=== PATIENT | male | born 1945 | race Caucasian/White ===

== ENCOUNTER 2017-07-14 09:04 | Inpatient (IN) | payer MEDICARE ==
[2017-07-14 09:38] LABS: Actual Bicarbonate (HCO3a) 26.5 mEq/L (22-26); Base Excess (BEa) 0.4 mEq/L (0 (+/-) 2.5); CO2 Tension 47.6 mmHg (35.0-45.0); Calcium, Ionized 1.2 mmol/L (1.12-1.30); Hemoglobin (Hb) 16.1 g/dL (14.0-18.0); O2 Tension (PaO2) 74.8 mmHg (80.0-100.0); pH, Arterial 7.36 (7.35-7.45)
[2017-07-14 09:39] LABS: Analyzer IN Cardio ER; Puncture Site L.R.
[2017-07-14 09:42] LABS: #Lymphocytes 0.5 thou/uL (1.20-3.40); #Neutrophils 7.5 thou/uL (1.40-6.50); %Basophils 0.1 % (0.0-1.0); %Eosinophils 0.2 % (0.0-10.0); %Lymphocytes 5.8 % (21.0-51.0); %Monocytes 11.4 % (0.0-10.0); %Neutrophils 82.6 % (42.0-75.0); Hemoglobin 16.6 g/dL (14.0-18.0); Mean Corpuscular HGB CONC 31.8 g/dL (32.0-36.0); Mean Corpuscular Volume 97.5 fl (80.0-94.0); Mean Platelet Volume 6.9 fL (7.4-10.4); Platelet Count 205 thou/uL (130-400); RBC Distribution Width 14.8 % (11.5-14.5); Red Blood Cell (RBC) Count 5.36 mill/uL (4.70-6.10)
--- NOTE | 2017-07-14 09:45 | RAD ---
PORTABLE CHEST: HISTORY: Dyspnea. COMPARISON: No comparison. FINDINGS: The heart is enlarged. There is mild vascular engorgement. No focal infiltrate. Lung bases are poo rly evaluated on this exam de to portable projection and overlying soft tissue attenuation. If there is concern of pneumonia, recommend upright PA and lateral views of chest. IMPRESSION: Cardiomegaly and mild vascular engorgement. POS: [facility]
[2017-07-14 10:06] LABS: CKMB 4.2 ng/mL (0-6.6); Troponin I 0.051 ng/mL (< 0.028)
[2017-07-14 10:08] LABS: ALT (SGPT) 36 U/L (8-55); AST (SGOT) 49 U/L (5-34); Albumin 3.5 g/dL (3.4-4.8); Alkaline Phosphatase 57 U/L (40-150); Anion Gap 17 mmol/L (10-20); BUN (Urea Nitrogen) 27 mg/dL (8.4-25.7); Bilirubin, Total 1.5 mg/dL (0.2-1.2); CK (CPK) 330 U/L (30-200); Calc. Creatinine Clearance 0 mL/min (70-130); Carbon Dioxide 25 mmol/L (23-31); Chloride 99 mmol/L (98-107); Estimated GFR-MDRD Greater than 90; Globulin 3.3 g/dL (2.4-3.5); Glucose 127 mg/dL (80-115); Potassium 4.8 mmol/L (3.5-5.1); Protein, Total 6.8 g/dL (5.8-8.1); Sodium 136 mmol/L (136-145)
[2017-07-14] MEDS ORDERED: Furosemide 40 MG/4 ML VIAL ONE (10:14)
[2017-07-14 13:07] LABS: Troponin I 0.064 ng/mL (< 0.028)
[2017-07-14] MEDS ORDERED: Guaifenesin DM 100-10/5 ML UDCUP PO PRN (14:25)
[2017-07-14] MEDS ORDERED: Acetaminophen 325 MG TAB PO PRN (14:25)
--- NOTE | 2017-07-14 14:50 | HP ---
REASON FOR ADMISSION: Acute respiratory failure with hypoxia, likely viral syndrome, possible pneumo olegario. HISTORY OF PRESENTING ILLNESS: The patient gives history of getting progressively weak and congested from Friday. He states his had flu-like illness and thinks that he might have caught up with that. On Friday, patient fell in the house. He could not get up as he was feeling very weak. [facility] ended up calling 911 and EMT came and got him up to the couch. He took a tablet of [place] and fell off the couch again in an hour and refined syrup operator had to be called again. They have suggested him to go to health system emergency room, but patient thought he will wait it out. This morning as symptoms, especially the generalized weakness was getting worse, patient made it to the emergency room. He states he has elena re arthritis in both his hips and uses crutches to walk from last 2 years. He has not seen an orthop edic specialist. No current complaints of chest pain or palpitation. He has not been able to lay fl at. On arrival, patient was brought on BiPAP here. They have tried to wean him, but he is still on 100% nonrebreather at present. PAST MEDICAL AND SURGICAL HISTORY: History of coronary artery disease with 3 stents placed [address] Reese, dyslipidemia, hypertension, and severe osteoarthritis in both hips. CURRENT MEDICATIONS: Patient takes carvedilol 6.25 mg twice daily, Plavix 75 mg daily, Norvasc 5 mg daily, simvastatin 20 mg p.o. at bedtime, lisinopril 20 mg twice daily, Lasix 20 mg daily, [place] p.r. n. for pain, and aspirin 325 mg daily. ALLERGIES: No known drug allergies. PERSONAL HISTORY: Quit smoking 10 years ago, prior to which has smoked one pack a day for nearly 20 years. Does not abuse alcohol or drugs. Lives with his . FAMILY HISTORY: Mother of lymphoma and its complications at the age of 62 years. Father o f heart failure and its complications at the age of 82 years. REVIEW OF SYSTEMS: The following complete review of systems was negative, unless otherwise mentioned in the HPI or below: Constitutional: Weight loss or gain, ability to conduct usual activities. Skin: Rash, itching. Eyes: Double vision, pain. ENT/Mouth: Nose bleeding, neck stiffness, pain, tenderness. Cardiovascular: Palpitations, dyspnea on exertion, orthopnea. Respiratory: Shortness of breath, wheezing, cough, hemoptysis, fever or night sweats. Gastrointestinal: Poor appetite, abdominal pain, heartburn, nausea, vomiting, constipation, or diarr hea. Genitourinary: Urgency, frequency, dysuria, nocturia. Musculoskeletal: Pain, swelling. Neurologic/Psychiatric: Anxiety, depression. Allergy/Immunologic: Skin rash, bleeding tendency. PHYSICAL EXAMINATION: GENERAL: The patient is a 71-year-old male who is currently on a nonrebreather and has orthopnea. VITAL SIGNS: Blood pressure 134/56, pulse 78 per minute, respiratory rate 24 per minute, temperature 99.8 degrees Fahrenheit, saturating 98% on BiPAP on arrival, currently 95% on 100% nonrebreather. ORAL CAVITY: Mucous membranes are moist. No exudates or congestion. CARDIOVASCULAR SYSTEM: S1, S2 heard. Regular rhythm. RESPIRATORY SYSTEM: Air entry 1+ bilateral. Scattered wheezes plus bilaterally. ABDOMEN: Soft, bowel sounds heard. No tenderness, rigidity or guarding. EXTREMITIES: His lower extremities are disproportionate. Patient states his left lower extremity is always bigger than the right. He attributes this to severe osteoarthritis in his hips. No calf ten derness. VASCULAR SYSTEM: Peripheral pulses 1+ bilateral. No ischemic ulcerations or gangrene. CENTRAL NERVOUS SYSTEM: No gross focal deficits seen. The patient moves all 4 extremities, although he is extremely deconditioned and in fact cannot mobilize himself at present on the [facility]. PSYCHIATRIC SYSTEM: No hallucinations or delusions. LABORATORY DATA AND IMAGING DATA: White count of 9, hemoglobin and hematocrit 16 and 52, platelet co unt 205. MCV is 97 with 82% neutrophils. Blood gas done shows pH of 7.36, pCO2 47, pO2 74, bicarbon ate is 26. Electrolytes are stable. BUN 27, creatinine 0.6, glucose 127, total bilirubin 1.5, AST 4 9, and ALT 36. CK level is 330, CK-MB 4.2, troponin I 0.05. BNP is 136. Albumin is 3.5. Chest x-r ay done shows cardiomegaly with pulmonary vascular congestion. EKG done shows bifascicular block wit h normal sinus rhythm at 80 beats per minute. CLINICAL IMPRESSION AND PLAN: The patient will be admitted to [facility] for acute respiratory failure wit h hypoxia. Possible viral syndrome with his having similar symptoms, possible obstructive sleep apnea with hypoventilation syndrome. He will be empirically placed on Levaquin and we will also yumi ce him on Tamiflu until his viral PCR comes back. He will also be on Solu-Medrol 40 mg IV q.6 hourly along with DuoNebs q.6 hourly. We will obtain an echo with 2D Doppler for LV function and ultrasoun d venous Doppler to rule out DVT in his lower extremities. We will obtain a CT of his pelvis to see severity of his osteoarthritis as patient is using crutches and with his body weight of nearly 117 ki lograms, likely he has been falling for the same reason. We will confirm the same. The patient is c urrently on nonrebreather and we will place him back on BiPAP for now. We will consult Dr. Nallely lackey is environmental officer for Pulmonology. CODE STATUS: FULL.
[2017-07-14] MEDS ORDERED: Benzonatate 100 MG CAP PO SCH (15:00)
--- NOTE | 2017-07-14 15:16 | CT ---
CT PELVIS WITHOUT CONTRAST: Date: 07/14/17 HISTORY: Severe arthritis in the hips. Fall. COMPARISON: None. FINDINGS: There appears to be an abnormal soft tissue density in the inferior pole of the left kidney. There is some perinephric stranding. There is also abnormal edema retroperitoneal near the level of the aorti c bifurcation to the iliac arteries. Fat-containing left-sided indirect inguinal hernia. Prostate is enlarged. Bilateral pars interarticular defects are present at L5 with Grade I anterolisthesis approximately 7. 0 mm. Moderate degenerative listhesis between the spinous processes of L4 and L5. Old deformity of th e coccyx. There is severe degenerative change of both hip joints with some bridging heterotopic ossification an d bridging osteophytes, likely limiting range of motion. There is sclerosis of both SI joints indicat ing degenerative disease. There is also severe degenerative disease of the pubic symphysis. Mild atrophy of the right iliacus and iliopsoas, likely from tendon injury. IMPRESSION: 1. Abnormal soft tissue density inferior pole left kidney with perinephric stranding. There is also abnormal edema which is retroperitoneal near the aortic bifurcation to the iliac arteries. Dedicated abdomen and pelvis CT with renal protocol recommended. 2. Severe degenerative disease of both hips. Right worse than left, with bridging osteophyte formati on of the right hip likely limiting patient's mobility. There is also severe degenerative disease of the left hip, although with only small bridging osteophytes. 3. Severe degenerative disease pubic symphysis. 4. Bilateral pars interarticularis defects L5 with Grade I anterolisthesis of approximately 7.0 mm. 5. Fat-containing left-sided direct inguinal hernia. 6. Atrophy of the right iliacus and iliopsoas muscles likely due to tendinous injury. 7. Marked prostatomegaly. POS: [facility]
[2017-07-14 16:11] LABS: Troponin I 0.059 ng/mL (< 0.028)
[2017-07-14] MEDS ORDERED: predniSONE 20 MG TAB PO SCH (16:30)
[2017-07-14] MEDS ORDERED: FLU VACC TS2017-18 (>65YR) 0.5 ML SYRINGE IM ONE (18:00)
[2017-07-14] MEDS: Carvedilol 6.25 MG TAB PO SCH (18:29)
--- NOTE | 2017-07-14 18:29 | ULT ---
BILATERAL LOWER EXTREMITY VENOUS DUPLEX SONOGRAM: History: Bilateral leg pain and swelling. FINDINGS: Each common femoral vein and greater saphenous junction are evaluated along with each femoral, deep f emoral, popliteal, and posterior tibial vein. There is good color and spectral doppler flow, compress ion and augmentation. IMPRESSION: No sonographic of DVT within either lower extremity. POS: [facility]
[2017-07-14] MEDS: guaiFENesin ER 600 MG TAB PO SCH (20:12)
[2017-07-14] MEDS: Docusate 100 MG CAP PO SCH (20:12)
--- NOTE | 2017-07-14 20:23 | CON ---
DATE OF CONSULTATION: 07/14/2017 SERVICE: Pulmonary Medicine. REASON FOR CONSULTATION: CU patient. HISTORY OF PRESENT ILLNESS: The patient is a 71-year-old white male with past medical history significant for increasing debility over a period of several years secondary to osteoarthritis. He has severe weakness. He is on multiple medications including narcotics. In this setting, he suffered a mechanical fall yesterday. EMS Services were contacted and brought to his house. They helped him and watched him for a brief period of time. They assessed him and ultimately, he was left at home. The next day, he took Yoder and inadvertently fell off his couch. He was incapable of getting back up. EMS Services once again came to his house and assessed him. He came to the hospital because of the severe weakness. He also had a little bit of a viral prodrome. He was found to be a touch hypoxemic on presentation. He was put on BiPAP briefly, but I really do not have any labs that supported the need for this. He is quickly deescalated back down to a nonrebreather, Ventimask, and then 3 liters nasal cannula, where he is breathing comfortably. He currently denies any fevers, chills, nausea, vomiting or shortness of breath. He has no chest discomfort. He is having a slight increasing cough for the past 2-3 days, productive of white slimy mucus. He is not having any fevers or sputum of color. He denies any nausea, vomiting, diarrhea, hot, red, swollen joints or new rashes. PAST MEDICAL HISTORY: 1. Coronary artery disease. 2. Dyslipidemia. 3. Hypertension. 4. Osteoarthritis, severe. ALLERGIES: No known drug allergies. MEDICATIONS: List of his inpatient medications were reviewed. No specific updates were made at this time. FAMILY HISTORY: Noncontributory. SOCIAL HISTORY: He has a greater than [id number] history of smoking. He quit 10 years ago. He denies any alcohol or illicit drugs. He currently lives with his and has no exposure to chemicals, dust, asbestosis or tuberculosis. He does not have any known lung disease. REVIEW OF SYSTEMS: General, head, ears, eyes, nose, throat, cardiovascular, respiratory, GI, , musculoskeletal, neurologic and skin is negative except as mentioned in the HPI. PHYSICAL EXAMINATION: VITAL SIGNS: Afebrile, pulse 51, respirations 14, saturation 95% on 3 liters nasal cannula, blood pressure 148/76. GENERAL: The patient is awake and alert. He has minimal respiratory distress, but tells me that he is breathing comfortably. HEENT: Normocephalic, atraumatic. Sclerae are white, conjunctivae pink. Oral and nasal mucosa is moist without lesions. LUNGS: Decent air entry bilaterally with no prolonged expiratory phase or wheezing. Dependent crackles are present in the bibasilar regions. HEART: Bradycardic. Regular. ABDOMEN: Soft, nontender, nondistended. Bowel sounds are positive. MUSCULOSKELETAL: No cyanosis or clubbing. There is 1-2+ pitting in the right lower extremity and no pitting in the left lower extremity. Chronic stasis changes are present. There is asymmetry to the size of the calf with the right calf being much larger. LABORATORY DATA: A pH 7.36, pCO2 of 47.6, pO2 of 75 on BiPAP at 12/7 at that time with an FiO2 of 50%. WBC 9.0, hemoglobin 16.6, platelets 205,000. Neutrophil count is 83%. Basic metabolic profile is unremarkable. Total bilirubin 1.5. Liver function studies are otherwise unremarkable. BNP 136, troponin 0.064. IMAGIN. CT of the pelvis demonstrates a renal lesion in the pole of the left kidney with perinephric stranding. There is also a retroperitoneal edema. Degenerative changes of both hips are present. Prostatomegaly is present. 2. Chest x-ray demonstrates pulmonary vascular congestion. There is cardiomegaly. Otherwise, there is no acute pleural parenchymal lung disease present. ASSESSMENT: 1. Acute hypoxic respiratory failure, resolving. 2. Acute on chronic heart failure, suspected. 3. Debility, chronic. 4. Osteoarthritis, severe. PLAN: Agree with ultrasound of the heart and leg. He is currently stable for transition out of the [facility] to the medical unit. I will deescalate his methylprednisolone to once daily dosing. I will consult physical therapy and case management because placement may be an issue moving forward. He would likely benefit from a stay in a rehab center, or fdc facility to pursue aggressive physical therapy. Cough suppressants will be interrupted. Otherwise, supportive management will be continued Pulmonary Critical Care will continue to follow while the patient remains in this location, but hopefully, he will be able to transition to the floor in short order. 70 minutes have been devoted to this patient in various activities. I personally reviewed all imaging studies and laboratory data noted within this document. For greater than fifty percent of this time, I was interacting with the patient at the bedside or coordinating care with the care team. For the remainder of the time I was immediately available to the patient in the hospital unit. PARKER
[2017-07-14] MEDS ORDERED: Oseltamivir 75 MG CAP PO SCH (21:00)
[2017-07-14] MEDS ORDERED: Famotidine 20 MG TAB PO SCH (21:00)
[2017-07-15 04:24] LABS: Band 17 % (5-11); Hemoglobin 14.9 g/dL (14.0-18.0); Lymphocytes 2 % (21-51); MDiff Complete? YES; Mean Corpuscular HGB CONC 31.9 g/dL (32.0-36.0); Mean Corpuscular Hemoglobin 31.1 pg (27.0-31.0); Mean Corpuscular Volume 97.4 fl (80.0-94.0); Mean Platelet Volume 6.7 fL (7.4-10.4); Monocytes 7 % (0-10); Neutrophil 74 % (42-75); PLT Morphology Comment Appears Adequate; Platelet Count 192 thou/uL (130-400); RBC Distribution Width 14.8 % (11.5-14.5); Red Blood Cell (RBC) Count 4.81 mill/uL (4.70-6.10); White Blood Cell (WBC) Count 9.4 thou/uL (4.8-10.8)
[2017-07-15 04:26] LABS: Anion Gap 12 mmol/L (10-20); BUN (Urea Nitrogen) 28 mg/dL (8.4-25.7); Calc. Creatinine Clearance 171 mL/min (70-130); Calcium 8.8 mg/dL (7.8-10.44); Carbon Dioxide 30 mmol/L (23-31); Chloride 97 mmol/L (98-107); Estimated GFR-MDRD Greater than 90; Glucose 135 mg/dL (80-115); Sodium 135 mmol/L (136-145)
[2017-07-15] MEDS: guaiFENesin ER 600 MG TAB PO SCH ×2 (09:19→20:38)
[2017-07-15] MEDS: Enoxaparin Sodium 40 MG/0.4 ML SYRINGE SC SCH (09:19)
[2017-07-15] MEDS: Aspirin 81 mg Enteric Coated Tablet PO SCH (09:20)
[2017-07-15] MEDS: Docusate 100 MG CAP PO SCH ×2 (09:20→20:38)
[2017-07-15] MEDS: predniSONE 20 MG TAB PO SCH (09:20)
[2017-07-15] MEDS: Furosemide 40 MG TAB PO SCH (09:20)
[2017-07-15] MEDS: Carvedilol 6.25 MG TAB PO SCH ×2 (09:24→17:57)
--- NOTE | 2017-07-15 11:56 | PQF ---
CLINICAL DOCUMENTATION IMPROVEMENT CLARIFICATION FORM: ICD-10 Updated PLEASE DO AN ADDENDUM TO THE PROGRESS NOTE WITH ANY DOCUMENTATION UPDATES OR ADDITIONS AND CARRY THROUGH TO DC SUMMARY. THANK YOU. DATE: 07/15 ATTN: DR. Leon GONZALEZ Please exercise your independent, professional judgment in responding to the clarification form. Clinical indicators are provided on the bottom of this form for your review. Please check appropriate box(s): BMI > 40 with associated diagnosis of: (check one) [ x ] Morbid (Severe) Obesity [ ] Overweight [ ] Obesity [ ] Other diagnosis [ ] Unable to determine For continuity of documentation, please document condition throughout progress notes and discharge summary. Thank You. BMI < 19 Under weight 19 - 24.9 Healthy 25.0 - 29.9 Slightly Overweight 30.0 - 34.9 Obese 35.0 - 39.9 Severely Obese 40.0 and Over Morbidly Obese CLINICAL INDICATORS - SIGNS / SYMPTOMS / LABS BMI: 40.9 RISKS: SEVERE DECONDITIONING WITH SEVERE OA B HIPS RECURRENT FALLS POSSIBLE OHS TREATMENTS: DIET ADDITIONAL STAFF FOR TURNING & ADL ASSISTANCE THANK YOU! Esme (This form is maintained as a part of the permanent medical record) 2014 [employer]. All Rights Reserved Esme Zhang RN, [email or web address] Office: [phone] [facility] HOSPITALJosh
[2017-07-15] MEDS ORDERED: ISOVUE-370 76%-LOCM 1 ML ONE (12:49)
--- NOTE | 2017-07-15 13:26 | PDOC.PN ---
- Subjective Encounter Start Date: 07/15/17 Encounter Start Time: 11:40 Subjective: still sob, is not able to bring up sputum -: at bedside -: is moving all extremities - Objective Resuscitation Status: Resuscitation Status FULL:Full Resuscitation MAR Reviewed: Yes Vital Signs & Weight: Vital Signs (12 hours) Temp Pulse Pulse Pulse Resp BP BP 07/15/17 09:24 161/85 H 07/15/17 08:47 81 74 186/79 H 07/15/17 08:00 98.9 F 78 20 07/15/17 06:26 55 L 18 07/15/17 04:00 99.1 F 57 L 20 BP BP Pulse Ox Pulse Ox Pulse Ox 07/15/17 09:24 07/15/17 08:47 193/94 H 90 L 91 L 07/15/17 08:00 180/74 H 91 L 07/15/17 06:26 07/15/17 04:00 159/79 H 92 L Weight Admit Weight 260 lb Weight 261 lb 1.6 oz I&O: 07/14/17 07/15/17 07/16/17 06:59 06:59 06:59 Intake Total 420 Output Total 380 Balance 40 Result Diagrams: 07/15/17 03:32 07/15/17 03:32 Phys Exam - Physical Examination HEENT: PERRLA, sclera anicteric Neck: no JVD, supple Respiratory: no wheezing rhonchi++ Cardiovascular: RRR, no significant murmur Gastrointestinal: soft, non-tender, positive bowel sounds Musculoskeletal: no edema, pulses present Neurological: non-focal, moves all 4 limbs Dx/Plan (1) Acute respiratory failure with hypoxia Code(s): J96.01 - ACUTE RESPIRATORY FAILURE WITH HYPOXIA Status: Acute (2) COPD exacerbation Code(s): J44.1 - CHRONIC OBSTRUCTIVE PULMONARY DISEASE W (ACUTE) EXACERBATION Status: Acute (3) Morbid obesity Code(s): E66.01 - MORBID (SEVERE) OBESITY DUE TO EXCESS CALORIES Status: Acute (4) TAMARA (obstructive sleep apnea) Code(s): G47.33 - OBSTRUCTIVE SLEEP APNEA (ADULT) (PEDIATRIC) Status: Suspected (5) Obesity hypoventilation syndrome Code(s): E66.2 - MORBID (SEVERE) OBESITY WITH ALVEOLAR HYPOVENTILATION Status : Suspected (6) Osteoarthritis Code(s): M19.90 - UNSPECIFIED OSTEOARTHRITIS, UNSPECIFIED SITE Status: Chronic Qualifiers: Osteoarthritis location: hip Osteoarthritis type: primary Laterality: bilateral Qualified Code(s): M16.0 - Bilateral primary osteoarthritis of hip (7) HTN (hypertension) Code(s): I10 - ESSENTIAL (PRIMARY) HYPERTENSION Status: Chronic Qualifiers: Hypertension type: essential hypertension Qualified Code(s): I10 - Essential (primary) hypertension - Plan is on levaquin, steroids, nebs -: will get neuro w/u if he remains deconditioned/aspiration symptoms -: has severe OA of hips, atrophy of ileopsoas and iliacus as well on CT -: will likely need rehab eval if he recovers -: May tx if he is good enough to clear oral/resp secretions if not prefer him * . staying in [facility]. is on oral lasix, encourage po intake will f/u viral pcr is -ve for resp pathogens Review of Systems - Medications/Allergies Allergies/Adverse Reactions: Allergies Allergy/AdvReac Type Severity Reaction Status Date / Time No Known Drug Allergies Allergy Verified 07/14/17 14:53 Medications: Current Medications Acetaminophen (Tylenol) 650 mg PO Q4H PRN PRN Reason: Headache/Fever or Pain Albuterol/Ipratropium (Duoneb) 3 ml NEB [id number] [facility] Last Admin: 07/15/17 06:26 Dose: 3 ml Aspirin (Ecotrin) 81 mg PO DAILY [facility] Last Admin: 07/15/17 09:20 Dose: 81 mg Carvedilol (Coreg) 6.25 mg PO BID-WM [facility] Last Admin: 07/15/17 09:24 Dose: 6.25 mg Docusate Sodium (Colace) 100 mg PO BID [facility] Last Admin: 07/15/17 09:20 Dose: 100 mg Enoxaparin Sodium (Lovenox) 40 mg SC 0900 [facility] Last Admin: 07/15/17 09:19 Dose: 40 mg Furosemide (Lasix) 40 mg PO DAILY-AC [facility] Last Admin: 07/15/17 09:20 Dose: 40 mg Guaifenesin (Mucinex) 1,200 mg PO Q12HR [facility] Last Admin: 07/15/17 09:19 Dose: 1,200 mg Levofloxacin 500 mg/ Device 100 mls @ 100 mls/hr IVPB 1500 [facility] Last Admin: 07/14/17 18:28 Dose: Not Given Prednisone (Prednisone) 40 mg PO QAM-WM [facility] Stop: 07/18/17 08:01 Last Admin: 07/15/17 09:20 Dose: 40 mg
[2017-07-15 14:51] LABS: Actual Bicarbonate (HCO3a) 30.1 mEq/L (22-26); Base Excess (BEa) 3.8 mEq/L (0 (+/-) 2.5); CO2 Tension 51.1 mmHg (35.0-45.0); Hematocrit-ABG 52.9 % (42.0-52.0); Hemoglobin (Hb) 15.9 g/dL (14.0-18.0); O2 Tension (PaO2) 56.8 mmHg (80.0-100.0); pH, Arterial 7.39 (7.35-7.45)
[2017-07-15 14:52] LABS: Calcium, Ionized 1.2 mmol/L (1.12-1.30)
[2017-07-15 14:53] LABS: ALV-art Gradient 162.525 (0-20); Puncture Site RRA
[2017-07-15] MEDS ORDERED: Diltiazem 125 MG in Sodium Chloride 0.9% 100 ML IVPB PRN (17:53)
[2017-07-15] MEDS ORDERED: Digoxin 0.5 MG/2 ML AMP SLOW IVP SCH (18:00)
[2017-07-15] MEDS ORDERED: Amiodarone HCl 450 MG, Admixture Fee 1 EACH in Dextrose 5% in Water 250 ML IVPB SCH ×6 (18:45→19:30)
[2017-07-15] MEDS ORDERED: Amiodarone HCl 150 MG, Admixture Fee 1 EACH in Dextrose 5% in Water 100 ML IVPB SCH ×6 (19:00→19:30)
--- NOTE | 2017-07-15 19:02 | CT ---
CT ARTERIOGRAM CHEST WITH IV CONTRAST AND 3D MIP IMAGIN07/15/17 HISTORY: Dyspnea. Tachycardia. FINDINGS: There is good contrast opacification of pulmonary arteries and thoracic aorta with normal branching o f the great vessels and mild calcification. Patchy infiltrate is present at each posterior lung base and the medial aspect of the right lung apex. No pneumothorax or mediastinal adenopathy. On the infer ior most images, hyperdense material layers within the dependent portion of the gallbladder lumen. IMPRESSION: 1. No CT evidence of pulmonary embolus. 2. Patchy areas of mild infiltrate throughout each lung may represent atelectasis. 3. Atherosclerosis. 4. Bilateral sludge chronic gallbladder dyskinesis. POS: [facility]
[2017-07-15 19:42] LABS: ALT (SGPT) 38 U/L (8-55); AST (SGOT) 26 U/L (5-34); Albumin 3.2 g/dL (3.4-4.8); Alkaline Phosphatase 68 U/L (40-150); Bilirubin, Direct 1.1 mg/dL (0.1-0.3); Bilirubin, Total 1.6 mg/dL (0.2-1.2); Protein, Total 6.1 g/dL (5.8-8.1)
--- NOTE | 2017-07-15 20:35 | PRG ---
DATE OF SERVICE: 07/15/2017 SERVICE: Pulmonary Medicine. INTERVAL HISTORY: The patient was doing really quite well until this afternoon when he developed a t achyarrhythmia. At that point, he had increasing oxygen requirements and was diaphoretic once again. He did not have any chest discomfort, but he had increasing mentation issues. His blood pressure r emained stable otherwise. We will repeat an ABG, which was essentially unremarkable. He ended up go ing down for an urgent CT of the chest to make sure no pulmonary embolus existed. Otherwise, there w as no interval change to his condition. He is back on BiPAP at this time. After the tachyarrhythmia became a little bit more typical, we repeated an EKG demonstrating characteristic changes consistent with atrial flutter. PHYSICAL EXAMINATION: VITAL SIGNS: Afebrile, pulse 135, blood pressure 136/95, respirations 35, saturation 97% on BiPAP cu rrently. GENERAL: The patient is somnolent, but wakes up and follows some simple commands with very little st imulation. HEENT: Normocephalic, atraumatic. Sclerae are white, conjunctivae pink. Oral and nasal mucosa is m oist without lesions. LUNGS: Decent air entry. There is a prolonged expiratory phase with a little bit of wheezing and cr ackles both present. No rhonchi. HEART: Tachycardic. Regular. ABDOMEN: Soft, nontender, nondistended. Bowel sounds are positive. MUSCULOSKELETAL: No cyanosis or clubbing. There is trace to 1+ pitting in the bilateral lower extre mities. GENITOURINARY: No Pena. NEUROLOGIC: Grossly nonfocal. LABORATORY DATA: WBC 9.4, hemoglobin 14.9, platelets 192,000. Band count is up trending to 17%. PH 7.39, pCO2 of 51.1, pO2 56 on 40% FiO2 at that time. Sodium 135, and stable. Basic metabolic profi le is otherwise unremarkable. Total bilirubin 1.6 and stable. Basic metabolic profile is otherwise unremarkable. TSH is barely below the normal range. Respiratory virus panel, blood cultures x2 are unremarkable. IMAGING: CTA of the chest demonstrates no evidence of pulmonary embolism. Patchy areas of mild infi ltrate throughout each lung, likely represents atelectasis. Gallbladder sludge is present with dyski nesis. ASSESSMENT: 1. Acute hypoxic respiratory failure. 2. Acute on chronic heart failure, suspected, echo pending. 3. Atrial flutter. 4. Osteoarthritis, severe. 5. Debility, chronic. PLAN: We will continue our antibiotics. Laboratories will be repeated tomorrow morning. He was yumi nicole on an amiodarone drip and a heparin drip for the time being. Supportive care with nebulized medi cations, steroids, and antibiotics will be continued. Pulmonary and Critical Care will continue to billy dozier for the time being.
[2017-07-16 05:12] LABS: Anion Gap 12 mmol/L (10-20); BUN (Urea Nitrogen) 30 mg/dL (8.4-25.7); Calc. Creatinine Clearance 162 mL/min (70-130); Carbon Dioxide 31 mmol/L (23-31); Chloride 97 mmol/L (98-107); Estimated GFR-MDRD Greater than 90; Glucose 132 mg/dL (80-115); Magnesium 2.1 mg/dL (1.6-2.6); Phosphorus 2.8 mg/dL (2.3-4.7); Potassium 4.3 mmol/L (3.5-5.1); Sodium 136 mmol/L (136-145)
[2017-07-16 05:27] LABS: Band 42 % (5-11); Hemoglobin 15.9 g/dL (14.0-18.0); Lymphocytes 8 % (21-51); MDiff Complete? YES; Macrocytosis SLIGHT = 6-15 cells (100X) (0-5/hpf); Mean Corpuscular HGB CONC 31.8 g/dL (32.0-36.0); Mean Corpuscular Hemoglobin 31.3 pg (27.0-31.0); Mean Corpuscular Volume 98.4 fl (80.0-94.0); Mean Platelet Volume 6.9 fL (7.4-10.4); Metamyelocyte 1 % (0-0); Monocytes 11 % (0-10); Neutrophil 38 % (42-75); PLT Morphology Comment Appears Adequate; Platelet Count 231 thou/uL (130-400); Polychromasia SLIGHT = 2-3 cells (100X) (0-2/hpf); RBC Distribution Width 15.1 % (11.5-14.5)
[2017-07-16] MEDS: Furosemide 40 MG TAB PO SCH (06:34)
[2017-07-16] MEDS: Aspirin 81 mg Enteric Coated Tablet PO SCH (09:39)
[2017-07-16] MEDS: Enoxaparin Sodium 40 MG/0.4 ML SYRINGE SC SCH (09:39)
[2017-07-16] MEDS: guaiFENesin ER 600 MG TAB PO SCH ×2 (09:40→20:50)
[2017-07-16] MEDS: Carvedilol 6.25 MG TAB PO SCH ×2 (09:40→16:16)
[2017-07-16] MEDS: Docusate 100 MG CAP PO SCH ×2 (09:40→20:50)
[2017-07-16] MEDS: predniSONE 20 MG TAB PO SCH (09:40)
[2017-07-16] MEDS ORDERED: Vancomycin HCl 1.5 GM in Sodium Chloride 0.9% 250 ML 300 ML IVPB SCH (12:30)
--- NOTE | 2017-07-16 12:41 | PRG ---
DATE OF SERVICE: 07/16/2017 SERVICE: Pulmonary Medicine. INTERVAL HISTORY: The patient is doing really well from a respiratory standpoint. He is breathing c omfortably. He was able to convert from his tachyarrhythmia yesterday to normal sinus rhythm. He clifton s demonstrated good hemodynamic stability. Otherwise, there has been no interval change to his condi tion. He had a CT scan yesterday demonstrating a small infiltrate in the right lower lobe that could be consistent with pneumonia. It started with some air bronchograms, making me think that a small p atch pneumonia does truly exists. PHYSICAL EXAMINATION: VITAL SIGNS: Afebrile with a T-max of 100.0, pulse 71, blood pressure 167/74, respirations 22 and sa turation 91% on 3 liters nasal cannula. GENERAL: The patient is awake and alert in no apparent distress. LUNGS: Decreased air entry with a prolonged expiratory phase and wheezing. HEART: Normal rate and regular. ABDOMEN: Soft, nontender and nondistended. Bowel sounds are positive. MUSCULOSKELETAL: No cyanosis or clubbing. There is no pitting in the bilateral lower extremities. NEUROLOGIC: Grossly nonfocal. LABORATORY DATA: WBC 10.0, hemoglobin 15.9 and platelets 231,000. Neutrophil count is 38 and his ba nd count is increasing to 42%. PH of 7.39, pCO2 of 51 and pO2 of 56. Basic metabolic profile is oth erwise unremarkable. Magnesium and phosphorus fall within the normal limits. Blood cultures x2 christos in negative. IMAGING DATA: CT of the chest demonstrates no evidence of a pulmonary embolism. 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 Atherosclerosis and sludge of the gallbladder is present. ASSESSMENT: 1. Acute hypoxic respiratory failure. 2. Acute on chronic diastolic heart failure. 3. Atrial flutter with rapid ventricular response, returned to sinus rhythm. 4. Osteoarthritis, severe. 5. Debility, chronic. 6. Weakness. DISCUSSION AND PLAN: Based on my neurologic exam, the patient really does not have significant weakn ess. He demonstrates pretty good strength in the bilateral lower and upper extremities. He has a ve ry good cough when he wants to. That being said, the band count continues to increase and he is havi ng some increasing abdominal discomfort. I am going to get a right upper quadrant ultrasound and his bilirubin was minimally elevated previously. We will let him use the BiPAP on an as needed basis. The patient will remain in the IMCU until we see that white blood cell count stabilizes. Pulmonary C ritical Care will continue to follow.
--- NOTE | 2017-07-16 12:55 | PDOC.PN ---
- Subjective Encounter Start Date: 07/16/17 Encounter Start Time: 11:25 Subjective: lethargic, responds well to verbal stimuli -: is moving all extremities -: at bedside - Objective Resuscitation Status: Resuscitation Status FULL:Full Resuscitation MAR Reviewed: Yes Vital Signs & Weight: Vital Signs (12 hours) Temp Pulse Resp BP BP Pulse Ox 07/16/17 12:21 97.6 F 68 20 134/85 92 L 07/16/17 10:54 99.5 F 71 22 H 91 L 07/16/17 09:40 167/74 H 07/16/17 04:59 71 07/16/17 04:00 99.6 F 70 27 H 160/89 H 95 07/16/17 02:23 96 07/16/17 01:04 58 L 26 H 96 Weight Admit Weight 260 lb Weight 257 lb 1 oz I&O: 07/15/17 07/16/17 07/17/17 06:59 06:59 06:59 Intake Total 420 590 Output Total 380 250 Balance 40 340 Result Diagrams: 07/16/17 03:46 07/16/17 03:46 Additional Labs: Accuchecks 07/15/17 14:39 POC Glucose 138 H Phys Exam - Physical Examination HEENT: PERRLA, sclera anicteric Neck: no JVD, supple Respiratory: no wheezing rhonchi++ Cardiovascular: RRR, no significant murmur Gastrointestinal: soft, non-tender, positive bowel sounds Musculoskeletal: no edema, pulses present Neurological: non-focal, moves all 4 limbs strength 5/5 in all 4 extremities, reflexes are present in all extremities lethargic but oriented well Dx/Plan (1) Acute respiratory failure with hypoxia Code(s): J96.01 - ACUTE RESPIRATORY FAILURE WITH HYPOXIA Status: Acute (2) COPD exacerbation Code(s): J44.1 - CHRONIC OBSTRUCTIVE PULMONARY DISEASE W (ACUTE) EXACERBATION Status: Acute (3) Morbid obesity Code(s): E66.01 - MORBID (SEVERE) OBESITY DUE TO EXCESS CALORIES Status: Acute (4) TAMARA (obstructive sleep apnea) Code(s): G47.33 - OBSTRUCTIVE SLEEP APNEA (ADULT) (PEDIATRIC) Status: Suspected (5) Obesity hypoventilation syndrome Code(s): E66.2 - MORBID (SEVERE) OBESITY WITH ALVEOLAR HYPOVENTILATION Status : Suspected (6) Osteoarthritis Code(s): M19.90 - UNSPECIFIED OSTEOARTHRITIS, UNSPECIFIED SITE Status: Chronic Qualifiers: Osteoarthritis location: hip Osteoarthritis type: primary Laterality: bilateral Qualified Code(s): M16.0 - Bilateral primary osteoarthritis of hip (7) HTN (hypertension) Code(s): I10 - ESSENTIAL (PRIMARY) HYPERTENSION Status: Chronic Qualifiers: Hypertension type: essential hypertension Qualified Code(s): I10 - Essential (primary) hypertension (8) Atrial flutter Code(s): I48.92 - UNSPECIFIED ATRIAL FLUTTER Status: Acute Qualifiers: Atrial flutter type: typical Qualified Code(s): I48.3 - Typical atrial flutter Comment: in sinus rhythm - Plan is on amiodarone, a.flutter converted to sinus -: on zosyn, asp, coreg, nebs, prednisone -: has 42% bands with normal wbc -: PT to work with him, oob to chair today and amb as tolerated -: bipap prn, will get ortho opinion for?intra-articular shot for amb purposes * . Review of Systems - Medications/Allergies Allergies/Adverse Reactions: Allergies Allergy/AdvReac Type Severity Reaction Status Date / Time No Known Drug Allergies Allergy Verified 07/14/17 14:53 Medications: Current Medications Acetaminophen (Tylenol) 650 mg PO Q4H PRN PRN Reason: Headache/Fever or Pain Albuterol/Ipratropium (Duoneb) 3 ml NEB [id number] [facility] Last Admin: 07/16/17 12:11 Dose: 3 ml Aspirin (Ecotrin) 81 mg PO DAILY [facility] Last Admin: 07/16/17 09:39 Dose: 81 mg Carvedilol (Coreg) 6.25 mg PO BID-WM [facility] Last Admin: 07/16/17 09:40 Dose: 6.25 mg Docusate Sodium (Colace) 100 mg PO BID [facility] Last Admin: 07/16/17 09:40 Dose: 100 mg Enoxaparin Sodium (Lovenox) 40 mg SC 0900 [facility] Last Admin: 07/16/17 09:39 Dose: 40 mg Furosemide (Lasix) 40 mg PO DAILY-AC [facility] Last Admin: 07/16/17 06:34 Dose: 40 mg Guaifenesin (Mucinex) 1,200 mg PO Q12HR [facility] Last Admin: 07/16/17 09:40 Dose: 1,200 mg Amiodarone HCl 450 mg/Miscellaneous Medication 1 each/ Dextrose/Water 259 mls @ 0 mls/hr IVPB INF [facility]ANT[facility]; As Directed PRN Reason: Protocol Last Admin: 07/15/17 19:50 Dose: 259 mls Amiodarone HCl 450 mg/Miscellaneous Medication 1 each/ Dextrose/Water 259 mls @ 0 mls/hr IVPB INF SANTY; As Directed PRN Reason: Protocol Last Admin: 07/16/17 06:34 Dose: 259 mls Piperacillin Sod/Tazobactam Sod 3.375 gm/ Miscellaneous Medication 1 each/ Sodium Chloride 100 mls @ 200 mls/hr IVPB Q6HR [facility] Vancomycin HCl 1.5 gm/Miscellaneous Medication 1 each/ Sodium Chloride 300 mls @ 200 mls/hr IVPB 0200,1400 [facility] Miscellaneous Medication (Pharmacy To Dose) 1 each IVPB ASDIR [facility] Prednisone (Prednisone) 40 mg PO QAM- [facility] Stop: 07/18/17 08:01 Last Admin: 07/16/17 09:40 Dose: 40 mg Sodium Chloride (Flush - Normal Saline) 10 ml IVF Q12HR [facility] Sodium Chloride (Flush - Normal Saline) 10 ml IVF PRN PRN PRN Reason: Saline Flush
--- NOTE | 2017-07-16 13:51 | CON ---
DATE OF CONSULTATION: 07/16/2017 REASON FOR CONSULTATION: Atrial fibrillation/flutter. REFERRING PROVIDER: Dr. Browning. HISTORY OF PRESENT ILLNESS: Mr. Campos is a 71-year-old gentleman, who has had multiple hospitalizatio ns for weakness and fatigue. I have discussed the case with Dr. Kumar Browning. It appears he likely i s septic. He had a respiratory distress yesterday and has had significant improvement over the last 24 hours. He did develop what appeared to be atrial fibrillation with RVR versus atrial flutter. He is now back in sinus rhythm. Mr. Campos does not give a history of having previous atrial fibrillation or flutter. He gives a histo ry of having CAD, status post stent placement x3 in the past. Dr. Magen Reese is the primary cardiol ogist. PAST MEDICAL HISTORY: CAD, hyperlipidemia, hypertension, osteoarthritis. MEDICATIONS: Coreg, lisinopril, Plavix, Lasix, simvastatin, Norvasc, [place], and aspirin. ALLERGIES: None. SOCIAL HISTORY: No current tobacco or alcohol use. FAMILY HISTORY: Negative for CAD. REVIEW OF SYSTEMS: Ten-point review of systems reviewed, and as above, otherwise negative. PHYSICAL EXAMINATION: VITAL SIGNS: Blood pressure 134/85, pulse 60, temperature 97.6. GENERAL: He does appear older than stated age. The patient appears his stated age. NEUROLOGIC: The patient is alert and oriented times 3 with no focal neurologic deficits. HEENT: Sclerae without icterus. Mouth has moist mucous membranes with normal pallor. NECK: No JVD. Carotid upstroke brisk. No bruits bilaterally. LUNGS: Clear to auscultation with unlabored respirations. BACK: No scoliosis or kyphosis. CARDIAC: Regular rate and rhythm with normal S1 and S2. No S3 or S4 noted. No significant rubs, mu rmurs, thrills, or gallops noted throughout the precordium. PMI is not displaced. There is no caridad ternal heave. ABDOMEN: Soft, nontender, nondistended. No peritoneal signs present. No hepatosplenomegaly. No abnormal striae. EXTREMITIES: 2+ femoral and 2+ dorsalis pedis pulses. No cyanosis, clubbing, or edema. SKIN: No gross abnormalities. PERTINENT LABORATORY DATA: Hemoglobin 15.9, creatinine 0.71, potassium 4.3. IMPRESSION: 1. Atrial fibrillation/flutter. 2. Sepsis. 3. Sedentary. 4. Osteoarthritis. 5. Coronary artery disease. RECOMMENDATIONS: Mr. Campos had a brief episode of atrial fibrillation/flutter. This may be related t o underlying sepsis. Continue to observe. We will stop amiodarone therapy. We will add low-dose be ta barry therapy. Continue carvedilol 6.25 one p.o. b.i.d. If ablation is needed, amiodarone will increase the threshold of inducibility. His last LVEF was felt to be normal with diastolic dysfunct ion.
[2017-07-16] MEDS ORDERED: Vancomycin HCl 1.5 GM, Admixture Fee 1 EACH in Sodium Chloride 0.9% 250 ML 300 ML IVPB SCH (14:00)
[2017-07-16] MEDS: Vancomycin HCl 1.5 GM, Admixture Fee 1 EACH in Sodium Chloride 0.9% 250 ML 300 ML IVPB SCH (16:16)
--- NOTE | 2017-07-16 17:06 | CON ---
DATE OF CONSULTATION: 07/16/2017 ORTHOPEDIC CONSULTATION REQUESTING PHYSICIAN: Thelma Rea M.D. CONSULTING PHYSICIAN: Elia Gomez M.D. REASON FOR CONSULTATION: Bilateral hip arthropathy. BRIEF CLINICAL HISTORY: Oscar is a 71-year-old white male who has been admitted to the Intensive Ca re Unit for pulmonary complications. CT examination was obtained of the chest, abdomen and pelvis wh ich demonstrated severe end-stage bilateral osteoarthritis of both hips. This is what we are consult ing. Clinically, patient is in poor health as he is not intubated, but he is struggling from a pulmo nary standpoint. PHYSICAL EXAMINATION: Both lower extremities are atrophic. Chronic dermal stasis changes noted bila terally. Internal and external rotation of the femur is very difficult and extremely painful for the patient. He sits in a semi recumbent position with flexed hips externally rotated and severe rigidi ty. IMAGING STUDIES: 1. AP pelvis pending. 2. CT examination pelvis demonstrates severe osteoarthritic changes of bilateral hips. Subchondral cystic changes found. There is also a question of an old fracture on the right femoral neck which ap pears to be impacted by my read. IMPRESSION: 1. Severe end-stage bilateral bicompartmental hip osteoarthritis. 2. Acute on chronic diastolic heart failure with hypoxia. 3. Depression, poor surgical candidate presently. PLAN: 1. AP pelvis will be obtained. 2. No surgical intervention is warranted at this point, but ultimately should he make significant im provement in his pulmonary status, consideration for hip arthroplasty might be considered.
--- NOTE | 2017-07-16 18:18 | RAD ---
AP PELVIS ONE VIEW 07/16/17 HISTORY: Hip pain. FINDINGS: There is complete loss of joint space of each hip with chronic remodeling and depression of the right femoral head and right acetabulum and bulky osteophytosis and subchondral sclerosis. On the left, there is moderate degree of osteophytosis with mild remodeling of the acetabulum and fem oral head. Prominent osteophytosis and subchondral sclerosis. Sacral ala and pelvic rings are intact. IMPRESSION: Severe osteoarthritic changes of each hip, right worse than left. POS: [facility]
[2017-07-16] MEDS: Piperacillin/Tazobactam 3.375 GM, Admixture Fee 1 EACH in Sodium Chloride 0.9% 100 ML IVPB SCH (18:24)
--- NOTE | 2017-07-16 18:52 | EKG ---
Test Reason : Blood Pressure : / mmHG Vent. Rate : 133 BPM Atrial Rate : 122 BPM P-R Int : 000 ms QRS Dur : 128 ms QT Int : 354 ms P-R-T Axes : 000 -85 029 degrees QTc Int : 526 ms Wide QRS tachycardia regular rhythm Left axis deviation Right bundle branch block Possible Lateral infarct , age undetermined Inferior infarct , age undetermined Abnormal ECG When compared with ECG of 14-JUL-2017 09:11, (Unconfirmed) Wide QRS tachycardia has replaced Sinus rhythm Vent. rate has increased BY [address] Leonardo GARVEY (3) on 07/16/2017 6:51:42 PM Referred By: VITA Confirmed By:DR. Leonardo GARVEY
--- NOTE | 2017-07-16 18:55 | EKG ---
Test Reason : Blood Pressure : / mmHG Vent. Rate : 101 BPM Atrial Rate : 277 BPM P-R Int : 000 ms QRS Dur : 134 ms QT Int : 362 ms P-R-T Axes : 014 -82 044 degrees QTc Int : 469 ms Atrial flutter with variable A-V block Left axis deviation Right bundle branch block Possible Lateral infarct , age undetermined Abnormal ECG When compared with ECG of 15-JUL-2017 16:34, (Unconfirmed) Atrial flutter has replaced Wide QRS tachycardia Confirmed by DR. Leonardo GARVEY (3) on 07/16/2017 6:54:59 PM Referred By: VITA Confirmed By:DR. Leonardo GARVEY
[2017-07-17] MEDS: Piperacillin/Tazobactam 3.375 GM, Admixture Fee 1 EACH in Sodium Chloride 0.9% 100 ML IVPB SCH ×4 (00:21→18:05)
[2017-07-17] MEDS: Vancomycin HCl 1.5 GM, Admixture Fee 1 EACH in Sodium Chloride 0.9% 250 ML 300 ML IVPB SCH ×4 (02:42→21:13)
[2017-07-17 04:10] LABS: #Lymphocytes 0.7 thou/uL (1.20-3.40); #Monocytes 1.1 thou/uL (0.11-0.59); #Neutrophils 9.1 thou/uL (1.40-6.50); %Eosinophils 0.1 % (0.0-10.0); %Monocytes 10.5 % (0.0-10.0); %Neutrophils 83.3 % (42.0-75.0); Hemoglobin 14.9 g/dL (14.0-18.0); Mean Corpuscular HGB CONC 32.8 g/dL (32.0-36.0); Mean Corpuscular Hemoglobin 31.9 pg (27.0-31.0); Mean Corpuscular Volume 97.3 fl (80.0-94.0); Mean Platelet Volume 6.5 fL (7.4-10.4); Platelet Count 238 thou/uL (130-400); RBC Distribution Width 14.8 % (11.5-14.5); Red Blood Cell (RBC) Count 4.67 mill/uL (4.70-6.10); White Blood Cell (WBC) Count 10.9 thou/uL (4.8-10.8)
[2017-07-17 04:30] LABS: Anion Gap 10 mmol/L (10-20); BUN (Urea Nitrogen) 36 mg/dL (8.4-25.7); CK (CPK) 24 U/L (30-200); Calc. Creatinine Clearance 145 mL/min (70-130); Calcium 8.8 mg/dL (7.8-10.44); Carbon Dioxide 34 mmol/L (23-31); Chloride 96 mmol/L (98-107); Estimated GFR-MDRD Greater than 90; Glucose 134 mg/dL (80-115); Potassium 4.3 mmol/L (3.5-5.1); Sodium 136 mmol/L (136-145)
[2017-07-17] MEDS: Furosemide 40 MG TAB PO SCH (06:58)
--- NOTE | 2017-07-17 08:23 | ULT ---
RIGHT UPPER QUADRANT ULTRASOUND: Date: 07-17-17 Comparison: Right upper quadrant pain and nausea. FINDINGS: Liver is at the upper limits of normal in size but otherwise normal in appearance. Pancreas is completely obscured by bowel gas. Right kidney measures 13 cm in length. There is a hypoechoic mass like structure in the mid portion o f the right kidney which measures 3.6 cm. Further evaluation with CT abdomen is recommended. There is increased echogenic material within the gallbladder lumen suggesting sludge. There is no gal lbladder calculus, gallbladder wall thickening, or pericholecystic fluid. Common duct is normal in ca liber measuring 0.3 cm. The visualized portions of the IVC demonstrate a normal sonographic appearance. IMPRESSION: 1. Hypoechoic mass mid portion right kidney. CT scan of the abdomen is recommended for further evalua tion and characterization. 2. Sludge within the gallbladder lumen, but no gallbladder calculus is seen. The common duct is levy l in caliber. Code T POS: [facility]
[2017-07-17] MEDS: Enoxaparin Sodium 40 MG/0.4 ML SYRINGE SC SCH (08:48)
[2017-07-17] MEDS: predniSONE 20 MG TAB PO SCH (08:49)
[2017-07-17] MEDS: Docusate 100 MG CAP PO SCH ×2 (08:49→21:09)
[2017-07-17] MEDS: guaiFENesin ER 600 MG TAB PO SCH ×2 (08:49→21:09)
[2017-07-17] MEDS: Carvedilol 6.25 MG TAB PO SCH ×2 (08:50→17:33)
[2017-07-17] MEDS: Aspirin 81 mg Enteric Coated Tablet PO SCH (08:50)
--- NOTE | 2017-07-17 11:20 | PQF ---
CLINICAL DOCUMENTATION IMPROVEMENT CLARIFICATION FORM: ICD-10 Updated PLEASE DO AN ADDENDUM TO THE PROGRESS NOTE WITH ANY DOCUMENTATION UPDATES OR ADDITIONS AND CARRY THROUGH TO DC SUMMARY. THANK YOU. DATE: 07/17 ATTN: DR. Leon GONZALEZ Please exercise your independent, professional judgment in responding to the clarification form. Clinical indicators are provided on the bottom of this form for your review. Please check appropriate box(s): DIASTOLIC HEART FAILURE: ACUITY [ ] Acute [ ] Acute on Chronic [ ] Chronic [ x ] Other diagnosis _No chf [ ] Unable to determine For continuity of documentation, please document condition throughout progress notes and discharge summary. Thank You. CLINICAL INDICATORS - SIGNS / SYMPTOMS / LABS PULMONOLOGY CONSULT DOCUMENTATION 07/14: ASSESSMENT: 2. ACUTE ON CHRONIC HEART FAILURE, SUSPECTED PULMONOLOGY PN 07/15: ASSESSMENT: 2. ACUTE ON CHRONIC HF, SUSPECTED, ECHO PENDING PULMONOLOGY PN 07/16: ASSESSMENT: 2. ACUTE ON CHRONIC DIASTOLIC HF BNP: 136 (07/14, ADMIT) TREATED IN ER W/IV LASIX CXR 07/14: MILD VASCULAR ENGORGEMENT ECHO 07/15: EF 50-55%, L [facility] RISKS: ACUTE RESPIRATORY FAILURE W/HYPOXIA CAD S/P STENTS HX OF CHF HTN AFIB/FLUTTER W/O HISTORY TREATMENTS: IMCU MONITORING PO LASIX (07/14 - PRESENT) SUPPLEMENTAL OXYGEN/BIPAP (07/14 - PRESENT) CARDIOLOGY CONSULT (07/16) ECHO (07/15) THANK YOU! Esme (This form is maintained as a part of the permanent medical record) 2014 [employer]. All Rights Reserved Esme Zhang RN, [email or web address] [email or web address] Office: [phone] [facility] HOSPITALJosh
[2017-07-17 13:43] LABS: Vancomycin, Trough 10.6 ug/mL
--- NOTE | 2017-07-17 14:43 | PRG ---
DATE OF SERVICE: 07/17/2017 SERVICE: Pulmonary Medicine. INTERVAL HISTORY: The patient is doing fine from a cardiovascular and respiratory standpoint. He is actually looking quite good today. He denies any current shortness of breath, nausea, vomiting. Otherwise, there has been no interval change to his condition. He had no events overnight. He remains in sinus rhythm. PHYSICAL EXAMINATION: VITAL SIGNS: Afebrile, pulse 72, blood pressure 131/77, respirations 21, saturation 93% on 3 liters nasal cannula. GENERAL: The patient is awake, alert, no apparent distress. LUNGS: Decent air entry. There is a slightly prolonged expiratory phase with polyphonic wheezing. The crackles on the right have improved a little bit. HEART: Normal rate, regular. ABDOMEN: Soft, nontender, nondistended. Bowel sounds are positive. MUSCULOSKELETAL: No cyanosis or clubbing. No pitting in the bilateral lower extremities. NEUROLOGIC: Grossly nonfocal. LABORATORY DATA: WBC 10.9, hemoglobin 14.9, platelets 238,000. Neutrophil count is 83%. Bicarbonate 34. Basic metabolic profile is otherwise unremarkable. CK has returned to normal at 24. IMAGING: Ultrasound of the abdomen demonstrates hypoechoic mass in the mid portion of the right kidney. Sludge in the gallbladder. ASSESSMENT: 1. Acute hypoxic respiratory failure. 2. Acute on chronic diastolic heart failure. 3. Atrial flutter with rapid ventricular response, returned to sinus rhythm. 4. Severe sepsis. 5. Community-acquired pneumonia. 6. Debility, chronic. DISCUSSION AND PLAN: At this point, he has actually turned the corner very nicely. We will continue mobilization efforts moving forward. He is stable from a respiratory standpoint for transition out of the IMCU to the regular telemetry unit. Pulmonary Critical Care will continue to follow along for the time being. We will continue our Zosyn and vancomycin. I will add strep urine antigen. Once he gets tuned up from a respiratory standpoint, he will hopefully be a candidate for bilateral hip surgeries as this is the thing that is causing his progressive debility over the last several years. PARKER
--- NOTE | 2017-07-17 15:00 | PDOC.PN ---
- Subjective Encounter Start Date: 07/17/17 Encounter Start Time: 12:00 Subjective: no new complaints -: at bedside -: has not mobilized much - Objective Resuscitation Status: Resuscitation Status FULL:Full Resuscitation MAR Reviewed: Yes Vital Signs & Weight: Vital Signs (12 hours) Temp Pulse Pulse Pulse Pulse Resp BP 07/17/17 13:43 70 20 07/17/17 12:04 72 21 H 07/17/17 10:53 98.1 F 72 24 H 07/17/17 09:10 72 69 70 07/17/17 08:52 98.6 F 72 20 07/17/17 08:50 157/79 H 07/17/17 08:20 07/17/17 08:19 70 20 07/17/17 07:15 98.6 F 72 23 H 07/17/17 04:00 98.4 F 72 18 BP BP BP BP Pulse Ox Pulse Ox Pulse Ox 07/17/17 13:43 93 L 07/17/17 12:04 131/77 89 L 07/17/17 10:53 135/82 93 L 07/17/17 09:10 140/83 164/87 H 147/76 H 89 L 92 L 07/17/17 08:52 90 L 07/17/17 08:50 07/17/17 08:20 90 L 07/17/17 08:19 90 L 07/17/17 07:15 120/70 91 L 07/17/17 04:00 130/71 93 L Pulse Ox Pulse Ox 07/17/17 13:43 07/17/17 12:04 07/17/17 10:53 07/17/17 09:10 77 L 82 L 07/17/17 08:52 07/17/17 08:50 07/17/17 08:20 07/17/17 08:19 07/17/17 07:15 07/17/17 04:00 Weight Admit Weight 260 lb Weight 255 lb 7 oz I&O: 07/16/17 07/17/17 07/18/17 06:59 06:59 06:59 Intake Total 590 1624 Output Total 250 1000 225 Balance 340 624 -225 Result Diagrams: 07/17/17 03:48 07/17/17 03:48 Phys Exam - Physical Examination HEENT: PERRLA, moist MMs Neck: no JVD, supple Respiratory: no wheezing, no rales rhonchi+ Cardiovascular: RRR, no significant murmur Gastrointestinal: soft, non-tender, positive bowel sounds Musculoskeletal: no edema, pulses present Neurological: non-focal, moves all 4 limbs Psychiatric: A&O x 3 Dx/Plan (1) Acute respiratory failure with hypoxia Code(s): J96.01 - ACUTE RESPIRATORY FAILURE WITH HYPOXIA Status: Acute (2) COPD exacerbation Code(s): J44.1 - CHRONIC OBSTRUCTIVE PULMONARY DISEASE W (ACUTE) EXACERBATION Status: Acute (3) Morbid obesity Code(s): E66.01 - MORBID (SEVERE) OBESITY DUE TO EXCESS CALORIES Status: Acute (4) TAMARA (obstructive sleep apnea) Code(s): G47.33 - OBSTRUCTIVE SLEEP APNEA (ADULT) (PEDIATRIC) Status: Suspected (5) Obesity hypoventilation syndrome Code(s): E66.2 - MORBID (SEVERE) OBESITY WITH ALVEOLAR HYPOVENTILATION Status : Suspected (6) Osteoarthritis Code(s): M19.90 - UNSPECIFIED OSTEOARTHRITIS, UNSPECIFIED SITE Status: Chronic Qualifiers: Osteoarthritis location: hip Osteoarthritis type: primary Laterality: bilateral Qualified Code(s): M16.0 - Bilateral primary osteoarthritis of hip (7) HTN (hypertension) Code(s): I10 - ESSENTIAL (PRIMARY) HYPERTENSION Status: Chronic Qualifiers: Hypertension type: essential hypertension Qualified Code(s): I10 - Essential (primary) hypertension (8) Atrial flutter Code(s): I48.92 - UNSPECIFIED ATRIAL FLUTTER Status: Acute Qualifiers: Atrial flutter type: typical Qualified Code(s): I48.3 - Typical atrial flutter Comment: in sinus rhythm - Plan is on vanc and zosyn -: prednisone, lasix daily -: asp, coreg, off amiodarone HR around 60's in sinus -: PT to mobilize oob to chair and amb as tolerated -: counselled reg ambulation to get better * . Review of Systems - Medications/Allergies Allergies/Adverse Reactions: Allergies Allergy/AdvReac Type Severity Reaction Status Date / Time No Known Drug Allergies Allergy Verified 07/14/17 14:53 Medications: Current Medications Acetaminophen (Tylenol) 650 mg PO Q4H PRN PRN Reason: Headache/Fever or Pain Albuterol/Ipratropium (Duoneb) 3 ml NEB [id number] [facility] Last Admin: 07/17/17 13:43 Dose: 3 ml Aspirin (Ecotrin) 81 mg PO DAILY [facility] Last Admin: 07/17/17 08:50 Dose: 81 mg Carvedilol (Coreg) 6.25 mg PO BID-[facility] Last Admin: 07/17/17 08:50 Dose: 6.25 mg Docusate Sodium (Colace) 100 mg PO BID [facility] Last Admin: 07/17/17 08:49 Dose: 100 mg Enoxaparin Sodium (Lovenox) 40 mg SC 0900 [facility] Last Admin: 07/17/17 08:48 Dose: 40 mg Guaifenesin (Mucinex) 1,200 mg PO Q12HR [facility] Last Admin: 07/17/17 08:49 Dose: 1,200 mg Piperacillin Sod/Tazobactam Sod 3.375 gm/ Miscellaneous Medication 1 each/ Sodium Chloride 100 mls @ 200 mls/hr IVPB Q6HR [facility] Last Admin: 07/17/17 11:23 Dose: 100 mls Vancomycin HCl 1.5 gm/Miscellaneous Medication 1 each/ Sodium Chloride 300 mls @ 200 mls/hr IVPB Q8HR [facility] Last Admin: 07/17/17 14:10 Dose: Not Given Miscellaneous Medication (Pharmacy To Dose) 1 each IVPB ASDIR [facility] Prednisone (Prednisone) 40 mg PO QAM-[facility] Stop: 07/18/17 08:01 Last Admin: 07/17/17 08:49 Dose: 40 mg Sodium Chloride (Flush - Normal Saline) 10 ml IVF Q12HR [facility] Last Admin: 07/17/17 08:51 Dose: 10 ml Sodium Chloride (Flush - Normal Saline) 10 ml IVF PRN PRN PRN Reason: Saline Flush Last Admin: 07/17/17 06:38 Dose: 10 ml
[2017-07-17 15:14] LABS: Legionella Urinary Ag Negative (Negative); Strep pneumo Urine Ag NEGATIVE (NEGATIVE)
--- NOTE | 2017-07-17 15:57 | PRG ---
DATE OF SERVICE: 07/17/2017 SUBJECTIVE: Mr. Campos's status is stable. He appears to have atrial tachycardia versus atrial flutte r on telemetry monitoring. He is currently asymptomatic. PHYSICAL EXAMINATION: VITAL SIGNS: Blood pressure 131/77, pulse 72, temperature 98.4. LUNGS: Rhonchi, rales bilaterally. CARDIAC: Regular rate and rhythm. ABDOMEN: Soft, nontender, nondistended. He is obese. EXTREMITIES: 2+ pitting edema. PERTINENT LABORATORY DATA: Hemoglobin 14.8, creatinine 0.78. IMPRESSION: Atrial flutter versus atrial tachycardia. RECOMMENDATIONS: From a CV standpoint, he is currently on Coreg for rate control. I am unsure wheth er this is atrial tachycardia versus atrial flutter. We will consult with EP. Antibiotic therapy clifton s been continued.
[2017-07-18] MEDS: Piperacillin/Tazobactam 3.375 GM, Admixture Fee 1 EACH in Sodium Chloride 0.9% 100 ML IVPB SCH ×4 (00:18→17:30)
[2017-07-18] MEDS ORDERED: Bisacodyl 10 MG SUPP PR SCH (05:00)
[2017-07-18] MEDS ORDERED: Magnesium Citrate 300 ML BOT PO SCH (05:00)
[2017-07-18 05:17] LABS: Anion Gap 13 mmol/L (10-20); BUN (Urea Nitrogen) 30 mg/dL (8.4-25.7); Calc. Creatinine Clearance 152 mL/min (70-130); Calcium 8.6 mg/dL (7.8-10.44); Carbon Dioxide 32 mmol/L (23-31); Chloride 97 mmol/L (98-107); Estimated GFR-MDRD Greater than 90; Glucose 130 mg/dL (80-115); Potassium 5.5 mmol/L (3.5-5.1); Sodium 136 mmol/L (136-145)
[2017-07-18 05:26] LABS: Band 13 % (5-11); Hemoglobin 15.5 g/dL (14.0-18.0); Lymphocytes 9 % (21-51); MDiff Complete? YES; Mean Corpuscular HGB CONC 32.3 g/dL (32.0-36.0); Mean Corpuscular Hemoglobin 31.4 pg (27.0-31.0); Mean Corpuscular Volume 97.1 fl (80.0-94.0); Mean Platelet Volume 6.1 fL (7.4-10.4); Monocytes 4 % (0-10); Neutrophil 74 % (42-75); Platelet Count 264 thou/uL (130-400); RBC Distribution Width 14.7 % (11.5-14.5); Red Blood Cell (RBC) Count 4.92 mill/uL (4.70-6.10); White Blood Cell (WBC) Count 15.4 thou/uL (4.8-10.8)
[2017-07-18] MEDS: Vancomycin HCl 1.5 GM, Admixture Fee 1 EACH in Sodium Chloride 0.9% 250 ML 300 ML IVPB SCH ×3 (06:30→22:22)
[2017-07-18] MEDS: Carvedilol 6.25 MG TAB PO SCH ×2 (09:11→17:29)
[2017-07-18] MEDS: guaiFENesin ER 600 MG TAB PO SCH ×2 (09:11→20:28)
[2017-07-18] MEDS: Docusate 100 MG CAP PO SCH ×2 (09:11→20:28)
[2017-07-18] MEDS: Enoxaparin Sodium 40 MG/0.4 ML SYRINGE SC SCH (09:11)
[2017-07-18] MEDS: predniSONE 20 MG TAB PO SCH (09:13)
[2017-07-18] MEDS: Aspirin 81 mg Enteric Coated Tablet PO SCH (09:13)
--- NOTE | 2017-07-18 13:10 | PRG ---
DATE OF SERVICE: 07/18/2017 SUBJECTIVE: Mr. Campos status is unchanged. He states he is feeling well. No current complaints. No chest pain or pressure noted. PHYSICAL EXAMINATION: VITAL SIGNS: Blood pressure 142/94, pulse 71, and temperature 98.2. LUNGS: Rhonchi and rales bilaterally. Mildly labored. GENERAL: Obese, appears older than stated age. HEART: Regular rate and rhythm, no new murmurs. ABDOMEN: Distended, obese. EXTREMITIES: 2+ pitting edema. PERTINENT LABORATORY DATA: Hemoglobin 15.5 and creatinine 0.74. IMPRESSION: 1. Atrial tachycardia versus atrial flutter. 2. Sepsis. 3. Pneumonia. RECOMMENDATIONS: EKG to assess atrial tachycardia versus atrial flutter. His atrial flutter may nee d anticoagulation therapy. Dr. Ozuna is not available today and was not available yesterday. If appe ars to be more consistent with atrial flutter, we will consult with Dr. Ozuna for possible ablation. Otherwise, continue antibiotic therapy.
[2017-07-18 14:16] LABS: Vancomycin, Trough 17.1 ug/mL
--- NOTE | 2017-07-18 14:28 | PDOC.PN ---
- Subjective Encounter Start Date: 07/18/17 Encounter Start Time: 12:15 Subjective: no new complaints -: at bedside -: has not amb or gotten up yet - Objective Resuscitation Status: Resuscitation Status FULL:Full Resuscitation MAR Reviewed: Yes Vital Signs & Weight: Vital Signs (12 hours) Temp Pulse Resp BP BP Pulse Ox 07/18/17 11:02 98.2 F 71 23 H 142/94 H 92 L 07/18/17 09:11 122/82 07/18/17 08:11 98.2 F 72 26 H 87 L 07/18/17 07:33 98.2 F 72 26 H 144/82 H 93 L 07/18/17 04:00 98.4 F 72 18 165/84 H 94 L Weight Admit Weight 260 lb Weight 259 lb I&O: 07/17/17 07/18/17 07/19/17 06:59 06:59 06:59 Intake Total 1624 3440 480 Output Total 1000 1475 175 Balance 624 1965 305 Result Diagrams: 07/18/17 04:33 07/18/17 04:33 Phys Exam - Physical Examination HEENT: PERRLA, moist MMs Neck: no JVD, supple Respiratory: no wheezing, no rales rhonchi++ Cardiovascular: RRR, no significant murmur Gastrointestinal: soft, non-tender, positive bowel sounds Musculoskeletal: no edema, pulses present Neurological: non-focal, moves all 4 limbs Psychiatric: A&O x 3 Dx/Plan (1) Acute respiratory failure with hypoxia Code(s): J96.01 - ACUTE RESPIRATORY FAILURE WITH HYPOXIA Status: Acute (2) Morbid obesity Code(s): E66.01 - MORBID (SEVERE) OBESITY DUE TO EXCESS CALORIES Status: Acute (3) TAMARA (obstructive sleep apnea) Code(s): G47.33 - OBSTRUCTIVE SLEEP APNEA (ADULT) (PEDIATRIC) Status: Suspected (4) Obesity hypoventilation syndrome Code(s): E66.2 - MORBID (SEVERE) OBESITY WITH ALVEOLAR HYPOVENTILATION Status : Suspected (5) Osteoarthritis Code(s): M19.90 - UNSPECIFIED OSTEOARTHRITIS, UNSPECIFIED SITE Status: Chronic Qualifiers: Osteoarthritis location: hip Osteoarthritis type: primary Laterality: bilateral Qualified Code(s): M16.0 - Bilateral primary osteoarthritis of hip (6) HTN (hypertension) Code(s): I10 - ESSENTIAL (PRIMARY) HYPERTENSION Status: Chronic Qualifiers: Hypertension type: essential hypertension Qualified Code(s): I10 - Essential (primary) hypertension (7) Atrial flutter Code(s): I48.92 - UNSPECIFIED ATRIAL FLUTTER Status: Acute Qualifiers: Atrial flutter type: typical Qualified Code(s): I48.3 - Typical atrial flutter Comment: in sinus rhythm (8) PNA (pneumonia) Code(s): J18.9 - PNEUMONIA, UNSPECIFIED ORGANISM Status: Acute Comment: cap (9) Sepsis Code(s): A41.9 - SEPSIS, UNSPECIFIED ORGANISM Status: Acute Qualifiers: Sepsis type: sepsis due to unspecified organism Qualified Code(s): A41.9 - Sepsis, unspecified organism (10) Acute exacerbation of CHF (congestive heart failure) Code(s): I50.9 - HEART FAILURE, UNSPECIFIED Status: Acute Qualifiers: Heart failure type: diastolic Qualified Code(s): I50.33 - Acute on chronic diastolic (congestive) heart failure Comment: ef of 50% - Plan is on zosyn and vanc -: nebs, off steroids from today -: is severely deconditioned and has not gotten up -: suggest chest physio? -: dc plan is to snf if he remains deconditioned and doesnot make any effort t * . -owards amb or atleast sit in a chair. I have d/w and have counselled him to make good effort with PT to mobilize Hip replacements when resp salter he is stable. Watch for renal function, electrolytes. Review of Systems - Medications/Allergies Allergies/Adverse Reactions: Allergies Allergy/AdvReac Type Severity Reaction Status Date / Time No Known Drug Allergies Allergy Verified 07/14/17 14:53 Medications: Current Medications Acetaminophen (Tylenol) 650 mg PO Q4H PRN PRN Reason: Headache/Fever or Pain Albuterol/Ipratropium (Duoneb) 3 ml NEB [id number] [facility] Last Admin: 07/18/17 13:36 Dose: 3 ml Aspirin (Ecotrin) 81 mg PO DAILY [facility] Last Admin: 07/18/17 09:13 Dose: 81 mg Carvedilol (Coreg) 6.25 mg PO BID-WM [facility] Last Admin: 07/18/17 09:11 Dose: 6.25 mg Docusate Sodium (Colace) 100 mg PO BID [facility] Last Admin: 07/18/17 09:11 Dose: 100 mg Enoxaparin Sodium (Lovenox) 40 mg SC 0900 [facility] Last Admin: 07/18/17 09:11 Dose: 40 mg Guaifenesin (Mucinex) 1,200 mg PO Q12HR [facility] Last Admin: 07/18/17 09:11 Dose: 1,200 mg Piperacillin Sod/Tazobactam Sod 3.375 gm/ Miscellaneous Medication 1 each/ Sodium Chloride 100 mls @ 200 mls/hr IVPB Q6HR [facility] Last Admin: 07/18/17 12:10 Dose: 100 mls Vancomycin HCl 1.5 gm/Miscellaneous Medication 1 each/ Sodium Chloride 300 mls @ 200 mls/hr IVPB Q8HR [facility] Last Admin: 07/18/17 13:51 Dose: 300 mls Miscellaneous Medication (Pharmacy To Dose) 1 each IVPB ASDIR [facility] Sodium Chloride (Flush - Normal Saline) 10 ml IVF Q12HR [facility] Last Admin: 07/18/17 09:14 Dose: 10 ml Sodium Chloride (Flush - Normal Saline) 10 ml IVF PRN PRN PRN Reason: Saline Flush Last Admin: 07/18/17 00:19 Dose: 10 ml
--- NOTE | 2017-07-18 15:14 | PRG ---
DATE OF SERVICE: 07/18/2017 SERVICE: Pulmonary Medicine. INTERVAL HISTORY: The patient is doing outstanding from a respiratory standpoint. He denies any current shortness of breath, fevers or chills. He does have mild respiratory distress when I look at him. That being said, he indicates he is breathing comfortably. He has had no overnight events. He tolerated a little bit of p.o. last night and had a small bowel movement today. Otherwise, there has been no interval change to his condition. OBJECTIVE: VITAL SIGNS: Afebrile, pulse 71, blood pressure 142/94, respirations 23, saturation 92% on 3 liters nasal cannula. GENERAL: The patient is awake and alert. He is in mild respiratory distress. LUNGS: Reduced air entry with a slightly prolonged expiratory phase and polyphonic wheezing as well as dependent crackles. No rhonchi are appreciated. HEART: Normal rate, regular. ABDOMEN: Soft. Distended. Bowel sounds are present. No rebound or guarding is identified. MUSCULOSKELETAL: No cyanosis or clubbing. There is no pitting in the bilateral lower extremities. There are chronic stasis changes present. GENITOURINARY: No Pena. NEUROLOGIC: Grossly nonfocal. He continues to demonstrate fairly decent strength. LABORATORY DATA: WBC 515.4, hemoglobin 15.5, platelets were 264,000. The neutrophil count has improved dramatically with a down trending band count to 13 %. The white blood cell count is trending up, but the patient looks better, his band count is improving, so I actually view this as a positive thing. Potassium 5.5, chloride 97, bicarbonate 32. Creatinine 0.74. Basic metabolic profile is otherwise unremarkable. CK 24. Vancomycin trough 17.1. Urine strep legionella antigens are unremarkable. Blood cultures x2 and respiratory virus culture are negative. ASSESSMENT: 1. Acute hypoxic respiratory failure. 2. Acute on chronic diastolic heart failure, currently euvolemic. 3. Atrial flutter with rapid ventricular response, return in normal sinus rhythm. 4. Severe sepsis. 5. Community-acquired pneumonia. 6. Osteoarthritis of the hips, severe. 7. Debility secondary to osteoarthritis. 8. Renal mass. DISCUSSION AND PLAN: The patient continues to move in the right direction, albeit slowly. I am not certain whether or not he has enough functional reserve to get through this hospital stay without needing mechanical ventilation. I believe he is on the dry side at this point. We are going to introduce a little bit of half normal saline to supplement his poor p.o. intake. As his p.o. intake improves, we will likely back off on the fluids. He can stay in the IMCU for the time being. If he gets tuned up a little bit more, we need to pursue bilateral hemiarthroplasty as soon as is reasonable. For the time being, empiric antibiotics will be continued. PARKER
[2017-07-18] MEDS: Sodium Chloride 0.45% 1,000 ML IV SCH (15:44)
[2017-07-18] MEDS: Enoxaparin Sodium 120 MG/0.8 ML SYRINGE SC SCH (20:27)
[2017-07-19] MEDS: Piperacillin/Tazobactam 3.375 GM, Admixture Fee 1 EACH in Sodium Chloride 0.9% 100 ML IVPB SCH ×4 (00:52→17:38)
[2017-07-19 05:09] LABS: Anion Gap 10 mmol/L (10-20); BUN (Urea Nitrogen) 25 mg/dL (8.4-25.7); Band 8 % (5-11); Calc. Creatinine Clearance 170 mL/min (70-130); Calcium 8.4 mg/dL (7.8-10.44); Carbon Dioxide 37 mmol/L (23-31); Chloride 96 mmol/L (98-107); Estimated GFR-MDRD Greater than 90; Glucose 99 mg/dL (80-115); Hemoglobin 14.9 g/dL (14.0-18.0); Lymphocytes 5 % (21-51); MDiff Complete? YES; Mean Corpuscular HGB CONC 32.4 g/dL (32.0-36.0); Mean Corpuscular Hemoglobin 32.4 pg (27.0-31.0); Mean Platelet Volume 6.3 fL (7.4-10.4); Monocytes 6 % (0-10); Myelocyte 1 % (0-0); Neutrophil 79 % (42-75); Nucleated RBC 1 % (0); Platelet Count 243 thou/uL (130-400); Potassium 5.1 mmol/L (3.5-5.1); RBC Distribution Width 14.6 % (11.5-14.5); Reactive Lymphocytes 1 % (0-10); Red Blood Cell (RBC) Count 4.59 mill/uL (4.70-6.10); Sodium 138 mmol/L (136-145); White Blood Cell (WBC) Count 14.1 thou/uL (4.8-10.8)
[2017-07-19] MEDS: Vancomycin HCl 1.5 GM, Admixture Fee 1 EACH in Sodium Chloride 0.9% 250 ML 300 ML IVPB SCH ×3 (06:31→21:32)
[2017-07-19] MEDS: Docusate 100 MG CAP PO SCH ×2 (07:30→20:46)
[2017-07-19] MEDS: Carvedilol 6.25 MG TAB PO SCH ×2 (07:42→17:34)
[2017-07-19] MEDS: guaiFENesin ER 600 MG TAB PO SCH ×2 (07:42→20:46)
[2017-07-19] MEDS: Enoxaparin Sodium 120 MG/0.8 ML SYRINGE SC SCH ×2 (07:42→20:46)
[2017-07-19] MEDS: Aspirin 81 mg Enteric Coated Tablet PO SCH (07:44)
--- NOTE | 2017-07-19 09:57 | PDOC.PN ---
- Subjective Encounter Start Date: 07/19/17 Encounter Start Time: 22:00 Expresses no complaint. Feels better. - Objective Resuscitation Status: Resuscitation Status FULL:Full Resuscitation Vital Signs & Weight: Vital Signs (12 hours) Temp Pulse Resp BP BP Pulse Ox 07/19/17 08:19 90 L 07/19/17 08:16 73 20 07/19/17 07:42 154/76 H 07/19/17 07:05 98.9 F 74 22 H 150/81 H 91 L 07/19/17 04:02 98.2 F 73 18 153/86 H 94 L 07/19/17 01:08 73 20 95 07/18/17 23:55 97.2 F L 72 17 148/80 H 98 Weight Admit Weight 260 lb Weight 260 lb 14.4 oz I&O: 07/18/17 07/19/17 07/20/17 06:59 06:59 06:59 Intake Total 3440 2490 Output Total 1475 175 Balance 1965 2315 Result Diagrams: 07/19/17 04:04 07/19/17 04:04 Phys Exam - Physical Examination Constitutional: NAD HEENT: sclera anicteric Neck: no JVD Respiratory: wheezing present Cardiovascular: RRR Gastrointestinal: soft, non-tender Musculoskeletal: edema present (+skin changes of venous insuffisiency.) Neurological: moves all 4 limbs Psychiatric: normal affect, A&O x 3 Dx/Plan (1) Acute exacerbation of CHF (congestive heart failure) Code(s): I50.9 - HEART FAILURE, UNSPECIFIED Status: Acute Qualifiers: Heart failure type: diastolic Qualified Code(s): I50.33 - Acute on chronic diastolic (congestive) heart failure Plan: Continue current management. Comment: ef of 50% (2) Acute respiratory failure with hypoxia Code(s): J96.01 - ACUTE RESPIRATORY FAILURE WITH HYPOXIA Status: Acute Plan: f/u with cardiology. Comment: improving. (3) Atrial flutter Code(s): I48.92 - UNSPECIFIED ATRIAL FLUTTER Status: Acute Qualifiers: Atrial flutter type: typical Qualified Code(s): I48.3 - Typical atrial flutter Plan: as per cardiology.. Anticoagulation per cardiology.. Comment: in sinus rhythm (4) Morbid obesity Code(s): E66.01 - MORBID (SEVERE) OBESITY DUE TO EXCESS CALORIES Status: Acute (5) HTN (hypertension) Code(s): I10 - ESSENTIAL (PRIMARY) HYPERTENSION Status: Chronic Qualifiers: Hypertension type: essential hypertension Qualified Code(s): I10 - Essential (primary) hypertension Plan: Monitor BP. Continue current med. for now. (6) Osteoarthritis Code(s): M19.90 - UNSPECIFIED OSTEOARTHRITIS, UNSPECIFIED SITE Status: Chronic Qualifiers: Osteoarthritis location: hip Osteoarthritis type: primary Laterality: bilateral Qualified Code(s): M16.0 - Bilateral primary osteoarthritis of hip (7) TAMARA (obstructive sleep apnea) Code(s): G47.33 - OBSTRUCTIVE SLEEP APNEA (ADULT) (PEDIATRIC) Status: Suspected - Plan Continue current therapy. -: F/u with consultants. * .
--- NOTE | 2017-07-19 10:20 | PDOC.EVN ---
Event Note - Event Note Event Note: Patient was noticed to have a renal mass on ultrasound.. We'll consult UROLOY.
[2017-07-19] MEDS: Sodium Chloride 0.45% 1,000 ML IV SCH (11:33)
[2017-07-19 12:59] LABS: Bilirubin Negative (Negative); Blood, Urine Negative (Negative); Clarity CLEAR (Clear); Glucose, Urine (Dipstick) Negative (Negative); Leukocyte Negative (Negative); Nitrite Negative (Negative); Protein, Urine (Dipstick) Negative (Neg-Trace); Specific Gravity, Urine 1.031 (1.002-1.036)
[2017-07-19 13:02] LABS: Bacteria/HPF None Seen HPF (None Seen); Hyaline Casts/LPF 0-3 HYALINE CAST LPF (0-3 Hyaline); Pathc Cast-AUWi Flag 0.13 (0-2.49); Squamous Epithelial 0-3 HPF (0-3); WBC/HPF 0-3 HPF (0-3)
[2017-07-19 13:23] LABS: Yeast-All Forms None Seen HPF (None Seen)
--- NOTE | 2017-07-19 13:43 | CON ---
INPATIENT CONSULTATION NOTE DATE OF CONSULTATION: 07/19/2017 REFERRING PHYSICIAN: Hospitalist. REASON FOR CONSULTATION: Right 3.6 cm hypoechoic lesion, incidentally found on a right upper quadrant ultrasound. HISTORY OF PRESENT ILLNESS: Mr. Campos is a 71-year-old male who was admitted on 07/14 due to respiratory failure. The patient lives in a private residence with his , history of having flu-like illness, patient has sedentary lifestyle due to severe osteoarthritis of his hips. He normally ambulates with crutches. There is a history of fall, EMS was called. The patient was subsequently found to have hypoxic respiratory failure, currently in step down unit. 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 He has a history of coronary artery disease, status post stent. CT of the pelvis with severe osteoarthritis of the hips. Given his current admission with respiratory failure, he is deemed a poor surgical candidate and currently on observation. He is also seeing Dr. Ochoa due to AFib/flutter, which was thought to be related to admitting respiratory failure, sepsis. He denies dysuria or gross hematuria. Does relate [id number] smoking history, quit 10 years ago. He states that his urinary flow is adequate; however, has urinary frequency every 3-4 hours. This continues throughout the night. Denies history of sexually transmitted diseases , no family history of prostate cancer or prior urologic assessment. CT of the pelvis obtained a few days ago demonstrated a soft tissue mass at the left lower pole, exophytic; however, this is suboptimally visualized as it was a CT of the pelvis, and has not addressed. CT of the chest demonstrates no evidence of pulmonary embolus, however possible gallbladder sludge. This prompted right upper quadrant ultrasound which demonstrated incidental hypoechoic right renal lesion. Subsequently, Urology was consulted for evaluation. The patient currently in step down IMCU, continues to have hypoxia, 87% on 3 liters. He is afebrile. PAST MEDICAL HISTORY: Coronary artery disease, hyperlipidemia, hypertension, severe bilateral osteoarthritis of his hips, morbid obesity and history of tobacco abuse, quit. PAST SURGICAL HISTORY: Denies surgery. CURRENT MEDICATIONS: Include Tylenol, albuterol, baby aspirin, carvedilol, Colace, Lovenox, Mucinex, Zosyn and vancomycin. ALLERGIES: No known drug allergies. SOCIAL HISTORY: A [id number] smoking history, quit 10 years ago. Denies illicit drug use or alcohol. Lives with his . FAMILY HISTORY: Positive for lymphoma and heart failure. REVIEW OF SYSTEMS: Ten-point review of systems as above, otherwise noncontributory. PHYSICAL EXAMINATION: GENERAL: The patient appears to be deconditioned, somewhat difficult to arouse ; however, per nursing staff, this is at baseline. Appears to be in no acute distress once aroused. HEENT: Grossly Unremarkable; conversational dyspnea HEART: Regular rate. LUNGS: Coarse breath sounds bilaterally. ABDOMEN: Morbidly obese. There is a small umbilical hernia. There is no rigidity, no rebound, no suprapubic tenderness. GENITOURINARY: His penis is buried due to morbid obesity; however, his glans penis is easily visualized, foreskin retracts easily with manual retraction. Testes are descended with no evidence of testicular mass. No scrotal edema. GALLO demonstrates enlarged prostate, volume greater than 50 grams. No palpable nodule, fluctuance or induration. EXTREMITIES: Gross venous stasis changes, chronic edema. No calf tenderness. PERTINENT LABS: White count on admission 9, currently 14; hemoglobin 14; platelets 243 and 79 segs. BUN 25 and creatinine 0.6. Blood culture is negative. No urinalysis has been obtained on this admission. PERTINENT IMAGING: CT of the pelvis without contrast dated 07/14/2017, which I have reviewed myself. There is a left lower pole exophytic soft tissue density. This is suboptimally evaluated as just the lower portion of the kidney was imaged. A fat containing left inguinal hernia and prostatic enlargement. Per my review, Volume estimated to be approximately 90 grams prostatic calcification, with no evidence of intravesical median lobe. Bladder itself was grossly unremarkable with no significant distention. Severe DJD bilateral hips, right greater than left. Severe DJD of the pubic symphysis. Bilateral L5 grade I anterolisthesis. CT of the angio chest; no evidence of pulmonary embolus, patchy infiltrate of the lungs, atelectasis, atherosclerosis, bilateral sludge and chronic gallbladder dyskinesis. Bilateral lower extremity venous duplex, no evidence of DVT. Renal ultrasound on 07/17/2017, demonstrates no evidence of right hydronephrosis. There is a 3.6 cm hypoechoic mass-like structure in the mid right pole. Recommend CT, sludge of the gallbladder lumen. No gallbladder stone is seen. IMPRESSION AND PLAN: Mr. Campos is a 71-year-old male with history of: 1. Coronary artery disease. 2. Morbid obesity. 3. Hyperlipidemia. 4. Severe bilateral osteoarthritis of the hips. 2. Decreased mobility, deconditioned status. Currently, admitted for respiratory failure/sepsis. 5. Urologic consultation obtained due to incidental renal mass is indeterminate. I recommend CT with and without IV contrast. Differential diagnosis reviewed with the patient. 6. Significant benign prostatic hypertrophy on CT of the pelvis. Recommend medical treatment with Avodart and Flomax. As he does demonstrate some irritative symptoms from large prostate, Flomax and Avodart are initiated. 7. Midstream UA C&S to be obtained. Further recommendations pending definitive imaging. MTDD
[2017-07-19] MEDS ORDERED: ISOVUE-370 76%-LOCM 1 ML ONE (14:36)
--- NOTE | 2017-07-19 15:18 | CT ---
CT OF THE ABDOMEN AND PELVIS WITHOUT AND WITH CONTRAST: HISTORY: Hematuria. Evaluate for renal mass. TECHNIQUE: Multiple contiguous axial images were obtained in a CT of the abdomen and pelvis without and with IV contrast. Postcontrast images were obtained in nephrographic and excretory phases. Coronal reformat s were performed. FINDINGS: There are nonenhancing cysts along the posterior aspect of both kidneys. The largest on the left traci sures 7.0 cm in size. The largest on the right measures 4.5 cm in size. No calcifications are seen in either kidney. No suspicious renal masses are identified. There is no evidence of hydronephrosis . Both ureters are unremarkable. No focal abnormality is seen in the urinary bladder. The prostate is enlarged and contains calcifications. The liver, gallbladder, adrenal glands, spleen, and pancreas are unremarkable. No free air, free flu id, or stranding changes are seen in the abdomen or pelvis. There are scattered diverticula in the colon. The small bowel is unremarkable. Atherosclerotic calc ifications are seen in the aorta. No abdominal or pelvic lymphadenopathy are seen. There is a small fat-containing left inguinal hernia. There are severe degenerative changes in both hips, right greater than left. Degenerative changes are seen in the spine. Atelectasis is seen in b oth lung bases, right greater than left. IMPRESSION: 1. Bilateral renal cysts. 2. Diverticulosis. 3. Left inguinal hernia. POS: [facility]
--- NOTE | 2017-07-19 15:33 | EKG ---
Test Reason : DYSPNEA Blood Pressure : / mmHG Vent. Rate : 080 BPM Atrial Rate : 080 BPM P-R Int : 176 ms QRS Dur : 134 ms QT Int : 396 ms P-R-T Axes : 000 -83 042 degrees QTc Int : 456 ms Normal sinus rhythm Right bundle branch block Left anterior fascicular block Bifascicular block Possible Lateral infarct , age undetermined Abnormal ECG Confirmed by ROCCO MARKS ([id number]), general expeditor MARCUS NOLEN ([id number]) on 07/19/2017 3:32:42 PM Referred By: Confirmed By:ROCCO MARKS
--- NOTE | 2017-07-19 16:03 | PRG ---
DATE OF SERVICE: 07/19/2017 SERVICE: Pulmonary Medicine. INTERVAL HISTORY: The patient is actually doing okay from a respiratory standpoint. I asked him how he fell today and he suggested to me that he actually feels a little bit better. He is still somnol ent. That being said, he is talking in short sentences today and has less conversational dyspnea. Adolfo perez has a little less paradoxical movement of his abdomen with his breathing. Otherwise, there has bee n not much change in his clinical situation. OBJECTIVE: VITAL SIGNS: Afebrile, pulse 74, blood pressure 159/91, respirations 20, saturation 91% on 3 liters nasal cannula. GENERAL: The patient is awake and alert. He is a little somnolent. He will fall back to sleep with no stimulation after 10 seconds. HEENT: Normocephalic, atraumatic. Sclerae are white, conjunctivae pink. Oral mucosa is moist witho ut lesions. LUNGS: Decent air entry. There is a minimally prolonged expiratory phase. I do not appreciate whee zing, but crackles are present throughout bilateral lung mancera. HEART: Normal rate, regular. ABDOMEN: Soft, nontender. It is distended, but there is no rebound or guarding. Bowel sounds are a ctive. GENITOURINARY: Pena catheter in place. NEUROLOGIC: Grossly nonfocal. He demonstrates decent strength throughout. LABORATORY DATA: WBC 14.1, hemoglobin 14.9, platelets 243,000. Neutrophil count is 79% and the band count continues to improve to 8%. Basic metabolic profile is otherwise unremarkable. His bicarbona te is up trending to 37, chloride 96 and stable, sodium 138. Urinalysis is unremarkable. Respirator y virus panel and blood culture x2 are unremarkable. IMAGING: CT of the abdomen and pelvis demonstrates bilateral renal cysts. There is diverticulosis i n left inguinal hernia. The previously noted hypoechoic foci of the kidney likely represent cystic c hanges of both kidneys. There is no hydronephrosis present. ASSESSMENT: 1. Acute hypoxic respiratory failure. 2. Acute on chronic diastolic heart failure. 3. Atrial flutter with rapid ventricular response, return in normal sinus rhythm. 4. Severe sepsis. 5. Community-acquired pneumonia. 6. Osteoarthritis of the hips, bilateral. 7. Debility secondary to hip arthritis. 8. Renal cysts. DISCUSSION AND PLAN: The patient continues to move in the correct direction. I am not certain wheth er or not he has got enough functional status to make it through this thing without intubation. He d oes look fairly tired, but indicates to me that he is feeling a little improved. As such, we will co ntinue supportive care to best of our ability. If he becomes increasingly somnolent and poorly respo nsive, ABG and likely intubation will occur. I do think that he can get through this acute illness. Once he does, he will likely require bilateral hip replacement surgeries. The renal masses that efrain perez previously suggested by ultrasound, we are likely cystic and do not require additional follow up. Neurology is following, however. He will remain in the IMCU until he more clearly turns the corner o r decompensates.
[2017-07-20] MEDS: Piperacillin/Tazobactam 3.375 GM, Admixture Fee 1 EACH in Sodium Chloride 0.9% 100 ML IVPB SCH ×4 (00:06→17:29)
[2017-07-20 05:15] LABS: Anion Gap 9 mmol/L (10-20); BUN (Urea Nitrogen) 32 mg/dL (8.4-25.7); Calc. Creatinine Clearance 202 mL/min (70-130); Calcium 8.4 mg/dL (7.8-10.44); Carbon Dioxide 34 mmol/L (23-31); Chloride 97 mmol/L (98-107); Estimated GFR-MDRD Greater than 90; Glucose 116 mg/dL (80-115); Sodium 135 mmol/L (136-145)
[2017-07-20 06:03] LABS: Band 12 % (5-11); Hemoglobin 13.2 g/dL (14.0-18.0); Lymphocytes 15 % (21-51); MDiff Complete? YES; Mean Corpuscular HGB CONC 32.3 g/dL (32.0-36.0); Mean Corpuscular Volume 99.2 fl (80.0-94.0); Mean Platelet Volume 6.6 fL (7.4-10.4); Monocytes 2 % (0-10); Neutrophil 71 % (42-75); Platelet Count 236 thou/uL (130-400); RBC Distribution Width 14.7 % (11.5-14.5); Red Blood Cell (RBC) Count 4.12 mill/uL (4.70-6.10); White Blood Cell (WBC) Count 15.4 thou/uL (4.8-10.8)
[2017-07-20] MEDS: Vancomycin HCl 1.5 GM, Admixture Fee 1 EACH in Sodium Chloride 0.9% 250 ML 300 ML IVPB SCH ×3 (06:18→22:28)
[2017-07-20] MEDS: Tamsulosin HCl 0.4 MG CAP PO SCH (08:02)
[2017-07-20] MEDS: Aspirin 81 mg Enteric Coated Tablet PO SCH (08:02)
[2017-07-20] MEDS: guaiFENesin ER 600 MG TAB PO SCH ×2 (08:02→20:06)
[2017-07-20] MEDS: Carvedilol 6.25 MG TAB PO SCH ×2 (08:02→17:29)
[2017-07-20] MEDS: Dutasteride 0.5 MG CAP PO SCH (08:02)
[2017-07-20] MEDS: Docusate 100 MG CAP PO SCH ×2 (08:03→20:07)
[2017-07-20] MEDS: Enoxaparin Sodium 120 MG/0.8 ML SYRINGE SC SCH ×2 (08:03→20:07)
--- NOTE | 2017-07-20 11:39 | PDOC.PN ---
- Subjective Encounter Start Date: 07/20/17 Encounter Start Time: 10:45 Expresses no specific complaint. - Objective Resuscitation Status: Resuscitation Status FULL:Full Resuscitation Vital Signs & Weight: Vital Signs (12 hours) Temp Pulse Resp BP BP Pulse Ox 07/20/17 08:51 93 L 07/20/17 08:50 78 16 07/20/17 08:02 147/65 H 07/20/17 07:44 98.5 F 75 18 155/77 H 93 L 07/20/17 03:57 98.1 F 75 19 152/85 H 96 07/20/17 00:40 95 Weight Admit Weight 260 lb Weight 263 lb 1.6 oz I&O: 07/19/17 07/20/17 07/21/17 06:59 06:59 06:59 Intake Total 2490 3542 Output Total 175 2135 160 Balance 2315 1407 -160 Result Diagrams: 07/20/17 04:13 07/20/17 04:13 Phys Exam - Physical Examination Constitutional: NAD (On O2 via NC.) HEENT: sclera anicteric Neck: no JVD Respiratory: wheezing present Cardiovascular: RRR Gastrointestinal: soft Musculoskeletal: edema present (With skin changes of chronic venous insufficiency.) Dx/Plan (1) Acute exacerbation of CHF (congestive heart failure) Code(s): I50.9 - HEART FAILURE, UNSPECIFIED Status: Acute Qualifiers: Heart failure type: diastolic Qualified Code(s): I50.33 - Acute on chronic diastolic (congestive) heart failure Comment: ef of 50% (2) Acute respiratory failure with hypoxia Code(s): J96.01 - ACUTE RESPIRATORY FAILURE WITH HYPOXIA Status: Acute Comment: improving. (3) Atrial flutter Code(s): I48.92 - UNSPECIFIED ATRIAL FLUTTER Status: Acute Qualifiers: Atrial flutter type: typical Qualified Code(s): I48.3 - Typical atrial flutter Comment: in sinus rhythm (4) Morbid obesity Code(s): E66.01 - MORBID (SEVERE) OBESITY DUE TO EXCESS CALORIES Status: Acute (5) HTN (hypertension) Code(s): I10 - ESSENTIAL (PRIMARY) HYPERTENSION Status: Chronic Qualifiers: Hypertension type: essential hypertension Qualified Code(s): I10 - Essential (primary) hypertension (6) Osteoarthritis Code(s): M19.90 - UNSPECIFIED OSTEOARTHRITIS, UNSPECIFIED SITE Status: Chronic Qualifiers: Osteoarthritis location: hip Osteoarthritis type: primary Laterality: bilateral Qualified Code(s): M16.0 - Bilateral primary osteoarthritis of hip (7) TAMARA (obstructive sleep apnea) Code(s): G47.33 - OBSTRUCTIVE SLEEP APNEA (ADULT) (PEDIATRIC) Status: Suspected - Plan Overall condition is improving. -: Continue current therapy. -: Was seen by because of hypoechoic mass on ultrasound of kidney.. -: CT of kidneys shows cysts, but no mass. * .
[2017-07-20] MEDS ORDERED: Furosemide 20 MG/2 ML VIAL SLOW IVP SCH (12:30)
--- NOTE | 2017-07-20 12:40 | PRG ---
DATE OF SERVICE: 07/20/2017 INPATIENT PROGRESS NOTE SUBJECTIVE: No new complaints, resting comfortably. I informed the patient regarding CT findings regarding workup for indeterminate renal mass demonstrating bilateral simple cysts with no evidence of enhancing renal mass. Incidentally noted, I informed the patient regarding microscopic hematuria in urine. He does relate that with initiation of Flomax/Avodart, his flow has improved. Denies sensation of incomplete void. He informs me today that he has a urologist, which he did not disclose to me yesterday. He sees Dr. Cook at the [facility]. PHYSICAL EXAMINATION: VITAL SIGNS: Stable. ABDOMEN: Morbidly obese, soft, nontender, nondistended. PERTINENT LABORATORY DATA: White count 15, hemoglobin 13, platelet 236, creatinine 0.5. Urine culture is negative. UA 4-6, rbc's. IMAGING DATA: CT of the abdomen and pelvis with and without IV contrast, bilateral renal cysts with no significant enhancing renal mass, no hydronephrosis, has previous large prostate volume approximately 80-90 grams. IMPRESSION AND PLAN: 1. Mr. Campos is a 71-year-old morbidly obese male currently admitted for acute respiratory failure. Urologic consultation obtained due to incidental bilateral renal lesions. CT demonstrates bilateral simple cysts not of concern. 2. Incidental large prostate on CT. 3. Microscopic hematuria. His voiding parameter has improved with Flomax; Avodart. Would be advised to downsize his prostate given his large prostate on CT volume. On today, he relates to me that he sees Dr. Cook. Informed patient to follow up with Dr. Cook electively for cystoscopy, if it has not been worked up in the past. will inform Dr. Cook tomorrow morning regarding patient's admission. [facility]
[2017-07-20 13:31] LABS: Vancomycin, Trough 19.6 ug/mL
--- NOTE | 2017-07-20 14:37 | PRG ---
DATE OF SERVICE: 07/20/2017 SERVICE: Pulmonary Medicine. INTERVAL HISTORY: The patient is really doing okay today. He tells me that he feels much improved. He does admittedly look a little less toxic today. That being said, he still has a little bit of in creased work of breathing. He has less conversational dyspnea and is able to get most of the sentenc e out before taking another breath. Otherwise, there has been no interval change to his condition. PHYSICAL EXAMINATION: VITAL SIGNS: Afebrile, pulse 76, blood pressure 113/67, respirations 22, saturation 93% on 3 liters nasal cannula. GENERAL: The patient is awake and alert. He is in minimal respiratory distress. HEENT: Normocephalic, atraumatic. Sclerae are white, conjunctivae pink. Oral and nasal mucosa is m oist without lesions. LUNGS: Excellent air entry. There is no prolonged expiratory phase. Crackles are present. Wheezin g is also noted. HEART: Normal rate, regular. ABDOMEN: Soft, nontender, nondistended. Bowel sounds are positive. MUSCULOSKELETAL: No cyanosis or clubbing. No pitting in the bilateral lower extremities. NEUROLOGIC: Grossly nonfocal. LABORATORY DATA: WBC 15.4 and up trending, hemoglobin 13.2, platelets 236,000. Neutrophil count is stable and the band count is up and down. Creatinine is 0.57, BUN 32. Anion gap 9, bicarb has impro yoni to 34. Sodium and chloride are just below the lower limits of normal. Potassium is 5.0. Aldola se previously came back slightly elevated. Urinalysis is unremarkable. Vancomycin trough today was 19.6. Strep and legionella urine antigens are negative. Respiratory virus culture, blood culture x2 , and urine culture are all negative. ASSESSMENT: 1. Acute hypoxic respiratory failure. 2. Acute on chronic diastolic heart failure. 3. Atrial flutter with rapid ventricular response, return to normal sinus rhythm. 4. Severe sepsis. 5. Community-acquired pneumonia. 6. Osteoarthritis of the hips, bilateral. 7. Debility secondary to advanced osteoarthritis. 8. Renal cysts. PLAN: We will leave the patient in the IMCU for the time being. We will continue empiric antibiotic s, nebulized medication. Steroids have been interrupted. Hopefully, over the next 24 to 48 hours, t he patient will make a significant improvement and be able to participate in a meaningful way with ph ysical therapy. If this occurs, he may go to PT in order to regain some strength prior to a bilatera l hemiarthroplasty. Ultimately, this will be required for him to survive long-term as his weakness i s directly stemming from his hip disease. Pulmonary will continue to follow.
--- NOTE | 2017-07-20 15:30 | EKG ---
Test Reason : Blood Pressure : / mmHG Vent. Rate : 072 BPM Atrial Rate : 288 BPM P-R Int : 000 ms QRS Dur : 146 ms QT Int : 430 ms P-R-T Axes : 003 -80 025 degrees QTc Int : 470 ms Atrial flutter with 4:1 A-V conduction Left axis deviation Right bundle branch block inferior OR unknown age Abnormal ECG When compared with ECG of 15-JUL-2017 17:40, Borderline criteria for Lateral infarct are no longer Present Confirmed by DR. Leonardo GARVEY ([id number]) on 07/20/2017 3:30:35 PM Referred By: IBAN Confirmed By:DR. Leonardo GARVEY
[2017-07-20 18:32] LABS: Bilirubin Negative (Negative); Blood, Urine Small (Negative); Clarity CLEAR (Clear); Glucose, Urine (Dipstick) Negative (Negative); Leukocyte Negative (Negative); Nitrite Negative (Negative); Protein, Urine (Dipstick) Negative (Neg-Trace); Specific Gravity, Urine 1.026 (1.002-1.036); Urobilinogen 0.2 mg/dL (0.2-1.0)
[2017-07-20 18:34] LABS: Bacteria/HPF None Seen HPF (None Seen); Hyaline Casts/LPF 0-3 HYALINE CAST LPF (0-3 Hyaline); Pathc Cast-AUWi Flag 0.81 (0-2.49); Squamous Epithelial 0-3 HPF (0-3); WBC/HPF 0-3 HPF (0-3)
[2017-07-20] MEDS ORDERED: Simethicone Chewable 80 MG TAB PO SCH (23:30)
[2017-07-21] MEDS: Piperacillin/Tazobactam 3.375 GM, Admixture Fee 1 EACH in Sodium Chloride 0.9% 100 ML IVPB SCH ×4 (00:06→17:35)
[2017-07-21 04:53] LABS: Band 4 % (5-11); Eosinophils 1 % (0-10); Hemoglobin 11.3 g/dL (14.0-18.0); Lymphocytes 4 % (21-51); MDiff Complete? YES; Mean Corpuscular HGB CONC 32.3 g/dL (32.0-36.0); Mean Corpuscular Hemoglobin 31.9 pg (27.0-31.0); Mean Corpuscular Volume 98.9 fl (80.0-94.0); Mean Platelet Volume 6.7 fL (7.4-10.4); Metamyelocyte 1 % (0-0); Monocytes 11 % (0-10); Myelocyte 1 % (0-0); Neutrophil 78 % (42-75); Platelet Count 237 thou/uL (130-400); RBC Distribution Width 14.8 % (11.5-14.5); Red Blood Cell (RBC) Count 3.53 mill/uL (4.70-6.10); White Blood Cell (WBC) Count 15.7 thou/uL (4.8-10.8)
[2017-07-21 04:55] LABS: Anion Gap 8 mmol/L (10-20); BUN (Urea Nitrogen) 34 mg/dL (8.4-25.7); Calc. Creatinine Clearance 200 mL/min (70-130); Calcium 8.3 mg/dL (7.8-10.44); Carbon Dioxide 37 mmol/L (23-31); Chloride 97 mmol/L (98-107); Estimated GFR-MDRD Greater than 90; Glucose 123 mg/dL (80-115); Potassium 4.7 mmol/L (3.5-5.1); Sodium 137 mmol/L (136-145)
[2017-07-21] MEDS: Vancomycin HCl 1.5 GM, Admixture Fee 1 EACH in Sodium Chloride 0.9% 250 ML 300 ML IVPB SCH ×3 (06:25→22:33)
[2017-07-21] MEDS: guaiFENesin ER 600 MG TAB PO SCH ×2 (08:07→20:38)
[2017-07-21] MEDS: Dutasteride 0.5 MG CAP PO SCH (08:07)
[2017-07-21] MEDS: Carvedilol 6.25 MG TAB PO SCH ×2 (08:07→17:35)
[2017-07-21] MEDS: Tamsulosin HCl 0.4 MG CAP PO SCH (08:07)
[2017-07-21] MEDS: Aspirin 81 mg Enteric Coated Tablet PO SCH (08:07)
[2017-07-21] MEDS: Enoxaparin Sodium 120 MG/0.8 ML SYRINGE SC SCH (08:08)
[2017-07-21] MEDS: Docusate 100 MG CAP PO SCH ×2 (08:08→20:37)
--- NOTE | 2017-07-21 08:59 | RAD ---
PORTABLE CHEST: HISTORY: Clinical status change. CCU followup. Shortness of breath. COMPARISON: 07/14/17. FINDINGS: The patient is rotated which distorts the chest. There is right effusion and right basilar infiltrat e and/or atelectasis. Mild left basilar infiltrate as well. IMPRESSION: Bibasilar opacifications, slightly more prominent than 07/14/17. POS: [facility]
--- NOTE | 2017-07-21 11:00 | PRG ---
DATE OF SERVICE: 07/21/2017 SERVICE: Pulmonary Medicine. INTERVAL HISTORY: The patient is doing great from a respiratory standpoint. Overnight, he had desat urations associated with obstructive events. He ended up getting on BiPAP. He did not like that thi ng, but he took it off this morning and he is breathing very comfortably. His and him both said that he is at baseline as far as respiratory status goes. He is always wheezing. The relates that he is constantly falling asleep whenever talking to people because of his horrendous sleep apnea . He denies any current fevers, chills, nausea, vomiting or diarrhea. Overnight, he had some black sticky stools. Otherwise, there were no events. PHYSICAL EXAMINATION: VITAL SIGNS: Afebrile, pulse 76, blood pressure 150/74, respirations 26, saturation 95% on 4 liters nasal cannula. GENERAL: The patient is awake and alert, no apparent distress. LUNGS: Decent air entry. There is a prolonged expiratory phase with some wheezing. No dependent cr ackles are appreciated. HEART: Normal rate and regular. ABDOMEN: Soft, nontender, and nondistended. Bowel sounds are positive. MUSCULOSKELETAL: No cyanosis or clubbing. There is trace pitting in the bilateral lower extremities . NEUROLOGIC: Grossly nonfocal. LABORATORY DATA: WBC 15.7, hemoglobin 11.3 and down trending, platelets 237,000. Neutrophils 78% wi th down trending band count once again. Creatinine 0.58 and BUN 34. Bicarbonate has increased once again to 37. Basic metabolic profile is otherwise unremarkable. Respiratory virus panel is negative . Blood cultures are negative and urine culture is also negative. IMAGING: Chest x-ray demonstrates extensive soft tissue attenuation. There is bibasilar opacificati ons which are more prominent compared to prior. Widening of the carinal angle is suggestive of left atrial enlargement or subcarinal lymphadenopathy. ASSESSMENT: 1. Acute on chronic hypoxic and hypercapnic respiratory failure. 2. Chronic diastolic heart failure, currently close to euvolemia. 3. Atrial flutter with rapid ventricular response, currently rate controlled. 4. Severe sepsis. 5. Community-acquired pneumonia, resolving. 6. Osteoarthritis of the hips, bilateral. 7. Gastrointestinal bleed, suspected from the upper location. 8. Acute blood loss anemia. 9. Debility secondary to advanced osteoarthritis. 10. Renal cyst. PLAN: We will trend the hemoglobin. We will put GI consultation and start PPI twice daily. Anticoa gulation will be interrupted for the time being. The large picture is that we have a very sticky sit uation here. If the patient cannot participate with physical therapy, then we need to proceed as linda n as possible with bilateral hip replacement. If we allow the patient to get weaker, he will become a poor candidate for the surgery as time goes on. Before we can proceed with that; however, we will need to do an EGD which may require intubation. The patient is stable. The evaluation of the atrial flutter from my perspective can be put on hold for the time being and take a backseat to these other things that are likely need to be addressed sooner. Pulmonary will continue to follow and will leav e him in this location. He does not like using BiPAP, but I have encouraged him to use it at night f or his obstructive sleep apnea. I will switch around the settings a little bit.
--- NOTE | 2017-07-21 11:25 | CON ---
DATE OF CONSULTATION: 07/21/2017 DICTATED BY: MARIS Blackwell REFERRING PHYSICIAN: Dr. Ochoa REASON FOR CONSULTATION: Atrial fibrillation and flutter with RVR. HISTORY OF PRESENT ILLNESS: Mr. Campos is a 71-year-old gentleman with multiple recent hospitalizations for weakness and fatigue. He had an episode of acute respiratory distress and appeared to be septic about a week ago. He has shown significant improvement since that time; however, did have an episode of atrial fibrillation versus atrial flutter with rapid ventricular response. He has since converted back to normal sinus rhythm. He has been on amiodarone which was discontinued for the possibility of an ablation. The patient denies a history of atrial arrhythmias, but does endorse a history of coronary artery disease with 3 prior stents placed in the past by his primary hat block maker, Dr. Magen Reese. The patient has recently developed very dark tarry stools and was previously on Lovenox, this was held this morning. PAST MEDICAL HISTORY: 1. Coronary artery disease with prior PCI and stenting x3. 2. Hyperlipidemia. 3. Hypertension. 4. Osteoarthritis. HOME MEDICATIONS: Coreg, lisinopril, Plavix, Lasix, simvastatin, Norvasc, [place] , and aspirin. ALLERGIES: None. SOCIAL HISTORY: Negative for tobacco habituation or alcohol abuse. FAMILY HISTORY: Negative for coronary artery disease or early onset before the age of 55. REVIEW OF SYSTEMS: Twelve point review of systems was conducted and is negative except that listed in the history of present illness. PHYSICAL EXAMINATION: VITAL SIGNS: Most recent vital signs; temperature 98.6 degrees Fahrenheit, pulse 76, respirations are 29, oxygen saturation is 95% on 4 liters via nasal cannula, blood pressure 147/65. GENERAL: This is a 71-year-old gentleman who does appear somewhat older than his stated age. He is an alert, oriented x3. His speech is clear. His affect is appropriate. NEUROLOGIC: Grossly intact cranial nerves II-XII and exam is nonfocal. HEENT: Sclerae are anicteric. EOMs are intact. NECK: Supple without jugular venous distention. Oral mucosa is moist and pink with adequate dentition. CHEST: Clear to auscultation, but the patient is tachypneic. Respirations are generally unlabored. HEART: His heart rate is currently regular. The patient is tachycardic intermittently. PMI is nondisplaced. ABDOMEN: Benign without palpable masses. The abdomen is soft and nontender. Hepatojugular reflex is negative. EXTREMITIES: Warm and dry to touch without clubbing, cyanosis or edema. DATABASE: Telemetry strips and EKGs were reviewed. The patient is currently in 3:1 atrial flutter which appears typical, heart rate is in the 80s-100 range. Hematology on 07/21/2017 - WBC 15.7, hemoglobin 11.3, hematocrit 34.9, platelet count is 237. Chemistry on 07/21/2017 - Sodium 137, potassium 4.7, chloride 97, CO2 is 37, BUN is 34, creatinine is 0.58. Chest x-ray on 07/21/2017; right effusion and right basilar infiltrate and/or atelectasis. Mild left basilar infiltrate as well. IMPRESSION: 1. Atrial flutter, possibly typical in morphology. 2. Respiratory failure, gradually improving, but continues to require supplemental oxygen given his pneumonia. 3. Diastolic heart failure with preserved ejection fraction of 50-55%. 4. Recent development of dark tarry stools and possible gastrointestinal bleed. Lovenox was held this morning, the patient has a GI referral and is likely having an EGD. PLAN: Atrial flutter ablation after medically stabilized. Agree with the discontinuation of the amiodarone for this purpose of the study. The patient will need his anticoagulation status addressed after a workup for gastrointestinal bleed. Risk benefits were discussed with the patient. Thank you for allowing us to participate in the care of this patient. [facility]
--- NOTE | 2017-07-21 12:56 | PQF ---
CLINICAL DOCUMENTATION IMPROVEMENT CLARIFICATION FORM: ICD-10 Updated PLEASE DO AN ADDENDUM TO THE PROGRESS NOTE WITH ANY DOCUMENTATION UPDATES OR ADDITIONS AND CARRY THROUGH TO DC SUMMARY. THANK YOU. DATE: 07/21 ATTN: DR. FABIOLA JACKSON Please exercise your independent, professional judgment in responding to the clarification form. Clinical indicators are provided on the bottom of this form for your review Diagnosis: SEVERE SEPSIS Present on Admission (POA): [x ] Yes [ ] No [ ] Unable to determine ER PRESENTATION 07/14 - RA SAT 89%, PLACED ON BIPAP, WEANED DOWN TO FACE MASK PHYSICIAN H&P DOCUMENTATION 07/14: CLINICAL IMPRESSION & PLAN: PATIENT WILL BE ADMITTED TO IMCU FOR ACUTE RESPIRATORY FAILURE W/HYPOXIA CARDIOLOGY CONSULT 07/16: HX OF PRESENT ILLNESS: IT APPEARS HE IS LIKELY SEPTIC ; IMPRESSION: 2. SEPSIS ATTENDING PN 07/16: PLAN: HAS 42% BANDS WITH NORMAL WBC ATTENDING PN 07/18: IMPRESSION: 9) SEPSIS PULMONOLOGY PN 07/17: IMPRESSION: 4) SEVERE SEPSIS; 07/18: 5) SEVERE SEPSIS; 07/19 & : 4) SEVERE SEPSIS CLINICAL INDICATORS - SIGNS / SYMPTOMS / LABS BANDS 07/15: 17%; INCREASED TO 42% ON 07/16 PRESENTED TO ER WITH ACUTE RESPIRATORY FAILURE W/HYPOXIA RR IN ER 07/14: 24 RISK FACTORS: DECONDITIONING ACUTE RESPIRATORY FAILURE PNEUMONIA TREATMENT: IV ANTIBIOTICS (LEVAQUIN 07/14 - ; VANCOMYCIN & ZOSYN 07/15 - PRESENT) IMCU MONITORING PULMONOLOGY CONSULT THANK YOU! Esme (This form is maintained as a part of the permanent medical record) 2014 [employer]. All Rights Reserved Esme Zhang RN, [email or web address] Office: [phone] [facility]
--- NOTE | 2017-07-21 13:05 | PQF ---
CLINICAL DOCUMENTATION IMPROVEMENT CLARIFICATION FORM: ICD-10 Updated PLEASE DO AN ADDENDUM TO THE PROGRESS NOTE WITH ANY DOCUMENTATION UPDATES OR ADDITIONS AND CARRY THROUGH TO DC SUMMARY. THANK YOU. DATE: 07/21 ATTN: DR. FABIOLA JACKSON Please exercise your independent, professional judgment in responding to the clarification form. Clinical indicators are provided on the bottom of this form for your review. Diagnosis: COMMUNITY ACQUIRED PNEUMONIA Present on Admission (POA): [x ] Yes [ ] No [ ] Unable to determine CLINICAL INDICATORS - SIGNS / SYMPTOMS / LABS PULMONOLOGY PN 07/16: CT SCAN DEMONSTRATING SMALL INFILTRATE RLL THAT COULD BE C /W PNEUMONIA. ...STARTED WITH BRONCHOGRAMS, MAKING ME THINK A SMALL PATCH PNEUMONIA DOES TRULY EXIST PULMONOLOGY PN 07/17 - 4: IMPRESSION: 5) COMMUNITY ACQUIRED PNEUMONIA CARDIOLOGY PN 07/18: IMPRESSION: 3) PNEUMONIA ATTENDING PN 07/18: IMPRESSION: 8) PNEUMONIA, COMMUNITY ACQUIRED RISK FACTORS: DECONDITIONING ACUTE RESPIRATORY FAILURE W/HYPOXIA ON ADMIT (07/14) SEPSIS TREATMENT: IV ANTIBIOTICS (LEVAQUIN 07/14 & ; VANCOMYCIN & ZOSYN 07/15 - PRESENT) PULMONOLOGY CONSULT THANK YOU! Esme (This form is maintained as a part of the permanent medical record) 2014 [employer]. All Rights Reserved Esme Zhang RN, [email or web address] Office: [phone] [facility] CENTERJosh
--- NOTE | 2017-07-21 15:20 | PDOC.PN ---
- Subjective Encounter Start Date: 07/21/17 Encounter Start Time: 11:00 Patient is seen today, alert and oriented. He is on nasal Canula but on Bipap intermittant. He is noted to Have GI bleeding today with Black stool, Gi is consulted. - Objective Resuscitation Status: Resuscitation Status FULL:Full Resuscitation MAR Reviewed: Yes Vital Signs & Weight: Vital Signs (12 hours) Temp Pulse Pulse Pulse Resp BP BP 07/21/17 13:50 76 28 H 07/21/17 11:59 97.8 F 75 20 07/21/17 09:40 76 77 151/62 H 07/21/17 08:22 76 29 H 07/21/17 08:13 75 26 H 07/21/17 08:07 147/65 H 07/21/17 08:00 98.6 F 76 20 07/21/17 07:33 98.6 F 76 20 07/21/17 04:00 99.1 F 81 18 BP BP Pulse Ox Pulse Ox Pulse Ox 07/21/17 13:50 91 L 07/21/17 11:59 155/70 H 91 L 07/21/17 09:40 155/77 H 91 L 91 L 07/21/17 08:22 95 07/21/17 08:13 90 L 07/21/17 08:07 07/21/17 08:00 91 L 07/21/17 07:33 150/74 H 92 L 07/21/17 04:00 156/84 H 99 Weight Admit Weight 260 lb Weight 265 lb 8 oz I&O: 07/20/17 07/21/17 07/22/17 06:59 06:59 06:59 Intake Total 3542 1450 Output Total 2135 2510 Balance 1407 -1060 Result Diagrams: 07/21/17 03:54 07/21/17 03:54 Additional Labs: Accuchecks 07/21/17 01:30 POC Glucose 168 H Radiology Reviewed by me: Yes Phys Exam - Physical Examination HEENT: PERRLA, moist MMs Neck: no nodes, no JVD Respiratory: wheezing present Crackles In Both Lungs noted. Cardiovascular: RRR, no significant murmur Gastrointestinal: soft, non-tender Musculoskeletal: edema present Neurological: non-focal, normal sensation Lymphatic: no nodes Dx/Plan (1) Melena Code(s): K92.1 - MELENA Status: Acute Comment: Patient dropped Hb from 13 to 11, GI is Consulted, will start patiebnt on protonix 40mg IV BID. Follow GI recommedations (2) Acute exacerbation of CHF (congestive heart failure) Code(s): I50.9 - HEART FAILURE, UNSPECIFIED Status: Acute Qualifiers: Heart failure type: diastolic Qualified Code(s): I50.33 - Acute on chronic diastolic (congestive) heart failure Comment: ef of 50%, Cardilogy Following, COntinue with ACEI/ BB. (3) Acute respiratory failure with hypoxia Code(s): J96.01 - ACUTE RESPIRATORY FAILURE WITH HYPOXIA Status: Acute Comment: improving. Pulmonary Following, pt on intermittant Bipap, very labile. Continue Nebs (4) Atrial flutter Code(s): I48.92 - UNSPECIFIED ATRIAL FLUTTER Status: Acute Qualifiers: Atrial flutter type: typical Qualified Code(s): I48.3 - Typical atrial flutter Comment: in sinus rhythm, Follow Dr. Ozuna Recommedations, plans for Ablation later. (5) Morbid obesity Code(s): E66.01 - MORBID (SEVERE) OBESITY DUE TO EXCESS CALORIES Status: Acute (6) PNA (pneumonia) Code(s): J18.9 - PNEUMONIA, UNSPECIFIED ORGANISM Status: Acute Comment: cap , Continue with IV antibiotics per pulmonary. (7) Sepsis Code(s): A41.9 - SEPSIS, UNSPECIFIED ORGANISM Status: Acute Qualifiers: Sepsis type: sepsis due to unspecified organism Qualified Code(s): A41.9 - Sepsis, unspecified organism Comment: Improving. (8) HTN (hypertension) Code(s): I10 - ESSENTIAL (PRIMARY) HYPERTENSION Status: Chronic Qualifiers: Hypertension type: essential hypertension Qualified Code(s): I10 - Essential (primary) hypertension - Plan cont current plan of care, continue antibiotics, PT/OT, clinical social worker, incentive spirometry, DVT proph w/SCDs * . - Discharge Day Encounter end time: 11:40 Review of Systems - Review of Systems Eyes: negative: Pain, Vision Change, Conjunctivae Inflammation, Eyelid Inflammation, Redness, Other ENT: negative: Ear Pain, Ear Discharge, Nose Pain, Nose Discharge, Nose Congestion, Mouth Pain, Mouth Swelling, Throat Pain, Throat Swelling, Other Respiratory: Cough, Shortness of Breath, Wheezing. negative: Dry, Hemoptysis, SOB with Excertion, Pleuritic Pain, Sputum Cardiovascular: orthopnea, paroxysmal nocturnal dyspnea, edema Gastrointestinal: negative: Nausea, Vomiting, Abdominal Pain, Diarrhea, Constipation, Melena, Hematochezia, Other Musculoskeletal: negative: Neck Pain, Shoulder Pain, Arm Pain, Back Pain, Hand Pain, Leg Pain, Foot Pain, Other Skin: negative: Rash, Lesions, [place], Bruising, Other - Medications/Allergies Allergies/Adverse Reactions: Allergies Allergy/AdvReac Type Severity Reaction Status Date / Time No Known Drug Allergies Allergy Verified 07/14/17 14:53 Medications: Current Medications Acetaminophen (Tylenol) 650 mg PO Q4H PRN PRN Reason: Headache/Fever or Pain Last Admin: 07/19/17 07:42 Dose: 650 mg Albuterol/Ipratropium (Duoneb) 3 ml NEB [id number] [facility] Last Admin: 07/21/17 13:50 Dose: 3 ml Aspirin (Ecotrin) 81 mg PO DAILY [facility] Last Admin: 07/21/17 08:07 Dose: 81 mg Carvedilol (Coreg) 6.25 mg PO BID-[facility] Last Admin: 07/21/17 08:07 Dose: 6.25 mg Docusate Sodium (Colace) 100 mg PO BID [facility] Last Admin: 07/21/17 08:08 Dose: Not Given Dutasteride (Avodart) 0.5 mg PO DAILY [facility] Last Admin: 07/21/17 08:07 Dose: 0.5 mg Guaifenesin (Mucinex) 1,200 mg PO Q12HR [facility] Last Admin: 07/21/17 08:07 Dose: 1,200 mg Piperacillin Sod/Tazobactam Sod 3.375 gm/ Miscellaneous Medication 1 each/ Sodium Chloride 100 mls @ 200 mls/hr IVPB Q6HR [facility] Last Admin: 07/21/17 12:27 Dose: 100 mls Vancomycin HCl 1.5 gm/Miscellaneous Medication 1 each/ Sodium Chloride 300 mls @ 200 mls/hr IVPB Q8HR [facility] Last Admin: 07/21/17 14:12 Dose: 300 mls Miscellaneous Medication (Pharmacy To Dose) 1 each IVPB ASDIR [facility] Pantoprazole Sodium (Protonix) 40 mg IVP Q12HR [facility] Sodium Chloride (Flush - Normal Saline) 10 ml IVF Q12HR [facility] Last Admin: 07/21/17 08:07 Dose: 10 ml Sodium Chloride (Flush - Normal Saline) 10 ml IVF PRN PRN PRN Reason: Saline Flush Last Admin: 07/20/17 06:19 Dose: 10 ml Tamsulosin HCl (Flomax) 0.4 mg PO DAILY [facility] Last Admin: 07/21/17 08:07 Dose: 0.4 mg
--- NOTE | 2017-07-21 20:12 | CON ---
DATE OF CONSULTATION: 07/21/2017 CHIEF COMPLAINT: Blood in stool. HISTORY OF PRESENT ILLNESS: Mr. Campos is a 71-year-old man, who was admitted with weakness and was fo und to have acute respiratory failure and pneumonia. He developed atrial flutter while he is in the hospital. He has since been extubated and started on full dose anticoagulation with Lovenox. This m orning, he started having multiple black tar-like stools. He has had no nausea or vomiting. No abdo palmer pain associated with this. No change in his shortness of breath or chest pain. He has had no prior GI bleed. No prior colonoscopies done. PAST MEDICAL HISTORY: Coronary artery disease, status post coronary stents; dyslipidemia; hypertensi on; and severe osteoarthritis of both hips for which he is immobile. He has COPD and obesity hypoven tilation syndrome. PAST SURGICAL HISTORY: Negative other than the coronary stents. FAMILY HISTORY: Negative for GI malignancies. SOCIAL HISTORY: He quit smoking 10 years ago. No drugs or alcohol. ALLERGIES: No known drug allergies. MEDICATIONS: His last dose of Lovenox was last night. He is currently on aspirin, carvedilol, DuoNe b inhalers, dutasteride, guaifenesin, pantoprazole, Zosyn, tamsulosin, and vancomycin. REVIEW OF SYSTEMS: Positive for constipation chronically. He has been on hydrocodone longer-term as an outpatient and has a bowel movement every few days on that medication. PHYSICAL EXAMINATION: VITAL SIGNS: Temperature 98.2, pulse 76, blood pressure 141/62, oxygen saturation 91% on 3 liters. GENERAL: He is in no acute distress. He is alert and oriented x3. HEENT: Eyes have no scleral icterus. Oropharynx is clear without lesions. NECK: There is no cervical or supraclavicular lymphadenopathy. LUNGS: Have bilateral expiratory wheezes. He is obese. HEART: Regular rate and rhythm. ABDOMEN: Soft, nontender, nondistended. Bowel sounds are present. EXTREMITIES: 1+ pitting lower extremity edema. RECTAL: Reveals black loose stool in the rectal vault. LABORATORY DATA: White blood cell count 15.7; hemoglobin of 11.3, down from 13.2 yesterday, down fro m 14.9 the day before that. Platelets 14.8, creatinine 0.58, bilirubin was 1.6 on 07/15/2017, AST 26 , ALT 38, alkaline phosphatase 68. IMPRESSION: 1. Apparent upper gastrointestinal bleed, presenting with melena and a decrease in his hemoglobin fr om 14.9 to 11.3. He is hemodynamically stable. This bleed occurred while on full dose anticoagulati on with enoxaparin. The enoxaparin was held, last dose was last night. He has been giving the antic oagulation for atrial flutter. 2. Acute on chronic respiratory failure, status post extubation. He has been diagnosed with pneumon ia as well. There is concern that any procedure will require intubation and general anesthesia. The refore, consideration is being given for trying to coordinate whatever procedures he needs under anes thesia while he is intubated. Cardiology is tentatively planning an EP study for tomorrow following endoscopy. 3. 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 He is immobile due to this. RECOMMENDATIONS: 1. Pantoprazole IV q.12 hours. 2. EGD tomorrow. It is anticipated that he will be intubated tomorrow morning and then endoscopy ca n be performed in the afternoon followed by EP study.
[2017-07-21] MEDS: Pantoprazole 40 MG VIAL IVP SCH (20:38)
[2017-07-22] MEDS: Piperacillin/Tazobactam 3.375 GM, Admixture Fee 1 EACH in Sodium Chloride 0.9% 100 ML IVPB SCH ×4 (00:18→18:39)
[2017-07-22 05:28] LABS: Anion Gap 7 mmol/L (10-20); BUN (Urea Nitrogen) 29 mg/dL (8.4-25.7); Calc. Creatinine Clearance 186 mL/min (70-130); Calcium 8.2 mg/dL (7.8-10.44); Carbon Dioxide 36 mmol/L (23-31); Chloride 100 mmol/L (98-107); Estimated GFR-MDRD Greater than 90; Glucose 119 mg/dL (80-115); Potassium 4.5 mmol/L (3.5-5.1); Sodium 138 mmol/L (136-145)
[2017-07-22] MEDS: Vancomycin HCl 1.5 GM, Admixture Fee 1 EACH in Sodium Chloride 0.9% 250 ML 300 ML IVPB SCH (05:40)
[2017-07-22 06:37] LABS: Band 9 % (5-11); Hemoglobin 9.1 g/dL (14.0-18.0); Lymphocytes 10 % (21-51); MDiff Complete? YES; Mean Corpuscular HGB CONC 32.9 g/dL (32.0-36.0); Mean Corpuscular Hemoglobin 31.8 pg (27.0-31.0); Mean Corpuscular Volume 96.5 fl (80.0-94.0); Mean Platelet Volume 6.3 fL (7.4-10.4); Monocytes 9 % (0-10); Neutrophil 72 % (42-75); Platelet Count 212 thou/uL (130-400); RBC Distribution Width 15.6 % (11.5-14.5); Red Blood Cell (RBC) Count 2.88 mill/uL (4.70-6.10)
[2017-07-22] MEDS ORDERED: Lacri-Lube Opth Oint 3.5 GM TUBE EA EYE PRN (09:47)
[2017-07-22] MEDS ORDERED: Sedation Protocol FS ONE (09:47)
[2017-07-22] MEDS ORDERED: fentaNYL Citrate/PF 2,000 MCG in Sodium Chloride 0.9% 60 ML IV SCH (09:52)
[2017-07-22] MEDS: Dutasteride 0.5 MG CAP PO SCH (09:52)
[2017-07-22] MEDS: Docusate 100 MG CAP PO SCH ×2 (09:52→20:30)
[2017-07-22] MEDS ORDERED: Morphine 2 MG/ML SYRINGE SLOW IVP PRN (09:52)
[2017-07-22] MEDS: guaiFENesin ER 600 MG TAB PO SCH ×2 (09:52→20:30)
[2017-07-22] MEDS: Aspirin 81 mg Enteric Coated Tablet PO SCH (09:52)
[2017-07-22] MEDS: Tamsulosin HCl 0.4 MG CAP PO SCH (09:53)
--- NOTE | 2017-07-22 09:56 | PRG ---
DATE OF SERVICE: 07/22/2017 SERVICE: Pulmonary Medicine. INTERVAL HISTORY: The patient is doing fine from a respiratory standpoint. In fact, this is probabl y the best he has looked from a respiratory standpoint since he has been in the hospital. He does no t have any specific complaints this morning. He is upset that he is n.p.o. for possible procedures t his afternoon. Otherwise, there has been no interval change in his condition. I have touched [facility]. They are suggesting to me that under no circumstances at this point would he be a ca ndidate for procedure. As such, we will move forward with EGD and ablation. Unfortunately, in order to do this procedure safely, we will still need to intubate him despite the fact that he has returne d to baseline from a respiratory standpoint. Hemoglobin dropped a couple of grams once again. Other salter, there were no events. PHYSICAL EXAMINATION: VITAL SIGNS: Afebrile, pulse 79, blood pressure 155/68, respirations 20, saturation 94% on 3 liters nasal cannula. GENERAL: The patient is awake, alert, no apparent distress. LUNGS: Decent air entry. There is no prolonged expiratory phase or wheezing present. HEART: Normal rate, regular. ABDOMEN: Soft, nontender, nondistended. Bowel sounds are positive. MUSCULOSKELETAL: No cyanosis or clubbing. There is no pitting in the bilateral lower extremities. NEUROLOGIC: Grossly nonfocal. LABORATORY DATA: WBC 11.0, hemoglobin 9.1 which continues to down trend from [address] atelets 212,000. Lymphocyte count 10%. Basic metabolic profile is essentially unremarkable. Anion gap 7, BUN 29. Bicarbonate is 36. All culture results are negative to date. ASSESSMENT: 1. Acute on chronic hypoxic and hypercapnic respiratory failure, resolved to baseline. 2. Chronic diastolic heart failure, currently euvolemic. 3. Atrial flutter with rapid ventricular response, rate controlled. 4. Acute blood loss anemia secondary to suspected upper gastrointestinal bleed. 5. Severe sepsis, resolved. 6. Community-acquired pneumonia, resolved. 7. Osteoarthritis of the hips, bilateral. 8. Debility, severe. DISCUSSION AND PLAN: We will move over to the ICU and electively intubate him so that we can perform both of these procedures safely. Pulmonary Critical Care will continue to follow very closely. We will make every effort to extubate him just as soon as our consultants are ready for it. I will rest him on the ventilator overnight, but he cannot tolerate much deconditioning and will need to try to get the tube out as soon as possible. In the event that we were unsuccessful at extubating the patie nt, he has suggested to me that it would be reasonable to perform tracheostomy. I do think this woul d be a temporary thing. Pulmonary Critical Care will continue to follow. CRITICAL CARE TIME: 30 minutes.
[2017-07-22] MEDS: Carvedilol 6.25 MG TAB PO SCH (10:09)
[2017-07-22] MEDS ORDERED: Midazolam HCl 2 mg/2 ml Vial ONE (10:10)
[2017-07-22] MEDS: Lorazepam 2 MG/ML VIAL SLOW IVP PRN ×3 (10:31→17:35)
[2017-07-22] MEDS: Propofol 1,000 MG/100 ML VIAL IV PRN ×3 (10:40→19:46)
[2017-07-22] MEDS: Pantoprazole 40 MG VIAL IVP SCH ×2 (10:45→21:26)
[2017-07-22 11:31] LABS: pH, Arterial 7.29 (7.35-7.45)
[2017-07-22 11:32] LABS: Actual Bicarbonate (HCO3a) 34.3 mEq/L (22-26); Base Excess (BEa) 6.5 mEq/L (0 (+/-) 2.5); CO2 Tension 72.4 mmHg (35.0-45.0); Calcium, Ionized 1.1 mmol/L (1.12-1.30); Hematocrit-ABG 27.7 % (42.0-52.0); Hemoglobin (Hb) 8.5 g/dL (14.0-18.0); O2 Tension (PaO2) 78.3 mmHg (80.0-100.0)
[2017-07-22 11:33] LABS: Puncture Site RBA
--- NOTE | 2017-07-22 11:38 | RAD ---
CHEST ONE VIEW: Comparison: 07-21-17 History: Respiratory distress. FINDINGS: Frontal upright chest demonstrates an endotracheal tube beyond the level of the clavicles. Lung volum es are diminished. There is crowding of the pulmonary vasculature. There is persistent opacification of the right lung base. Persistent cardiomegaly. No pneumothorax. IMPRESSION: 1. Diminished lung volumes due to poor inflation. 2. Persistent opacification in the right lung base. Continued surveillance. POS: EL[facility]
[2017-07-22] MEDS ORDERED: Lidocaine 1% PF 5 ML VIAL ONE (13:57)
[2017-07-22] MEDS ORDERED: Propofol 200 MG/20 ML VIAL ONE (13:57)
[2017-07-22] MEDS: Sodium Chloride 0.45% 1,000 ML IV SCH (14:00)
--- NOTE | 2017-07-22 14:00 | PDOC.PN ---
- Subjective Encounter Start Date: 07/22/17 Encounter Start Time: 10:00 -: non-verbal Patient is Intubated. - Objective Resuscitation Status: Resuscitation Status FULL:Full Resuscitation MAR Reviewed: Yes Vital Signs & Weight: Vital Signs (12 hours) Temp Pulse Resp BP BP Pulse Ox 07/22/17 12:38 82 134/67 07/22/17 12:00 99.2 F 07/22/17 10:20 79 101/55 L 07/22/17 10:09 147/65 H 07/22/17 08:00 98.9 F 76 20 94 L 07/22/17 07:39 98.9 F 76 20 155/68 H 94 L 07/22/17 06:48 75 18 07/22/17 04:11 98.0 F 77 16 139/80 96 07/22/17 02:14 77 18 95 Weight Admit Weight 260 lb Weight 266 lb 5 oz Most Recent Monitor Data Heart Rate from ECG 57 NIBP 119/61 NIBP BP-Mean 67 Respiration from ECG 6 SpO2 91 I&O: 07/21/17 07/22/17 07/23/17 06:59 06:59 06:59 Intake Total 1450 1040 Output Total 2510 700 Balance -1060 340 Result Diagrams: 07/24/17 05:13 07/24/17 05:13 Radiology Reviewed by me: Yes Phys Exam - Physical Examination Neck: no nodes, no JVD Respiratory: wheezing present Cardiovascular: RRR, no significant murmur Gastrointestinal: soft, non-tender Musculoskeletal: edema present Lymphatic: no nodes Dx/Plan (1) Melena Code(s): K92.1 - MELENA Status: Acute Comment: Patient dropped Hb from 13 to 11, GI is Consulted, will start patiebnt on protonix 40mg IV BID. Follow GI recommedations (2) Acute exacerbation of CHF (congestive heart failure) Code(s): I50.9 - HEART FAILURE, UNSPECIFIED Status: Acute Qualifiers: Heart failure type: diastolic Qualified Code(s): I50.33 - Acute on chronic diastolic (congestive) heart failure Comment: ef of 50%, Cardilogy Following, COntinue with ACEI/ BB. (3) Acute respiratory failure with hypoxia Code(s): J96.01 - ACUTE RESPIRATORY FAILURE WITH HYPOXIA Status: Acute Comment: improving. Pulmonary Following, pt on intermittant Bipap, very labile. Continue Nebs (4) Atrial flutter Code(s): I48.92 - UNSPECIFIED ATRIAL FLUTTER Status: Acute Qualifiers: Atrial flutter type: typical Qualified Code(s): I48.3 - Typical atrial flutter Comment: in sinus rhythm, Follow Dr. Ozuna Recommedations, plans for Ablation later. (5) Morbid obesity Code(s): E66.01 - MORBID (SEVERE) OBESITY DUE TO EXCESS CALORIES Status: Acute (6) PNA (pneumonia) Code(s): J18.9 - PNEUMONIA, UNSPECIFIED ORGANISM Status: Acute Comment: cap , Continue with IV antibiotics per pulmonary. (7) Sepsis Code(s): A41.9 - SEPSIS, UNSPECIFIED ORGANISM Status: Acute Qualifiers: Sepsis type: sepsis due to unspecified organism Qualified Code(s): A41.9 - Sepsis, unspecified organism Comment: Improving. (8) HTN (hypertension) Code(s): I10 - ESSENTIAL (PRIMARY) HYPERTENSION Status: Chronic Qualifiers: Hypertension type: essential hypertension Qualified Code(s): I10 - Essential (primary) hypertension - Plan cont current plan of care, PT/OT, incentive spirometry, DVT proph w/SCDs * . - Discharge Day Encounter end time: 10:35 Review of Systems - Review of Systems ENT: negative: Ear Pain, Ear Discharge, Nose Pain, Nose Discharge, Nose Congestion, Mouth Pain, Mouth Swelling, Throat Pain, Throat Swelling, Other Respiratory: negative: Cough, Dry, Shortness of Breath, Hemoptysis, SOB with Excertion, Pleuritic Pain, Sputum, Wheezing Cardiovascular: negative: chest pain, palpitations, orthopnea, paroxysmal nocturnal dyspnea, edema, light headedness, other Musculoskeletal: negative: Neck Pain, Shoulder Pain, Arm Pain, Back Pain, Hand Pain, Leg Pain, Foot Pain, Other Other: Unable to obtain as Pt is sedated Intubated - Medications/Allergies Allergies/Adverse Reactions: Allergies Allergy/AdvReac Type Severity Reaction Status Date / Time No Known Drug Allergies Allergy Verified 07/14/17 14:53 Medications: Current Medications Acetaminophen (Tylenol) 650 mg PO Q4H PRN PRN Reason: Headache/Fever or Pain Last Admin: 07/19/17 07:42 Dose: 650 mg Albuterol/Ipratropium (Duoneb) 3 ml NEB [id number] Last Admin: 07/22/17 12:37 Dose: 3 ml Aspirin (Ecotrin) 81 mg PO DAILY [facility] Last Admin: 07/22/17 09:52 Dose: Not Given Docusate Sodium (Colace) 100 mg PO BID [facility] Last Admin: 07/22/17 09:52 Dose: Not Given Dutasteride (Avodart) 0.5 mg PO DAILY [facility] Last Admin: 07/22/17 09:52 Dose: Not Given Guaifenesin (Mucinex) 1,200 mg PO Q12HR [facility] Last Admin: 07/22/17 09:52 Dose: Not Given Piperacillin Sod/Tazobactam Sod 3.375 gm/ Miscellaneous Medication 1 each/ Sodium Chloride 100 mls @ 200 mls/hr IVPB Q6HR [facility] Last Admin: 07/22/17 12:25 Dose: 100 mls Fentanyl Citrate 2,000 mcg/ (Sodium Chloride) 100 mls @ 0 mls/hr IV INF [facility]; Per Protocol PRN Reason: Protocol Stop: 08/21/17 09:52 Fentanyl Citrate (Fentanyl Bolus) 250 mls @ 0 mls/hr IVPB PRN PRN; As Directed PRN Reason: Breakthrough pain Stop: 08/21/17 09:52 Sodium Chloride (1/2 Normal Saline) 1,000 mls @ 75 mls/hr IV .[id number] [facility] Lorazepam (Ativan) 2 mg SLOW IVP Q2H PRN PRN Reason: Anxiety to achieve Fine 2-3 Stop: 08/21/17 09:52 Last Admin: 07/22/17 10:31 Dose: 2 mg Mineral Oil/White Petrolatum (Lacri-Lube Ointment) 0 gm EA EYE PRN PRN PRN Reason: Dry Eyes Miscellaneous Medication (Pharmacy To Dose) 1 each IVPB ASDIR [facility] Morphine Sulfate (Morphine Sulfate) 2 mg SLOW IVP Q2H PRN PRN Reason: Breakthrough pain Stop: 08/21/17 09:52 Pantoprazole Sodium (Protonix) 40 mg IVP Q12HR [facility] Last Admin: 07/22/17 10:45 Dose: 40 mg Propofol (Diprivan) 1,000 mg IV INF PRN; Protocol PRN Reason: TO ACHIEVE FINE SCORE 2-3 Stop: 08/21/17 09:52 Sodium Chloride (Flush - Normal Saline) 10 ml IVF Q12HR [facility] Last Admin: 07/22/17 10:15 Dose: 10 ml Sodium Chloride (Flush - Normal Saline) 10 ml IVF PRN PRN PRN Reason: Saline Flush Last Admin: 07/22/17 05:03 Dose: 10 ml Tamsulosin HCl (Flomax) 0.4 mg PO DAILY [facility] Last Admin: 07/22/17 09:53 Dose: Not Given
--- NOTE | 2017-07-22 16:48 | PDOC.CTH ---
<Marilee Dean - Last Filed: 07/22/17 16:42> Cardiology Progress Note - Subjective EP progress note Patient now intubated for endoscopy with GI today. - ROS not able to obtain ROS - Objective Vital Signs Temp Pulse Resp BP BP Pulse Ox 07/22/17 15:06 99.2 F 15 07/22/17 14:53 99.2 F 15 95 07/22/17 12:38 82 134/67 07/22/17 12:00 99.2 F 07/22/17 10:20 79 101/55 L 07/22/17 10:09 147/65 H 07/22/17 08:00 98.9 F 76 20 94 L 07/22/17 07:39 98.9 F 76 20 155/68 H 94 L 07/22/17 06:48 75 18 Admit Weight 260 lb Weight 266 lb 5 oz 07/21/17 07/22/17 07/23/17 06:59 06:59 06:59 Intake Total 1450 1040 0 Output Total 2510 700 Balance -1060 340 0 - Physical Examination General/Neuro: other: (intubated and sedated) Neck: no JVD present Lungs: CTA Heart: PMI normal, RRR - Telemetry Telemetry Rhythm: NSR - Labs Result Diagrams: 07/22/17 04:39 07/22/17 04:39 Troponin/CKMB - Assessment/Plan 1. Typical Atrial flutter, paroxysmal-currently maintaining NSR off amiodarone. Plan for CTI ablation when medically stable. Possibly 07/23 afternoon at 3pm. Will reassess in AM. 2. Anemia, with new melena- Hgb decreased another 2 points today. Patient is followed by GI, endoscopy today to assess for possible GIB. Currently receiving blood transfusion. 3. Oral anticoagulation- on hold given acute blood loss. Will re-address once bleeding stabilizes. <Karsten Ozuna - Last Filed: 07/23/17 19:03> Cardiology Progress Note - Objective Vital Signs Temp Pulse Resp BP Pulse Ox 07/23/17 18:07 86 175/113 H 07/23/17 18:00 18 07/23/17 14:00 17 07/23/17 13:05 75 07/23/17 12:00 16 07/23/17 11:07 74 07/23/17 10:00 13 07/23/17 08:34 78 07/23/17 08:00 99.1 F 79 22 H 93 L Admit Weight 260 lb Weight 253 lb 12.033 oz 07/22/17 07/23/17 07/24/17 06:59 06:59 06:59 Intake Total 1040 2753 813 Output Total 700 1790 715 Balance 340 963 98 - Labs Result Diagrams: 07/23/17 05:15 07/23/17 05:15 Troponin/CKMB CK-MB (CK-2) 1.5 ng/mL (0-6.6) 07/23/17 10:52 Troponin I 0.095 ng/mL (< 0.028) H 07/23/17 10:52 Attending Addendum - Attending Addendum Date/Time: 07/23/17 190 I personally evaluated the patient and discussed the management with Ms Dean. I agree with the History, Examination, Assessment and Plan documented above with any addition or exceptions noted below.
--- NOTE | 2017-07-22 19:53 | OP ---
DATE OF SERVICE: 07/22/2017 SERVICE: Pulmonary Medicine. PROCEDURE: Endotracheal intubation. CONSENT: This was implied secondary to urgent situation. The risks and benefits of this procedure w ere discussed with the patient's prior to initiating. STAFF PHYSICIAN: Elvis Browning M.D. MEDICATIONS: 1. Etomidate 40 mg IV push. 2. Versed 2 mg IV push. PREOPERATIVE DIAGNOSES: 1. Acute blood loss anemia. 2. Chronic hypoxic and hypercapnic respiratory failure. POSTPROCEDURE DIAGNOSES: 1. Acute blood loss anemia. 2. Chronic hypoxic and hypercapnic respiratory failure. DESCRIPTION OF PROCEDURE: Vital sign monitoring was accomplished by noninvasive hemodynamic monitori ng, pulse oximetry, and telemetry. In the supine position, the patient was preoxygenated with BiPAP with 100% FIO2. He was maintained with saturations of 100%. Following induction of anesthesia, Glid eScope was inserted through the mouth offering clear identification of the posterior oropharynx and l aryngeal structures with a grade I view. An 8.0 endotracheal tube was visualized passing through the vocal cords. Placement was confirmed by condensation in the endotracheal tube, colorimetric capnogr aphy, and by axillary chest auscultation. The endotracheal tube was secured at 23 cm, measured at th e teeth. The patient was placed on mechanical ventilation with good return of volumes. Post-procedu re x-ray revealed good location of the endotracheal tube within the trachea. ESTIMATED BLOOD LOSS: None. COMPLICATIONS: Transient hypotension that resolved within about 2-3 minutes.
[2017-07-23] MEDS: Piperacillin/Tazobactam 3.375 GM, Admixture Fee 1 EACH in Sodium Chloride 0.9% 100 ML IVPB SCH ×3 (00:16→11:15)
--- NOTE | 2017-07-23 00:36 | OP ---
DATE OF PROCEDURE: 07/22/2017 GI ENDOSCOPY NOTE SURGEON: Wenceslao Richter MD DOG WALKER SURGEON: None. PROCEDURE: Esophagogastroduodenoscopy with submucosal injection and cautery of gastric ulcer bed. INDICATION: 1. Upper gastrointestinal bleeding. 2. Acute blood loss anemia. MEDICATIONS: See anesthesia record. FINDINGS: After discussion of the risks, benefits, and alternatives of the procedure, informed conse nt was obtained and verified. Pre-endoscopic cardiopulmonary examination was satisfactory. Timeout was performed before the procedure was started. PROCEDURE IN DETAIL: Procedure was performed with anesthesia assistance. The patient was endotrache ally intubated in the ICU. The patient was kept in the supine position due to his orthopedic issues. A Pentax adult upper endoscope was placed into the oropharynx and passed through the cricopharyngeu s under direct visualization. The esophageal mucosa appeared normal throughout. There was no eviden ce of any esophageal varices. The endoscope was then advanced into the stomach. Forward and retrofl exed views of the gastric mucosa were obtained. There was a large amount of food particles as well a s some old blood clots within the gastric fundus, and despite extensive attempts to suction this out, I was unable to completely clear the gastric fundus; however, there was no red blood. No evidence o f active bleeding at this time. I was able to clear the rest of the stomach except for the proximal fundus and the area surrounding the GE junction. In the lesser curvature of the stomach and the prox imal gastric body, there was a large adherent clot with some oozing around the base of this clot. Th is is in a region of severe erosive gastritis, but this was certainly the largest clot and as it was adherent, it likely represents the source of his recent bleeding. We performed submucosal injection in 4-quadrant fashion around the base of this clot. In this fashion, we injected 8 mL of 1:10,000 ep inephrine. Hemostasis was maintained. We then carefully lifted the blood clot off the ulcer bed. O nce the blood clot was removed, there was a small visible vessel visualized. I then used a 10-[place] bipolar probe to cauterize the ulcer bed. Hemostasis was maintained. Examination of the duodenum w as unremarkable. The gastric antrum was relatively unaffected, though there were some erosions aroun d the pylorus. The upper endoscope was then completely withdrawn and the patient was allowed to margi jenny. The patient tolerated the procedure well. There were no immediate post-procedure complications . IMPRESSION: 1. 1-cm ulcer with adherent clot in the lesser curvature of the stomach. Injected with 8 mL of subm ucosal epinephrine and the clot was lifted to demonstrate small visible vessel. Visible vessel was c auterized with 10-[place] bipolar probe with hemostasis maintained. 2. Severe erosive gastritis in the fundus and body. 3. Old blood and food in the gastric fundus, unable to completely clear the gastric fundus. 4. No active bleeding on this exam. 5. Normal duodenum. 6. Normal esophagus. RECOMMENDATIONS: 1. Continue the IV proton pump inhibitor. 2. Avoid anticoagulation if possible.
[2017-07-23] MEDS: Propofol 1,000 MG/100 ML VIAL IV PRN ×3 (03:08→22:00)
[2017-07-23] MEDS: Sodium Chloride 0.45% 1,000 ML IV SCH ×2 (03:08→13:23)
[2017-07-23 05:22] LABS: #Eosinphils 0.4 thou/uL (0.0-0.7); #Lymphocytes 0.9 thou/uL (1.20-3.40); #Monocytes 0.6 thou/uL (0.11-0.59); #Neutrophils 9.9 thou/uL (1.40-6.50); %Basophils 0.3 % (0.0-1.0); %Eosinophils 3.3 % (0.0-10.0); %Lymphocytes 7.5 % (21.0-51.0); %Monocytes 5.4 % (0.0-10.0); %Neutrophils 83.5 % (42.0-75.0); Hemoglobin 8.7 g/dL (14.0-18.0); Mean Corpuscular HGB CONC 33.7 g/dL (32.0-36.0); Mean Corpuscular Hemoglobin 31.7 pg (27.0-31.0); Mean Corpuscular Volume 94.1 fl (80.0-94.0); Mean Platelet Volume 6.2 fL (7.4-10.4); Platelet Count 169 thou/uL (130-400); RBC Distribution Width 16.8 % (11.5-14.5); Red Blood Cell (RBC) Count 2.74 mill/uL (4.70-6.10); White Blood Cell (WBC) Count 11.8 thou/uL (4.8-10.8)
[2017-07-23 05:33] LABS: Anion Gap 9 mmol/L (10-20); BUN (Urea Nitrogen) 26 mg/dL (8.4-25.7); Calc. Creatinine Clearance 159 mL/min (70-130); Calcium 7.7 mg/dL (7.8-10.44); Carbon Dioxide 32 mmol/L (23-31); Chloride 102 mmol/L (98-107); Estimated GFR-MDRD Greater than 90; Glucose 108 mg/dL (80-115); Potassium 4.1 mmol/L (3.5-5.1); Sodium 139 mmol/L (136-145)
[2017-07-23] MEDS ORDERED: DOPamine 400 MG/D5W 250 ML 250 ML ONE (05:42)
[2017-07-23] MEDS ORDERED: DOPamine 400 MG/D5W 250 ML 250 ML IVPB SCH (05:45)
--- NOTE | 2017-07-23 07:06 | PRG ---
DATE OF SERVICE: 07/23/2016 SUBJECTIVE: Mr. Campos is sedated on the ventilator. OBJECTIVE: VITAL SIGNS: Temperature 99.7, blood pressure 179/78, pulse 53. He apparently had an episode of bra dycardia earlier this morning and was started on dopamine. LUNGS: Clear to auscultation bilaterally. HEART: Regular rate and rhythm. ABDOMEN: Soft, nondistended. There is no guarding. Bowel sounds are present. EXTREMITIES: 1+ pitting lower extremity edema. LABORATORY DATA: Hemoglobin 8.7. IMPRESSION: 1. Gastric ulcer with hemorrhage status post electrocautery of a vessel in the base of the ulcer by Dr. Richter last night. 2. Anemia of acute blood loss. RECOMMENDATIONS: 1. Continue IV proton pump inhibitor. 2. Anticoagulation has been held for now. 3. Check an H. pylori antibody.
[2017-07-23] MEDS: Pantoprazole 40 MG VIAL IVP SCH ×2 (08:04→21:00)
[2017-07-23] MEDS: Aspirin 81 mg Enteric Coated Tablet PO SCH (08:05)
[2017-07-23] MEDS: Docusate 100 MG CAP PO SCH ×2 (08:05→21:00)
[2017-07-23] MEDS: Tamsulosin HCl 0.4 MG CAP PO SCH (08:05)
[2017-07-23] MEDS: guaiFENesin ER 600 MG TAB PO SCH ×2 (08:05→21:00)
[2017-07-23] MEDS: Dutasteride 0.5 MG CAP PO SCH (08:05)
[2017-07-23 11:31] LABS: CKMB 1.5 ng/mL (0-6.6); Troponin I 0.095 ng/mL (< 0.028)
--- NOTE | 2017-07-23 14:06 | PRG ---
DATE OF SERVICE: 07/23/2017 SERVICE: Pulmonary Medicine. INTERVAL HISTORY: The patient is doing outstanding from a respiratory standpoint. He had a little b it of hypoxemia yesterday prompting slight increase in FiO2, but this has settled back down. He has increased lower extremity swelling. Outside of this, there has been no interval change to his condit ion. He had an EGD yesterday demonstrating a peptic ulcer with visible vessel. This was treated. T here is no active bleeding that was identified. The EP study has been postponed until today. The moraima belcher cannot provide any additional elements of the history because he is currently sedated, but ther e are otherwise no events overnight. PHYSICAL EXAMINATION: VITAL SIGNS: Afebrile, pulse 75, blood pressure 125/51, respirations 23, saturations 91% on 41% FIO2 and a PEEP of 5. GENERAL: Patient is intubated and sedated. HEENT: Normocephalic, atraumatic. Sclerae are white, conjunctivae pink. Oral mucosa is moist witho ut lesions. LUNGS: Decent air entry, which is improving. There is a prolonged expiratory phase. I do not hear wheezing. Rhonchi are present. No crackles. HEART: Normal rate, regular. ABDOMEN: Soft, nontender, nondistended. Bowel sounds are positive. MUSCULOSKELETAL: No cyanosis or clubbing. There is 1+ pitting in the bilateral lower extremities. NEUROLOGIC: Grossly nonfocal. GENITOURINARY: Pena catheter in place. LABORATORY DATA: WBC 11.8, hemoglobin 8.7 and gently down trending, platelets 169,000. Basic metabo lic profile is essentially unremarkable/stable. Troponin is 0.095. Culture results are negative to date. ASSESSMENT: 1. Acute on chronic hypoxic and hypercapnic respiratory failure. 2. Chronic diastolic heart failure, currently euvolemic. 3. Atrial flutter with rapid ventricular response, returned to sinus rhythm. 4. Acute blood loss anemia secondary to peptic ulcer disease. 5. Severe sepsis, resolved. 6. Community-acquired pneumonia, resolved. 7. Osteoarthritis of the hips, bilateral. 8. Debility, severe. DISCUSSION AND PLAN: After EP is done with the patient, we will put him on a spontaneous breathing t rial and consider extubation. Pulmonary Critical Care will continue to follow along. IV fluids are going to be interrupted as the patient is a little bit volume up. We will start a dose of Lasix riky rrow morning.
[2017-07-23] MEDS ORDERED: Lidocaine 1% (PF) 30 ML VIAL ONE (15:02)
[2017-07-23] MEDS ORDERED: Heparin 10,000 UNITS/1 ML VIAL ONE (16:20)
--- NOTE | 2017-07-23 18:49 | PRG ---
DATE OF SERVICE: 07/23/2017 SUBJECTIVE: Mr. Campos did require recent intubation with sudden respiratory difficulty and needed EGD . He is currently on propofol. He is back in sinus rhythm. OBJECTIVE: VITAL SIGNS: Blood pressure 136/62, pulse 76, temperature afebrile. LUNGS: Rhonchi, rales bilaterally. CARDIAC: Regular rate and rhythm. ABDOMEN: Soft, nontender, nondistended. EXTREMITIES: 1+ pitting edema. PERTINENT LABORATORY DATA: Hemoglobin 8.7. IMPRESSION: 1. Atrial flutter. 2. Hypoxia. 3. Respiratory failure. 4. Recent anemia. 5. Pneumonia. RECOMMENDATIONS: I would like to have Mr. Campos more stable prior to proceeding with flutter ablation . We will avoid anticoagulation therapy. He was previously on Lovenox, which has now been discontin ued. Continue antibiotic therapy and respiratory support.
--- NOTE | 2017-07-23 21:14 | OP ---
DATE OF PROCEDURE: 07/23/2017 ELECTROPHYSIOLOGY STUDY AND RADIOFREQUENCY ABLATION REPORT REFERRING PHYSICIAN: Axel Davenport MD REASON FOR PROCEDURE: Mr. Campos is a 71-year-old male who had respiratory failure and developed atria l flutter, which was persisting for days. His respiratory distress improved, but on heparin he devel oped GI bleed requiring transfusion. Eventually, the flutter self-terminated, but he required EGD an d he needs re-intubation. We have planned to assess his cardiac electrical function and ablate the c avotricuspid isthmus hence the typical isthmus-dependent flutter morphology of the atrial flutter injohn paul falk presenting. DESCRIPTION OF PROCEDURE: The patient received propofol as baseline and is intubated from before. T he right femoral venous area was prepped, draped, and anesthetized using subcutaneous lidocaine and u ltrasound guidance, the right femoral vein was cannulated. Two 8-Kinyarwanda short sheaths were introduce d. From this, a decapolar catheter was advanced to the His bundle, RV, RA, and ventured to the CS po sition. Pacing, mapping, and recording was performed at each location. Following that, baseline EP recordings were obtained. The baseline cycle length sinus rhythm was 725 milliseconds. NJ 140, QRS 148, QT 420, AH 76, HV 73 milliseconds. Of note, initial rhythm are having some junctional with inve rted P waves present. The sinus node recovery time was 2201. The corrected sinus node recovery time was 1400. Following that, burst atrial pacing did not induce arrhythmia. Hence the pre-existing at rial flutter with typical isthmus-dependent pattern, we proceeded with cavotricuspid isthmus ablation . With proximal CS pacing, radiofrequency ablation of the cavotricuspid isthmus was performed. The initial transisthmus time was 60 milliseconds, increased to 140 milliseconds to 160 milliseconds. Bl ock was demonstrated through the cavotricuspid block by measuring transisthmus times, which appear to be progressively longer measured from the lateral right atrium moving the catheter towards the ablat ion line on the cavotricuspid isthmus. No recurrent atrial flutter was seen. In the end of procedure, the pre and post cine of the lateral heart border did not show changes. Throughout the procedure, the patient remained on dopamine, hence borderline blood pressure, even bef ore starting the case. The patient's vital signs remained stable on [id number] dose dopamine. CONCLUSION: 1. Successful cavotricuspid isthmus ablation. 2. Abnormally prolonged sinus node recovery time suggestive of sinus node disease. PLAN: 1. Routine postoperative care. 2. Consider permanent pacing if bradyarrhythmias do not improve with beta barry washout and still requires dopamine.
[2017-07-24] MEDS ORDERED: DOPamine 400 MG/D5W 250 ML 250 ML IVPB SCH (04:15)
[2017-07-24] MEDS: Propofol 1,000 MG/100 ML VIAL IV PRN ×3 (04:56→20:18)
[2017-07-24] MEDS: Furosemide 40 MG/4 ML VIAL SLOW IVP SCH (04:58)
[2017-07-24 05:17] LABS: #Eosinphils 0.3 thou/uL (0.0-0.7); #Lymphocytes 0.7 thou/uL (1.20-3.40); #Monocytes 0.7 thou/uL (0.11-0.59); #Neutrophils 6.7 thou/uL (1.40-6.50); %Basophils 0.1 % (0.0-1.0); %Eosinophils 3.8 % (0.0-10.0); %Lymphocytes 8.1 % (21.0-51.0); %Monocytes 7.8 % (0.0-10.0); %Neutrophils 80.2 % (42.0-75.0); Hemoglobin 7.5 g/dL (14.0-18.0); Mean Corpuscular HGB CONC 33.3 g/dL (32.0-36.0); Mean Corpuscular Hemoglobin 31.7 pg (27.0-31.0); Mean Corpuscular Volume 95.3 fl (80.0-94.0); Mean Platelet Volume 6.9 fL (7.4-10.4); Platelet Count 186 thou/uL (130-400); RBC Distribution Width 16.7 % (11.5-14.5); Red Blood Cell (RBC) Count 2.36 mill/uL (4.70-6.10); White Blood Cell (WBC) Count 8.4 thou/uL (4.8-10.8)
[2017-07-24 05:45] LABS: Anion Gap 9 mmol/L (10-20); BUN (Urea Nitrogen) 19 mg/dL (8.4-25.7); Calc. Creatinine Clearance 170 mL/min (70-130); Calcium 7.4 mg/dL (7.8-10.44); Carbon Dioxide 31 mmol/L (23-31); Chloride 104 mmol/L (98-107); Estimated GFR-MDRD Greater than 90; Glucose 95 mg/dL (80-115); Potassium 3.5 mmol/L (3.5-5.1); Sodium 140 mmol/L (136-145)
[2017-07-24] MEDS ORDERED: Iopamidol 370 76% 50 ML VIAL FS ONE (07:45)
--- NOTE | 2017-07-24 08:42 | PDOC.PN ---
- Subjective Encounter Start Date: 07/23/17 Encounter Start Time: 13:00 -: non-verbal Pt is intubated and Sedated, So non verbal a this time. - Objective Resuscitation Status: Resuscitation Status FULL:Full Resuscitation MAR Reviewed: Yes Vital Signs & Weight: Vital Signs (12 hours) Temp Pulse Resp BP 07/24/17 06:34 70 07/24/17 06:00 15 07/24/17 04:00 99.8 F H 15 07/24/17 02:17 71 129/64 07/24/17 02:00 19 07/24/17 00:13 66 107/52 L 07/24/17 00:00 99.7 F H 14 07/23/17 22:24 71 115/48 L 07/23/17 22:00 15 Weight Admit Weight 260 lb Weight 252 lb 13.923 oz Most Recent Monitor Data Heart Rate from ECG 69 NIBP 120/58 NIBP BP-Mean 83 Respiration from ECG 14 SpO2 95 I&O: 07/23/17 07/24/17 07/25/17 06:59 06:59 06:59 Intake Total 2753 1497 Output Total 1790 1810 Balance 963 -313 Result Diagrams: 07/24/17 05:13 07/24/17 05:13 Radiology Reviewed by me: Yes Phys Exam - Physical Examination Neck: no nodes, no JVD Respiratory: wheezing present Cardiovascular: no significant murmur, irregular Gastrointestinal: soft, non-tender Musculoskeletal: pulses present, edema present Lymphatic: no nodes Skin: no rash, normal turgor Dx/Plan (1) Melena Code(s): K92.1 - MELENA Status: Acute Comment: Patient dropped Hb from 13 to 11 and not 8.7, GI found bleeding ulcer in gastric fundus on EGD, will continue patiebnt on protonix drip. Follow GI recommedations (2) Acute exacerbation of CHF (congestive heart failure) Code(s): I50.9 - HEART FAILURE, UNSPECIFIED Status: Acute Qualifiers: Heart failure type: diastolic Qualified Code(s): I50.33 - Acute on chronic diastolic (congestive) heart failure Comment: ef of 50%, Cardilogy Following, COntinue with ACEI/ BB. (3) Acute respiratory failure with hypoxia Code(s): J96.01 - ACUTE RESPIRATORY FAILURE WITH HYPOXIA Status: Acute Comment: improving. Pulmonary Following, pt on intermittant Bipap, very labile. Continue Nebs (4) Atrial flutter Code(s): I48.92 - UNSPECIFIED ATRIAL FLUTTER Status: Acute Qualifiers: Atrial flutter type: typical Qualified Code(s): I48.3 - Typical atrial flutter Comment: in sinus rhythm, Follow Dr. Ozuna Recommedations, plans for Ablation later this afternoon. (5) Morbid obesity Code(s): E66.01 - MORBID (SEVERE) OBESITY DUE TO EXCESS CALORIES Status: Acute (6) PNA (pneumonia) Code(s): J18.9 - PNEUMONIA, UNSPECIFIED ORGANISM Status: Acute Comment: cap , Continue with IV antibiotics per pulmonary. (7) Sepsis Code(s): A41.9 - SEPSIS, UNSPECIFIED ORGANISM Status: Acute Qualifiers: Sepsis type: sepsis due to unspecified organism Qualified Code(s): A41.9 - Sepsis, unspecified organism Comment: Improving. (8) HTN (hypertension) Code(s): I10 - ESSENTIAL (PRIMARY) HYPERTENSION Status: Chronic Qualifiers: Hypertension type: essential hypertension Qualified Code(s): I10 - Essential (primary) hypertension - Plan cont current plan of care, kaiser catheter, continue antibiotics, DVT proph w/ SCDs * . - Discharge Day Encounter end time: 13:35 Review of Systems - Review of Systems Other: Unable to Obtain ROS due to pt being intubated. - Medications/Allergies Allergies/Adverse Reactions: Allergies Allergy/AdvReac Type Severity Reaction Status Date / Time No Known Drug Allergies Allergy Verified 07/14/17 14:53 Medications: Current Medications Acetaminophen (Tylenol) 650 mg PO Q4H PRN PRN Reason: Headache/Fever or Pain Last Admin: 07/19/17 07:42 Dose: 650 mg Albuterol/Ipratropium (Duoneb) 3 ml NEB [id number] Last Admin: 07/24/17 06:32 Dose: 3 ml Aspirin (Ecotrin) 81 mg PO DAILY [facility] Last Admin: 07/23/17 08:05 Dose: Not Given Docusate Sodium (Colace) 100 mg PO BID [facility] Last Admin: 07/23/17 21:00 Dose: Not Given Dutasteride (Avodart) 0.5 mg PO DAILY [facility] Last Admin: 07/23/17 08:05 Dose: Not Given Furosemide (Lasix) 40 mg SLOW IVP 0600 SANTY Last Admin: 07/24/17 04:58 Dose: 40 mg Guaifenesin (Mucinex) 1,200 mg PO Q12HR SANT[facility] Last Admin: 07/23/17 21:00 Dose: Not Given Fentanyl Citrate 2,000 mcg/ (Sodium Chloride) 100 mls @ 0 mls/hr IV INF SANTY; Per Protocol PRN Reason: Protocol Stop: 08/21/17 09:52 Fentanyl Citrate (Fentanyl Bolus) 250 mls @ 0 mls/hr IVPB PRN PRN; As Directed PRN Reason: Breakthrough pain Stop: 08/21/17 09:52 Sodium Chloride (1/2 Normal Saline) 1,000 mls @ 0 mls/hr IV .Q0M SANTY PRN Reason: KVO Dopamine HCl/Dextrose (Dopamine/D5w) 250 mls @ 0 mls/hr IVPB INF SANTY; As Directed PRN Reason: Protocol Last Admin: 07/24/17 04:38 Dose: 250 mls Mineral Oil/White Petrolatum (Lacri-Lube Ointment) 0 gm EA EYE PRN PRN PRN Reason: Dry Eyes Morphine Sulfate (Morphine Sulfate) 2 mg SLOW IVP Q4H PRN PRN Reason: Pain Last Admin: 07/24/17 04:38 Dose: 2 mg Pantoprazole Sodium (Protonix) 40 mg IVP Q12HR SANTY Last Admin: 07/23/17 21:00 Dose: 40 mg Propofol (Diprivan) 1,000 mg IV INF PRN; Protocol PRN Reason: TO ACHIEVE FINE SCORE 2-3 Stop: 08/21/17 09:52 Last Admin: 07/24/17 04:56 Dose: 1,000 mg Sodium Chloride (Flush - Normal Saline) 10 ml IVF Q12HR SANTY Last Admin: 07/23/17 21:00 Dose: 10 ml Sodium Chloride (Flush - Normal Saline) 10 ml IVF PRN PRN PRN Reason: Saline Flush Last Admin: 07/22/17 05:03 Dose: 10 ml Tamsulosin HCl (Flomax) 0.4 mg PO DAILY [facility] Last Admin: 07/23/17 08:05 Dose: Not Given
[2017-07-24] MEDS: Tamsulosin HCl 0.4 MG CAP PO SCH (08:45)
[2017-07-24] MEDS: guaiFENesin ER 600 MG TAB PO SCH ×2 (08:45→20:20)
[2017-07-24] MEDS: Docusate 100 MG CAP PO SCH ×2 (08:45→20:19)
[2017-07-24] MEDS: Aspirin 81 mg Enteric Coated Tablet PO SCH (08:45)
[2017-07-24] MEDS: Dutasteride 0.5 MG CAP PO SCH (08:45)
[2017-07-24] MEDS: Pantoprazole 40 MG VIAL IVP SCH ×2 (09:22→20:20)
[2017-07-24] MEDS ORDERED: CEFAZOLIN/Water 2 GM/20 ML SYRINGE SLOW IVP SCH ×4 (13:00→21:00)
[2017-07-24 13:04] LABS: #Eosinphils 0.2 thou/uL (0.0-0.7); #Lymphocytes 0.5 thou/uL (1.20-3.40); #Monocytes 0.5 thou/uL (0.11-0.59); #Neutrophils 6.5 thou/uL (1.40-6.50); %Basophils 0.3 % (0.0-1.0); %Eosinophils 2.2 % (0.0-10.0); %Lymphocytes 6.7 % (21.0-51.0); %Monocytes 6.3 % (0.0-10.0); %Neutrophils 84.5 % (42.0-75.0); Hemoglobin 9.2 g/dL (14.0-18.0); Mean Corpuscular HGB CONC 33.5 g/dL (32.0-36.0); Mean Corpuscular Hemoglobin 32.1 pg (27.0-31.0); Mean Corpuscular Volume 95.7 fl (80.0-94.0); Mean Platelet Volume 6.8 fL (7.4-10.4); Platelet Count 186 thou/uL (130-400); RBC Distribution Width 16.6 % (11.5-14.5); Red Blood Cell (RBC) Count 2.87 mill/uL (4.70-6.10); White Blood Cell (WBC) Count 7.7 thou/uL (4.8-10.8)
[2017-07-24 13:14] LABS: INR-International Normal Ratio 1.3; PTT 30.6 SEC (22.9-36.1); Prothrombin Time 15.9 SEC (12.0-14.7)
[2017-07-24 13:17] LABS: Anion Gap 9 mmol/L (10-20); BUN (Urea Nitrogen) 17 mg/dL (8.4-25.7); Calc. Creatinine Clearance 164 mL/min (70-130); Calcium 7.6 mg/dL (7.8-10.44); Carbon Dioxide 30 mmol/L (23-31); Chloride 103 mmol/L (98-107); Estimated GFR-MDRD Greater than 90; Glucose 93 mg/dL (80-115); Potassium 3.5 mmol/L (3.5-5.1); Sodium 138 mmol/L (136-145)
--- NOTE | 2017-07-24 14:25 | PRG ---
DATE OF SERVICE: 07/24/2017 SERVICE: Pulmonary Medicine. INTERVAL HISTORY: The patient is doing great from a respiratory standpoint. Yesterday he got ablate d. Overnight, he developed a bradycardia. He required dopamine once again. As such, he is being pl anned for a pacemaker today. OBJECTIVE: VITAL SIGNS: Afebrile, pulse 79, blood pressure 115/45, respirations 20, saturation 89% on 41% FiO2 and a PEEP of 5. GENERAL: The patient is intubated and sedated. HEENT: Normocephalic, atraumatic. Sclerae are white, conjunctivae pink. Oral mucosa is moist witho ut lesions. LUNGS: Decent air entry. There is a slightly prolonged expiratory phase, but no wheezing, rhonchi, or crackles are appreciated. HEART: Normal rate, regular. ABDOMEN: Soft, nontender, nondistended. Bowel sounds are positive. MUSCULOSKELETAL: No cyanosis or clubbing. There is diffuse 1-2+ pitting throughout. GENITOURINARY: No Pena. NEUROLOGIC: Grossly nonfocal. LABORATORY DATA: WBC 7.7, hemoglobin 9.2, platelets 186,000. Basic metabolic profile is completely unremarkable with an anion gap of 9 and calcium 7.6. ASSESSMENT: 1. Acute on chronic hypoxic and hypercapnic respiratory failure. 2. Acute on chronic diastolic heart failure. 3. Atrial flutter with rapid ventricular response, status post ablation and returned to normal sinus rhythm. 4. Bradyarrhythmia, status post pacemaker placement, on scheduled for pacemaker placement today. 5. Acute blood loss anemia secondary to peptic ulcer disease. 6. Community-acquired pneumonia, resolved. 7. Severe sepsis, resolved. 8. Osteoarthritis of the bilateral hips, severe. 9. Debility, severe. DISCUSSION AND PLAN: Because we are not going to have the pacemaker placed until late this afternoon , we will extubate him hopefully first thing tomorrow morning. Pulmonary Critical Care will continue to follow while the patient remains in this location. CRITICAL CARE TIME: 30 minutes.
--- NOTE | 2017-07-24 14:36 | PDOC.PN ---
- Subjective Encounter Start Date: 07/24/17 Encounter Start Time: 12:00 Patient is intubated but off of sedation, is alert now, discussed with Family at bedside, Explained about the plan for pacemaker - Objective Resuscitation Status: Resuscitation Status FULL:Full Resuscitation MAR Reviewed: Yes Vital Signs & Weight: Vital Signs (12 hours) Temp Pulse Resp Pulse Ox 07/24/17 14:00 15 07/24/17 13:18 72 07/24/17 12:00 15 07/24/17 10:00 18 07/24/17 09:59 74 07/24/17 09:50 99.1 F 18 93 L 07/24/17 09:37 99.1 F 07/24/17 09:27 99.1 F 15 93 L 07/24/17 08:00 99.0 F 72 18 93 L 07/24/17 06:34 70 07/24/17 06:00 15 07/24/17 04:00 99.8 F H 15 Weight Admit Weight 260 lb Weight 252 lb 13.923 oz Most Recent Monitor Data Heart Rate from ECG 80 NIBP 138/62 NIBP BP-Mean 95 Respiration from ECG 24 SpO2 93 I&O: 07/23/17 07/24/17 07/25/17 06:59 06:59 06:59 Intake Total 2753 1497 401 Output Total 1790 1810 610 Balance 963 -313 -209 Result Diagrams: 07/24/17 12:48 07/24/17 12:48 Radiology Reviewed by me: Yes EKG Reviewed by me: Yes Phys Exam - Physical Examination HEENT: PERRLA, moist MMs Neck: no nodes, no JVD Respiratory: no rales, wheezing present Cardiovascular: RRR, no significant murmur Gastrointestinal: soft, non-tender Musculoskeletal: pulses present, edema present Neurological: non-focal, normal sensation Lymphatic: no nodes Psychiatric: normal affect Skin: no rash, normal turgor Dx/Plan (1) Melena Code(s): K92.1 - MELENA Status: Acute Comment: Patient dropped Hb from 13 to 11 and now 7.3 Pt iss tarted on PRBC transfusion 1 unit, GI found bleeding ulcer in gastric fundus on EGD, will continue patiebnt on protonix drip. Follow GI recommedations (2) Acute exacerbation of CHF (congestive heart failure) Code(s): I50.9 - HEART FAILURE, UNSPECIFIED Status: Acute Qualifiers: Heart failure type: diastolic Qualified Code(s): I50.33 - Acute on chronic diastolic (congestive) heart failure Comment: ef of 50%, Cardilogy Following, COntinue with ACEI/ BB. (3) Acute respiratory failure with hypoxia Code(s): J96.01 - ACUTE RESPIRATORY FAILURE WITH HYPOXIA Status: Acute Comment: improving. Pulmonary Following, pt on intermittant Bipap, very labile. Continue Nebs (4) Atrial flutter Code(s): I48.92 - UNSPECIFIED ATRIAL FLUTTER Status: Acute Qualifiers: Atrial flutter type: typical Qualified Code(s): I48.3 - Typical atrial flutter Comment: in sinus rhythm, Follow Dr. Ozuna Recommedations, Ablation was successful, Now plans for pacemaker for non fucntioing of Sinus node.. (5) Morbid obesity Code(s): E66.01 - MORBID (SEVERE) OBESITY DUE TO EXCESS CALORIES Status: Acute (6) PNA (pneumonia) Code(s): J18.9 - PNEUMONIA, UNSPECIFIED ORGANISM Status: Acute Comment: cap , Continue with IV antibiotics per pulmonary. (7) Sepsis Code(s): A41.9 - SEPSIS, UNSPECIFIED ORGANISM Status: Acute Qualifiers: Sepsis type: sepsis due to unspecified organism Qualified Code(s): A41.9 - Sepsis, unspecified organism Comment: Improving. (8) HTN (hypertension) Code(s): I10 - ESSENTIAL (PRIMARY) HYPERTENSION Status: Chronic Qualifiers: Hypertension type: essential hypertension Qualified Code(s): I10 - Essential (primary) hypertension - Plan cont current plan of care, plan discussed w/ family, continue antibiotics, PT/OT , respiratory therapy, incentive spirometry, DVT proph w/SCDs * . - Discharge Day Encounter end time: 12:35 Review of Systems - Review of Systems Other: Patient remains intubated. - Medications/Allergies Allergies/Adverse Reactions: Allergies Allergy/AdvReac Type Severity Reaction Status Date / Time No Known Drug Allergies Allergy Verified 07/14/17 14:53 Medications: Current Medications Acetaminophen (Tylenol) 650 mg PO Q4H PRN PRN Reason: Headache/Fever or Pain Last Admin: 07/19/17 07:42 Dose: 650 mg Albuterol/Ipratropium (Duoneb) 3 ml NEB [id number] Last Admin: 07/24/17 13:18 Dose: 3 ml Aspirin (Ecotrin) 81 mg PO DAILY [facility] Last Admin: 07/24/17 08:45 Dose: Not Given Cefazolin Sodium (Ancef) 2 gm SLOW IVP WILLCALL [facility] Stop: 07/24/17 18:00 Docusate Sodium (Colace) 100 mg PO BID [facility] Last Admin: 07/24/17 08:45 Dose: Not Given Dutasteride (Avodart) 0.5 mg PO DAILY [facility] Last Admin: 07/24/17 08:45 Dose: Not Given Furosemide (Lasix) 40 mg SLOW IVP 0600 [facility] Last Admin: 07/24/17 04:58 Dose: 40 mg Guaifenesin (Mucinex) 1,200 mg PO Q12HR [facility] Last Admin: 07/24/17 08:45 Dose: Not Given Fentanyl Citrate 2,000 mcg/ (Sodium Chloride) 100 mls @ 0 mls/hr IV INF [facility]ANT[facility]; Per Protocol PRN Reason: Protocol Stop: 08/21/17 09:52 Fentanyl Citrate (Fentanyl Bolus) 250 mls @ 0 mls/hr IVPB PRN PRN; As Directed PRN Reason: Breakthrough pain Stop: 08/21/17 09:52 Sodium Chloride (1/2 Normal Saline) 1,000 mls @ 0 mls/hr IV .Q0M [facility] PRN Reason: KVO Dopamine HCl/Dextrose (Dopamine/D5w) 250 mls @ 0 mls/hr IVPB INF SANTY; As Directed PRN Reason: Protocol Last Admin: 07/24/17 04:38 Dose: 250 mls Mineral Oil/White Petrolatum (Lacri-Lube Ointment) 0 gm EA EYE PRN PRN PRN Reason: Dry Eyes Pantoprazole Sodium (Protonix) 40 mg IVP Q12HR [facility] Last Admin: 07/24/17 09:22 Dose: 40 mg Propofol (Diprivan) 1,000 mg IV INF PRN; Protocol PRN Reason: TO ACHIEVE FINE SCORE 2-3 Stop: 08/21/17 09:52 Last Admin: 07/24/17 04:56 Dose: 1,000 mg Sodium Chloride (Flush - Normal Saline) 10 ml IVF Q12HR [facility] Last Admin: 07/24/17 09:22 Dose: 10 ml Sodium Chloride (Flush - Normal Saline) 10 ml IVF PRN PRN PRN Reason: Saline Flush Last Admin: 07/22/17 05:03 Dose: 10 ml Tamsulosin HCl (Flomax) 0.4 mg PO DAILY [facility] Last Admin: 07/24/17 08:45 Dose: Not Given
[2017-07-24] MEDS ORDERED: CEFAZOLIN/Water 2 GM/20 ML SYRINGE ONE (16:10)
[2017-07-24] MEDS ORDERED: DOPamine 400 MG/D5W 250 ML 250 ML IVPB PRN (17:23)
[2017-07-24] MEDS ORDERED: Acetaminophen/Codeine 30-300mg Tablet PO PRN ×2 (17:30)
[2017-07-24] MEDS ORDERED: Cephalexin 250 MG CAP PO SCH (17:30)
--- NOTE | 2017-07-24 17:38 | EKG ---
Test Reason : Blood Pressure : / mmHG Vent. Rate : 078 BPM Atrial Rate : 078 BPM P-R Int : 162 ms QRS Dur : 140 ms QT Int : 436 ms P-R-T Axes : 270 -80 057 degrees QTc Int : 497 ms Unusual P axis, possible ectopic atrial rhythm Right bundle branch block Left anterior fascicular block Bifascicular block Abnormal ECG When compared with ECG of 18-JUL-2017 13:27, Ectopic atrial rhythm has replaced Atrial flutter Confirmed by DR. Nate WESTFALL ([id number]) on 07/24/2017 5:38:21 PM Referred By: LISA Confirmed By:DR. Nate WESTFALL
--- NOTE | 2017-07-24 17:41 | EKG ---
Test Reason : Blood Pressure : / mmHG Vent. Rate : 074 BPM Atrial Rate : 074 BPM P-R Int : 162 ms QRS Dur : 148 ms QT Int : 450 ms P-R-T Axes : 256 -63 014 degrees QTc Int : 499 ms Unusual P axis, possible ectopic atrial rhythm Right bundle branch block Left anterior fascicular block Bifascicular block Abnormal ECG When compared with ECG of 22-JUL-2017 19:30, (Unconfirmed) T wave amplitude has decreased in Lateral leads Confirmed by DR. Nate WESTFALL ([id number]) on 07/24/2017 5:40:51 PM Referred By: [facility] Confirmed By:DR. Nate WESTFALL
--- NOTE | 2017-07-24 17:44 | EKG ---
Test Reason : STAT Blood Pressure : / mmHG Vent. Rate : 088 BPM Atrial Rate : 088 BPM P-R Int : 234 ms QRS Dur : 148 ms QT Int : 410 ms P-R-T Axes : 269 -71 -21 degrees QTc Int : 496 ms Unusual P axis, possible ectopic atrial rhythm Right bundle branch block Left anterior fascicular block Bifascicular block Abnormal ECG When compared with ECG of 23-JUL-2017 10:47, (Unconfirmed) Nonspecific T wave abnormality, worse in Inferior leads Nonspecific T wave abnormality, worse in Lateral leads Confirmed by DR. Nate WESTFALL ([id number]) on 07/24/2017 5:44:04 PM Referred By: Confirmed By:DR. Nate WESTFALL
--- NOTE | 2017-07-24 17:45 | EKG ---
Test Reason : Blood Pressure : / mmHG Vent. Rate : 074 BPM Atrial Rate : 074 BPM P-R Int : 166 ms QRS Dur : 148 ms QT Int : 458 ms P-R-T Axes : 252 -59 034 degrees QTc Int : 508 ms Unusual P axis, possible ectopic atrial rhythm Right bundle branch block Left anterior fascicular block Bifascicular block Abnormal ECG When compared with ECG of 23-JUL-2017 18:26, (Unconfirmed) Nonspecific T wave abnormality no longer evident in Inferior leads Nonspecific T wave abnormality, improved in Lateral leads Confirmed by DR. Nate WESTFALL ([id number]) on 07/24/2017 5:44:48 PM Referred By: [facility] Confirmed By:DR. Nate WESTFALL
--- NOTE | 2017-07-24 18:01 | RAD ---
CHEST ONE VIEW 07/24/17 HISTORY: Pacemaker placement. COMPARISON: Radiograph 07/22/17. FINDINGS: The patient appears to be intubated. Endotracheal tube tip above the salvador approximately 3 cm. Layer ing bilateral pleural effusions. New pacer is in place, dual lead, with tips in the right atrium and right ventricle. Mild portal veno us congestion. IMPRESSION: No complication after dual lead pacer placement. POS: [facility]
--- NOTE | 2017-07-24 20:26 | PRG ---
DATE OF SERVICE: 07/24/2017 SUBJECTIVE: Mr. Campos has had no significant stool output over the last couple of days. His hemoglob in was noted to be lower this morning and he received a unit of blood. He has undergone heart ablati on and pacemaker placement. OBJECTIVE: Pulse 73, blood pressure 118/58, temperature 98.7. LABORATORY DATA: Hemoglobin was 7.5 this morning, but after 1 unit of transfusion increased to 9.2. IMPRESSION: 1. Anemia of acute blood loss. 2. Gastrointestinal bleed secondary to gastric ulcer, status post cautery of the vessel in the base of the gastric ulcer. He has had no further significant overt bleeding since the procedure. His hem oglobin was slightly lower today, but responded more than would be expected with a single unit of blo od. Does not appear to be actively bleeding at this point. RECOMMENDATIONS: 1. Pantoprazole 40 mg twice daily, this can be weaned back to once daily after a week. 2. I will sign off for now. Please call if GI can be of assistance. 3. Helicobacter pylori antibody is pending.
[2017-07-24] MEDS ORDERED: Acetaminophen 650 MG Suppository PR PRN (23:27)
[2017-07-25] MEDS: Propofol 1,000 MG/100 ML VIAL IV PRN ×2 (01:00→05:00)
[2017-07-25] MEDS: Sodium Chloride 0.45% 1,000 ML IV SCH (03:20)
[2017-07-25] MEDS: Furosemide 40 MG/4 ML VIAL SLOW IVP SCH (05:00)
[2017-07-25 05:31] LABS: #Eosinphils 0.1 thou/uL (0.0-0.7); #Lymphocytes 0.8 thou/uL (1.20-3.40); #Monocytes 0.6 thou/uL (0.11-0.59); #Neutrophils 5.8 thou/uL (1.40-6.50); %Basophils 0.3 % (0.0-1.0); %Eosinophils 1.9 % (0.0-10.0); %Lymphocytes 10.2 % (21.0-51.0); %Monocytes 7.8 % (0.0-10.0); %Neutrophils 79.8 % (42.0-75.0); Hemoglobin 8.8 g/dL (14.0-18.0); Mean Corpuscular HGB CONC 33.9 g/dL (32.0-36.0); Mean Corpuscular Hemoglobin 31.7 pg (27.0-31.0); Mean Corpuscular Volume 93.5 fl (80.0-94.0); Mean Platelet Volume 6.9 fL (7.4-10.4); Platelet Count 173 thou/uL (130-400); RBC Distribution Width 17.1 % (11.5-14.5); Red Blood Cell (RBC) Count 2.78 mill/uL (4.70-6.10); White Blood Cell (WBC) Count 7.3 thou/uL (4.8-10.8)
[2017-07-25 05:39] LABS: Anion Gap 10 mmol/L (10-20); BUN (Urea Nitrogen) 18 mg/dL (8.4-25.7); Calc. Creatinine Clearance 162 mL/min (70-130); Calcium 7.6 mg/dL (7.8-10.44); Carbon Dioxide 28 mmol/L (23-31); Chloride 103 mmol/L (98-107); Estimated GFR-MDRD Greater than 90; Glucose 76 mg/dL (80-115); Potassium 3.4 mmol/L (3.5-5.1); Sodium 138 mmol/L (136-145)
[2017-07-25] MEDS: Pantoprazole 40 MG VIAL IVP SCH ×2 (09:32→21:30)
--- NOTE | 2017-07-25 12:41 | PRG ---
DATE OF SERVICE: 07/25/2017 SERVICE: Pulmonary Medicine. INTERVAL HISTORY: The patient is doing fine from a cardiovascular and respiratory standpoint. He is breathing comfortably. No chest pain or shortness of breath. Otherwise, he is doing quite well. Adolfo perez is on a spontaneous breathing trial this morning. If he meets criteria, extubation will be conside red in 30 minutes. PHYSICAL EXAMINATION: VITAL SIGNS: Afebrile, pulse 79, blood pressure 131/59, respirations 17, saturation 90% on 41% FiO2 and a PEEP of 5. GENERAL: The patient is awake and alert, in no apparent distress. LUNGS: Decent air entry. There is a slightly prolonged expiratory phase, but I do not appreciate an y wheezing. Crackles are present. No rhonchi. HEART: Normal rate and regular. ABDOMEN: Soft, nontender and nondistended. Bowel sounds are positive. MUSCULOSKELETAL: No cyanosis or clubbing. No pitting in the bilateral lower extremities. NEUROLOGIC: Grossly nonfocal. LABORATORY DATA: WBC 7.3, hemoglobin 8.8 and platelets 173,000. Potassium 3.4. Basic metabolic pro file is otherwise unremarkable. Respiratory virus culture, blood cultures x2 and urine culture x2 ar e unremarkable. IMAGING DATA: Chest x-ray demonstrates no complications after placement of a dual lead placed pacema ker. Endotracheal tube is 3 cm above the salvador. Layering bilateral pleural effusions are evident. ASSESSMENT: 1. Acute on chronic hypoxic and hypercapnic respiratory failure. 2. Acute on chronic diastolic heart failure. 3. Atrial flutter with rapid ventricular response, status post ablation. 4. Bradyarrhythmia, status post dual lead pacemaker placement. 5. Acute blood loss anemia secondary to peptic ulcer disease. 6. Community-acquired pneumonia, resolved. 7. Severe sepsis, resolved. 8. Osteoarthritis of the bilateral hips, severe. 9. Debility, severe. DISCUSSION AND PLAN: We will move forward with our spontaneous breathing trial. Extubation will be considered if he meets criteria. After this point, he will need to mobilize as aggressively as we po ssibly can. Long-term, the patient will need to lose a significant amount of weight, and engage with physical therapy to the best of his ability. At some point in the future, if he is capable of doing so, he will need a bilateral hip replacement surgery. At his current level of deconditioning; howev er, he simply not a candidate based on what orthopedic surgery has suggested. CRITICAL CARE TIME: 30 minutes.
[2017-07-25] MEDS: Aspirin 81 mg Enteric Coated Tablet PO SCH (14:39)
[2017-07-25] MEDS: Docusate 100 MG CAP PO SCH ×2 (14:39→21:06)
[2017-07-25] MEDS: Tamsulosin HCl 0.4 MG CAP PO SCH (14:40)
[2017-07-25] MEDS: guaiFENesin ER 600 MG TAB PO SCH ×2 (14:40→21:06)
[2017-07-25] MEDS: Dutasteride 0.5 MG CAP PO SCH (14:40)
--- NOTE | 2017-07-25 16:48 | PDOC.PN ---
- Subjective Encounter Start Date: 07/25/17 Encounter Start Time: 16:00 Pt is Seen today, extubated, Alert and oriented. No other concernes noted. - Objective Resuscitation Status: Resuscitation Status FULL:Full Resuscitation Vital Signs & Weight: Vital Signs (12 hours) Temp Pulse Resp BP Pulse Ox 07/25/17 16:00 98.4 F 07/25/17 14:29 79 23 H 90 L 07/25/17 11:00 97.7 F 07/25/17 09:56 76 25 H 89 L 07/25/17 08:00 99.3 F 71 23 H 07/25/17 07:46 74 101/53 L 07/25/17 07:44 72 21 H 94 L 07/25/17 06:00 21 H Weight Admit Weight 260 lb Weight 250 lb 14.177 oz Most Recent Monitor Data Heart Rate from ECG 78 NIBP 137/59 NIBP BP-Mean 68 Respiration from ECG 20 SpO2 90 I&O: 07/24/17 07/25/17 07/26/17 06:59 06:59 06:59 Intake Total 1497 1679 417.8 Output Total 1810 1665 555 Balance -313 14 -137.2 Result Diagrams: 07/25/17 05:21 07/25/17 05:21 Radiology Reviewed by me: Yes EKG Reviewed by me: Yes Phys Exam - Physical Examination HEENT: PERRLA, moist MMs Neck: no nodes, no JVD Respiratory: no rales, wheezing present Cardiovascular: RRR, no significant murmur Gastrointestinal: soft, non-tender Musculoskeletal: no edema, pulses present Neurological: non-focal, normal sensation Lymphatic: no nodes Psychiatric: normal affect, A&O x 3 Dx/Plan (1) Melena Code(s): K92.1 - MELENA Status: Acute Comment: Patient dropped Hb from 13 to 11 and now 7.3 Pt iss tarted on PRBC transfusion 1 unit, GI found bleeding ulcer in gastric fundus on EGD, will continue patiebnt on protonix drip. Follow GI recommedations (2) Acute exacerbation of CHF (congestive heart failure) Code(s): I50.9 - HEART FAILURE, UNSPECIFIED Status: Acute Qualifiers: Heart failure type: diastolic Qualified Code(s): I50.33 - Acute on chronic diastolic (congestive) heart failure Comment: ef of 50%, Cardilogy Following, COntinue with ACEI/ BB. (3) Acute respiratory failure with hypoxia Code(s): J96.01 - ACUTE RESPIRATORY FAILURE WITH HYPOXIA Status: Acute Comment: improving. Pulmonary Following, pt on intermittant Bipap, very labile. Continue Nebs (4) Atrial flutter Code(s): I48.92 - UNSPECIFIED ATRIAL FLUTTER Status: Acute Qualifiers: Atrial flutter type: typical Qualified Code(s): I48.3 - Typical atrial flutter Comment: in sinus rhythm, Follow Dr. Ozuna Recommedations, Ablation was successful, Pt had pacemaker yesterday, Julianne. (5) Morbid obesity Code(s): E66.01 - MORBID (SEVERE) OBESITY DUE TO EXCESS CALORIES Status: Acute (6) PNA (pneumonia) Code(s): J18.9 - PNEUMONIA, UNSPECIFIED ORGANISM Status: Acute Comment: cap , Continue with IV antibiotics per pulmonary. (7) Sepsis Code(s): A41.9 - SEPSIS, UNSPECIFIED ORGANISM Status: Acute Qualifiers: Sepsis type: sepsis due to unspecified organism Qualified Code(s): A41.9 - Sepsis, unspecified organism Comment: Improving. (8) HTN (hypertension) Code(s): I10 - ESSENTIAL (PRIMARY) HYPERTENSION Status: Chronic Qualifiers: Hypertension type: essential hypertension Qualified Code(s): I10 - Essential (primary) hypertension - Plan cont current plan of care, continue antibiotics, PT/OT, pediatric social worker, speech therapy, respiratory therapy, incentive spirometry, DVT proph w/lovenox * . - Discharge Day Encounter end time: 16:35 Review of Systems - Review of Systems Constitutional: negative: fever, chills, sweats, weakness, malaise, other Eyes: negative: Pain, Vision Change, Conjunctivae Inflammation, Eyelid Inflammation, Redness, Other ENT: negative: Ear Pain, Ear Discharge, Nose Pain, Nose Discharge, Nose Congestion, Mouth Pain, Mouth Swelling, Throat Pain, Throat Swelling, Other Respiratory: negative: Cough, Dry, Shortness of Breath, Hemoptysis, SOB with Excertion, Pleuritic Pain, Sputum, Wheezing Cardiovascular: negative: chest pain, palpitations, orthopnea, paroxysmal nocturnal dyspnea, edema, light headedness, other Gastrointestinal: negative: Nausea, Vomiting, Abdominal Pain, Diarrhea, Constipation, Melena, Hematochezia, Other Genitourinary: negative: Dysuria, Frequency, Incontinence, Hematuria, Retention , Other Musculoskeletal: negative: Neck Pain, Shoulder Pain, Arm Pain, Back Pain, Hand Pain, Leg Pain, Foot Pain, Other - Medications/Allergies Allergies/Adverse Reactions: Allergies Allergy/AdvReac Type Severity Reaction Status Date / Time No Known Drug Allergies Allergy Verified 07/14/17 14:53 Medications: Current Medications Acetaminophen (Tylenol) 650 mg PO Q4H PRN PRN Reason: Headache/Fever or Pain Last Admin: 07/19/17 07:42 Dose: 650 mg Acetaminophen (Tylenol) 650 mg MS Q4H PRN PRN Reason: Headache/Fever or Pain Last Admin: 07/24/17 23:58 Dose: 650 mg Acetaminophen/Codeine Phosphate (Tylenol #3) 1 tab PO Q4H PRN PRN Reason: Mild Pain (1-3) Acetaminophen/Codeine Phosphate (Tylenol #3) 2 tab PO Q4H PRN PRN Reason: Moderate Pain (4-6) Albuterol/Ipratropium (Duoneb) 3 ml NEB [id number] [facility] Last Admin: 07/25/17 14:29 Dose: 3 ml Aspirin (Ecotrin) 81 mg PO DAILY [facility] Last Admin: 07/25/17 14:39 Dose: Not Given Docusate Sodium (Colace) 100 mg PO BID [facility] Last Admin: 07/25/17 14:39 Dose: Not Given Dutasteride (Avodart) 0.5 mg PO DAILY [facility] Last Admin: 07/25/17 14:40 Dose: Not Given Furosemide (Lasix) 40 mg SLOW IVP 0600 [facility] Last Admin: 07/25/17 05:00 Dose: 40 mg Guaifenesin (Mucinex) 1,200 mg PO Q12HR [facility] Last Admin: 07/25/17 14:40 Dose: Not Given Sodium Chloride (1/2 Normal Saline) 1,000 mls @ 0 mls/hr IV .Q0M [facility] PRN Reason: KVO Last Admin: 07/25/17 03:20 Dose: 1,000 mls Mineral Oil/White Petrolatum (Lacri-Lube Ointment) 0 gm EA EYE PRN PRN PRN Reason: Dry Eyes Pantoprazole Sodium (Protonix) 40 mg IVP Q12HR [facility] Last Admin: 07/25/17 09:32 Dose: 40 mg Sodium Chloride (Flush - Normal Saline) 10 ml IVF Q12HR [facility] Last Admin: 07/25/17 09:30 Dose: 10 ml Sodium Chloride (Flush - Normal Saline) 10 ml IVF PRN PRN PRN Reason: Saline Flush Last Admin: 07/24/17 20:20 Dose: 10 ml Tamsulosin HCl (Flomax) 0.4 mg PO DAILY [facility] Last Admin: 07/25/17 14:40 Dose: Not Given
[2017-07-26] MEDS: Sodium Chloride 0.45% 1,000 ML IV SCH (05:07)
[2017-07-26] MEDS: Furosemide 40 MG/4 ML VIAL SLOW IVP SCH (05:07)
[2017-07-26] MEDS: Dutasteride 0.5 MG CAP PO SCH (08:53)
[2017-07-26] MEDS: guaiFENesin ER 600 MG TAB PO SCH ×2 (08:53→20:51)
[2017-07-26] MEDS: Tamsulosin HCl 0.4 MG CAP PO SCH (08:53)
[2017-07-26] MEDS: Aspirin 81 mg Enteric Coated Tablet PO SCH (08:54)
[2017-07-26] MEDS: Pantoprazole 40 MG VIAL IVP SCH ×2 (08:54→20:51)
[2017-07-26] MEDS: Docusate 100 MG CAP PO SCH ×2 (08:54→20:51)
--- NOTE | 2017-07-26 14:48 | PRG ---
DATE OF SERVICE: 07/26/2017 SUBJECTIVE: Mr. Campos has no complaints. His is in the room at the bedside. Surprisingly, he a sked me what was under his skin by his left shoulder. I explained to him that it was his pacemaker. He then inquired about all the wires on his chest, so he may be a little bit encephalopathic, althoug h he is very quite cooperative. OBJECTIVE: VITAL SIGNS: Heart rate 77, respiratory rate is 19, oximetry is 96 on 3 liters, blood pressure 121/6 0. LUNGS: Clear anteriorly. CARDIOVASCULAR: Regular rhythm. ABDOMEN: Soft. EXTREMITIES: Without asymmetry. IMPRESSION: 1. Acute on chronic hypoxic and hypercapnic respiratory failure. 2. 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 3. Acute on chronic diastolic heart failure. 4. Atrial flutter, status post cardioversion and pacemaker implantation. 5. Blood loss anemia secondary to ulcer disease. 6. Recent pneumonia. PLAN: Continue supportive care by keeping her one more day given his multiple complex medical proble ms. He appears to be stable at this time.
--- NOTE | 2017-07-26 15:37 | PDOC.PN ---
- Subjective Encounter Start Date: 07/26/17 Encounter Start Time: 14:30 Patient is seen today, alert and oriented. No other Concern noted. Pt is S/p pacemaker. - Objective Resuscitation Status: Resuscitation Status FULL:Full Resuscitation MAR Reviewed: Yes Vital Signs & Weight: Vital Signs (12 hours) Temp Pulse Resp Pulse Ox 07/26/17 13:22 77 19 96 07/26/17 12:00 98.1 F 07/26/17 09:00 98.5 F 07/26/17 08:00 98.5 F 64 17 94 L 07/26/17 07:23 94 L 07/26/17 07:22 71 17 94 L 07/26/17 04:00 98.9 F Weight Admit Weight 260 lb Weight 247 lb 9.266 oz Most Recent Monitor Data Heart Rate from ECG 76 NIBP 121/60 NIBP BP-Mean 77 Respiration from ECG 19 SpO2 88 I&O: 07/25/17 07/26/17 07/27/17 06:59 06:59 07:59 Intake Total 1679 810.8 477 Output Total 1665 1740 595 Balance 14 -929.2 -118 Result Diagrams: 07/25/17 05:21 07/25/17 05:21 Radiology Reviewed by me: Yes Phys Exam - Physical Examination HEENT: PERRLA, moist MMs Neck: no nodes, no JVD Respiratory: no wheezing, no rales Cardiovascular: RRR, no significant murmur Gastrointestinal: soft, non-tender Musculoskeletal: no edema, pulses present Neurological: non-focal, normal sensation Lymphatic: no nodes Psychiatric: normal affect Skin: no rash, normal turgor Dx/Plan (1) Melena Code(s): K92.1 - MELENA Status: Acute Comment: Patient dropped Hb from 13 to 11 and now 8.8 will continue patiebnt on protonix IV. Follow GI recommedations. CBC ordered today. (2) Acute exacerbation of CHF (congestive heart failure) Code(s): I50.9 - HEART FAILURE, UNSPECIFIED Status: Acute Qualifiers: Heart failure type: diastolic Qualified Code(s): I50.33 - Acute on chronic diastolic (congestive) heart failure Comment: ef of 50%, Cardilogy Following, COntinue with ACEI/ BB. (3) Acute respiratory failure with hypoxia Code(s): J96.01 - ACUTE RESPIRATORY FAILURE WITH HYPOXIA Status: Acute Comment: improving. Pulmonary Following, pt on NC now, very labile. Continue Nebs (4) Atrial flutter Code(s): I48.92 - UNSPECIFIED ATRIAL FLUTTER Status: Acute Qualifiers: Atrial flutter type: typical Qualified Code(s): I48.3 - Typical atrial flutter Comment: in sinus rhythm, Follow Dr. Ozuna Recommedations, Ablation was successful, Pt had pacemaker yesterday, Julianne. (5) Morbid obesity Code(s): E66.01 - MORBID (SEVERE) OBESITY DUE TO EXCESS CALORIES Status: Acute (6) PNA (pneumonia) Code(s): J18.9 - PNEUMONIA, UNSPECIFIED ORGANISM Status: Acute Comment: cap , Continue with IV antibiotics per pulmonary. (7) Sepsis Code(s): A41.9 - SEPSIS, UNSPECIFIED ORGANISM Status: Acute Qualifiers: Sepsis type: sepsis due to unspecified organism Qualified Code(s): A41.9 - Sepsis, unspecified organism Comment: Improving. (8) HTN (hypertension) Code(s): I10 - ESSENTIAL (PRIMARY) HYPERTENSION Status: Chronic Qualifiers: Hypertension type: essential hypertension Qualified Code(s): I10 - Essential (primary) hypertension - Plan cont current plan of care, kaiser catheter, continue antibiotics, PT/OT, psychotherapist social worker, respiratory therapy, incentive spirometry, DVT proph w/lovenox * . - Discharge Day Encounter end time: 15:05 Review of Systems - Review of Systems Constitutional: negative: fever, chills, sweats, weakness, malaise, other Eyes: negative: Pain, Vision Change, Conjunctivae Inflammation, Eyelid Inflammation, Redness, Other ENT: Throat Pain Respiratory: negative: Cough, Dry, Shortness of Breath, Hemoptysis, SOB with Excertion, Pleuritic Pain, Sputum, Wheezing Cardiovascular: negative: chest pain, palpitations, orthopnea, paroxysmal nocturnal dyspnea, edema, light headedness, other Gastrointestinal: negative: Nausea, Vomiting, Abdominal Pain, Diarrhea, Constipation, Melena, Hematochezia, Other Genitourinary: negative: Dysuria, Frequency, Incontinence, Hematuria, Retention , Other Musculoskeletal: negative: Neck Pain, Shoulder Pain, Arm Pain, Back Pain, Hand Pain, Leg Pain, Foot Pain, Other Skin: negative: Rash, Lesions, [place], Bruising, Other - Medications/Allergies Allergies/Adverse Reactions: Allergies Allergy/AdvReac Type Severity Reaction Status Date / Time No Known Drug Allergies Allergy Verified 07/14/17 14:53 Medications: Current Medications Acetaminophen (Tylenol) 650 mg PO Q4H PRN PRN Reason: Headache/Fever or Pain Last Admin: 07/19/17 07:42 Dose: 650 mg Acetaminophen (Tylenol) 650 mg CO Q4H PRN PRN Reason: Headache/Fever or Pain Last Admin: 07/24/17 23:58 Dose: 650 mg Acetaminophen/Codeine Phosphate (Tylenol #3) 1 tab PO Q4H PRN PRN Reason: Mild Pain (1-3) Acetaminophen/Codeine Phosphate (Tylenol #3) 2 tab PO Q4H PRN PRN Reason: Moderate Pain (4-6) Albuterol/Ipratropium (Duoneb) 3 ml NEB [id number] [facility] Last Admin: 07/26/17 13:22 Dose: 3 ml Aspirin (Ecotrin) 81 mg PO DAILY [facility] Last Admin: 07/26/17 08:54 Dose: 81 mg Docusate Sodium (Colace) 100 mg PO BID [facility] Last Admin: 07/26/17 08:54 Dose: 100 mg Dutasteride (Avodart) 0.5 mg PO DAILY [facility] Last Admin: 07/26/17 08:53 Dose: 0.5 mg Furosemide (Lasix) 40 mg SLOW IVP 0600 [facility] Last Admin: 07/26/17 05:07 Dose: 40 mg Guaifenesin (Mucinex) 1,200 mg PO Q12HR [facility]PLACED [facility] Last Admin: 07/26/17 08:53 Dose: 1,200 mg Sodium Chloride (1/2 Normal Saline) 1,000 mls @ 0 mls/hr IV .Q0M [facility] PRN Reason: KVO Last Admin: 07/26/17 05:07 Dose: 1,000 mls Mineral Oil/White Petrolatum (Lacri-Lube Ointment) 0 gm EA EYE PRN PRN PRN Reason: Dry Eyes Pantoprazole Sodium (Protonix) 40 mg IVP Q12HR [facility]PL[facility]ED [facility] Last Admin: 07/26/17 08:54 Dose: 40 mg Sodium Chloride (Flush - Normal Saline) 10 ml IVF Q12HR [facility]PL[facility] Last Admin: 07/26/17 08:54 Dose: 10 ml Sodium Chloride (Flush - Normal Saline) 10 ml IVF PRN PRN PRN Reason: Saline Flush Last Admin: 07/25/17 22:20 Dose: 10 ml Tamsulosin HCl (Flomax) 0.4 mg PO DAILY [facility] Last Admin: 07/26/17 08:53 Dose: 0.4 mg
[2017-07-26 16:11] LABS: #Eosinphils 0.1 thou/uL (0.0-0.7); #Lymphocytes 0.7 thou/uL (1.20-3.40); #Monocytes 0.5 thou/uL (0.11-0.59); #Neutrophils 5.1 thou/uL (1.40-6.50); %Basophils 0.6 % (0.0-1.0); %Eosinophils 1.8 % (0.0-10.0); %Monocytes 7.2 % (0.0-10.0); %Neutrophils 79.4 % (42.0-75.0); Hemoglobin 9.7 g/dL (14.0-18.0); Mean Corpuscular HGB CONC 33.1 g/dL (32.0-36.0); Mean Corpuscular Hemoglobin 31.3 pg (27.0-31.0); Mean Corpuscular Volume 94.4 fl (80.0-94.0); Mean Platelet Volume 6.5 fL (7.4-10.4); Platelet Count 204 thou/uL (130-400); RBC Distribution Width 16.8 % (11.5-14.5); Red Blood Cell (RBC) Count 3.11 mill/uL (4.70-6.10); White Blood Cell (WBC) Count 6.4 thou/uL (4.8-10.8)
[2017-07-26 16:29] LABS: Anion Gap 12 mmol/L (10-20); BUN (Urea Nitrogen) 14 mg/dL (8.4-25.7); Calc. Creatinine Clearance 168 mL/min (70-130); Calcium 7.8 mg/dL (7.8-10.44); Carbon Dioxide 31 mmol/L (23-31); Chloride 99 mmol/L (98-107); Estimated GFR-MDRD Greater than 90; Glucose 100 mg/dL (80-115); Potassium 3.5 mmol/L (3.5-5.1); Sodium 138 mmol/L (136-145)
[2017-07-27] MEDS: Furosemide 40 MG/4 ML VIAL SLOW IVP SCH (06:29)
[2017-07-27] MEDS: Dutasteride 0.5 MG CAP PO SCH (08:01)
[2017-07-27] MEDS: Tamsulosin HCl 0.4 MG CAP PO SCH (08:01)
[2017-07-27] MEDS: guaiFENesin ER 600 MG TAB PO SCH ×2 (08:01→20:18)
[2017-07-27] MEDS: Pantoprazole 40 MG VIAL IVP SCH ×2 (08:01→20:18)
[2017-07-27] MEDS: Aspirin 81 mg Enteric Coated Tablet PO SCH (08:01)
[2017-07-27] MEDS: Docusate 100 MG CAP PO SCH ×2 (08:01→20:18)
--- NOTE | 2017-07-27 11:59 | PRG ---
DATE OF SERVICE: 07/27/2017 SUBJECTIVE: Mr. Campos is doing well. He seems to be more alert and oriented today. He has no curren t complaints. PHYSICAL EXAMINATION: VITAL SIGNS: 134/71, pulse 60, respirations 20. LUNGS: Mild rhonchi bilaterally, but appears improved. CARDIAC: Regular rate and rhythm. ABDOMEN: Soft, obese. Positive bowel sounds. EXTREMITIES: 1+ pitting edema. PERTINENT LABORATORY DATA: Hemoglobin 9.7, creatinine 0.65. Peak troponin 0.095. IMPRESSION: 1. Atrial flutter - status post ablation, doing well. 2. Sick sinus syndrome - patient is status post pacemaker placement. 3. Severe osteoarthritis - at this point is unsure whether patient will be able to undergo surgical therapy. Patient will need intensive rehabilitation. From my standpoint, Mr. Campos would like to follow up with Dr. Reese who his primary presentation team member. A t this point, I have no further recommendations. Please reconsult if needed.
--- NOTE | 2017-07-27 14:34 | PDOC.PN ---
- Subjective Encounter Start Date: 07/27/17 Encounter Start Time: 13:00 Patient is resting in Bed, No other concenr snoed. he Look very tired, still hoase voice. Likely woked with Nuro chair today. - Objective Resuscitation Status: Resuscitation Status FULL:Full Resuscitation MAR Reviewed: Yes Vital Signs & Weight: Vital Signs (12 hours) Temp Pulse Resp Pulse Ox 07/27/17 12:00 98.0 F 07/27/17 08:00 98.6 F 66 16 95 07/27/17 07:29 93 L 07/27/17 07:27 91 19 93 L 07/27/17 04:00 98.5 F Weight Admit Weight 260 lb Weight 244 lb 7.882 oz Most Recent Monitor Data Heart Rate from ECG 70 NIBP 116/57 NIBP BP-Mean 62 Respiration from ECG 14 SpO2 96 I&O: 07/26/17 07/27/17 07/28/17 05:59 06:59 06:59 Intake Total Output Total 1510 Balance -1510 Result Diagrams: 07/26/17 16:07 07/26/17 16:07 Phys Exam - Physical Examination HEENT: PERRLA, moist MMs Neck: no nodes, no JVD Respiratory: no rales, wheezing present Cardiovascular: RRR, no significant murmur Gastrointestinal: soft, non-tender Musculoskeletal: pulses present, edema present Neurological: non-focal, normal sensation Lymphatic: no nodes Psychiatric: normal affect, A&O x 3 Skin: no rash, normal turgor Dx/Plan (1) Melena Code(s): K92.1 - MELENA Status: Acute Comment: Patient dropped Hb from 13 to 11 and now 8.8 will continue patiebnt on protonix IV. Follow GI recommedations. CBC ordered today. (2) Acute exacerbation of CHF (congestive heart failure) Code(s): I50.9 - HEART FAILURE, UNSPECIFIED Status: Acute Qualifiers: Heart failure type: diastolic Qualified Code(s): I50.33 - Acute on chronic diastolic (congestive) heart failure Comment: ef of 50%, Cardilogy Following, COntinue with ACEI/ BB.stbale. (3) Acute respiratory failure with hypoxia Code(s): J96.01 - ACUTE RESPIRATORY FAILURE WITH HYPOXIA Status: Acute Comment: improving. Pulmonary Following, pt on NC now, very labile. Continue Nebs, plan to keep him in ICU today. (4) Atrial flutter Code(s): I48.92 - UNSPECIFIED ATRIAL FLUTTER Status: Acute Qualifiers: Atrial flutter type: typical Qualified Code(s): I48.3 - Typical atrial flutter Comment: in sinus rhythm, Follow Dr. Ozuna Recommedations, Ablation was successful, Pt had pacemaker yesterday, Julianne. (5) Morbid obesity Code(s): E66.01 - MORBID (SEVERE) OBESITY DUE TO EXCESS CALORIES Status: Acute (6) PNA (pneumonia) Code(s): J18.9 - PNEUMONIA, UNSPECIFIED ORGANISM Status: Acute Comment: cap , Continue with IV antibiotics per pulmonary. (7) Sepsis Code(s): A41.9 - SEPSIS, UNSPECIFIED ORGANISM Status: Acute Qualifiers: Sepsis type: sepsis due to unspecified organism Qualified Code(s): A41.9 - Sepsis, unspecified organism Comment: Improving. (8) HTN (hypertension) Code(s): I10 - ESSENTIAL (PRIMARY) HYPERTENSION Status: Chronic Qualifiers: Hypertension type: essential hypertension Qualified Code(s): I10 - Essential (primary) hypertension - Plan cont current plan of care, PT/OT, social service worker, speech therapy, incentive spirometry, DVT proph w/lovenox * . Review of Systems - Review of Systems Eyes: negative: Pain, Vision Change, Conjunctivae Inflammation, Eyelid Inflammation, Redness, Other Respiratory: Cough, Shortness of Breath. negative: Dry, Hemoptysis, SOB with Excertion, Pleuritic Pain, Sputum, Wheezing Cardiovascular: edema. negative: chest pain, palpitations, orthopnea, paroxysmal nocturnal dyspnea, light headedness, other Gastrointestinal: negative: Nausea, Vomiting, Abdominal Pain, Diarrhea, Constipation, Melena, Hematochezia, Other Musculoskeletal: negative: Neck Pain, Shoulder Pain, Arm Pain, Back Pain, Hand Pain, Leg Pain, Foot Pain, Other Skin: negative: Rash, Lesions, [place], Bruising, Other Neurological: negative: Weakness, Numbness, Incoordination, Change in Speech, Confusion, Seizures, Other - Medications/Allergies Allergies/Adverse Reactions: Allergies Allergy/AdvReac Type Severity Reaction Status Date / Time No Known Drug Allergies Allergy Verified 07/14/17 14:53 Medications: Current Medications Acetaminophen (Tylenol) 650 mg PO Q4H PRN PRN Reason: Headache/Fever or Pain Last Admin: 07/19/17 07:42 Dose: 650 mg Acetaminophen (Tylenol) 650 mg DC Q4H PRN PRN Reason: Headache/Fever or Pain Last Admin: 07/24/17 23:58 Dose: 650 mg Acetaminophen/Codeine Phosphate (Tylenol #3) 1 tab PO Q4H PRN PRN Reason: Mild Pain (1-3) Acetaminophen/Codeine Phosphate (Tylenol #3) 2 tab PO Q4H PRN PRN Reason: Moderate Pain (4-6) Albuterol/Ipratropium (Duoneb) 3 ml NEB [id number] [facility] Last Admin: 07/27/17 07:27 Dose: 3 ml Aspirin (Ecotrin) 81 mg PO DAILY [facility] Last Admin: 07/27/17 08:01 Dose: 81 mg Docusate Sodium (Colace) 100 mg PO BID [facility] Last Admin: 07/27/17 08:01 Dose: 100 mg Dutasteride (Avodart) 0.5 mg PO DAILY [facility] Last Admin: 07/27/17 08:01 Dose: 0.5 mg Furosemide (Lasix) 40 mg SLOW IVP 0600 [facility] Last Admin: 07/27/17 06:29 Dose: 40 mg Guaifenesin (Mucinex) 1,200 mg PO Q12HR [facility] Last Admin: 07/27/17 08:01 Dose: 1,200 mg Sodium Chloride (1/2 Normal Saline) 1,000 mls @ 0 mls/hr IV .Q0M [facility] PRN Reason: KVO Last Admin: 07/26/17 05:07 Dose: 1,000 mls Mineral Oil/White Petrolatum (Lacri-Lube Ointment) 0 gm EA EYE PRN PRN PRN Reason: Dry Eyes Pantoprazole Sodium (Protonix) 40 mg IVP Q12HR [facility] Last Admin: 07/27/17 08:01 Dose: 40 mg Sodium Chloride (Flush - Normal Saline) 10 ml IVF Q12HR [facility] Last Admin: 07/27/17 08:02 Dose: 10 ml Sodium Chloride (Flush - Normal Saline) 10 ml IVF PRN PRN PRN Reason: Saline Flush Last Admin: 07/25/17 22:20 Dose: 10 ml Tamsulosin HCl (Flomax) 0.4 mg PO DAILY [facility] Last Admin: 07/27/17 08:01 Dose: 0.4 mg
--- NOTE | 2017-07-27 16:40 | PRG ---
DATE OF SERVICE: 07/27/2017 SUBJECTIVE: Mr. Campos says he feels a little bit better. He has no complaints. He is very pleasant as he always has been this weekend and smiling. OBJECTIVE: VITAL SIGNS: He is afebrile, heart rate 67, respiratory rate 14, oximetry is 92 on 3 liters. LUNGS: Remarkable for mild rhonchi on the right. CARDIOVASCULAR: Regular rhythm, no S3. ABDOMEN: Soft and nontender. EXTREMITIES: Without asymmetry or edema. His feet are warm. LABORATORY DATA: No CBC today. His hemoglobin yesterday 9.7. There are no electrolytes today. IMPRESSION: 1. Deconditioning. 2. Atrial flutter, status post ablation. 3. Sick sinus syndrome, status post pacemaker. His pacemaker insertion site looks good. 4. Acute on chronic hypoxic and hypercapnic respiratory failure. 5. Diastolic heart failure that is chronic. 6. Blood loss anemia secondary to ulcer disease. 7. Recent pneumonia. PLAN: Continue supportive care. No medication changes today. He is a labor intensive patient and I am not sure whether the best option next is for him maybe telemetry or intermediate care versus step down unit.
[2017-07-28 04:53] LABS: #Basophils 0.1 thou/uL (0.0-0.2); #Eosinphils 0.1 thou/uL (0.0-0.7); #Lymphocytes 0.6 thou/uL (1.20-3.40); #Monocytes 0.4 thou/uL (0.11-0.59); #Neutrophils 4.7 thou/uL (1.40-6.50); %Basophils 0.9 % (0.0-1.0); %Eosinophils 2.2 % (0.0-10.0); %Lymphocytes 9.7 % (21.0-51.0); %Neutrophils 80.2 % (42.0-75.0); Hemoglobin 10.2 g/dL (14.0-18.0); Mean Corpuscular HGB CONC 32.5 g/dL (32.0-36.0); Mean Corpuscular Hemoglobin 30.8 pg (27.0-31.0); Mean Corpuscular Volume 94.7 fl (80.0-94.0); Platelet Count 220 thou/uL (130-400); RBC Distribution Width 16.8 % (11.5-14.5); Red Blood Cell (RBC) Count 3.32 mill/uL (4.70-6.10); White Blood Cell (WBC) Count 5.9 thou/uL (4.8-10.8)
[2017-07-28 05:11] LABS: Anion Gap 5 mmol/L (10-20); BUN (Urea Nitrogen) 13 mg/dL (8.4-25.7); Calc. Creatinine Clearance 186 mL/min (70-130); Calcium 7.8 mg/dL (7.8-10.44); Carbon Dioxide 37 mmol/L (23-31); Chloride 97 mmol/L (98-107); Estimated GFR-MDRD Greater than 90; Glucose 123 mg/dL (80-115); Potassium 3.2 mmol/L (3.5-5.1); Sodium 136 mmol/L (136-145)
[2017-07-28] MEDS: Furosemide 40 MG/4 ML VIAL SLOW IVP SCH (05:28)
[2017-07-28] MEDS: Docusate 100 MG CAP PO SCH ×2 (07:53→21:52)
[2017-07-28] MEDS: guaiFENesin ER 600 MG TAB PO SCH (07:59)
[2017-07-28] MEDS: Dutasteride 0.5 MG CAP PO SCH (07:59)
[2017-07-28] MEDS: Pantoprazole 40 MG VIAL IVP SCH (07:59)
[2017-07-28] MEDS: Tamsulosin HCl 0.4 MG CAP PO SCH (07:59)
[2017-07-28] MEDS: Aspirin 81 mg Enteric Coated Tablet PO SCH (07:59)
[2017-07-28] MEDS ORDERED: guaiFENesin ER 600 MG TAB PO PRN (10:05)
[2017-07-28] MEDS: Potassium Chloride 20 MEQ TAB PO SCH ×2 (11:15→15:27)
--- NOTE | 2017-07-28 11:49 | PDOC.CTH ---
Cardiology Progress Note - Subjective EP progress note: No new cardiac complaints. Denies pain or tenderness at PPM insertion site. Denies bruising or bleeding from groin sites post ablation. Continues to have shortness of breath, dyspnea, wheezing, pain, and severe mobility limitations. - Objective Vital Signs Temp Pulse Resp Pulse Ox 07/28/17 08:00 97.7 F 79 17 95 07/28/17 07:34 96 07/28/17 07:32 73 17 96 07/28/17 04:00 98.5 F 07/28/17 00:00 98.4 F Admit Weight 260 lb Weight 248 lb 3.848 oz 07/27/17 07/28/17 07/29/17 06:59 06:59 06:59 Intake Total 785 250 Output Total 2230 1493 Balance -1445 -1243 - Physical Examination General/Neuro: alert & oriented x3, NAD Lungs: other: (expiratory wheezes BL (L>R). Severely diminished in BL bases) Extremities: + edema B Other PE findings: PPM site stable,minimal bruising.no drainage or redness.edges approximated - Telemetry Telemetry Rhythm: NSR/paced - Labs Result Diagrams: 07/28/17 04:38 07/28/17 04:38 Troponin/CKMB CK-MB (CK-2) 1.5 ng/mL (0-6.6) 07/23/17 10:52 Troponin I 0.095 ng/mL (< 0.028) H 07/23/17 10:52 - Assessment/Plan 1. Typical atrial flutter s/p CTI ablation. No recurrence. Groin site healed. 2. Sinus node dysfunction s/p dual chamber medtronic PPM implant on 07/24/17, AAIR <=> DDDR lower rate set at 60. Site stable without hematoma. Minimal bruising. Will need routine follow up as outpatient as arranged by [facility].
--- NOTE | 2017-07-28 12:14 | PDOC.PN ---
- Subjective Encounter Start Date: 07/28/17 Encounter Start Time: 14:30 Subjective: Patient reports stable breathing status. Just finished a neb. Continued -: severe pain in bilateral hips. Asking if we can reinstitute his home -: hydrocodone for pain. - Objective Resuscitation Status: Resuscitation Status FULL:Full Resuscitation MAR Reviewed: Yes Vital Signs & Weight: Vital Signs (12 hours) Temp Pulse Resp Pulse Ox 07/28/17 08:00 97.7 F 79 17 95 07/28/17 07:34 96 07/28/17 07:32 73 17 96 07/28/17 04:00 98.5 F Weight Admit Weight 260 lb Weight 248 lb 3.848 oz Most Recent Monitor Data Heart Rate from ECG 77 NIBP 94/50 NIBP BP-Mean 55 Respiration from ECG 18 SpO2 85 I&O: 07/27/17 07/28/17 07/29/17 06:59 06:59 06:59 Intake Total 785 250 Output Total 2230 1493 Balance -1445 -1243 Result Diagrams: 07/28/17 04:38 07/28/17 04:38 Phys Exam - Physical Examination Morbidly obese HEENT: moist MMs Neck: no JVD Respiratory: no rales, no rhonchi, wheezing present mild increase WOB, talking comfortably left chest wound from pacemaker healing well Cardiovascular: RRR Gastrointestinal: soft, non-tender, positive bowel sounds Neurological: non-focal, moves all 4 limbs Psychiatric: normal affect Dx/Plan (1) Sick sinus syndrome Code(s): I49.5 - SICK SINUS SYNDROME Status: Acute Comment: s/p pacemaker (2) Atrial flutter Code(s): I48.92 - UNSPECIFIED ATRIAL FLUTTER Status: Acute Qualifiers: Atrial flutter type: typical Qualified Code(s): I48.3 - Typical atrial flutter Comment: s/p ablation and pacemaker (3) Acute and chronic respiratory failure Code(s): J96.20 - ACUTE AND CHR RESP FAILURE, UNSP W HYPOXIA OR HYPERCAPNIA Status: Acute Qualifiers: Respiratory failure complication: hypoxia and hypercapnia Qualified Code(s) : J96.21 - Acute and chronic respiratory failure with hypoxia; J96.22 - Acute and chronic respiratory failure with hypercapnia; J96.22 - Acute and chronic respiratory failure with hypercapnia; J96.22 - Acute and chronic respiratory failure with hypercapnia (4) Diastolic CHF Code(s): I50.30 - UNSPECIFIED DIASTOLIC (CONGESTIVE) HEART FAILURE Status: Chronic Qualifiers: Heart failure chronicity: chronic Qualified Code(s): I50.32 - Chronic diastolic (congestive) heart failure (5) Peptic ulcer disease with hemorrhage Code(s): K27.4 - CHRONIC OR UNSP PEPTIC ULCER, SITE UNSP, WITH HEMORRHAGE Status: Acute Comment: s/p cautery of bleeding vessel, GI signed off, H/H stable since transfusion (6) PNA (pneumonia) Code(s): J18.9 - PNEUMONIA, UNSPECIFIED ORGANISM Status: Resolved Comment: cap, Continue with IV antibiotics per pulmonary. (7) Sepsis Code(s): A41.9 - SEPSIS, UNSPECIFIED ORGANISM Status: Resolved Qualifiers: Sepsis type: sepsis due to unspecified organism Qualified Code(s): A41.9 - Sepsis, unspecified organism Comment: Improving. (8) Morbid obesity Code(s): E66.01 - MORBID (SEVERE) OBESITY DUE TO EXCESS CALORIES Status: Chronic (9) HTN (hypertension) Code(s): I10 - ESSENTIAL (PRIMARY) HYPERTENSION Status: Chronic Qualifiers: Hypertension type: essential hypertension Qualified Code(s): I10 - Essential (primary) hypertension (10) TAMARA (obstructive sleep apnea) Code(s): G47.33 - OBSTRUCTIVE SLEEP APNEA (ADULT) (PEDIATRIC) Status: Chronic (11) Bilateral hip joint arthritis Code(s): M16.0 - BILATERAL PRIMARY OSTEOARTHRITIS OF HIP Status: Acute Comment: Resume pain medication now that breathing has stablized. - Plan cont current plan of care, PT/OT * . - Discharge Day Encounter end time: 14:50
[2017-07-28 12:28] VITALS: BMI 38.8
--- NOTE | 2017-07-28 13:32 | PRG ---
DATE OF SERVICE: 07/28/2017 SERVICE: Pulmonary Medicine. INTERVAL HISTORY: The patient is doing fine from cardiovascular and respiratory standpoint. He johny es any chest pain, fevers, chills, nausea or vomiting. Otherwise, he is moving in right direction. He is breathing comfortably. He is not having any cough and his appetite is excellent. PHYSICAL EXAMINATION: VITAL SIGNS: Afebrile, pulse 84, blood pressure 93/52, respirations 18, saturation 93% on 4 liters n venus cannula. GENERAL: The patient is awake and alert, in no apparent distress. LUNGS: Decent air entry. There is a slightly prolonged expiratory phase, but no wheezing or rhonchi are appreciated. The crackles are gone. Heart rate is regular. ABDOMEN: Soft, nontender, nondistended. Bowel sounds are positive. MUSCULOSKELETAL: No cyanosis or clubbing. No pitting in the bilateral lower extremities. NEUROLOGIC: Grossly nonfocal. LABORATORY DATA: WBC 5.9, hemoglobin 10.2, platelets 220,000. Potassium 3.2, bicarbonate 37, creati nine 0.58. ASSESSMENT: 1. Acute on chronic hypoxic and hypercapnic respiratory failure. 2. Chronic diastolic heart failure, returning to euvolemia. 3. Atrial flutter with rapid ventricular response, status post ablation. 4. Bradyarrhythmia, status post dual lead pacemaker placement. 5. Acute blood loss anemia secondary to peptic ulcer disease, stable. 6. Community-acquired pneumonia, resolved. 7. Severe sepsis, resolved. 8. Osteoarthritis of the bilateral hips, severe. 9. Debility, severe. DISCUSSION AND PLAN: The patient can be transitioned out of the ICU to the intermediate care unit. We will work on mobilizing him. His acute medical issues have come to close. As such, he can be tra nsitioned out of the hospital provided we have a safe location for him to go where he can pursue aggr essive physical therapy and weight loss with a goal of having bilateral hip replacements done at some point in the future. I will continue to follow while he remains inhouse.
[2017-07-29] MEDS: Sodium Chloride 0.45% 1,000 ML IV SCH (06:57)
[2017-07-29] MEDS ORDERED: Potassium Chloride 20 MEQ TAB PO SCH (07:30)
[2017-07-29] MEDS ORDERED: Furosemide 40 MG TAB PO SCH (07:30)
[2017-07-29 07:56] LABS: Anion Gap 10 mmol/L (10-20); BUN (Urea Nitrogen) 10 mg/dL (8.4-25.7); Calc. Creatinine Clearance 195 mL/min (70-130); Calcium 8.1 mg/dL (7.8-10.44); Carbon Dioxide 36 mmol/L (23-31); Chloride 96 mmol/L (98-107); Estimated GFR-MDRD Greater than 90; Glucose 104 mg/dL (80-115); Magnesium 2.1 mg/dL (1.6-2.6); Potassium 3.9 mmol/L (3.5-5.1); Sodium 138 mmol/L (136-145)
[2017-07-29] MEDS ORDERED: HYDROcodone/Acetaminophen 10/325 mg Tablet PO SCH (09:00)
[2017-07-29] MEDS: Dutasteride 0.5 MG CAP PO SCH (09:19)
[2017-07-29] MEDS: Aspirin 81 mg Enteric Coated Tablet PO SCH (09:19)
[2017-07-29] MEDS: Docusate 100 MG CAP PO SCH (09:20)
[2017-07-29] MEDS: Tamsulosin HCl 0.4 MG CAP PO SCH (09:21)
--- NOTE | 2017-07-29 11:42 | PRG ---
DATE OF SERVICE: 07/29/2017 SERVICE: Pulmonary Medicine. INTERVAL HISTORY: The patient is doing outstanding from a respiratory standpoint. He denies any chris st pain, shortness of breath, fevers or chills. Otherwise, there has been no interval change to his condition. PHYSICAL EXAMINATION: VITAL SIGNS: Afebrile, pulse 68, blood pressure 114/67, respirations 20, saturation 97% on 4 liters nasal cannula. GENERAL: The patient is awake, alert, no apparent distress. LUNGS: Excellent air entry. There is no prolonged expiratory phase. There is no wheezing, rhonchi, or crackles appreciated. HEART: Normal rate, regular. ABDOMEN: Soft, nontender, nondistended. Bowel sounds are positive. MUSCULOSKELETAL: No cyanosis or clubbing. There is trace pitting in the bilateral lower extremities . NEUROLOGIC: Grossly nonfocal. ASSESSMENT: 1. Acute on chronic hypoxic and hypercapnic respiratory failure, resolved to baseline. 2. Chronic diastolic heart failure, close to euvolemia. 3. Atrial flutter with rapid ventricular response, status post ablation. 4. Bradyarrhythmia, status post dual lead pacemaker placement. 5. Acute blood loss anemia secondary to peptic ulcer disease, stable. 6. Community-acquired pneumonia, resolved. 7. Severe sepsis, resolved. 8. Osteoarthritis of the bilateral hips, severe. 9. Debility, severe. DISCUSSION AND PLAN: The patient is stable from a respiratory standpoint for transition out of [facility]. We will discontinue his KVO IV fluids. All medications that he is on have been switched over t o p.o. medications. He will need to prove to pursue aggressive physical therapy and occupational the rapy moving forward in order to promote healthy weight reduction of 1-2 pounds per week. He will als o need to increase functionality so that he will be a candidate for hip replacement surgeries in the distant future. If he cannot do these things and developed increasing weakness, he understands that he is most likely to be approaching the end of his life. I will continue to follow if he remains in house, but hopefully he will be heading out soon.
[2017-07-29 16:13] VITALS: BP 153/73; TEMP 99.6
--- NOTE | 2017-07-29 21:57 | DIS ---
DATE OF ADMISSION: 07/14/2017 DATE OF DISCHARGE: 07/29/2017 DISCHARGE DIAGNOSES: 1. Community-acquired pneumonia. 2. Peptic ulcer disease with a bleeding visible vessel. 3. Acute blood loss anemia. 4. Acute on chronic diastolic congestive heart failure. 5. Sick sinus syndrome. 6. Atrial flutter, status post ablation and pacemaker. 7. Acute on chronic respiratory failure with hypoxemia. 8. Sepsis, resolved. 9. Severe obesity 10. Hypertension. 11. Obstructive sleep apnea. 12. Bilateral hip joint osteoarthritis. CONSULTATIONS: 1. Cardiology, Dr. Gerardo Ochoa. 2. Pulmonary Critical Care, Dr. Elvis Browning. 3. Orthopedics, Gabe Rainey PA-C and Dr. Elia Gomez. 4. Urology, Dr. Hdz. 5. Electrophysiology, Dr. Karsten Ozuna. 6. Gastroenterology, Dr. Des Estrada. PROCEDURES: 1. 07/23/2017 - Electrophysiology study and radiofrequency ablation by Dr. Karsten Ozuna. 2. EGD with electrocautery of a bleeding vessel by Dr. Wenceslao Richter on 07/22/2017. 3. Endotracheal intubation by Dr. Elvis Browning on 07/22/2017. HISTORY AND PHYSICAL: Mr. Rivas is a 71-year-old white male with the above history, who presented in the Emergency Department on 08/11/2017 with acute respiratory failure and possible pneumonia. He has been having progressive weakness and congestion several days prior to presentation. His said richie perez had a flu-like illness. He fell the day of admission and could not get up, they called 911 and EMT got him into the couch. He refused transport initially. Took a [place] and then fell off the couch a gain so EMT was recalled. They suggested to bring him to the Emergency Department. On arrival, the patient was having chest pain or palpitations, but was not able to lay flat. He was on BiPAP on arri colette and was able to be weaned only to 100% nonrebreather. He was subsequently found to have a normal white count, fairly normal ABG, but certainly requiring oxygen for maintaining oxygen saturations. We were called for admission. HOSPITAL COURSE: The patient was seen and examined by Dr. Rea and admitted to the [facility] te Care Unit for acute respiratory failure and hypoxia. He was placed empirically on Levaquin and st arted on Tamiflu while PCL was awaited. He was given IV Solu-Medrol and DuoNebs, and Doppler for his lower extremities to rule out DVT. Overnight 07/14/2017 to , patient was initially doing okay. He does move all extremities, b ut was still short of breath, not able to bring up any sputum. Later that evening went into atrial f lutter with heart rate of 133. He is given digoxin x2 and placed on a Cardizem drip and Cardiology w as consulted. CT angio was negative for pulmonary embolus. On 07/16/2017, he was a little more lethargic, but still responding to verbal stimuli. He was on Zos yn for possible aspiration, white count was noted to have 42% bands. He was on amiodarone and conver dolores back to sinus rhythm, and was using BiPAP as needed. By 07/17/2017, the patient was relatively stable. He was keen on daily Lasix and prednisone, and remai thao in sinus rhythm and PT/OT was consulted. By 07/18/2017, continued to remain stable. He was on vancomycin and Zosyn, PT/OT consult was pending a nd SNF placement consideration was begun. On 07/19/2017, Dr. Flores took over the case for the next 2 days. The patient was feeling better and really not worsened. He remained in sinus rhythm. Remained on anticoagulation and by 07/20/2017, ult rasound of the kidney showed a hyperechoic mass or with so Urology was consulted. A CT scan of the [facility] shows cyst, but no mass. He was continued to be monitored. On 07/27/2017, the patient was fol lowed by Dr. Youngblood. On 07/22/2017, he developed respiratory failure and had to be intubated. Remain on the ventilator for a short period of time and did well after extubation on 07/25/2017. By 07/28/2017, patient was up to a geriatric chair. He was able to work with physical therapy some. There end-stage osteoarthritis of the hips was limiting his motion, however, due to his other comorbi dities, he was not a candidate at this time for any kind of joint procedure. He was kept on a hypoca loric hloremic cor caloric diet and was subsequently monitored in the IMCU. Today 07/29/2017, patient was approved for rehabilitation at [facility]. Medically was cleared by Pulm onology to go for rehabilitation. It was recommended that he stay on a hypocaloric diet, and lose we ight. The patient was seen and discussed. He was discharged to [facility] in stable condition. PHYSICAL EXAMINATION: The patient was seen and examined on the day of discharge. Discharge Plan disposition was discussed with the patient face to face at the bedside. DISCHARGE MEDICATIONS: 1. Tylenol as needed. 2. Aspirin 81 mg daily. 3. Avodart 0.5 mg daily with Lasix 40 mg daily. 4. Guaifenesin ER 1200 mg p.o. b.i.d. 5. DuoNeb 3 mL q.6 hours as needed. 6. Protonix 40 mg b.i.d. 7. Flomax 0.4 mg p.o. daily. 8. Amlodipine 5 mg daily. 9. Carvedilol 6.25 mg p.o. b.i.d. 10. Plavix 75 mg daily. 11. Lisinopril 20 mg p.o. b.i.d. 12. Zocor 20 mg p.o. at bedtime. FOLLOWUP APPOINTMENTS: 1. Primary care physician Dr. Richard Rowe in [address] week[address] Magen Reese in 2-3 weeks. DISCHARGE CONDITION: Stable. DISPOSITION: Will be discharged to [facility] nursing rehabilitation for PT and OT. DISCHARGE ACTIVITY: Per orthopedic and cardiopulmonary limits. DISCHARGE DIET: Heart healthy. A 1600 calories with 1500 mL fluid restriction.
--- NOTE | 2017-07-30 06:55 | EKG ---
Test Reason : Blood Pressure : / mmHG Vent. Rate : 081 BPM Atrial Rate : 081 BPM P-R Int : 166 ms QRS Dur : 148 ms QT Int : 428 ms P-R-T Axes : 249 -64 057 degrees QTc Int : 497 ms Unusual P axis, possible ectopic atrial rhythm Right bundle branch block Left anterior fascicular block Bifascicular block Abnormal ECG When compared with ECG of 24-JUL-2017 06:42, (Unconfirmed) No significant change was found Confirmed by DR. Nate WESTFALL ([id number]) on 07/30/2017 6:55:19 AM Referred By: MANDI Confirmed By:DR. Nate WESTFALL
--- NOTE | 2017-07-30 06:57 | EKG ---
Test Reason : Blood Pressure : / mmHG Vent. Rate : 078 BPM Atrial Rate : 078 BPM P-R Int : 172 ms QRS Dur : 148 ms QT Int : 454 ms P-R-T Axes : 252 -62 054 degrees QTc Int : 517 ms Unusual P axis, possible ectopic atrial rhythm Right bundle branch block Left anterior fascicular block Bifascicular block Abnormal ECG When compared with ECG of 24-JUL-2017 13:43, (Unconfirmed) No significant change was found Confirmed by DR. Nate WESTFALL ([id number]) on 07/30/2017 6:57:16 AM Referred By: MANDI Confirmed By:DR. Nate WESTFALL
== END 2017-07-29 16:13 | DRG 853 ==
LOC: ERS 09:04 → IMCU/EMU 10:30 → CCU 07-22 09:49 → IMCU/EMU 07-28 15:10
PROVIDERS: ADMIT Internal Medicine; ATTEND Internal Medicine
PROC: 5A1945Z Respiratory Ventilation, 24-96 Consecutive Hours (ICD-10-PCS; 2017-07-22)
PROC: 3E0G8GC Introduction of Other Therapeutic Substance into Upper GI, Via Natural or Artificial Opening Endoscopic (ICD-10-PCS; 2017-07-22)
PROC: 0W3P8ZZ Control Bleeding in Gastrointestinal Tract, Via Natural or Artificial Opening Endoscopic (ICD-10-PCS; 2017-07-22)
PROC: 0BH17EZ Insertion of Endotracheal Airway into Trachea, Via Natural or Artificial Opening (ICD-10-PCS; 2017-07-22)
PROC: 30233N1 Transfusion of Nonautologous Red Blood Cells into Peripheral Vein, Percutaneous Approach (ICD-10-PCS; 2017-07-22)
PROC: 4A023FZ Measurement of Cardiac Rhythm, Percutaneous Approach (ICD-10-PCS; principal; 2017-07-23)
PROC: 02583ZZ Destruction of Conduction Mechanism, Percutaneous Approach (ICD-10-PCS; 2017-07-23)
PROC: 4A0234Z Measurement of Cardiac Electrical Activity, Percutaneous Approach (ICD-10-PCS; 2017-07-23)
PROC: 0JH606Z Insertion of Pacemaker, Dual Chamber into Chest Subcutaneous Tissue and Fascia, Open Approach (ICD-10-PCS; 2017-07-24)
PROC: 02H63JZ Insertion of Pacemaker Lead into Right Atrium, Percutaneous Approach (ICD-10-PCS; 2017-07-24)
PROC: 02HK3JZ Insertion of Pacemaker Lead into Right Ventricle, Percutaneous Approach (ICD-10-PCS; 2017-07-24)
DX: A41.9 Sepsis, unspecified organism (principal); J18.9 Pneumonia, unspecified organism; J96.21 Acute and chronic respiratory failure with hypoxia; I50.33 Acute on chronic diastolic (congestive) heart failure; K25.4 Chronic or unspecified gastric ulcer with hemorrhage; J44.0 Chronic obstructive pulmonary disease with (acute) lower respiratory infection; I95.89 Other hypotension; I11.0 Hypertensive heart disease with heart failure; I49.5 Sick sinus syndrome; I48.3 Typical atrial flutter; J96.22 Acute and chronic respiratory failure with hypercapnia; D62 Acute posthemorrhagic anemia; Z68.41 Body mass index [BMI] 40.0-44.9, adult; R65.20 Severe sepsis without septic shock; M16.0 Bilateral primary osteoarthritis of hip; Z91.81 History of falling; W08.XXXA Fall from other furniture, initial encounter; Y92.018 Other place in single-family (private) house as the place of occurrence of the external cause; I25.10 Atherosclerotic heart disease of native coronary artery without angina pectoris; Z95.5 Presence of coronary angioplasty implant and graft; E78.5 Hyperlipidemia, unspecified; Z79.01 Long term (current) use of anticoagulants; Z79.82 Long term (current) use of aspirin; F17.210 Nicotine dependence, cigarettes, uncomplicated; G47.33 Obstructive sleep apnea (adult) (pediatric); K29.60 Other gastritis without bleeding; I49.8 Other specified cardiac arrhythmias; E66.01 Morbid (severe) obesity due to excess calories; R31.29 Other microscopic hematuria; N28.1 Cyst of kidney, acquired
CPT/HCPCS: 33208; 36005; 36415; 36416; 36430; 71045; 71275; 72170; 72192; 74178; 75820; 76705; 76942; 80048; 80053; 80076; 80202; 81001; 82085; 82550; 82553; 82805; 83735; 83880; 84100; 84443; 84484; 85025; 85610; 85730; 86677; 86850; 86900; 86901; 87040; 87086; 87633; 87899; 93005; 93010; 93306; 93613; 93653; 93970; 94002; 94003; 94640; 94660; 94760; 96374; 96375; A4216; C1730; C1769; C1785; C1898; C9113; G8978-GP-CM; G8978-GP-CN; G8979-GP-CL; G8987-GO-CL; G8988-GO-CJ; G8996-GN-CN; G8997-GN-CK; G9168-GN-CJ; G9169-GN-CI; J0282; J1265; J1644; J1940; J1956; J2001; J2060; J2250; J2270; J2543; J2704; J3370; J3490; J7050; J7070; J7620; P9016

== ENCOUNTER 2017-07-31 14:57 | Observation (INO) | payer MEDICARE ==
[2017-07-31 15:54] LABS: #Eosinphils 0.2 thou/uL (0.0-0.7); #Lymphocytes 0.6 thou/uL (1.20-3.40); #Monocytes 0.5 thou/uL (0.11-0.59); #Neutrophils 4.9 thou/uL (1.40-6.50); %Basophils 0.4 % (0.0-1.0); %Eosinophils 2.6 % (0.0-10.0); %Lymphocytes 9.1 % (21.0-51.0); %Monocytes 8.6 % (0.0-10.0); %Neutrophils 79.4 % (42.0-75.0); Hemoglobin 10.5 g/dL (14.0-18.0); Mean Corpuscular HGB CONC 31.3 g/dL (32.0-36.0); Mean Corpuscular Hemoglobin 30.7 pg (27.0-31.0); Mean Corpuscular Volume 98.2 fl (80.0-94.0); Mean Platelet Volume 6.6 fL (7.4-10.4); Platelet Count 244 thou/uL (130-400); RBC Distribution Width 17.6 % (11.5-14.5); Red Blood Cell (RBC) Count 3.41 mill/uL (4.70-6.10); White Blood Cell (WBC) Count 6.2 thou/uL (4.8-10.8)
[2017-07-31 16:01] LABS: INR-International Normal Ratio 1.3; PTT 30.4 SEC (22.9-36.1)
[2017-07-31 16:05] LABS: Bilirubin Negative (Negative); Blood, Urine Moderate (Negative); Clarity CLEAR (Clear); Glucose, Urine (Dipstick) Negative (Negative); Leukocyte Moderate (Negative); Nitrite Negative (Negative); Protein, Urine (Dipstick) Negative (Neg-Trace); Specific Gravity, Urine 1.011 (1.002-1.036); Urobilinogen 0.2 mg/dL (0.2-1.0); pH, Urine 6.5 (5.0-9.0)
[2017-07-31 16:07] LABS: Bacteria/HPF Rare-Few HPF (None Seen); Hyaline Casts/LPF 0-3 HYALINE CAST LPF (0-3 Hyaline); Pathc Cast-AUWi Flag 0.13 (0-2.49); Squamous Epithelial None Seen HPF (0-3)
[2017-07-31] MEDS ORDERED: Adacel (T-DAP) 0.5 ML VIAL ONE (16:18)
[2017-07-31 16:19] LABS: CKMB 1.1 ng/mL (0-6.6); Troponin I 0.031 ng/mL (< 0.028)
[2017-07-31 16:22] LABS: ALT (SGPT) 14 U/L (8-55); AST (SGOT) 17 U/L (5-34); Albumin 2.9 g/dL (3.4-4.8); Alkaline Phosphatase 61 U/L (40-150); Anion Gap 11 mmol/L (10-20); BUN (Urea Nitrogen) 9 mg/dL (8.4-25.7); Bilirubin, Total 0.6 mg/dL (0.2-1.2); CK (CPK) 27 U/L (30-200); Calc. Creatinine Clearance 0 mL/min (70-130); Calcium 8.2 mg/dL (7.8-10.44); Carbon Dioxide 34 mmol/L (23-31); Chloride 93 mmol/L (98-107); Estimated GFR-MDRD Greater than 90; Globulin 2.9 g/dL (2.4-3.5); Glucose 131 mg/dL (80-115); Lipase 16 U/L (8-78); Potassium 4.2 mmol/L (3.5-5.1); Protein, Total 5.8 g/dL (5.8-8.1); Sodium 134 mmol/L (136-145)
[2017-07-31] MEDS ORDERED: Lidocaine 1% w/Epinephrine 1:100K 20 ML VIAL ONE (16:27)
[2017-07-31] MEDS ORDERED: Bacitracin Zinc 1 Packet ONE (16:27)
--- NOTE | 2017-07-31 17:29 | RAD ---
PORTABLE CHEST ONE VIEW: 07/31/17 at 3:57 p.m. HISTORY: Dyspnea. FINDINGS/IMPRESSION: Comparison is made with exam of 07/24/17. The heart is enlarged. There is continued elevation of the right hemidiaphragm. Left sided pacing dev ice remains in place. No lobar consolidation, pneumothorax, milka pulmonary edema or large effusions are seen. POS: [facility]
--- NOTE | 2017-07-31 17:35 | RAD ---
LEFT LEG TWO VIEWS: 07/31/17 HISTORY: Fall. Left leg pain. FINDINGS/IMPRESSION: The tibia and fibula appear intact. There is a well corticated bony density inferior to the medial ma lleolar, likely old avulsion injury. POS: [facility]
[2017-07-31] MEDS ORDERED: Clindamycin/D5W 900 mg/50 ml Premix Bag ONE (17:52)
--- NOTE | 2017-07-31 20:12 | ULT ---
BILATERAL LOWER EXTREMITY VENOUS DUPLEX EXAM. Deep veins of both lower extremities evaluated with color doppler and spectral analysis and compressi on. INDICATIONS: Dyspnea. Assess for DVT. Deep veins of both lower extremities shows normal blood flow and compression. No evidence of DVT. IMPRESSION: No evidence of lower extremity DVT. POS: [facility]
[2017-07-31] MEDS ORDERED: Acetaminophen 325 MG TAB PO PRN (20:47)
[2017-07-31 22:44] VITALS: BMI 43.0
[2017-08-01] MEDS ORDERED: Guaifenesin DM 100-10/5 ML UDCUP PO PRN (00:25)
[2017-08-01] MEDS ORDERED: Acetaminophen 325 MG TAB PO PRN (00:25)
[2017-08-01] MEDS ORDERED: guaiFENesin ER 600 MG TAB PO PRN (00:25)
--- NOTE | 2017-08-01 01:00 | HP ---
REASON FOR ADMISSION: The patient fell while being transferred from chair to bed at half-way. HISTORY OF PRESENT ILLNESS: The patient was discharged on the to [facility] for severe deconditioning. He has been at the rehab for last 2 days. He was apparently sitting in the chair for an hour or so and the staff came back to take him back to bed. Three people were trying to put him back to bed from chair when he slipped out and fell. He had laceration of left lower extremity. He has no complaints of chest pain, palpitations, PND or orthopnea. No loss of consciousness. No fever as such. He was found to be hypoxic and was brought on a nonrebreather to the emergency room. The patient was hospitalized recently for nearly 16 days in the hospital and has had extensive workup done. He has severe deconditioning and is not motivated. He was evaluated by multiple specialists during his stay here. PAST MEDICAL AND SURGICAL HISTORY: Recent hospitalization for community- acquired pneumonia, chronic diastolic heart failure, sick sinus syndrome, status post pacemaker, atrial flutter, status post ablation, chronic respiratory failure with hypoxia, severe obesity, hypertension, obstructive sleep apnea, bilateral hip joint, severe osteoarthritis causing his immobility, chronic anemia, peptic ulcer disease with recent upper endoscopy for bleeding vessel. CURRENT HOME MEDICATIONS: Aspirin 81 mg p.o. daily, Avodart 0.5 mg p.o. daily, Lasix 40 mg p.o. daily, Mucinex 1200 mg p.o. twice daily, DuoNeb q.6 hourly p.r.n., Protonix 40 mg twice daily, Flomax 0.4 mg p.o. daily, Norvasc 5 mg p.o. daily, Coreg 6.25 mg twice daily, Plavix 75 mg daily, lisinopril 20 mg twice daily, Zocor 20 mg p.o. at bedtime. ALLERGIES: No known drug allergies. PERSONAL HISTORY: He quit smoking more than 10 years ago, does not abuse alcohol or drugs. He is currently a resident of [facility] from last 2 days. FAMILY HISTORY: Mother of lymphoma and its complications at the age of 62 years. Father of heart failure and was 82 years old. REVIEW OF SYSTEMS: The following complete review of systems was negative, unless otherwise mentioned in the HPI or below: Constitutional: Weight loss or gain, ability to conduct usual activities. Skin: Rash, itching. Eyes: Double vision, pain. ENT/Mouth: Nose bleeding, neck stiffness, pain, tenderness. Cardiovascular: Palpitations, dyspnea on exertion, orthopnea. Respiratory: Shortness of breath, wheezing, cough, hemoptysis, fever or night sweats. Gastrointestinal: Poor appetite, abdominal pain, heartburn, nausea, vomiting, constipation, or diarrhea. Genitourinary: Urgency, frequency, dysuria, nocturia. Musculoskeletal: Pain, swelling. Neurologic/Psychiatric: Anxiety, depression. Allergy/Immunologic: Skin rash, bleeding tendency. PHYSICAL EXAMINATION: GENERAL: The patient is a 71-year-old male who is currently not in any acute distress. VITAL SIGNS: Blood pressure 126/60, pulse 60 per minute, respiratory rate 20 per minute, temperature 98.6 degrees Fahrenheit, saturating 94% on 4 liters nasal cannula. NECK: Supple, no elevated JVD. HEENT: Eyes: Extraocular muscles intact. Pupils reacting to light. Oral cavity mucous membranes are dry. No exudates or congestion. CARDIOVASCULAR: S1, S2 heard. Regular rhythm. RESPIRATORY: Air entry 1+ bilateral. Distant breath sounds. Scattered rhonchi , no rales or wheezes. ABDOMEN: Soft, bowel sounds heard. No tenderness, rigidity or guarding. EXTREMITIES: There is a laceration over the left leg area, which has been treated in the ER. He has had suturing done for the same. There is 2+ peripheral edema, no calf tenderness. VASCULAR SYSTEM: Peripheral pulses 1+ bilateral. No ischemic ulcerations. CENTRAL NERVOUS SYSTEM: No gross focal deficits noted. The patient moves all 4 extremities. PSYCHIATRIC: The patient is euthymic. No hallucinations or delusions. LABORATORY DATA AND X-RAY FINDINGS: White count of 6.2, H&H is 10 and 33, platelet count 244 with 79% neutrophils, MCV is 98. PT and INR are 16 and 1.3, PTT 30, serum bicarbonate 34, BUN 9, creatinine 0.6, glucose 131. CK level is 27, troponin I 0.03, CK-MB 1.1. BNP 116. Albumin is 2.9. Lipase is 16. UA shows moderate leukoesterase, but there is rare few bacteria seen with 7-10 WBCs. Lower extremity venous Doppler done shows no evidence of DVT. Left leg two view x-ray done shows no acute fracture. There is well corticated bone density inferior to the medial malleolar area likely old avulsion injury. Chest x-ray done shows mild cardiomegaly, chronic elevation of right hemidiaphragm, no acute infiltrate seen. Telemetry shows paced rhythm. CLINICAL IMPRESSION AND PLAN: The patient will be under observation on telemetry for an episode of fall while he was being transferred from chair to bed at the half-way. Later he was found to be hypoxic and was brought to emergency room on nonrebreather. The patient is saturating at 96% on 4 liters nasal cannula. The patient is known to be severely deconditioned with his recent hospitalization here. He appears to be hemodynamically stable. He will be closely monitored overnight and likely will be discharged back to [facility] today. We will continue all his home medications as before including Flomax, Protonix, lisinopril, DuoNeb, Mucinex, Lasix, Avodart, Colace , Plavix, aspirin, Coreg, Lipitor and Norvasc as before. Please note, I have seen and examined the patient on 07/31/2017. PARKER
[2017-08-01 04:38] LABS: #Eosinphils 0.2 thou/uL (0.0-0.7); #Lymphocytes 0.6 thou/uL (1.20-3.40); #Monocytes 0.5 thou/uL (0.11-0.59); #Neutrophils 3.6 thou/uL (1.40-6.50); %Basophils 0.6 % (0.0-1.0); %Eosinophils 3.6 % (0.0-10.0); %Lymphocytes 12.1 % (21.0-51.0); %Monocytes 10.1 % (0.0-10.0); %Neutrophils 73.7 % (42.0-75.0); Hemoglobin 9.4 g/dL (14.0-18.0); Mean Corpuscular HGB CONC 32.9 g/dL (32.0-36.0); Mean Corpuscular Hemoglobin 31.4 pg (27.0-31.0); Mean Corpuscular Volume 95.6 fl (80.0-94.0); Mean Platelet Volume 6.3 fL (7.4-10.4); Platelet Count 206 thou/uL (130-400); RBC Distribution Width 16.9 % (11.5-14.5); White Blood Cell (WBC) Count 4.9 thou/uL (4.8-10.8)
[2017-08-01 04:59] LABS: Anion Gap 8 mmol/L (10-20); BUN (Urea Nitrogen) 10 mg/dL (8.4-25.7); Calc. Creatinine Clearance 229 mL/min (70-130); Calcium 7.9 mg/dL (7.8-10.44); Carbon Dioxide 37 mmol/L (23-31); Chloride 94 mmol/L (98-107); Estimated GFR-MDRD Greater than 90; Glucose 110 mg/dL (80-115); Potassium 3.8 mmol/L (3.5-5.1); Sodium 135 mmol/L (136-145)
[2017-08-01] MEDS ORDERED: Furosemide 40 MG TAB PO SCH (07:30)
[2017-08-01 08:48] VITALS: TEMP 98.2
[2017-08-01] MEDS ORDERED: Lisinopril 20 MG TAB PO SCH (09:00)
[2017-08-01] MEDS ORDERED: Aspirin 81 mg Enteric Coated Tablet PO SCH (09:00)
[2017-08-01] MEDS ORDERED: Carvedilol 6.25 MG TAB PO SCH (09:00)
[2017-08-01] MEDS ORDERED: Famotidine 20 MG TAB PO SCH (09:00)
[2017-08-01] MEDS ORDERED: Dutasteride 0.5 MG CAP PO SCH (09:00)
[2017-08-01] MEDS ORDERED: Enoxaparin Sodium 40 MG/0.4 ML SYRINGE SC SCH (09:00)
[2017-08-01] MEDS ORDERED: Tamsulosin HCl 0.4 MG CAP PO SCH (09:00)
[2017-08-01] MEDS ORDERED: Clopidogrel Bisulfate 75 MG TAB PO SCH (09:00)
[2017-08-01] MEDS ORDERED: Docusate 100 MG CAP PO SCH (09:00)
[2017-08-01] MEDS ORDERED: Amlodipine 5 MG TAB PO SCH (09:00)
[2017-08-01 12:18] VITALS: BP 110/56
[2017-08-01] MEDS ORDERED: Atorvastatin Calcium 10 MG TAB PO SCH (21:00)
== END 2017-08-01 11:28 ==
LOC: ERS 14:57 → 2NO 19:12 → INTOOBSV 19:12
PROVIDERS: ADMIT Emergency Medicine; ATTEND Emergency Medicine
DX: S81.812A Laceration without foreign body, left lower leg, initial encounter (principal); R53.81 Other malaise; I11.0 Hypertensive heart disease with heart failure; I50.32 Chronic diastolic (congestive) heart failure; I49.5 Sick sinus syndrome; J96.11 Chronic respiratory failure with hypoxia; E66.01 Morbid (severe) obesity due to excess calories; G47.33 Obstructive sleep apnea (adult) (pediatric); D64.9 Anemia, unspecified; M16.0 Bilateral primary osteoarthritis of hip; W04.XXXA Fall while being carried or supported by other persons, initial encounter; Y92.129 Unspecified place in nursing home as the place of occurrence of the external cause; Z68.41 Body mass index [BMI] 40.0-44.9, adult; Z79.82 Long term (current) use of aspirin; Z79.02 Long term (current) use of antithrombotics/antiplatelets; Z79.899 Other long term (current) drug therapy; Z98.890 Other specified postprocedural states; Z87.01 Personal history of pneumonia (recurrent); Z87.11 Personal history of peptic ulcer disease; Z87.891 Personal history of nicotine dependence
CPT/HCPCS: 12034; 71045; 73590; 80048; 80053; 82550; 82553; 83690; 83880; 84484 ×2; 85025 ×2; 85610; 85730; 87040; 87086; 90471; 90715; 93005; 93970; 94640 ×3; 96365; 96372; 97139 ×2; 97530; 99285; G0378; G8987; G8988; 36415; 81003; 81015; J1650; J2001; J3490; J7620

== ENCOUNTER 2017-08-06 09:18 | Inpatient (IN) | payer MEDICARE ==
[2017-08-06 09:44] LABS: Actual Bicarbonate (HCO3a) 35.4 mEq/L (22-26); Base Excess (BEa) 7.8 mEq/L (0 (+/-) 2.5); CO2 Tension 67.7 mmHg (35.0-45.0); Hematocrit-ABG 37.2 % (42.0-52.0); Hemoglobin (Hb) 10.3 g/dL (14.0-18.0); O2 Tension (PaO2) 55.8 mmHg (80.0-100.0); pH, Arterial 7.34 (7.35-7.45)
[2017-08-06 09:45] LABS: ALV-art Gradient 142.775 (0-20); Analyzer IN Cardio ER; Calcium, Ionized 1.1 mmol/L (1.12-1.30); Puncture Site RRA
[2017-08-06 09:59] LABS: #Basophils 0.1 thou/uL (0.0-0.2); #Eosinphils 0.1 thou/uL (0.0-0.7); #Lymphocytes 0.2 thou/uL (1.20-3.40); #Monocytes 0.3 thou/uL (0.11-0.59); #Neutrophils 4.5 thou/uL (1.40-6.50); %Basophils 1.5 % (0.0-1.0); %Lymphocytes 3.8 % (21.0-51.0); %Neutrophils 87.6 % (42.0-75.0); Hemoglobin 10.8 g/dL (14.0-18.0); Mean Corpuscular HGB CONC 32.2 g/dL (32.0-36.0); Mean Corpuscular Hemoglobin 30.8 pg (27.0-31.0); Mean Corpuscular Volume 95.5 fl (80.0-94.0); Mean Platelet Volume 6.4 fL (7.4-10.4); Platelet Count 172 thou/uL (130-400); RBC Distribution Width 17.4 % (11.5-14.5); Red Blood Cell (RBC) Count 3.51 mill/uL (4.70-6.10); White Blood Cell (WBC) Count 5.1 thou/uL (4.8-10.8)
[2017-08-06 10:21] LABS: ALT (SGPT) 58 U/L (8-55); AST (SGOT) 22 U/L (5-34); Albumin 3.1 g/dL (3.4-4.8); Alkaline Phosphatase 179 U/L (40-150); Anion Gap 13 mmol/L (10-20); BUN (Urea Nitrogen) 18 mg/dL (8.4-25.7); Bilirubin, Total 0.6 mg/dL (0.2-1.2); Calc. Creatinine Clearance 0 mL/min (70-130); Calcium 8.2 mg/dL (7.8-10.44); Carbon Dioxide 29 mmol/L (23-31); Chloride 95 mmol/L (98-107); Estimated GFR-MDRD 87; Globulin 3.1 g/dL (2.4-3.5); Glucose 151 mg/dL (80-115); Protein, Total 6.2 g/dL (5.8-8.1); Sodium 132 mmol/L (136-145)
--- NOTE | 2017-08-06 10:22 | RAD ---
PORTABLE UPRIGHT CHEST ONE VIEW: History: 71-year-old male with history of dyspnea. Difficulty breathing. Previously treated for pneumonia. Sep sis alert. FINDINGS: Poor inspiration with borderline cardiomegaly. Left ICD. Stable right hemidiaphragm elevation and haven ear parenchymal changes in the right infrahilar region and right lower lobe and mild stable stranding in the left lower lobe. No new confluent process. Arthrosis changes of both shoulders. IMPRESSION: Overall stable appearing chest. No significant new confluent process. POS: [facility]
[2017-08-06 10:25] LABS: CKMB 1.1 ng/mL (0-6.6); Troponin I 0.038 ng/mL (< 0.028)
[2017-08-06] MEDS ORDERED: Dextrose 5 % And 0.9 % NaCl 1,000 ML IV SCH (13:00)
[2017-08-06 14:16] VITALS: BMI 39.8
[2017-08-06 14:25] LABS: pH, Arterial 7.34 (7.35-7.45)
[2017-08-06 14:26] LABS: Actual Bicarbonate (HCO3a) 35.1 mEq/L (22-26); Base Excess (BEa) 7.7 mEq/L (0 (+/-) 2.5); CO2 Tension 66.2 mmHg (35.0-45.0); Hematocrit-ABG 34.6 % (42.0-52.0); Hemoglobin (Hb) 9.8 g/dL (14.0-18.0); O2 Tension (PaO2) 62.6 mmHg (80.0-100.0)
[2017-08-06 14:27] LABS: Analyzer IN Cardio ER; Calcium, Ionized 1.1 mmol/L (1.12-1.30); Puncture Site L.R.
[2017-08-06] MEDS ORDERED: Ondansetron HCl/PF 4 MG/2 ML Vial IVP PRN (16:41)
[2017-08-06] MEDS ORDERED: Ondansetron ODT 4 MG TAB PO PRN (16:41)
[2017-08-06] MEDS ORDERED: Acetaminophen 650 MG Suppository PR PRN (16:41)
[2017-08-06] MEDS: Sodium Chloride 0.9% 1,000 ML IV SCH (18:35)
--- NOTE | 2017-08-06 18:45 | HP ---
DATE OF ADMISSION: 08/06/2017 PRIMARY CARE PROVIDER: Lavonne Andrea M.D. CHIEF COMPLAINT: Shortness of breath and lethargy. HISTORY OF PRESENT ILLNESS: This is a 71-year-old male who is a current resident of [facility] after recent 16-day hospital stay at [facility], discharged on 07/29/2017 after being diagnosed with a community-acquired pneumonia as well as upper G I bleed secondary to peptic ulcer, undergoing an ablation and cauterization. The patient was also tr eated for congestive heart failure as well as evaluated for sick sinus syndrome, status post pacemake r placement. The patient had a complicated course, treated for sepsis due to the pneumonia with elena re deconditioning and oxygen requirement on discharge. The patient apparently was discharged to [facility] where he was attempting to transfer from a chair when he apparently fe ll, striking his left leg with a laceration of the lower extremity. The patient underwent primary re pair and was observed at [facility] for approximately 24 hours, released back to [facility]. The patient presents back to [facility] on 08/06/2017 with i ncreased shortness of breath, which the states began in the as400 consultant hours on 08/06/2017. reports the patient was noted with a low blood pressure in the 70s systolic with increased work of breathing. The patient apparently was noted with oxygen saturations in the mid 80% range on 4 lit ers per nasal cannula. The patient was noted to be lethargic, minimally responsive, and unable to si t up. The patient was noted to be slightly pale and cyanotic at his lips and was placed on continuou s positive airway pressure, noninvasive mechanical ventilation in the emergency room. The patient re ceived bronchodilator therapy with DuoNebs x2 with chest imaging showing no acute infiltrate. The pa tient received IV normal saline in the emergency room and continued on continuous positive airway pre ssure, noninvasive mechanical ventilation. The history was obtained after discussions with the patie nt's at the bedside as well as review of the emergency room records. The patient is currently u nable to provide any history and is obtunded. PAST MEDICAL HISTORY: 1. Status post community-acquired pneumonia from 07/14/2017 through 07/29/2017. 2. Status post sepsis, secondarily to #1. 3. Peptic ulcer disease with bleeding vessel, status post cauterization. 4. Acute blood loss anemia secondary to #3. 5. Acute on chronic diastolic congestive heart failure with preserved ejection fraction of 50%-55%. 6. Sick sinus syndrome, status post pacemaker placement. 7. History of atrial flutter, status post ablation. 8. Acute on chronic hypoxemic respiratory failure, multifactorial. 9. Status post mechanical ventilation. 10. Morbid obesity. 11. Hypertension. 12. Obstructive sleep apnea. 13. Status post mechanical fall with left lower extremity laceration. 14. Osteoarthritis. PAST SURGICAL HISTORY: Status post endoscopy with cauterization of visible vessel. CURRENT MEDICATIONS: 1. Tylenol 650 mg per rectum q.4 hours p.r.n. 2. Norvasc 5 mg 1 tablet p.o. daily. 3. Enteric coated aspirin 81 mg 1 tab p.o. daily. 4. Coreg 6.25 mg p.o. b.i.d. 5. Plavix 75 mg p.o. daily. 6. Avodart 0.5 mg p.o. daily. 7. Proscar 5 mg p.o. daily. 8. Lasix 40 mg p.o. daily. 9. Robitussin-DM 15 mL p.o. q.4 h. p.r.n. 10. Guaifenesin ER 1200 mg p.o. b.i.d. 11. DuoNeb 3 mL nebulized q.6 h. p.r.n. 12. Lisinopril 20 mg p.o. b.i.d. 13. Protonix 40 mg p.o. b.i.d. 14. Simvastatin 20 mg p.o. daily. 15. Flomax 0.4 mg p.o. daily. ALLERGIES: No known drug allergies. FAMILY HISTORY: Mother of complications of lymphoma at the age of 62. Father of complicat ions of congestive heart failure at 82 years of age. SOCIAL HISTORY: The patient is and resides in the [place], [place] area. Former tobacco use, qu itting approximately 10 years prior to this evaluation. No current alcohol or illicit drug use. Non ambulatory status. History of falls with left lower extremity laceration. Current resident of [facility]. REVIEW OF SYSTEMS: Unobtainable as patient is obtunded on BiPAP noninvasive mechanical ventilation. PHYSICAL EXAMINATION: VITAL SIGNS: Currently, blood pressure 96/47, pulse 60, respiratory rate 22, temperature 98.6 degree s Fahrenheit, O2 saturation 97% on BiPAP noninvasive mechanical ventilation. GENERAL APPEARANCE: This is a 71-year-old male on current BiPAP noninvasive mechanical juan tilation, pale, sallow appearing, minimally responsive to name and painful stimulus with brief eye op ening. HEENT: Pupils are equal, round, and reactive to light and accommodation. Extraocular muscles are in tact. Nares patent. OP is clear. Oral mucosa dry appearing. Scalp is atraumatic. NECK: Supple, no cervical adenopathy, no thyromegaly, no carotid bruits, no JVD appreciated. No pal pable mass. CHEST: Diminished breath sounds in the bases bilaterally. Lungs are clear. CARDIOVASCULAR: S1, S2 with distant heart sounds. Left-sided pacemaker device in place. ABDOMEN: Obese, soft, nontender, nondistended. Landmarks are difficult to palpate due to patient's body habitus. EXTREMITIES: Bilateral skin changes consistent with chronic lymphedema. Open wound to the left lowe r extremity of the lateral mid tibia region. Serosanguineous drainage noted. Positive edema bilater ally. Pulses diminished bilaterally at the dorsalis pedis, posterior tibial, and popliteal arteries bilaterally. Extremities are cool to touch. NEUROLOGIC: Brief eye opening to name and painful stimuli. Does not follow complex commands. GENITOURINARY: Pena catheter in place with dark edis urine. PERTINENT LABORATORY AND X-RAY FINDINGS: Sodium 132, potassium 5.0, chloride 95, CO2 of 29, BUN 18, creatinine 0.87, estimated GFR of 87, glucose 151. Lactic acid level 1.0, calcium 8.2, AST 22, ALT o f 58, alkaline phosphatase 179. Troponin I 0.038. BNP 286, previously noted 116 on 07/31/2017. CBC showed a white blood cell count of 5.1, hemoglobin 11, hematocrit 34, MCV 96, platelet count 172 wit h 88% neutrophilia. ABG dated 08/06/2017 showed a pH 7.34, pCO2 of 66, pO2 of 63, bicarbonate 35, O2 saturation 92% on BiPAP noninvasive mechanical ventilation, 40% FIO2. Portable chest x-ray dated showed no acute cardiopulmonary process. Left ICD/pacemaker device in place. Right hemidia phragm elevation. Telemetry monitoring shows a paced rhythm with heart rates in the 60s. ASSESSMENT AND PLAN: 1. Acute on chronic hypoxemic hypercapnic respiratory failure. Exact etiology unclear. No current evidence to suggest decompensated congestive heart failure or persistent pneumonia. Continue BiPAP n oninvasive mechanical ventilation with FiO2 40%. We will titrate to clinical response and wean as cl inically appropriate. Consult Pulmonology Service for further evaluation. Continue general bronchod ilator therapy with DuoNeb, Solu-Medrol 40 mg IV q.6 hours. 2. Acute encephalopathy, likely metabolic. We will continue general supportive measures. Exact julisa ology unclear and likely multifactorial with a component of hypercapnia and hypoxemia. We will jt nue treatment as outlined in #1. 3. Chronic troponin elevation, likely demand ischemia. We will continue supportive measures. No ev idence to suggest acute coronary syndrome. Monitor clinically. 4. Chronic macrocytic anemia. Stable currently. Status post upper gastrointestinal bleed secondary to bleeding peptic ulcer with cauterization. No current evidence to suggest acute blood loss. Repe at CBC in the a.m. 5. Status post mechanical fall with left lower extremity laceration. Stable currently. We will con [facility] Care service for evaluation and local care of the left lower extremity. 6. History of sick sinus syndrome, status post pacemaker placement. Continue telemetry monitoring. Current pacemaker device with normal functioning device. 7. Severe deconditioning. PT evaluation when patient clinically stabilized. General fall risk prec autions. 8. Hypotension. Suspect secondary to volume depletion and dehydration. We will continue intravenou s normal saline at 75 mL per hour. Monitor for clinical response. Hold all antihypertensive medicat ions. 9. Prophylaxis. Lovenox 40 mg subcutaneously daily, Pepcid 20 mg IV q.12 hours. 10. Code status: Do not resuscitate, confirmed with patient's . Surrogate medical decision anum er is patient's . 11. Consult Palliative Care service for consideration of hospice.
[2017-08-06 19:08] LABS: Bilirubin Small (Negative); Blood, Urine Small (Negative); Clarity CLOUDY (Clear); Glucose, Urine (Dipstick) Negative (Negative); Leukocyte Small (Negative); Nitrite Negative (Negative); Protein, Urine (Dipstick) 30 mg/dL (Neg-Trace); Specific Gravity, Urine 1.021 (1.002-1.036); Urobilinogen 0.2 mg/dL (0.2-1.0); pH, Urine 5.5 (5.0-9.0)
[2017-08-06 19:10] LABS: Bacteria/HPF None Seen HPF (None Seen)
[2017-08-06 19:20] LABS: Pathc Cast-AUWi Flag 8.14 (0-2.49)
[2017-08-06 19:29] LABS: Other Casts/LPF 0-3 FINELY GRAN LPF (0-3 Hyaline)
[2017-08-06 19:30] LABS: Renal Epithelial None Seen HPF (0-3); Transitional Epithelial 0-3 HPF (0-3)
[2017-08-06] MEDS ORDERED: Famotidine/PF 20 mg/2ml Vial SLOW IVP SCH (21:00)
[2017-08-06] MEDS: Famotidine 40 MG/4 ML VIAL SLOW IVP SCH (22:15)
[2017-08-07 05:37] LABS: ALT (SGPT) 37 U/L (8-55); AST (SGOT) 15 U/L (5-34); Albumin 2.7 g/dL (3.4-4.8); Alkaline Phosphatase 132 U/L (40-150); Anion Gap 12 mmol/L (10-20); BUN (Urea Nitrogen) 26 mg/dL (8.4-25.7); Bilirubin, Total 0.3 mg/dL (0.2-1.2); Calc. Creatinine Clearance 131 mL/min (70-130); Calcium 7.9 mg/dL (7.8-10.44); Carbon Dioxide 29 mmol/L (23-31); Chloride 98 mmol/L (98-107); Estimated GFR-MDRD 86; Globulin 2.6 g/dL (2.4-3.5); Glucose 133 mg/dL (80-115); Potassium 4.7 mmol/L (3.5-5.1); Protein, Total 5.3 g/dL (5.8-8.1); Sodium 134 mmol/L (136-145)
[2017-08-07 05:59] LABS: Band 2 % (5-11); Hypochromia SLIGHT = 6-15 cells (100X) (0-5/hpf); Lymphocytes 9 % (21-51); MDiff Complete? YES; Mean Corpuscular HGB CONC 31.9 g/dL (32.0-36.0); Mean Corpuscular Hemoglobin 30.5 pg (27.0-31.0); Mean Corpuscular Volume 95.5 fl (80.0-94.0); Mean Platelet Volume 6.4 fL (7.4-10.4); Monocytes 3 % (0-10); Neutrophil 85 % (42-75); Ovalocytes SLIGHT = 2-5 cells (100X) (0-1/hpf); PLT Morphology Comment Appears Adequate; Platelet Count 160 thou/uL (130-400); RBC Distribution Width 17.2 % (11.5-14.5); Reactive Lymphocytes 1 % (0-10)
[2017-08-07] MEDS: Sodium Chloride 0.9% 1,000 ML IV SCH (06:01)
[2017-08-07] MEDS: Famotidine 40 MG/4 ML VIAL SLOW IVP SCH (08:42)
[2017-08-07] MEDS: Enoxaparin Sodium 40 MG/0.4 ML SYRINGE SC SCH (08:42)
[2017-08-07] MEDS: Aspirin 81 mg Enteric Coated Tablet PO SCH (10:26)
--- NOTE | 2017-08-07 10:47 | CON ---
DATE OF CONSULTATION: 08/06/2017 HISTORY OF PRESENT ILLNESS: Mr. Campos is a 71-year-old morbidly obese gentleman, multiple admissions in the last month. In fact, he was just discharged from the hospital on 08/01/2017. He comes back again to the hospital with progressive shortness of breath and lethargy. Blood gas gucci ws respiratory acidosis, placed on noninvasive ventilation. He apparently fell being transferred fro m a chair to a bed in the group home and was discharged back again to the group home. Severely deconditioning from the [facility] with multiple medical issues. ER note today states that he was short of breath, but there is no additional fever or chills. He is clearly lethargic. His sats were 80% when he arrived. in the mid 60s, placed on 4 liters and p laced on BiPAP. PAST MEDICAL HISTORY: Extensively and well outlined including, CHF, diastolic dysfunction, hyperlipi demia, COPD, hypoventilation, diabetes, and coronary artery disease. PAST SURGICAL HISTORY: Multiple stents, recent pacemaker inserted. MEDICATIONS: From home includes Flomax, Mucinex, Zocor, Protonix, DuoNeb, Lasix, Avodart, Plavix, Co reg, Norvasc, and Tylenol. ALLERGIES: None. SOCIAL HISTORY: Tobacco, quit smoking years ago. REVIEW OF SYSTEMS: He is lethargic, difficult to get any additional information. PHYSICAL EXAMINATION: VITAL SIGNS: His sats are 94, pulse 60. GENERAL: He is lethargic. CHEST: Decreased breath sounds, no wheezing. CARDIAC: Normal S1, S2. No gallops. ABDOMEN: No masses. EXTREMITIES: Trace edema. LABORATORY DATA: White count 5000, hemoglobin and hematocrit 10 and 30, platelet count 172. PO2 of 55, pCO2 of 67, pH 7.34. BiPAP 14/7, rate of 12, 40%. BNP is 26. IMAGING: X-ray shows chronic right-sided infiltrate, but I do not see anything new on the x-ray. IMPRESSION: 1. respiratory failure, hypoventilation. 2. Chronic obstructive pulmonary disease. 3. Recent pacemaker. 4. Benign prostatic hypertrophy. 5. Diabetes. 6. Diastolic dysfunction. PLAN: Blood gas is being ordered. Continue aggressive neb treatments and steroids. His pCO2 was ma rkedly elevated. He may require intubation and vent support. In the meantime, minimize sedation. We will reassess the situation. Proton pump inhibitor and DVT prophylaxis. This is a critical care note, 40 minutes. We will reassess him once we have blood gases.
--- NOTE | 2017-08-07 13:06 | PRG ---
DATE OF SERVICE: 08/07/2017 SERVICE: Pulmonary Medicine. INTERVAL HISTORY: The patient is doing outstanding from a respiratory standpoint. Yesterday, he is obtunded. They were talking about intubation, possible bronchoscopy. This morning, he is awake and alert. He is perfectly comfortable. He has no difficulty with his breathing. Otherwise, there has been no interval change to his condition. We are awaiting culture results. I really do not think infectious thing brought him to the hospital. PHYSICAL EXAMINATION: VITAL SIGNS: Afebrile, pulse 67, blood pressure 122/52, respirations 19, saturation 92% on 3 liters nasal cannula. GENERAL: The patient is awake, alert, no apparent distress. LUNGS: Excellent air entry. Slightly prolonged expiratory phase is present. There is some wheezing. Dependent crackles are not present. No rhonchi currently. HEART: Normal rate and regular. ABDOMEN: Soft, nontender, and nondistended. Bowel sounds are positive. MUSCULOSKELETAL: No cyanosis or clubbing. There is trace to 1+ pitting in the bilateral lower extremities. GENITOURINARY: Pena catheter in place. NEUROLOGIC: Grossly nonfocal. LABORATORY DATA: WBC 3.0, hemoglobin 10.0, platelets 160,000. Neutrophil count is 85%. Bands are low at 2%. PH 7.34, pCO2 66, pO2 63. Basic metabolic profile and liver function studies are essentially unremarkable. ALT and alkaline phosphatase returned to normal limits. BNP 286. TSH 0.36. Troponin is at baseline of 0.038. Creatinine 0.88. Urinalysis is mostly unremarkable. Nitrites are negative. Blood cultures x2 remain unremarkable. ASSESSMENT: 1. Acute on chronic hypoxic and hypercapnic respiratory failure, at baseline now. 2. Metabolic encephalopathy. 3. Chronic diastolic heart failure. 4. Acute blood loss anemia secondary to peptic ulcer disease, stable. 5. Osteoarthritis of the bilateral hips, severe. 6. Debility, severe. PLAN: Since the patient has returned to his usual state, we can initiate physical therapy. We will try to get him into a chair as often as possible. We will continue to follow up the culture results. If anything returns, antibiotics will be considered. The patient had a significant recovery in function overnight with essentially no intervention except BiPAP. This will be continued at night on a p.r.n. basis. He will remain in the IMCU for another 24 hours. PARKER
--- NOTE | 2017-08-07 13:11 | PQF ---
DATE: 08-07-17 ATTN: DR. JAZ GALLOWAY Please exercise your independent, professional judgment in responding to the clarification form. Clinical indicators are provided on the bottom of this form for your review Please check appropriate box(s): [ ] UTI please specify if due to or related to (as applicable): [ ] Indwelling catheter [ x ] Contaminated urine specimen without UTI [ ] Other diagnosis [ ] Unable to determine In addition, please specify: Present on Admission (POA): [ x ] Yes [ ] No [ ] Unable to determine For continuity of documentation, please document condition throughout progress notes and discharge summary. Thank You. CLINICAL INDICATORS - SIGNS / SYMPTOMS / LABS ER DOCUMENTATION: [facility] IN [facility]. URINE: 08-06-17: URINE PROTEIN: 30 H URINE BLOOD: SMALL H URINE BILIRUBIN: SMALL H UR LEUKOCYTE ESTERASE: SMALL H URINE RBC: 11-20 H URINE WBC: 11-20 H UR SQUAMOUS EPITH CELLS: 4-6 H HYALINE CASTS: 21-50 HYALINE CASTS H RISK FACTORS: ER DOCUMENTATION: PT ARRIVED FROM [facility] WITH [facility] IN PLACE. ER DOCUMENTATION: ALF TREATMENT: (MAR) IVF (This form is maintained as a part of the permanent medical record) 2014 [employer]. All Rights Reserved ILAN [email or web address] Office: [phone] [facility] CENTERJosh
--- NOTE | 2017-08-07 15:30 | PDOC.PN ---
- Subjective Encounter Start Date: 08/07/17 Encounter Start Time: 15:05 Subjective: f/u for acute resp failure on BiPAP NIMV and hypotension with -: encephalopathy. Markedly improved today, awake and feels ok. -: Does not remember last 24h. No fever, CP. - Objective Resuscitation Status: Resuscitation Status DNR:Do Not Resuscitate MAR Reviewed: Yes Vital Signs & Weight: Vital Signs (12 hours) Temp Pulse Resp BP Pulse Ox 08/07/17 12:13 73 21 H 93 L 08/07/17 11:00 98.9 F 67 19 122/52 L 92 L 08/07/17 08:17 93 L 08/07/17 08:14 63 18 93 L 08/07/17 08:00 98.2 F 63 18 97 08/07/17 07:51 98.8 F 60 20 111/47 L 08/07/17 03:57 98.5 F 61 20 105/43 L 97 Weight Admit Weight 262 lb Weight 262 lb I&O: 08/06/17 08/07/17 08/08/17 06:59 06:59 06:59 Intake Total 875 Output Total 550 Balance 325 Result Diagrams: 08/07/17 04:49 08/07/17 04:49 Additional Labs: Microbiology 08/06/17 18:50 Urine kaiser catheter Urine Culture - Preliminary NO GROWTH AT 24 HOURS 08/06/17 09:43 Venous blood - Right Hand Blood Culture - Preliminary Specimen has been received and culture in progress. No Growth to date. 08/06/17 09:43 Venous blood - Left Hand Blood Culture - Preliminary Specimen has been received and culture in progress. No Growth to date. Laboratory Tests 08/06/17 08/06/17 08/06/17 09:46 09:46 09:46 Hgb 10.8 L Plt Count 172 Neutrophils % 87.6 H Neutrophils % (Manual) Sodium 132 L ALT 58 H Alkaline Phosphatase 179 H B-Natriuretic Peptide 286.1 H TSH 3rd Generation 08/06/17 08/07/17 08/07/17 15:47 04:49 04:49 Hgb Plt Count Neutrophils % Neutrophils % (Manual) 85 H Sodium ALT 37 Alkaline Phosphatase 132 B-Natriuretic Peptide TSH 3rd Generation 0.3628 EKG Reviewed by me: Yes (Tele - SR in 60's) Phys Exam - Physical Examination Constitutional: NAD awake, responsive, smiles HEENT: PERRLA, oral pharynx no lesions Neck: no JVD, supple Respiratory: no wheezing, clear to auscultation bilateral Cardiovascular: RRR Gastrointestinal: soft, non-tender, no distention, positive bowel sounds chronic vensous stasis changes, LLE with superficial wound with dressing in place Musculoskeletal: pulses present, edema present Neurological: normal sensation, moves all 4 limbs Psychiatric: A&O x 3 Skin: normal turgor, cap refill <2 seconds Dx/Plan (1) Acute and chronic respiratory failure Code(s): J96.20 - ACUTE AND CHR RESP FAILURE, UNSP W HYPOXIA OR HYPERCAPNIA Status: Acute Qualifiers: Respiratory failure complication: hypoxia and hypercapnia Qualified Code(s) : J96.21 - Acute and chronic respiratory failure with hypoxia; J96.22 - Acute and chronic respiratory failure with hypercapnia; J96.22 - Acute and chronic respiratory failure with hypercapnia; J96.22 - Acute and chronic respiratory failure with hypercapnia Comment: Improved and off BiPAP, continue O2 via NC, general pulmonary support (2) Encephalopathy acute Code(s): G93.40 - ENCEPHALOPATHY, UNSPECIFIED Status: Acute Comment: Likely metabolic and multifactorial with hypoxia and hypotension, resolved (3) Hypotension Status: Acute Comment: Suspect iatrogenic, over diuresed, encourage increase free-H2O intake, hold home BP regimen, resolving (4) Severe muscle deconditioning Code(s): R29.898 - [facility] SYMPTOMS AND SIGNS INVOLVING THE MUSCULOSKELETAL SYSTEM Status: Chronic Comment: PT/OT for mobilization (5) Bilateral hip joint arthritis Code(s): M16.0 - BILATERAL PRIMARY OSTEOARTHRITIS OF HIP Status: Chronic Comment: Resume pain medication now that breathing has stablized. (6) Morbid obesity Code(s): E66.01 - MORBID (SEVERE) OBESITY DUE TO EXCESS CALORIES Status: Chronic (7) Obesity hypoventilation syndrome Code(s): E66.2 - MORBID (SEVERE) OBESITY WITH ALVEOLAR HYPOVENTILATION Status : Suspected Comment: O2 via NC continuously - Plan plan discussed w/ family, PT/OT, social media designer, speech therapy, respiratory therapy, DVT proph w/SCDs Stable currently -: Continue O2 via NC -: Hold home BP regimen -: Pulmonary supportive measures -: PT for mobilization * Review and titrate down BP regimen, suspect over medicated * AM lab: BMP, CBC
[2017-08-08 04:38] LABS: Anion Gap 8 mmol/L (10-20); BUN (Urea Nitrogen) 27 mg/dL (8.4-25.7); Calc. Creatinine Clearance 136 mL/min (70-130); Carbon Dioxide 36 mmol/L (23-31); Chloride 98 mmol/L (98-107); Estimated GFR-MDRD 89; Glucose 144 mg/dL (80-115); Potassium 4.6 mmol/L (3.5-5.1); Sodium 137 mmol/L (136-145)
[2017-08-08 04:39] LABS: Band 8 % (5-11); Hemoglobin 9.5 g/dL (14.0-18.0); Lymphocytes 11 % (21-51); MDiff Complete? YES; Mean Corpuscular HGB CONC 31.2 g/dL (32.0-36.0); Mean Corpuscular Hemoglobin 29.9 pg (27.0-31.0); Mean Platelet Volume 6.5 fL (7.4-10.4); Monocytes 5 % (0-10); Neutrophil 76 % (42-75); PLT Morphology Comment Appears Adequate; Platelet Count 168 thou/uL (130-400); RBC Distribution Width 17.2 % (11.5-14.5); Red Blood Cell (RBC) Count 3.16 mill/uL (4.70-6.10); White Blood Cell (WBC) Count 3.9 thou/uL (4.8-10.8)
[2017-08-08] MEDS: Aspirin 81 mg Enteric Coated Tablet PO SCH (09:02)
[2017-08-08] MEDS: Enoxaparin Sodium 40 MG/0.4 ML SYRINGE SC SCH (09:02)
--- NOTE | 2017-08-08 10:27 | PDOC.PN ---
- Subjective Encounter Start Date: 08/08/17 Encounter Start Time: 10:20 Subjective: f/u for acute encephalopathy, resp failure with rapid recovery. States -: feeling fine overall. No CP, fever. Tolerating po intake. Working with PT -: this am. - Objective Resuscitation Status: Resuscitation Status DNR:Do Not Resuscitate MAR Reviewed: Yes Vital Signs & Weight: Vital Signs (12 hours) Temp Pulse Resp BP Pulse Ox 08/08/17 08:16 97 08/08/17 08:15 69 19 97 08/08/17 07:00 98.1 F 61 24 H 123/61 96 08/08/17 04:00 97.2 F L 60 18 122/56 L 93 L 08/08/17 00:00 98.2 F 89 19 119/54 L 93 L 08/07/17 23:35 60 16 90 L Weight Admit Weight 262 lb Weight 262 lb I&O: 08/07/17 08/08/17 08/09/17 06:59 06:59 06:59 Intake Total 875 1410 Output Total 550 1300 Balance 325 110 Result Diagrams: 08/08/17 03:33 08/08/17 03:33 Additional Labs: Microbiology 08/06/17 18:50 Urine kaiser catheter Urine Culture - Preliminary NO GROWTH AT 24 HOURS 08/06/17 09:43 Venous blood - Right Hand Blood Culture - Preliminary Specimen has been received and culture in progress. No Growth to date. 08/06/17 09:43 Venous blood - Left Hand Blood Culture - Preliminary Specimen has been received and culture in progress. No Growth to date. Laboratory Tests 08/06/17 08/06/17 08/06/17 09:46 09:46 09:46 WBC Hgb 10.8 L Plt Count 172 Neutrophils % 87.6 H Neutrophils % (Manual) Sodium 132 L ALT 58 H Alkaline Phosphatase 179 H B-Natriuretic Peptide 286.1 H TSH 3rd Generation 08/06/17 08/07/17 08/07/17 15:47 04:49 04:49 WBC 3.0 L Hgb 10.0 L Plt Count Neutrophils % Neutrophils % (Manual) 85 H Sodium ALT 37 Alkaline Phosphatase 132 B-Natriuretic Peptide TSH 3rd Generation 0.3628 EKG Reviewed by me: Yes (Tele - A-paced in 60's) Phys Exam - Physical Examination Constitutional: NAD HEENT: PERRLA, oral pharynx no lesions Neck: no JVD, supple diminished in bases o/w clear Cardiovascular: RRR Gastrointestinal: soft, non-tender, no distention, positive bowel sounds Superficial abrasion to LLE Musculoskeletal: pulses present, edema present Neurological: normal sensation, moves all 4 limbs Psychiatric: A&O x 3 Skin: normal turgor, cap refill <2 seconds Dx/Plan (1) Acute and chronic respiratory failure Code(s): J96.20 - ACUTE AND CHR RESP FAILURE, UNSP W HYPOXIA OR HYPERCAPNIA Status: Acute Qualifiers: Respiratory failure complication: hypoxia and hypercapnia Comment: Improved and off BiPAP, continue O2 via NC, general pulmonary support (2) Encephalopathy acute Code(s): G93.40 - ENCEPHALOPATHY, UNSPECIFIED Status: Acute Comment: Likely metabolic and multifactorial with hypoxia and hypotension, resolved (3) Hypotension Status: Acute Comment: Suspect iatrogenic, over diuresed, encourage increase free-H2O intake, hold home BP regimen, resolving (4) Severe muscle deconditioning Code(s): R29.898 - OTH SYMPTOMS AND SIGNS INVOLVING THE MUSCULOSKELETAL SYSTEM Status: Chronic Comment: PT/OT for mobilization, OOB as tolerated with assistance (5) Bilateral hip joint arthritis Code(s): M16.0 - BILATERAL PRIMARY OSTEOARTHRITIS OF HIP Status: Chronic Comment: Pain control, mobilization, PT (6) Morbid obesity Code(s): E66.01 - MORBID (SEVERE) OBESITY DUE TO EXCESS CALORIES Status: Chronic (7) Obesity hypoventilation syndrome Code(s): E66.2 - MORBID (SEVERE) OBESITY WITH ALVEOLAR HYPOVENTILATION Status : Suspected Comment: O2 via NC continuously - Plan plan discussed w/ family, PT/OT, oncology social work, respiratory therapy, out of bed/ambulate Stable overall -: Continue pulmonary supportive measures -: PT for mobilization -: WCT for local care to E -: Hold all BP meds and continue to monitor trend * Transfer to Telemetry * Likely back to SNF([facility]) in 24-48h
--- NOTE | 2017-08-08 15:35 | PRG ---
DATE OF SERVICE: 08/08/2017 SERVICE: Pulmonary Medicine. INTERVAL HISTORY: The patient is doing great from a respiratory standpoint. He is breathing comfort ably. He denies any chest pain or shortness of breath. He remains fairly debilitated. Otherwise, t here has been no change to his condition. PHYSICAL EXAMINATION: VITAL SIGNS: Afebrile, pulse 66, blood pressure 124/52, respirations 22, saturation 96% on 3 liters nasal cannula. GENERAL: The patient is awake, alert, no apparent distress. LUNGS: Decent air entry. Rhonchi are present. Dependent crackles are also there. HEART: Normal rate, regular. ABDOMEN: Soft, nontender, and nondistended. Bowel sounds are positive. MUSCULOSKELETAL: No cyanosis or clubbing. There is trace pitting in the bilateral lower extremities . NEUROLOGIC: Grossly nonfocal. LABORATORY DATA: WBC 3.9, hemoglobin 9.5, and platelets 168,000. A pH 7.34, pCO2 66, and pO2 62. B UN 27, creatinine 0.85, bicarbonate 36. Basic metabolic profile is otherwise unremarkable. Microbio logy remains unremarkable. ASSESSMENT: 1. Acute on chronic hypoxic and hypercapnic respiratory failure, currently at baseline. 2. Chronic diastolic heart failure, near euvolemia. 3. Acute blood loss anemia following recent upper gastrointestinal bleed, stable. 4. Osteoarthritis of the bilateral hips, severe. 5. Debility, severe. 6. Obesity hypoventilation syndrome. PLAN: The patient has essentially returned back to his usual state of health. He needs to continue to pursue aggressive physical therapy in the outpatient setting. From a purely respiratory perspecti ve, he is back to baseline, but he remains at extraordinarily high risk for bouncing back to the hosp ital. Pulmonary or Critical Care will continue to follow while he remains in the hospital for the ti me being. It is certainly be reasonable to keep him through the weekend to make certain that he will not have an abrupt decompensation once again when he gets further away from noninvasive ventilation. We have offered to set this thing up out of the hospital, but he is declining as he does not like w earing the noninvasive ventilator.
[2017-08-09] MEDS: Aspirin 81 mg Enteric Coated Tablet PO SCH (08:18)
[2017-08-09] MEDS: Furosemide 40 MG TAB PO SCH (08:18)
[2017-08-09] MEDS: Enoxaparin Sodium 40 MG/0.4 ML SYRINGE SC SCH (08:19)
--- NOTE | 2017-08-09 10:46 | PRG ---
DATE OF SERVICE: 08/09/2017 SUBJECTIVE: The patient is doing reasonably well. PHYSICAL EXAMINATION: VITAL SIGNS: His temperature is 98.3, pulse is 61, respiration 24, O2 sat 95% on 3 liters, blood pre ssure 135/62. HEENT: Unremarkable. NECK: No JVD. CHEST: Clear. CARDIAC: S1 and S2 regular. ABDOMEN: Soft. EXTREMITIES: Brawny edema throughout. LABORATORY DATA: No labs were done today. ASSESSMENT: 1. Chronic obstructive pulmonary disease with exacerbation. 2. Acute on chronic hypercapnic respiratory failure. 3. Chronic diastolic heart failure. 4. Obesity hypoventilation syndrome. PLAN: The patient is being transferred to telemetry. Eventually, he will go back to the nursing olvin e. He is continuing diuresis. Prognosis is quite poor.
--- NOTE | 2017-08-09 17:22 | PDOC.PN ---
- Subjective Encounter Start Date: 08/09/17 Encounter Start Time: 17:20 Subjective: reports that he feels better. -: agreeable to try CPAP/Bipap tonight - Objective Resuscitation Status: Resuscitation Status DNR:Do Not Resuscitate MAR Reviewed: Yes Vital Signs & Weight: Vital Signs (12 hours) Temp Pulse Pulse Pulse Resp BP BP 08/09/17 15:45 60 16 08/09/17 15:00 98.6 F 62 22 H 08/09/17 12:00 98.1 F 62 20 08/09/17 10:16 61 60 154/61 H 140/60 08/09/17 08:00 98.3 F 61 24 H 08/09/17 07:00 98.3 F 61 24 H 08/09/17 06:39 08/09/17 06:37 62 16 BP Pulse Ox Pulse Ox Pulse Ox 08/09/17 15:45 08/09/17 15:00 131/57 L 99 08/09/17 12:00 154/61 H 97 08/09/17 10:16 95 96 08/09/17 08:00 95 08/09/17 07:00 135/62 95 08/09/17 06:39 95 08/09/17 06:37 Weight Admit Weight 262 lb Weight 260 lb 1 oz I&O: 08/08/17 08/09/17 08/10/17 06:59 06:59 06:59 Intake Total 1410 2330 Output Total 1300 2025 Balance 110 305 Result Diagrams: 08/08/17 03:33 08/08/17 03:33 Additional Labs: Microbiology 08/06/17 18:50 Urine kaiser catheter Urine Culture - Final NO GROWTH AT 48 HOURS 08/06/17 09:43 Venous blood - Right Hand Blood Culture - Preliminary NO GROWTH AT 48 HOURS 08/06/17 09:43 Venous blood - Left Hand Blood Culture - Preliminary NO GROWTH AT 48 HOURS Laboratory Tests 07/14/17 07/15/17 07/31/17 09:20 19:09 15:45 AST 49 H 26 17 ALT Alkaline Phosphatase TSH 3rd Generation 08/06/17 08/06/17 08/07/17 09:46 15:47 04:49 AST 22 15 ALT 58 H 37 Alkaline Phosphatase 179 H 132 TSH 3rd Generation 0.3628 Phys Exam - Physical Examination Constitutional: NAD pale.weak. HEENT: PERRLA, moist MMs, sclera anicteric, oral pharynx no lesions Neck: no JVD coarse breath sounds b/l. Cardiovascular: RRR, no significant murmur Gastrointestinal: soft, non-tender, no distention, positive bowel sounds Musculoskeletal: pulses present, edema present Neurological: non-focal, normal sensation, moves all 4 limbs Psychiatric: normal affect, A&O x 3 Skin: no rash Dx/Plan (1) Acute and chronic respiratory failure Code(s): J96.20 - ACUTE AND CHR RESP FAILURE, UNSP W HYPOXIA OR HYPERCAPNIA Status: Acute Qualifiers: Respiratory failure complication: hypoxia and hypercapnia Qualified Code(s) : J96.21 - Acute and chronic respiratory failure with hypoxia; J96.22 - Acute and chronic respiratory failure with hypercapnia; J96.22 - Acute and chronic respiratory failure with hypercapnia; J96.22 - Acute and chronic respiratory failure with hypercapnia Comment: Improved and off BiPAP, continue O2 via NC, general pulmonary support (2) Encephalopathy acute Code(s): G93.40 - ENCEPHALOPATHY, UNSPECIFIED Status: Acute Comment: Likely metabolic and multifactorial with hypoxia and hypotension, resolved (3) Hypotension Status: Resolved Comment: Suspect iatrogenic, over diuresed, encourage increase free-H2O intake, hold home BP regimen, resolving (4) Severe muscle deconditioning Code(s): R29.898 - OTH SYMPTOMS AND SIGNS INVOLVING THE MUSCULOSKELETAL SYSTEM Status: Chronic Comment: PT/OT for mobilization, OOB as tolerated with assistance (5) Sick sinus syndrome Code(s): I49.5 - SICK SINUS SYNDROME Status: Acute Comment: s/p pacemaker (6) Diastolic CHF Code(s): I50.30 - UNSPECIFIED DIASTOLIC (CONGESTIVE) HEART FAILURE Status: Chronic Qualifiers: Heart failure chronicity: chronic Qualified Code(s): I50.32 - Chronic diastolic (congestive) heart failure (7) HTN (hypertension) Code(s): I10 - ESSENTIAL (PRIMARY) HYPERTENSION Status: Chronic Qualifiers: Hypertension type: essential hypertension Qualified Code(s): I10 - Essential (primary) hypertension (8) Morbid obesity Code(s): E66.01 - MORBID (SEVERE) OBESITY DUE TO EXCESS CALORIES Status: Chronic (9) TAMARA (obstructive sleep apnea) Code(s): G47.33 - OBSTRUCTIVE SLEEP APNEA (ADULT) (PEDIATRIC) Status: Chronic (10) Osteoarthritis Code(s): M19.90 - UNSPECIFIED OSTEOARTHRITIS, UNSPECIFIED SITE Status: Chronic Qualifiers: Osteoarthritis location: hip Osteoarthritis type: primary Laterality: bilateral Qualified Code(s): M16.0 - Bilateral primary osteoarthritis of hip (11) Obesity hypoventilation syndrome Code(s): E66.2 - MORBID (SEVERE) OBESITY WITH ALVEOLAR HYPOVENTILATION Status : Suspected Comment: O2 via NC continuously (12) H/O: GI bleed Code(s): Z87.19 - PERSONAL HISTORY OF OTHER DISEASES OF THE DIGESTIVE SYSTEM Status: Acute Comment: s/p cauterization 06/2017 - Plan PT/OT, respiratory therapy, incentive spirometry, out of bed/ambulate, DVT proph w/SCDs avoid Plavix.cont ASA w close monitoring w recent GI bleed.PPI BID -: restart anti hypertensives gardually w BP monitoring. slow IVF -: monitor clinically, if stable, DC to NH tomorrow. -: DNR.PCt following -: am labs.cont to hold Lasix & SOCORRO-I as BUN rising.monitor * . Review of Systems - Review of Systems Constitutional: weakness, malaise. negative: fever, chills, sweats, other ENT: negative: Ear Pain, Ear Discharge, Nose Pain, Nose Discharge, Nose Congestion, Mouth Pain, Mouth Swelling, Throat Pain, Throat Swelling, Other Respiratory: Cough, SOB with Excertion. negative: Dry, Shortness of Breath, Hemoptysis, Pleuritic Pain, Sputum, Wheezing Cardiovascular: negative: chest pain, palpitations, orthopnea, paroxysmal nocturnal dyspnea, edema, light headedness, other Gastrointestinal: negative: Nausea, Vomiting, Abdominal Pain, Diarrhea, Constipation, Melena, Hematochezia, Other Genitourinary: negative: Dysuria, Frequency, Incontinence, Hematuria, Retention , Other Musculoskeletal: negative: Neck Pain, Shoulder Pain, Arm Pain, Back Pain, Hand Pain, Leg Pain, Foot Pain, Other Skin: negative: Rash, Lesions, Aristeo, Bruising, Other Neurological: negative: Weakness, Numbness, Incoordination, Change in Speech, Confusion, Seizures, Other - Medications/Allergies Allergies/Adverse Reactions: Allergies Allergy/AdvReac Type Severity Reaction Status Date / Time No Known Drug Allergies Allergy Verified 07/14/17 14:53 Medications: Current Medications Acetaminophen (Tylenol) 650 mg [place] Q4H PRN PRN Reason: Headache/Fever or Mild Pain Albuterol/Ipratropium (Duoneb) 3 ml NEB W2PE-ER [facility] Last Admin: 08/09/17 15:45 Dose: 3 ml Aspirin (Ecotrin) 81 mg PO DAILY [facility] Last Admin: 08/09/17 08:18 Dose: 81 mg Enoxaparin Sodium (Lovenox) 40 mg SC 0900 [facility] Last Admin: 08/09/17 08:19 Dose: 40 mg Furosemide (Lasix) 40 mg PO DAILY-AC [facility] Last Admin: 08/09/17 08:18 Dose: 40 mg Lorazepam (Ativan) 1 mg SLOW IVP Q4H PRN PRN Reason: Anxiety/Agitation Ondansetron HCl (Zofran Odt) 4 mg PO Q6H PRN PRN Reason: Nausea/Vomiting Ondansetron HCl (Zofran) 4 mg IVP Q6H PRN PRN Reason: Nausea/Vomiting Pantoprazole Sodium (Protonix) 40 mg PO BID [facility] Last Admin: 08/09/17 08:18 Dose: 40 mg Sodium Chloride (Flush - Normal Saline) 10 ml IVF Q12HR [facility] Last Admin: 08/09/17 08:19 Dose: 10 ml Sodium Chloride (Flush - Normal Saline) 10 ml IVF PRN PRN PRN Reason: Saline Flush
[2017-08-09] MEDS: Carvedilol 6.25 MG TAB PO SCH (20:46)
[2017-08-10] MEDS ORDERED: Finasteride 5 MG TAB PO SCH (09:00)
[2017-08-10] MEDS: Aspirin 81 mg Enteric Coated Tablet PO SCH (09:48)
[2017-08-10] MEDS: Dutasteride 0.5 MG CAP PO SCH (09:48)
[2017-08-10] MEDS: Simvastatin 20 MG TAB PO SCH (09:48)
[2017-08-10] MEDS: Carvedilol 6.25 MG TAB PO SCH ×2 (09:48→20:10)
[2017-08-10] MEDS: Tamsulosin HCl 0.4 MG CAP PO SCH (09:48)
[2017-08-10] MEDS: Amlodipine 5 MG TAB PO SCH (09:48)
[2017-08-10] MEDS: Furosemide 40 MG TAB PO SCH (09:48)
[2017-08-10] MEDS: Enoxaparin Sodium 40 MG/0.4 ML SYRINGE SC SCH (09:49)
[2017-08-10] MEDS: Lorazepam 2 MG/ML VIAL SLOW IVP PRN ×3 (09:50→23:48)
--- NOTE | 2017-08-10 11:39 | PRG ---
DATE OF SERVICE: 08/10/2017. SUBJECTIVE: The patient is less talkative than yesterday. He is wanting to sleep. OBJECTIVE: VITAL SIGNS: Temperature 98.6, pulse 61, blood pressure 150/64, O2 saturations 95% on 3 liters. HEENT: Unremarkable. NECK: No JVD. LUNGS: Diminished, but clear breath sounds. CARDIAC: S1 and S2 regular. ABDOMEN: Soft. EXTREMITIES: No edema. ASSESSMENT: 1. Obesity hypoventilation syndrome. 2. Chronic obstructive pulmonary disease. 3. Acute on chronic hypercapnic respiratory failure. 4. Chronic diastolic heart failure. PLAN: I have instructed the patient to sleep with the BiPAP at night and during his naps. Continue all other medical therapy. He is not a good candidate for rehabilitation because I doubt he can do a ny type of therapy.
--- NOTE | 2017-08-10 15:26 | PDOC.PN ---
- Subjective Encounter Start Date: 08/10/17 Encounter Start Time: 15:25 Subjective: feels better.did not wear Bipap last night again -: eating good and working w Pt but minimal - Objective Resuscitation Status: Resuscitation Status DNR:Do Not Resuscitate MAR Reviewed: Yes Vital Signs & Weight: Vital Signs (12 hours) Temp Pulse Resp BP BP Pulse Ox 08/10/17 13:41 58 L 16 08/10/17 11:00 98.4 F 60 24 H 129/61 93 L 08/10/17 09:48 61 152/64 H 08/10/17 08:00 98.6 F 58 L 22 H 95 08/10/17 07:40 61 16 95 08/10/17 07:24 98.6 F 58 L 22 H 152/64 H 94 L 08/10/17 03:35 98.9 F 60 16 129/58 L 93 L Weight Admit Weight 262 lb Weight 260 lb 1 oz I&O: 08/09/17 08/10/17 08/11/17 06:59 06:59 06:59 Intake Total 2330 2570 Output Total 2024 4900 Balance 305 -2330 Result Diagrams: 08/08/17 03:33 08/08/17 03:33 Additional Labs: Microbiology 08/06/17 18:50 Urine kaiser catheter Urine Culture - Final NO GROWTH AT 48 HOURS 08/06/17 09:43 Venous blood - Right Hand Blood Culture - Preliminary NO GROWTH AT 48 HOURS 08/06/17 09:43 Venous blood - Left Hand Blood Culture - Preliminary NO GROWTH AT 48 HOURS Phys Exam - Physical Examination Constitutional: NAD weak,pale,slow HEENT: PERRLA, moist MMs, sclera anicteric, oral pharynx no lesions Neck: no nodes, no JVD, supple, full ROM reduced at bases.poor effort Cardiovascular: RRR, no significant murmur Gastrointestinal: soft, non-tender, no distention, positive bowel sounds Musculoskeletal: no edema, pulses present Neurological: non-focal, normal sensation, moves all 4 limbs Psychiatric: normal affect, A&O x 3 Skin: no rash Dx/Plan (1) Acute and chronic respiratory failure Code(s): J96.20 - ACUTE AND CHR RESP FAILURE, UNSP W HYPOXIA OR HYPERCAPNIA Status: Acute Qualifiers: Respiratory failure complication: hypoxia and hypercapnia Qualified Code(s) : J96.21 - Acute and chronic respiratory failure with hypoxia; J96.22 - Acute and chronic respiratory failure with hypercapnia; J96.22 - Acute and chronic respiratory failure with hypercapnia; J96.22 - Acute and chronic respiratory failure with hypercapnia Comment: Improved and off BiPAP, continue O2 via NC, general pulmonary support (2) Encephalopathy acute Code(s): G93.40 - ENCEPHALOPATHY, UNSPECIFIED Status: Resolved Comment: Likely metabolic and multifactorial with hypoxia and hypotension, resolved (3) Hypotension Status: Resolved Comment: Suspect iatrogenic, over diuresed, encourage increase free-H2O intake, hold home BP regimen, resolving (4) Severe muscle deconditioning Code(s): R29.898 - OT SYMPTOMS AND SIGNS INVOLVING THE MUSCULOSKELETAL SYSTEM Status: Chronic Comment: PT/OT for mobilization, OOB as tolerated with assistance (5) Sick sinus syndrome Code(s): I49.5 - SICK SINUS SYNDROME Status: Acute Comment: s/p pacemaker (6) Diastolic CHF Code(s): I50.30 - UNSPECIFIED DIASTOLIC (CONGESTIVE) HEART FAILURE Status: Chronic Qualifiers: Heart failure chronicity: chronic Qualified Code(s): I50.32 - Chronic diastolic (congestive) heart failure (7) HTN (hypertension) Code(s): I10 - ESSENTIAL (PRIMARY) HYPERTENSION Status: Chronic Qualifiers: Hypertension type: essential hypertension Qualified Code(s): I10 - Essential (primary) hypertension (8) Morbid obesity Code(s): E66.01 - MORBID (SEVERE) OBESITY DUE TO EXCESS CALORIES Status: Chronic (9) TAMARA (obstructive sleep apnea) Code(s): G47.33 - OBSTRUCTIVE SLEEP APNEA (ADULT) (PEDIATRIC) Status: Chronic (10) Osteoarthritis Code(s): M19.90 - UNSPECIFIED OSTEOARTHRITIS, UNSPECIFIED SITE Status: Chronic Qualifiers: Osteoarthritis location: hip Osteoarthritis type: primary Laterality: bilateral Qualified Code(s): M16.0 - Bilateral primary osteoarthritis of hip (11) Obesity hypoventilation syndrome Code(s): E66.2 - MORBID (SEVERE) OBESITY WITH ALVEOLAR HYPOVENTILATION Status : Suspected Comment: O2 via NC continuously (12) H/O: GI bleed Code(s): Z87.19 - PERSONAL HISTORY OF OTHER DISEASES OF THE DIGESTIVE SYSTEM Status: Acute Comment: s/p cauterization 06/2017 - Plan PT/OT, protective services social worker, respiratory therapy, incentive spirometry, out of bed/ ambulate, DVT proph w/SCDs restart Lisinopril at lower dose w BP monitoring. -: plavix on hold for recent GI bleed. -: cont rest of the home meds as below -: cont lasix,coreg,norvasc.cont statin.PPI BID -: am labs.back to [facility] in am if Ok w PCCM * . Review of Systems - Review of Systems Constitutional: weakness, malaise Respiratory: SOB with Excertion, Sputum. negative: Cough, Dry, Shortness of Breath, Hemoptysis, Pleuritic Pain, Wheezing Cardiovascular: negative: chest pain, palpitations, orthopnea, paroxysmal nocturnal dyspnea, edema, light headedness, other Gastrointestinal: negative: Nausea, Vomiting, Abdominal Pain, Diarrhea, Constipation, Melena, Hematochezia, Other Genitourinary: negative: Dysuria, Frequency, Incontinence, Hematuria, Retention , Other Musculoskeletal: negative: Neck Pain, Shoulder Pain, Arm Pain, Back Pain, Hand Pain, Leg Pain, Foot Pain, Other Skin: negative: Rash, Lesions, Aristeo, Bruising, Other Neurological: negative: Weakness, Numbness, Incoordination, Change in Speech, Confusion, Seizures, Other - Medications/Allergies Allergies/Adverse Reactions: Allergies Allergy/AdvReac Type Severity Reaction Status Date / Time No Known Drug Allergies Allergy Verified 07/14/17 14:53 Medications: Current Medications Acetaminophen (Tylenol) 650 mg [place] Q4H PRN PRN Reason: Headache/Fever or Mild Pain Albuterol/Ipratropium (Duoneb) 3 ml NEB [id number] [facility] Last Admin: 08/10/17 13:41 Dose: 3 ml Amlodipine Besylate (Norvasc) 5 mg PO DAILY [facility] Last Admin: 08/10/17 09:48 Dose: 5 mg Aspirin (Ecotrin) 81 mg PO DAILY [facility] Last Admin: 08/10/17 09:48 Dose: 81 mg Carvedilol (Coreg) 6.25 mg PO BID [facility] Last Admin: 08/10/17 09:48 Dose: 6.25 mg Dutasteride (Avodart) 0.5 mg PO DAILY [facility] Last Admin: 08/10/17 09:48 Dose: 0.5 mg Enoxaparin Sodium (Lovenox) 40 mg SC 0900 [facility] Last Admin: 08/10/17 09:49 Dose: 40 mg Furosemide (Lasix) 40 mg PO DAILY-AC [facility] Last Admin: 08/10/17 09:48 Dose: 40 mg Lisinopril (Zestril) 10 mg PO HS [facility] Lorazepam (Ativan) 1 mg SLOW IVP Q4H PRN PRN Reason: Anxiety/Agitation Last Admin: 08/10/17 09:50 Dose: 1 mg Ondansetron HCl (Zofran Odt) 4 mg PO Q6H PRN PRN Reason: Nausea/Vomiting Ondansetron HCl (Zofran) 4 mg IVP Q6H PRN PRN Reason: Nausea/Vomiting Pantoprazole Sodium (Protonix) 40 mg PO BID [facility] Last Admin: 08/10/17 09:48 Dose: 40 mg Simvastatin (Zocor) 20 mg PO DAILY [facility] Last Admin: 08/10/17 09:48 Dose: 20 mg Sodium Chloride (Flush - Normal Saline) 10 ml IVF Q12HR [facility] Last Admin: 08/10/17 09:49 Dose: 10 ml Sodium Chloride (Flush - Normal Saline) 10 ml IVF PRN PRN PRN Reason: Saline Flush Tamsulosin HCl (Flomax) 0.4 mg PO DAILY [facility] Last Admin: 08/10/17 09:48 Dose: 0.4 mg
[2017-08-10] MEDS ORDERED: Lisinopril 10 MG TAB PO SCH (21:00)
[2017-08-11 04:40] LABS: #Eosinphils 0.4 thou/uL (0.0-0.7); #Lymphocytes 0.6 thou/uL (1.20-3.40); #Monocytes 0.4 thou/uL (0.11-0.59); #Neutrophils 2.8 thou/uL (1.40-6.50); %Basophils 0.8 % (0.0-1.0); %Eosinophils 8.8 % (0.0-10.0); %Lymphocytes 13.4 % (21.0-51.0); %Monocytes 9.8 % (0.0-10.0); %Neutrophils 67.3 % (42.0-75.0); Hemoglobin 10.6 g/dL (14.0-18.0); Mean Corpuscular HGB CONC 32.4 g/dL (32.0-36.0); Mean Corpuscular Hemoglobin 30.8 pg (27.0-31.0); Mean Corpuscular Volume 95.2 fl (80.0-94.0); Mean Platelet Volume 6.2 fL (7.4-10.4); Platelet Count 143 thou/uL (130-400); RBC Distribution Width 16.8 % (11.5-14.5); Red Blood Cell (RBC) Count 3.43 mill/uL (4.70-6.10); White Blood Cell (WBC) Count 4.2 thou/uL (4.8-10.8)
[2017-08-11 04:52] LABS: BUN (Urea Nitrogen) 15 mg/dL (8.4-25.7); Calc. Creatinine Clearance 155 mL/min (70-130); Calcium 8.2 mg/dL (7.8-10.44); Estimated GFR-MDRD Greater than 90; Glucose 105 mg/dL (80-115)
[2017-08-11 05:01] LABS: Anion Gap 12 mmol/L (10-20); Carbon Dioxide 37 mmol/L (23-31); Chloride 95 mmol/L (98-107); Potassium 4.2 mmol/L (3.5-5.1); Sodium 140 mmol/L (136-145)
[2017-08-11] MEDS: Furosemide 40 MG TAB PO SCH (08:06)
[2017-08-11] MEDS: Tamsulosin HCl 0.4 MG CAP PO SCH (08:06)
[2017-08-11] MEDS: Enoxaparin Sodium 40 MG/0.4 ML SYRINGE SC SCH (08:07)
[2017-08-11] MEDS: Simvastatin 20 MG TAB PO SCH (08:07)
[2017-08-11] MEDS: Amlodipine 5 MG TAB PO SCH (08:07)
[2017-08-11] MEDS: Dutasteride 0.5 MG CAP PO SCH (08:07)
[2017-08-11] MEDS: Aspirin 81 mg Enteric Coated Tablet PO SCH (08:07)
[2017-08-11] MEDS: Carvedilol 6.25 MG TAB PO SCH (08:07)
--- NOTE | 2017-08-11 09:53 | PRG ---
DATE OF SERVICE: 08/11/2017 SERVICE: Pulmonary Medicine. INTERVAL HISTORY: The patient is doing fine from a respiratory standpoint. His breathing is at base line. He denies any chest pain, fevers, chills, nausea or vomiting. His appetite is good. He is wo rking with physical therapy to the best of his ability. He is only able to sit up on the side of the bed with significant assistance at this point. PHYSICAL EXAMINATION: VITAL SIGNS: Afebrile, pulse 62, blood pressure 153/67, respirations 20, saturation 94% on 3 liters nasal cannula. GENERAL: Patient is awake, alert, no apparent distress. LUNGS: Decent air entry. There is no prolonged expiratory phase, though wheezing and rhonchi are raffi th present. Rhonchi cleared with cough. No crackles. HEART: Normal rate, regular. ABDOMEN: Soft, nontender, and nondistended. Bowel sounds are positive. MUSCULOSKELETAL: No cyanosis or clubbing. There is trace pitting in the bilateral lower extremities . NEUROLOGIC: Grossly nonfocal. LABORATORY DATA: WBC 4.2, hemoglobin 10.6, platelets 143,000. Basic metabolic profile is completely unremarkable. Bicarbonate is 37. Blood cultures x2 and urine culture are both unremarkable. ASSESSMENT: 1. Acute on chronic hypoxic and hypercapnic respiratory failure, resolved to baseline. 2. Chronic diastolic heart failure, near euvolemia. 3. Acute blood loss anemia following recent upper gastrointestinal bleed, improving. 4. Osteoarthritis of the bilateral hips, severe. 5. Debility, severe. 6. Obesity hypoventilation syndrome, slowly resolving. PLAN: The patient is really doing quite well. I am going to try him on a nasal mask today to see wh ether or not this is more comfortable. I will provide him with multivitamin on a daily basis as the patient does not have a lot of access to sunlight. Pulmonary and Critical Care will continue to foll ow while the patient remains in this location, but from my perspective, he has returned to baseline a nd can be considered for transition back to his half-way facility to pursue aggressive rehabil itation if possible.
[2017-08-11 11:55] VITALS: BP 132/54; TEMP 98.1
[2017-08-11 13:20] LABS: Iron 29 ug/dL (65-175); Iron Binding Capacity, Total 179 mcg/dL (261-462)
[2017-08-11] MEDS ORDERED: IRON SUCROSE COMPLEX 100 MG/5 ML SLOW IVP SCH (14:15)
[2017-08-11] MEDS ORDERED: Sodium Ferric Gluconate 250 MG, Admixture Fee 1 EACH in Sodium Chloride 0.9% 250 ML 250 ML IVPB SCH (14:30)
--- NOTE | 2017-08-11 15:00 | PDOC.PN ---
- Subjective Encounter Start Date: 08/11/17 Encounter Start Time: 14:59 Subjective: feels well.no new complainst. weakness as before but eating good -: no CP/SOB/AP/N/V/D - Objective Resuscitation Status: Resuscitation Status DNR:Do Not Resuscitate MAR Reviewed: Yes Vital Signs & Weight: Vital Signs (12 hours) Temp Pulse Pulse Pulse Resp BP BP 08/11/17 13:16 66 19 08/11/17 11:00 98.1 F 61 22 H 08/11/17 09:28 63 68 151/59 H 08/11/17 08:07 62 153/67 H 08/11/17 08:00 98.8 F 69 24 H 08/11/17 07:13 08/11/17 07:11 62 20 08/11/17 03:57 98 F 60 17 BP BP Pulse Ox Pulse Ox Pulse Ox 08/11/17 13:16 95 08/11/17 11:00 132/54 L 94 L 08/11/17 09:28 150/68 H 96 90 L 08/11/17 08:07 08/11/17 08:00 153/67 H 89 L 08/11/17 07:13 94 L 08/11/17 07:11 94 L 08/11/17 03:57 128/60 94 L Weight Admit Weight 262 lb Weight 261 lb 3.2 oz I&O: 08/10/17 08/11/17 08/12/17 06:59 06:59 06:59 Intake Total 2570 1021 400 Output Total 4900 2875 Balance -2330 -1854 400 Result Diagrams: 08/11/17 04:23 08/11/17 04:23 Additional Labs: Microbiology 08/06/17 18:50 Urine kaiser catheter Urine Culture - Final NO GROWTH AT 48 HOURS 08/06/17 09:43 Venous blood - Right Hand Blood Culture - Final NO GROWTH IN 5 DAYS 07/31/17 18:20 Venous blood - Right Hand Blood Culture - Final NO GROWTH IN 5 DAYS 07/31/17 18:20 Venous blood - Left Hand Blood Culture - Final NO GROWTH IN 5 DAYS 07/31/17 15:55 Urine kaiser catheter Urine Culture - Final NO GROWTH AT 36 HOURS 07/20/17 18:25 Urine clean catch Urine Culture - Final NO GROWTH AT 36 HOURS 07/19/17 12:30 Urine clean catch Urine Culture - Final NO GROWTH AT 48 HOURS 08/06/17 09:43 Venous blood - Left Hand Blood Culture - Preliminary NO GROWTH AT 48 HOURS Phys Exam - Physical Examination Constitutional: NAD HEENT: PERRLA, moist MMs, sclera anicteric, oral pharynx no lesions Neck: no nodes, no JVD, supple, full ROM Respiratory: no wheezing, no rales, no rhonchi, clear to auscultation bilateral Cardiovascular: RRR, no significant murmur Gastrointestinal: soft, non-tender, no distention, positive bowel sounds Musculoskeletal: no edema, pulses present left leg laceration under new dressing Neurological: non-focal, normal sensation, moves all 4 limbs Psychiatric: normal affect, A&O x 3 Skin: no rash Dx/Plan (1) Acute and chronic respiratory failure Code(s): J96.20 - ACUTE AND CHR RESP FAILURE, UNSP W HYPOXIA OR HYPERCAPNIA Status: Resolved Qualifiers: Respiratory failure complication: hypoxia and hypercapnia Qualified Code(s) : J96.21 - Acute and chronic respiratory failure with hypoxia; J96.22 - Acute and chronic respiratory failure with hypercapnia; J96.22 - Acute and chronic respiratory failure with hypercapnia; J96.22 - Acute and chronic respiratory failure with hypercapnia Comment: Improved and off BiPAP, continue O2 via NC, general pulmonary support (2) Encephalopathy acute Code(s): G93.40 - ENCEPHALOPATHY, UNSPECIFIED Status: Resolved Comment: Likely metabolic and multifactorial with hypoxia and hypotension, resolved (3) Hypotension Status: Resolved Comment: Suspect iatrogenic, over diuresed, encourage increase free-H2O intake, hold home BP regimen, resolving (4) Severe muscle deconditioning Code(s): R29.898 - OTH SYMPTOMS AND SIGNS INVOLVING THE MUSCULOSKELETAL SYSTEM Status: Chronic Comment: PT/OT for mobilization, OOB as tolerated with assistance (5) Sick sinus syndrome Code(s): I49.5 - SICK SINUS SYNDROME Status: Acute Comment: s/p pacemaker (6) Diastolic CHF Code(s): I50.30 - UNSPECIFIED DIASTOLIC (CONGESTIVE) HEART FAILURE Status: Chronic Qualifiers: Heart failure chronicity: chronic Qualified Code(s): I50.32 - Chronic diastolic (congestive) heart failure (7) HTN (hypertension) Code(s): I10 - ESSENTIAL (PRIMARY) HYPERTENSION Status: Chronic Qualifiers: Hypertension type: essential hypertension Qualified Code(s): I10 - Essential (primary) hypertension (8) Morbid obesity Code(s): E66.01 - MORBID (SEVERE) OBESITY DUE TO EXCESS CALORIES Status: Chronic (9) TAMARA (obstructive sleep apnea) Code(s): G47.33 - OBSTRUCTIVE SLEEP APNEA (ADULT) (PEDIATRIC) Status: Chronic (10) Osteoarthritis Code(s): M19.90 - UNSPECIFIED OSTEOARTHRITIS, UNSPECIFIED SITE Status: Chronic Qualifiers: Osteoarthritis location: hip Osteoarthritis type: primary Laterality: bilateral Qualified Code(s): M16.0 - Bilateral primary osteoarthritis of hip (11) Obesity hypoventilation syndrome Code(s): E66.2 - MORBID (SEVERE) OBESITY WITH ALVEOLAR HYPOVENTILATION Status : Suspected Comment: O2 via NC continuously (12) H/O: GI bleed Code(s): Z87.19 - PERSONAL HISTORY OF OTHER DISEASES OF THE DIGESTIVE SYSTEM Status: Acute Comment: s/p cauterization 06/2017 (13) ANGELO (iron deficiency anemia) Code(s): D50.9 - IRON DEFICIENCY ANEMIA, UNSPECIFIED Status: Acute (14) CAD (coronary artery disease) Code(s): I25.10 - ATHSCL HEART DISEASE OF [place] CORONARY ARTERY W/O ANG PCTRS Status: Chronic Comment: Regional Director Of Admissions is Magen Reese - Plan PT/OT, respiratory therapy, incentive spirometry, DVT proph w/SCDs After thorough & discusiion w GI,will not restart Plavix -: pt had a GIB w PUD earlier this month w cauterization.tolerating ASA 81mg -: cont PPI BIF indefinately.add FeSo4. -: Iron levels low.will give IV Iron IVP -: OK to DC back to [facility].will need aggressive rehab * .Recommend OP f/u w [facility] drill hand to further discuss Plavix.Unknown nature and duration of stents * High risk of readmission due to acutiy of illness and varous co morbidities. * OOH DNR signed * Review of Systems - Review of Systems Constitutional: weakness, malaise ENT: negative: Ear Pain, Ear Discharge, Nose Pain, Nose Discharge, Nose Congestion, Mouth Pain, Mouth Swelling, Throat Pain, Throat Swelling, Other Respiratory: negative: Cough, Dry, Shortness of Breath, Hemoptysis, SOB with Excertion, Pleuritic Pain, Sputum, Wheezing Cardiovascular: negative: chest pain, palpitations, orthopnea, paroxysmal nocturnal dyspnea, edema, light headedness, other Gastrointestinal: negative: Nausea, Vomiting, Abdominal Pain, Diarrhea, Constipation, Melena, Hematochezia, Other Genitourinary: negative: Dysuria, Frequency, Incontinence, Hematuria, Retention , Other Musculoskeletal: negative: Neck Pain, Shoulder Pain, Arm Pain, Back Pain, Hand Pain, Leg Pain, Foot Pain, Other Skin: negative: Rash, Lesions, [place], Bruising, Other - Medications/Allergies Allergies/Adverse Reactions: Allergies Allergy/AdvReac Type Severity Reaction Status Date / Time No Known Drug Allergies Allergy Verified 07/14/17 14:53 Medications: Current Medications Acetaminophen (Tylenol) 650 mg FL Q4H PRN PRN Reason: Headache/Fever or Mild Pain Albuterol/Ipratropium (Duoneb) 3 ml NEB [id number] [facility] Last Admin: 08/11/17 13:16 Dose: 3 ml Amlodipine Besylate (Norvasc) 5 mg PO DAILY [facility] Last Admin: 08/11/17 08:07 Dose: 5 mg Aspirin (Ecotrin) 81 mg PO DAILY [facility] Last Admin: 08/11/17 08:07 Dose: 81 mg Carvedilol (Coreg) 6.25 mg PO BID [facility] Last Admin: 08/11/17 08:07 Dose: 6.25 mg Dutasteride (Avodart) 0.5 mg PO DAILY [facility] Last Admin: 08/11/17 08:07 Dose: 0.5 mg Enoxaparin Sodium (Lovenox) 40 mg SC 0900 [facility] Last Admin: 08/11/17 08:07 Dose: 40 mg Ferrous Sulfate (Feosol) 325 mg PO BID-[facility] Furosemide (Lasix) 40 mg PO DAILY-AC [facility] Last Admin: 08/11/17 08:06 Dose: 40 mg Ferric Sodium Gluconate Complex 250 mg/ Miscellaneous Medication 1 each/ Sodium Chloride 270 mls @ 135 mls/hr IVPB NOW [facility] Stop: 08/11/17 17:00 Iron/Minerals/Multivitamins (Theragran M) 1 tab PO DAILY [facility] Lisinopril (Zestril) 10 mg PO HS [facility] Last Admin: 08/10/17 20:10 Dose: 10 mg Lorazepam (Ativan) 1 mg SLOW IVP Q4H PRN PRN Reason: Anxiety/Agitation Last Admin: 08/10/17 23:48 Dose: 1 mg Ondansetron HCl (Zofran Odt) 4 mg PO Q6H PRN PRN Reason: Nausea/Vomiting Ondansetron HCl (Zofran) 4 mg IVP Q6H PRN PRN Reason: Nausea/Vomiting Pantoprazole Sodium (Protonix) 40 mg PO BID [facility] Last Admin: 08/11/17 08:07 Dose: 40 mg Simvastatin (Zocor) 20 mg PO DAILY [facility] Last Admin: 08/11/17 08:07 Dose: 20 mg Sodium Chloride (Flush - Normal Saline) 10 ml IVF Q12HR [facility] Last Admin: 08/11/17 08:06 Dose: 10 ml Sodium Chloride (Flush - Normal Saline) 10 ml IVF PRN PRN PRN Reason: Saline Flush Tamsulosin HCl (Flomax) 0.4 mg PO DAILY [facility] Last Admin: 08/11/17 08:06 Dose: 0.4 mg
[2017-08-11] MEDS ORDERED: Ferrous Sulfate 325 MG TAB PO SCH (17:00)
[2017-08-12] MEDS ORDERED: Multivitamin W/ Minerals 1 TAB PO SCH (09:00)
--- NOTE | 2017-08-12 10:42 | DIS ---
DATE OF ADMISSION: 08/06/2017 DATE OF DISCHARGE: 08/11/2017 CONDITION AT THE TIME OF DISCHARGE: Guarded, but stable. DISCHARGE DIAGNOSES: 1. Severe sleep apnea requiring bilevel positive airway pressure with noncompliance on part of the p atient. 2. Acute on chronic respiratory failure. 3. Acute encephalopathy likely metabolic, resolved. 4. Hypertension, resolved. 5. Severe muscle deconditioning. 6. History of sick sinus syndrome, status post pacemaker placement on 06/2017. 7. Chronic diastolic congestive heart failure. 8. Hypertension. 9. Morbid obesity. 10. Obstructive sleep apnea. 11. Osteoarthritis. 12. Obesity hypoventilation syndrome on chronic home oxygen. 13. History of gastrointestinal bleed in 06/2017 status post cauterization for the peptic ulcer. 14. Iron deficiency anemia. 15. Coronary artery disease. DISCHARGE DISPOSITION: Back to his half-way at [facility]. DISCHARGE MEDICATIONS: Robitussin-DM as needed, Proscar 5 mg daily, Zocor 20 mg daily, Flomax 0.4 mg daily, Protonix 40 mg p.o. b.i.d., Coreg 6.25 mg p.o. b.i.d., Norvasc 5 mg daily, Mucinex as needed 1200 mg q.12 hours, Avodart 0.5 mg daily, aspirin 81 mg daily, multivitamin daily, lisinopril 10 mg d aily, DuoNebs as needed every 6 hours, Lasix 40 mg daily, ferrous sulfate 325 mg p.o. b.i.d., Dulcola x daily as needed. CONSULTATIONS INHOUSE: Include Pulmonary Medicine, Dr. Ramírez and Dr. Browning. PROCEDURES DONE IN THE HOSPITAL: Multiple chest x-rays. HISTORY OF PRESENTING ILLNESS: Mr. Campos is a 71-year-old male with complicated past medical history and multiple hospitalizations in the last few months who was recently discharged from our hospital on 07/29/2017 after being diagnosed and treated for community-acquired pneumonia, upper gastrointestina l bleed secondary to peptic ulcer disease undergoing ablation and cauterization who came back with co mplaints of shortness of breath and lethargy. His oxygen saturation was 80% on 4 liters nasal cannul a and he was noted with blood pressure in the 70s systolic and was found to be cyanotic and pale. He was started on BiPAP in the emergency room and was admitted in the Intermediate Care Unit for furthe r evaluation. Please see admission history and physical for further details. HOSPITAL COURSE: The patient was seen and followed by Pulmonary Medicine while in the hospital. His altered mental status that was evident at the time of presentation gradually improved. His vital si gns improved with some normal saline. He slowly recovered up to the point where he was off of BiPAP during the day, but BiPAP at night was recommended by Pulmonary colleagues. He continuously refused to do that and he did not let the respiratory therapists or nurses put on the BiPAP more than for a f ew minutes every night. His oxygen saturation remained in the normal range during the daytime, but d uring the nighttime on and off, he would have some desaturations. Multiple times, I have discussed t his problem with him and even though he would say that he would wear the BiPAP on, he would not let t he nurses keep the BiPAP on at night. Eventually it was decided that he is back to his status quo an d can be discharged back to his half-way for aggressive rehabilitation. The patient has multiple comorbidities and because of multiple hospitalizations and severe acuity, he is deemed a very high r isk for readmission. At this time, he will be taken off of Plavix because of his recent GI bleed. Unfortunately, he was s till on at the time of this admission for some reason. I discussed this with the traffic control operator gastroenter ologist who has done his EGD during his last admission, Dr. Estrada. He will be taken off of Plavix, b ut he needs to follow up with his own site foreman, Dr. Magen Reese to see if he can safely restart t hat. At this time, I have no documentation of his coronary artery disease and stenting history wheth er these stents were placed within the last year or how severe his coronary artery disease is and how badly he needs the Plavix. He was continued on a baby dose of aspirin in the hospital and tolerated it very well. He had no overt bleeding and his H&H remained stable. He was continued on PPI b.i.d. He was started on ferrous sulfate and also given IV iron when his iron levels were checked and were still low. He was seen and examined prior to discharge and is back to his baseline. He is awake, alert, oriente d. He is eating well and working with the physical therapist, though he remains severely weak. I do not think that he can achieve any better results by staying in the hospital until unless he starts u sing BiPAP, which he continues to refuse. At this time, Pulmonary Medicine has also cleared him for discharge from the hospital. He will be sent back to his half-way today. He was seen and examined prior to discharge. Please see Hospitalist progress note from today's date for further detail including [id number] interaction. Total time spent in the discharge of this pat ient 38 minutes. All the paperwork was signed, out of hospital DNR was signed. The patient's code s tatus is DNR.
--- NOTE | 2017-09-11 15:05 | EKG ---
Test Reason : Blood Pressure : / mmHG Vent. Rate : 061 BPM Atrial Rate : 061 BPM P-R Int : 176 ms QRS Dur : 146 ms QT Int : 422 ms P-R-T Axes : 001 -79 -10 degrees QTc Int : 424 ms Electronic atrial pacemaker Right bundle branch block Left anterior fascicular block Bifascicular block Possible Lateral infarct , age undetermined Abnormal ECG Confirmed by ISRA BANKS ([id number]), editor managing director MARK PATE ([id number]) on 09/11/2017 3:03:55 PM Referred By: Confirmed By:ISRA BANKS
== END 2017-08-11 18:08 | DRG 189 ==
LOC: ERS 09:18 → IMCU/EMU 11:29
PROVIDERS: ADMIT Family Medicine; ATTEND Family Medicine
PROC: 5A09557 Assistance with Respiratory Ventilation, Greater than 96 Consecutive Hours, Continuous Positive Airway Pressure (ICD-10-PCS; principal; 2017-08-06)
DX: J96.21 Acute and chronic respiratory failure with hypoxia (principal); G93.41 Metabolic encephalopathy; I95.9 Hypotension, unspecified; I11.0 Hypertensive heart disease with heart failure; Z99.81 Dependence on supplemental oxygen; I50.32 Chronic diastolic (congestive) heart failure; E66.2 Morbid (severe) obesity with alveolar hypoventilation; D50.0 Iron deficiency anemia secondary to blood loss (chronic); E11.9 Type 2 diabetes mellitus without complications; J96.22 Acute and chronic respiratory failure with hypercapnia; E86.0 Dehydration; Z87.891 Personal history of nicotine dependence; S81.812D Laceration without foreign body, left lower leg, subsequent encounter; W18.30XD Fall on same level, unspecified, subsequent encounter; Z91.81 History of falling; Z95.0 Presence of cardiac pacemaker; Z66 Do not resuscitate; Z51.5 Encounter for palliative care; Z91.19 Patient's noncompliance with other medical treatment and regimen; I25.10 Atherosclerotic heart disease of native coronary artery without angina pectoris; Z95.5 Presence of coronary angioplasty implant and graft; M16.0 Bilateral primary osteoarthritis of hip; Z68.39 Body mass index [BMI] 39.0-39.9, adult
CPT/HCPCS: 36415; 71045; 80048; 80053; 81001; 82553; 82805; 83540; 83550; 83605; 83880; 84443; 84484; 85007; 85025; 85027; 87040; 87086; 93005; 94640; 94660; 96360; G8978-GP-CM; G8979-GP-CK; G8996-GN-CM; G8997-GN-CK; J2916; J7050; J7620

== ENCOUNTER 2017-08-11 20:16 | Inpatient (IN) | payer MEDICARE ==
--- NOTE | 2017-08-11 21:12 | RAD ---
SINGLE VIEW OF THE CHEST: Comparison: 08-06-17 History: COPD. Dyspnea. FINDINGS: Single view of the chest shows a cardiomediastinal silhouette which is upper limits of normal in size . The pacemaker is unchanged in position. There is stable opacity in the right lung base which may re present a pleural effusion and adjacent atelectasis versus infiltrate. IMPRESSION: Stable exam. POS: [facility]
[2017-08-11 21:24] LABS: #Eosinphils 0.4 thou/uL (0.0-0.7); #Lymphocytes 0.6 thou/uL (1.20-3.40); #Monocytes 0.4 thou/uL (0.11-0.59); #Neutrophils 4.9 thou/uL (1.40-6.50); %Basophils 0.3 % (0.0-1.0); %Eosinophils 6.6 % (0.0-10.0); %Monocytes 6.6 % (0.0-10.0); %Neutrophils 77.5 % (42.0-75.0); Hemoglobin 11.6 g/dL (14.0-18.0); Mean Corpuscular HGB CONC 32.1 g/dL (32.0-36.0); Mean Corpuscular Hemoglobin 30.4 pg (27.0-31.0); Mean Corpuscular Volume 94.7 fl (80.0-94.0); Mean Platelet Volume 6.4 fL (7.4-10.4); Platelet Count 172 thou/uL (130-400); RBC Distribution Width 16.9 % (11.5-14.5); Red Blood Cell (RBC) Count 3.81 mill/uL (4.70-6.10); White Blood Cell (WBC) Count 6.3 thou/uL (4.8-10.8)
[2017-08-11 21:48] LABS: ALT (SGPT) 22 U/L (8-55); AST (SGOT) 17 U/L (5-34); Albumin 3.1 g/dL (3.4-4.8); Alkaline Phosphatase 87 U/L (40-150); BUN (Urea Nitrogen) 17 mg/dL (8.4-25.7); Bilirubin, Total 0.5 mg/dL (0.2-1.2); CK (CPK) 20 U/L (30-200); CKMB 0.9 ng/mL (0-6.6); Calc. Creatinine Clearance 0 mL/min (70-130); Calcium 8.4 mg/dL (7.8-10.44); Estimated GFR-MDRD 89; Globulin 2.7 g/dL (2.4-3.5); Glucose 147 mg/dL (80-115); Protein, Total 5.8 g/dL (5.8-8.1); Troponin I 0.019 ng/mL (< 0.028)
[2017-08-11 22:00] LABS: Chloride 93 mmol/L (98-107); Potassium 4.3 mmol/L (3.5-5.1); Sodium 138 mmol/L (136-145)
[2017-08-11 22:03] LABS: Anion Gap 14 mmol/L (10-20); Carbon Dioxide 35 mmol/L (23-31)
[2017-08-12] MEDS ORDERED: Ketorolac Tromethamine 30 MG/ML VIAL ONE (00:14)
[2017-08-12 01:22] VITALS: BMI 40.7
[2017-08-12] MEDS ORDERED: Docusate 100 MG CAP PO PRN (01:46)
[2017-08-12] MEDS ORDERED: Bisacodyl 10 MG SUPP PR PRN (01:46)
[2017-08-12] MEDS ORDERED: Guaifenesin DM 100-10/5 ML UDCUP PO PRN (01:46)
[2017-08-12] MEDS ORDERED: guaiFENesin ER 600 MG TAB PO PRN (01:46)
[2017-08-12] MEDS ORDERED: Pepto Bismol Chew TAB PO PRN (01:53)
[2017-08-12] MEDS ORDERED: Ondansetron HCl/PF 4 MG/2 ML Vial IVP PRN (01:53)
[2017-08-12] MEDS ORDERED: Albuterol Sulfate 2.5 mg/3 ml Neb NEB PRN (01:53)
[2017-08-12] MEDS ORDERED: Acetaminophen 325 MG TAB PO PRN (01:53)
--- NOTE | 2017-08-12 02:59 | HP ---
DATE OF ADMISSION: 08/12/2017 CHIEF COMPLAINT: Shortness of breath. HISTORY OF PRESENT ILLNESS: This is a 71-year-old white male who was recently admitted and discharge d to shelter. He was recently admitted and discharged to shelter yesterday and on home oxy gen. The patient was unable to breathe and was feeling acutely short of breath, so the patient was s ent back to the ER for further evaluation. The patient arrived in the ER, he was acutely short of br eath and was started on BiPAP. The patient was asked clearly if he needed to be intubated and he chucho osmar stated patient is DNR and also does not need to be intubated. He was continued on the BiPAP, di d not have any chest pain, no nausea, no vomiting, no diarrhea, no constipation. The patient had a v laurie long stay during this recent admission, had multiple comorbidities. Please see the most recent H PI for more details. The patient was seen today in the IMCU, he was alert, he was drowsy, and was on the continuous BiPAP. He denies having any chest pain, no nausea, no vomiting at this time. He den ies having any fever. PAST MEDICAL HISTORY: 1. Status post community-acquired pneumonia from 07/14/2017 to 07/29/2017. 2. Status post sepsis secondary to above. 3. Peptic ulcer disease. 4. Acute blood loss anemia. 5. Chronic diastolic congestive heart failure, sick sinus syndrome, status post pacemaker. 6. History of atrial flutter, acute on chronic hypoxemic respiratory failure. 7. Morbid obesity, obstructive sleep apnea. PAST SURGICAL HISTORY: Status post endoscopy with cauterization of the vessels with status post abla tion for atrial flutter, status post pacemaker placement. ALLERGIES: No known drug allergies. HOME MEDICATIONS: Tylenol, Norvasc, Coreg 6.25 mg p.o. b.i.d., Plavix 75 mg p.o. daily, Lasix 40 mg p.o. daily, guaifenesin, lisinopril 20 mg p.o. b.i.d., Protonix 40 mg p.o. b.i.d., simvastatin 20 mg p.o. daily, Flomax 0.4 mg p.o. daily. FAMILY HISTORY: Mother of complications of lymphedema at 62. Father of complications of C HF at 82. SOCIAL HISTORY: The patient is and resides in [place], [place]. The patient was currently at [facility] and is being discharged from acute care. Otherwise, he is a former smoker. No alcohol, n o history of illicit drug use. REVIEW OF SYSTEMS: Unable to obtain as the patient is on BiPAP at this time. PHYSICAL EXAMINATION: VITAL SIGNS: Blood pressures are 144/70, heart rate is 61, respiratory rate is 18, and saturation 93 %, GENERAL: The patient is moderately built, moderately nourished. He does not appear to be in acute d istress at this time. He is alert, oriented x3. He is pretty lethargic at this time. HEENT: Atraumatic, normocephalic. PERRLA, extraocular movements were intact. Oral mucosa pink and moist. CARDIOVASCULAR: S1, S2 normal. No murmurs, rubs or gallops. LUNGS: Bilateral air entry was equal. No wheezing, no crackles. ABDOMEN: Soft, nontender, no guarding, no rebound tenderness. Bowel sounds normal. MUSCULOSKELETAL: No calf tenderness or pedal edema. No joint tenderness. No joint swelling. SKIN: No cyanosis, no erythema, no rash, no pallor. CRANIAL NERVOUS SYSTEM: Cranial nerve examination II-XII intact. No focal deficits are noted. LABORATORY DATA: WBC 6.3, hemoglobin 11.6, hematocrit 36.1, platelets 172. Sodium is 138, potassium 4.3, chloride is 93, BUN is 17, and creatinine 0.85. BNP is 267. ASSESSMENT: 1. Acute hypoxemic respiratory failure. 2. Acute chronic obstructive pulmonary disease exacerbation. 3. Obstructive sleep apnea. 4. History of congestive heart failure with diastolic dysfunction. 5. History of status post pacemaker. 6. Type 2 diabetes mellitus. 7. History of anemia with recent gastrointestinal bleed. PLAN: 1. Plan is to continue the patient with the BiPAP at this time. The patient is a DNR and DNI. We w ill closely monitor and we will consult Pulmonary in the morning. 2. We will continue the patient on albuterol and DuoNeb nebulizer treatments at this time as needed and would not start any steroids at this time as patient's lung sounds better with no wheezing curren tly noted. 3. History of type 2 diabetes mellitus. We will continue the patient on home medications. 4. History of congestive heart failure. We will restart the patient on the Lasix 40 mg p.o. daily. 5. History of hypertension. We will restart the patient on lisinopril 10 mg p.o. daily. 6. The patient has history of hyperlipidemia. We will continue the patient on simvastatin. 7. Deep venous thrombosis prophylaxis, Lovenox. I spent 70 minutes of this patient.
[2017-08-12 05:08] LABS: #Lymphocytes 0.3 thou/uL (1.20-3.40); #Neutrophils 3.5 thou/uL (1.40-6.50); %Eosinophils 1.2 % (0.0-10.0); %Lymphocytes 7.9 % (21.0-51.0); %Monocytes 0.8 % (0.0-10.0); %Neutrophils 90.1 % (42.0-75.0); Hemoglobin 11.2 g/dL (14.0-18.0); Mean Corpuscular HGB CONC 31.3 g/dL (32.0-36.0); Mean Corpuscular Hemoglobin 29.5 pg (27.0-31.0); Mean Corpuscular Volume 94.4 fl (80.0-94.0); Mean Platelet Volume 6.4 fL (7.4-10.4); Platelet Count 159 thou/uL (130-400); RBC Distribution Width 16.7 % (11.5-14.5); Red Blood Cell (RBC) Count 3.79 mill/uL (4.70-6.10); White Blood Cell (WBC) Count 3.8 thou/uL (4.8-10.8)
[2017-08-12 05:14] LABS: BUN (Urea Nitrogen) 19 mg/dL (8.4-25.7); Calc. Creatinine Clearance 137 mL/min (70-130); Calcium 8.3 mg/dL (7.8-10.44); Estimated GFR-MDRD 90; Glucose 172 mg/dL (80-115)
[2017-08-12 05:21] LABS: Bilirubin Negative (Negative); Blood, Urine Trace (Negative); Clarity CLEAR (Clear); Glucose, Urine (Dipstick) Negative (Negative); Leukocyte Moderate (Negative); Nitrite Negative (Negative); Protein, Urine (Dipstick) Negative (Neg-Trace); Specific Gravity, Urine 1.016 (1.002-1.036); Urobilinogen 0.2 mg/dL (0.2-1.0)
[2017-08-12 05:24] LABS: Anion Gap 13 mmol/L (10-20); Carbon Dioxide 36 mmol/L (23-31); Chloride 93 mmol/L (98-107); Potassium 4.2 mmol/L (3.5-5.1); Sodium 138 mmol/L (136-145)
[2017-08-12 05:24] LABS: Bacteria/HPF None Seen HPF (None Seen); Hyaline Casts/LPF 0-3 HYALINE CAST LPF (0-3 Hyaline); Pathc Cast-AUWi Flag 0.43 (0-2.49); Squamous Epithelial 0-3 HPF (0-3)
[2017-08-12] MEDS: Finasteride 5 MG TAB PO SCH (08:31)
[2017-08-12] MEDS: Tamsulosin HCl 0.4 MG CAP PO SCH (08:31)
[2017-08-12] MEDS: Aspirin 81 mg Enteric Coated Tablet PO SCH (08:31)
[2017-08-12] MEDS: Multivitamin W/ Minerals 1 TAB PO SCH (08:31)
[2017-08-12] MEDS: Carvedilol 6.25 MG TAB PO SCH ×2 (08:31→21:10)
[2017-08-12] MEDS: Dutasteride 0.5 MG CAP PO SCH (08:31)
[2017-08-12] MEDS: Furosemide 40 MG TAB PO SCH (08:31)
[2017-08-12] MEDS: Ferrous Sulfate 325 MG TAB PO SCH ×2 (08:31→17:06)
[2017-08-12] MEDS: Amlodipine 5 MG TAB PO SCH (08:31)
[2017-08-12] MEDS: Enoxaparin Sodium 40 MG/0.4 ML SYRINGE SC SCH (08:32)
[2017-08-12] MEDS: Famotidine/PF 20 mg/2ml Vial SLOW IVP SCH ×2 (08:32→21:09)
[2017-08-12] MEDS ORDERED: Simvastatin 20 MG TAB PO SCH (09:00)
--- NOTE | 2017-08-12 13:45 | PDOC.PN ---
- Subjective Encounter Start Date: 08/12/17 Encounter Start Time: 13:43 Subjective: feels better this morning.had difficulty breathing at NH -: as they do not have bipap. -: made pt aware that he has refused it repetedly while here prior to DC yeste - Objective Resuscitation Status: Resuscitation Status DNR:Do Not Resuscitate MAR Reviewed: Yes Vital Signs & Weight: Vital Signs (12 hours) Temp Pulse Pulse Pulse Resp BP BP 08/12/17 11:16 72 72 120/63 122/59 L 08/12/17 11:12 98.6 F 85 22 H 08/12/17 08:04 72 18 08/12/17 08:00 98.5 F 72 18 08/12/17 07:47 98.5 F 60 18 08/12/17 06:08 61 20 08/12/17 04:02 60 18 08/12/17 03:06 60 16 08/12/17 03:05 60 20 08/12/17 02:03 62 19 BP Pulse Ox Pulse Ox Pulse Ox 08/12/17 11:16 90 L 91 L 08/12/17 11:12 119/59 L 93 L 08/12/17 08:04 89 L 08/12/17 08:00 85 L 08/12/17 07:47 139/61 92 L 08/12/17 06:08 149/77 H 90 L 08/12/17 04:02 126/67 92 L 08/12/17 03:06 92 L 08/12/17 03:05 92 L 08/12/17 02:03 147/61 H 92 L Weight Admit Weight 260 lb Weight 260 lb I&O: 08/11/17 08/12/17 08/13/17 06:59 06:59 06:59 Intake Total 71 840 Output Total 560 Balance -489 840 Result Diagrams: 08/12/17 04:40 08/12/17 04:40 Additional Labs: Microbiology 08/06/17 18:50 Urine kaiser catheter Urine Culture - Final NO GROWTH AT 48 HOURS 08/06/17 09:43 Venous blood - Right Hand Blood Culture - Final NO GROWTH IN 5 DAYS 08/06/17 09:43 Venous blood - Left Hand Blood Culture - Final No growth. 07/31/17 18:20 Venous blood - Right Hand Blood Culture - Final NO GROWTH IN 5 DAYS 07/31/17 18:20 Venous blood - Left Hand Blood Culture - Final NO GROWTH IN 5 DAYS 07/31/17 15:55 Urine kaiser catheter Urine Culture - Final NO GROWTH AT 36 HOURS 07/20/17 18:25 Urine clean catch Urine Culture - Final NO GROWTH AT 36 HOURS 07/19/17 12:30 Urine clean catch Urine Culture - Final NO GROWTH AT 48 HOURS 08/11/17 21:20 Venous blood - Right Hand Blood Culture - Preliminary Specimen has been received and culture in progress. No Growth to date. 08/11/17 21:05 Venous blood - Left Hand Blood Culture - Preliminary Specimen has been received and culture in progress. No Growth to date. 08/11/17 05:00 Urine kaiser catheter Urine Culture - Preliminary NO GROWTH AT 12 HOURS Phys Exam - Physical Examination Constitutional: NAD HEENT: PERRLA, moist MMs, sclera anicteric, oral pharynx no lesions Neck: no nodes, no JVD, supple, full ROM Respiratory: no rales, no rhonchi, wheezing present, clear to auscultation bilateral Cardiovascular: RRR, no significant murmur, no rub, gallop Gastrointestinal: soft, non-tender, no distention, positive bowel sounds Musculoskeletal: pulses present, edema present Neurological: non-focal, normal sensation, moves all 4 limbs Psychiatric: normal affect, A&O x 3 Skin: no rash Dx/Plan (1) Acute and chronic respiratory failure Code(s): J96.20 - ACUTE AND CHR RESP FAILURE, UNSP W HYPOXIA OR HYPERCAPNIA Status: Resolved Qualifiers: Respiratory failure complication: hypoxia and hypercapnia Qualified Code(s) : J96.21 - Acute and chronic respiratory failure with hypoxia; J96.22 - Acute and chronic respiratory failure with hypercapnia; J96.22 - Acute and chronic respiratory failure with hypercapnia; J96.22 - Acute and chronic respiratory failure with hypercapnia Comment: due to inability to tolerate Bipap with H/O TAMARA (2) H/O: GI bleed Code(s): Z87.19 - PERSONAL HISTORY OF OTHER DISEASES OF THE DIGESTIVE SYSTEM Status: Acute Comment: s/p cauterization 06/2017 (3) ANGELO (iron deficiency anemia) Code(s): D50.9 - IRON DEFICIENCY ANEMIA, UNSPECIFIED Status: Acute Comment: on FeSo4.IV iron given 08/11/17 (4) Peptic ulcer disease with hemorrhage Code(s): K27.4 - CHRONIC OR UNSP PEPTIC ULCER, SITE UNSP, WITH HEMORRHAGE Status: Acute Comment: s/p cautery of bleeding vessel, GI signed off, H/H stable since transfusion (5) Sick sinus syndrome Code(s): I49.5 - SICK SINUS SYNDROME Status: Acute Comment: s/p pacemaker (6) Bilateral hip joint arthritis Code(s): M16.0 - BILATERAL PRIMARY OSTEOARTHRITIS OF HIP Status: Chronic Comment: Pain control, mobilization, PT (7) CAD (coronary artery disease) Code(s): I25.10 - ATHSCL HEART DISEASE OF [place] CORONARY ARTERY W/O ANG PCTRS Status: Chronic Comment: Commercial Intelligence Manager is Magen Reese.Off of plavix due to recent GIB (8) Diastolic CHF Code(s): I50.30 - UNSPECIFIED DIASTOLIC (CONGESTIVE) HEART FAILURE Status: Chronic Qualifiers: Heart failure chronicity: chronic Qualified Code(s): I50.32 - Chronic diastolic (congestive) heart failure (9) HTN (hypertension) Code(s): I10 - ESSENTIAL (PRIMARY) HYPERTENSION Status: Chronic Qualifiers: Hypertension type: essential hypertension Qualified Code(s): I10 - Essential (primary) hypertension (10) Morbid obesity Code(s): E66.01 - MORBID (SEVERE) OBESITY DUE TO EXCESS CALORIES Status: Chronic (11) TAMARA (obstructive sleep apnea) Code(s): G47.33 - OBSTRUCTIVE SLEEP APNEA (ADULT) (PEDIATRIC) Status: Chronic (12) Severe muscle deconditioning Code(s): R29.898 - OTH SYMPTOMS AND SIGNS INVOLVING THE MUSCULOSKELETAL SYSTEM Status: Chronic Comment: PT/OT for mobilization, OOB as tolerated with assistance (13) Obesity hypoventilation syndrome Code(s): E66.2 - MORBID (SEVERE) OBESITY WITH ALVEOLAR HYPOVENTILATION Status : Suspected Comment: O2 via NC continuously - Plan PT/OT, respiratory therapy, incentive spirometry, out of bed/ambulate, DVT proph w/SCDs Needs to wear bipap.will try with some anti anxiety med tonight -: arrange [facility] & DC when arranged -: PCT consulted for goals of care -: if pt can not wear Bipap,hospice is only option -: am labs.will follow * . Review of Systems - Review of Systems Constitutional: weakness, malaise. negative: fever, chills, sweats, other Eyes: negative: Pain, Vision Change, Conjunctivae Inflammation, Eyelid Inflammation, Redness, Other ENT: negative: Ear Pain, Ear Discharge, Nose Pain, Nose Discharge, Nose Congestion, Mouth Pain, Mouth Swelling, Throat Pain, Throat Swelling, Other Respiratory: SOB with Excertion. negative: Cough, Dry, Shortness of Breath, Hemoptysis, Pleuritic Pain, Sputum, Wheezing Cardiovascular: negative: chest pain, palpitations, orthopnea, paroxysmal nocturnal dyspnea, edema, light headedness, other Gastrointestinal: negative: Nausea, Vomiting, Abdominal Pain, Diarrhea, Constipation, Melena, Hematochezia, Other Genitourinary: negative: Dysuria, Frequency, Incontinence, Hematuria, Retention , Other Musculoskeletal: negative: Neck Pain, Shoulder Pain, Arm Pain, Back Pain, Hand Pain, Leg Pain, Foot Pain, Other Skin: negative: Rash, Lesions, [place], Bruising, Other Neurological: negative: Weakness, Numbness, Incoordination, Change in Speech, Confusion, Seizures, Other - Medications/Allergies Allergies/Adverse Reactions: Allergies Allergy/AdvReac Type Severity Reaction Status Date / Time No Known Drug Allergies Allergy Verified 07/14/17 14:53 Medications: Current Medications Acetaminophen (Tylenol) 650 mg PO Q4H PRN PRN Reason: Headache/Fever or Pain Hydrocodone Bitart/Acetaminophen ([place] 5/325) 1 tab PO Q4H PRN PRN Reason: Moderate Pain (4-6) Albuterol Sulfate (Ventolin) 2.5 mg NEB [id number] PRN PRN Reason: SOB &/or Wheezing Albuterol/Ipratropium (Duoneb) 3 ml NEB [id number] [facility] Last Admin: 08/12/17 08:04 Dose: 3 ml Amlodipine Besylate (Norvasc) 5 mg PO DAILY [facility] Last Admin: 08/12/17 08:31 Dose: 5 mg Aspirin (Ecotrin) 81 mg PO DAILY [facility] Last Admin: 08/12/17 08:31 Dose: 81 mg Atorvastatin Calcium (Lipitor) 10 mg PO HS [facility] Bisacodyl (Dulcolax) 10 mg [place] DAILY PRN PRN Reason: Constipation Bismuth Subsalicylate (Pepto Bismol) 2 tab PO Q1H PRN PRN Reason: Diarrhea/Loose Stools Last Admin: 08/12/17 03:15 Dose: 2 tab Carvedilol (Coreg) 6.25 mg PO BID [facility] Last Admin: 08/12/17 08:31 Dose: 6.25 mg Docusate Sodium (Colace) 100 mg PO DAILY PRN PRN Reason: Constipation Dutasteride (Avodart) 0.5 mg PO DAILY [facility] Last Admin: 08/12/17 08:31 Dose: 0.5 mg Enoxaparin Sodium (Lovenox) 40 mg SC 0900 [facility] Last Admin: 08/12/17 08:32 Dose: 40 mg Famotidine (Pepcid) 20 mg SLOW IVP Q12HR [facility] Last Admin: 08/12/17 08:32 Dose: 20 mg Ferrous Sulfate (Feosol) 325 mg PO BID-[facility] Last Admin: 08/12/17 08:31 Dose: 325 mg Finasteride (Proscar) 5 mg PO DAILY [facility] Last Admin: 08/12/17 08:31 Dose: 5 mg Furosemide (Lasix) 40 mg PO DAILY-[facility] Last Admin: 08/12/17 08:31 Dose: 40 mg Guaifenesin (Mucinex) 1,200 mg PO Q12HR PRN PRN Reason: Cough Guaifenesin/Dextromethorphan (Robitussin Dm) 15 ml PO Q4H PRN PRN Reason: Cough Iron/Minerals/Multivitamins (Theragran M) 1 tab PO DAILY [facility] Last Admin: 08/12/17 08:31 Dose: 1 tab Lisinopril (Zestril) 10 mg PO HS [facility] Methylprednisolone Sodium Succinate (Solu-Medrol) 40 mg IVP Q6HR [facility] Stop: 08/13/17 06:01 Last Admin: 08/12/17 11:31 Dose: 40 mg Mometasone Furoate/Formoterol Fumar (Dulera 200 Mcg/5 Mcg Inhaler) 2 puff INH BID-RT [facility] Ondansetron HCl (Zofran) 4 mg IVP Q6H PRN PRN Reason: Nausea/Vomiting Pantoprazole Sodium (Protonix) 40 mg PO BID [facility] Last Admin: 08/12/17 08:31 Dose: 40 mg Prednisone (Prednisone) 20 mg PO QAM-[facility] Sodium Chloride (Flush - Normal Saline) 10 ml IVF Q12HR [facility] Last Admin: 08/12/17 08:32 Dose: 10 ml Sodium Chloride (Flush - Normal Saline) 10 ml IVF PRN PRN PRN Reason: Saline Flush Tamsulosin HCl (Flomax) 0.4 mg PO DAILY [facility] Last Admin: 08/12/17 08:31 Dose: 0.4 mg
--- NOTE | 2017-08-12 14:19 | CON ---
DATE OF CONSULTATION: 08/12/2017 Mr. Campos was just discharged from the hospital. Went to [facility], came back with increased shortness of breath, unresponsive to usual medication. He is sitting in the bed right now and states first time he felt, he was having difficulty breathing. He is denying any chest pain, chills, or sweats. He is a DNR. They do not have a noninvasive ventilation at [facility]. Apparently, the sats at [facility] were in the high 70s. He apparently has declined to wear a BiPAP at [facility]. In the ER, he was placed on BiPAP, given steroids, magnesium, and now was readmitted. Please review his numerous admissions in the last several weeks. PAST MEDICAL HISTORY: Pertinent for CHF, COPD, sleep apnea, hypoventilation, morbid obesity, diabetes, coronary artery disease. PAST SURGICAL HISTORY: Stents, pacemaker. MEDICATIONS: Amlodipine 5, Proscar 5, Avodart 0.5, Coreg 6.25, aspirin, lisinopril 10, neb treatment, Lasix 40, guaifenesin, Flomax 0.4. ALLERGIES: None. SOCIAL/FAMILY HISTORY: recent note neg. PHYSICAL EXAMINATION: VITAL SIGNS: Sats on 3 liters are 85%-86%, blood pressure 130/70, respiratory rate 18. CHEST: Decreased breath sounds. No wheezing. CARDIAC: Normal S1, S2, no gallops. ABDOMEN: Soft. No masses. EXTREMITIES: Reveal chronic stasis changes. NEUROLOGIC: He is awake, alert, responsive, moves all 4 extremities. LABORATORY AND X-RAY FINDINGS: His x-ray shows gross cardiomegaly, elevated right hemidiaphragm, atelectatic changes bilaterally. His creatinine and BUN are normal. White count 3000, H and H are 11 and 35, platelet count 59. IMPRESSION: Acute on chronic respiratory failure, chronic obstructive pulmonary disease, diastolic dysfunction, abnormal x-ray, sleep apnea. PLAN: Continue present treatment. I suggested he have noninvasive ventilation study at the [facility]. Notify [facility] his average baseline oxygen saturations. He has no more than 86 on supplemental oxygen. He is a DNR. Hopefully, this can be arranged prior to his discharge. PARKER
[2017-08-12] MEDS: Mometasone/Formoterol 120 PUFF INHALER INH SCH (19:10)
[2017-08-12] MEDS: Atorvastatin Calcium 10 MG TAB PO SCH (21:10)
[2017-08-12] MEDS: Lisinopril 10 MG TAB PO SCH (21:10)
[2017-08-12] MEDS ORDERED: Cefepime 2 GM, Syringe 2.5 ML in Sodium Chloride 0.9% 10 ML SLOW IVP SCH (22:45)
[2017-08-12] MEDS: HYDROcodone/Acetaminophen 5/325 mg Tablet PO PRN (23:12)
[2017-08-13] MEDS: Mometasone/Formoterol 120 PUFF INHALER INH SCH ×2 (08:09→17:59)
[2017-08-13] MEDS: Amlodipine 5 MG TAB PO SCH (08:27)
[2017-08-13] MEDS: Furosemide 40 MG TAB PO SCH (08:27)
[2017-08-13] MEDS: Ferrous Sulfate 325 MG TAB PO SCH ×2 (08:27→16:36)
[2017-08-13] MEDS: predniSONE 20 MG TAB PO SCH (08:27)
[2017-08-13] MEDS: Dutasteride 0.5 MG CAP PO SCH (08:28)
[2017-08-13] MEDS: Famotidine/PF 20 mg/2ml Vial SLOW IVP SCH ×2 (08:28→20:31)
[2017-08-13] MEDS: Carvedilol 6.25 MG TAB PO SCH ×2 (08:28→20:31)
[2017-08-13] MEDS: Enoxaparin Sodium 40 MG/0.4 ML SYRINGE SC SCH (08:28)
[2017-08-13] MEDS: Finasteride 5 MG TAB PO SCH (08:28)
[2017-08-13] MEDS: Aspirin 81 mg Enteric Coated Tablet PO SCH (08:28)
[2017-08-13] MEDS: Multivitamin W/ Minerals 1 TAB PO SCH (08:29)
[2017-08-13] MEDS: Tamsulosin HCl 0.4 MG CAP PO SCH (08:29)
[2017-08-13] MEDS: Cefepime 2 GM, Syringe 2.5 ML in Sodium Chloride 0.9% 10 ML SLOW IVP SCH ×2 (08:39→20:31)
[2017-08-13] MEDS ORDERED: Cefepime 2 GM in Sodium Chloride 0.9% 100 ML IVPB SCH (09:00)
[2017-08-13] MEDS ORDERED: Temazepam 15 MG CAP PO PRN (09:54)
--- NOTE | 2017-08-13 15:26 | PDOC.PN ---
- Subjective Encounter Start Date: 08/13/17 Encounter Start Time: 15:24 Subjective: feels better.was not able to keep Bipap on last night either - Objective Resuscitation Status: Resuscitation Status DNR:Do Not Resuscitate MAR Reviewed: Yes Vital Signs & Weight: Vital Signs (12 hours) Temp Pulse Pulse Pulse Resp BP BP 08/13/17 14:52 61 22 H 08/13/17 11:33 99.2 F 61 13 08/13/17 10:47 61 20 08/13/17 09:38 64 61 129/61 130/60 08/13/17 08:27 67 08/13/17 08:09 67 18 08/13/17 07:52 98.3 F 77 16 08/13/17 07:49 99.2 F 62 20 08/13/17 04:04 99.2 F 62 20 BP Pulse Ox Pulse Ox Pulse Ox 08/13/17 14:52 93 L 08/13/17 11:33 125/60 94 L 08/13/17 10:47 96 08/13/17 09:38 90 L 94 L 08/13/17 08:27 08/13/17 08:09 08/13/17 07:52 127/62 97 08/13/17 07:49 93 L 08/13/17 04:04 120/57 L 91 L Weight Admit Weight 260 lb Weight 260 lb I&O: 08/12/17 08/13/17 08/14/17 06:59 06:59 06:59 Intake Total 71 1840 Output Total 560 2500 Balance -489 -660 Result Diagrams: 08/12/17 04:40 08/12/17 04:40 Additional Labs: Microbiology 08/11/17 05:00 Urine kaiser catheter Urine Culture - Final NO GROWTH AT 36 HOURS 08/06/17 18:50 Urine kaiser catheter Urine Culture - Final NO GROWTH AT 48 HOURS 08/06/17 09:43 Venous blood - Right Hand Blood Culture - Final NO GROWTH IN 5 DAYS 08/06/17 09:43 Venous blood - Left Hand Blood Culture - Final No growth. 07/31/17 18:20 Venous blood - Right Hand Blood Culture - Final NO GROWTH IN 5 DAYS 07/31/17 18:20 Venous blood - Left Hand Blood Culture - Final NO GROWTH IN 5 DAYS 07/31/17 15:55 Urine kaiser catheter Urine Culture - Final NO GROWTH AT 36 HOURS 07/20/17 18:25 Urine clean catch Urine Culture - Final NO GROWTH AT 36 HOURS 07/19/17 12:30 Urine clean catch Urine Culture - Final NO GROWTH AT 48 HOURS 08/11/17 21:20 Venous blood - Right Hand Blood Culture - Preliminary Gram Positive Anshul 08/11/17 21:20 Venous blood - Right Hand Blood Culture - Preliminary Gram Positive Anshul 08/11/17 21:05 Venous blood - Left Hand Blood Culture - Preliminary Gram Positive Anshul 08/11/17 21:05 Venous blood - Left Hand Blood Culture - Preliminary Gram Positive Anshul 08/11/17 05:00 Urine kaiser catheter Urine Culture - Preliminary NO GROWTH AT 12 HOURS Phys Exam - Physical Examination Constitutional: NAD HEENT: PERRLA, moist MMs, sclera anicteric, oral pharynx no lesions Neck: no nodes, no JVD, supple, full ROM Respiratory: no wheezing, no rales, no rhonchi coarse Cardiovascular: RRR, no significant murmur, no rub, gallop, irregular Gastrointestinal: soft, non-tender, no distention, positive bowel sounds Musculoskeletal: pulses present, edema present Neurological: non-focal, normal sensation, moves all 4 limbs Psychiatric: normal affect, A&O x 3 Skin: no rash Dx/Plan (1) Gram-negative bacteremia Code(s): R78.81 - BACTEREMIA Status: Acute Comment: 06/20 (2) Acute and chronic respiratory failure Code(s): J96.20 - ACUTE AND CHR RESP FAILURE, UNSP W HYPOXIA OR HYPERCAPNIA Status: Resolved Qualifiers: Respiratory failure complication: hypoxia and hypercapnia Qualified Code(s) : J96.21 - Acute and chronic respiratory failure with hypoxia; J96.22 - Acute and chronic respiratory failure with hypercapnia; J96.22 - Acute and chronic respiratory failure with hypercapnia; J96.22 - Acute and chronic respiratory failure with hypercapnia Comment: due to inability to tolerate Bipap with H/O TAMARA (3) H/O: GI bleed Code(s): Z87.19 - PERSONAL HISTORY OF OTHER DISEASES OF THE DIGESTIVE SYSTEM Status: Acute Comment: s/p cauterization 06/2017 (4) ANGELO (iron deficiency anemia) Code(s): D50.9 - IRON DEFICIENCY ANEMIA, UNSPECIFIED Status: Acute Comment: on FeSo4.IV iron given 08/11/17 (5) Peptic ulcer disease with hemorrhage Code(s): K27.4 - CHRONIC OR UNSP PEPTIC ULCER, SITE UNSP, WITH HEMORRHAGE Status: Acute Comment: s/p cautery of bleeding vessel, GI signed off, H/H stable since transfusion (6) Sick sinus syndrome Code(s): I49.5 - SICK SINUS SYNDROME Status: Acute Comment: s/p pacemaker (7) Bilateral hip joint arthritis Code(s): M16.0 - BILATERAL PRIMARY OSTEOARTHRITIS OF HIP Status: Chronic Comment: Pain control, mobilization, PT (8) CAD (coronary artery disease) Code(s): I25.10 - ATHSCL HEART DISEASE OF [place] CORONARY ARTERY W/O ANG PCTRS Status: Chronic Comment: Help Desk Engineer is Magen Reese.Off of plavix due to recent GIB (9) Diastolic CHF Code(s): I50.30 - UNSPECIFIED DIASTOLIC (CONGESTIVE) HEART FAILURE Status: Chronic Qualifiers: Heart failure chronicity: chronic Qualified Code(s): I50.32 - Chronic diastolic (congestive) heart failure (10) HTN (hypertension) Code(s): I10 - ESSENTIAL (PRIMARY) HYPERTENSION Status: Chronic Qualifiers: Hypertension type: essential hypertension Qualified Code(s): I10 - Essential (primary) hypertension (11) Morbid obesity Code(s): E66.01 - MORBID (SEVERE) OBESITY DUE TO EXCESS CALORIES Status: Chronic (12) TAMARA (obstructive sleep apnea) Code(s): G47.33 - OBSTRUCTIVE SLEEP APNEA (ADULT) (PEDIATRIC) Status: Chronic (13) Severe muscle deconditioning Code(s): R29.898 - OTH SYMPTOMS AND SIGNS INVOLVING THE MUSCULOSKELETAL SYSTEM Status: Chronic Comment: PT/OT for mobilization, OOB as tolerated with assistance (14) Obesity hypoventilation syndrome Code(s): E66.2 - MORBID (SEVERE) OBESITY WITH ALVEOLAR HYPOVENTILATION Status : Suspected Comment: O2 via NC continuously - Plan PT/OT, social contact worker, incentive spirometry, out of bed/ambulate, DVT proph w/ SCDs aggressive rehab.trying to arrange Bipap for NH for DC -: add prn anti-anxiety/mild sedative hs for Bipap trial. -: 2/2 Blood Cx +ve for GNR.on Cefepime for now.will consult ID -: hemodynamically stable. -: am labs * . Review of Systems - Review of Systems Constitutional: weakness, malaise. negative: fever, chills, sweats, other Eyes: negative: Pain, Vision Change, Conjunctivae Inflammation, Eyelid Inflammation, Redness, Other ENT: negative: Ear Pain, Ear Discharge, Nose Pain, Nose Discharge, Nose Congestion, Mouth Pain, Mouth Swelling, Throat Pain, Throat Swelling, Other Respiratory: Cough, SOB with Excertion. negative: Dry, Shortness of Breath, Hemoptysis, Pleuritic Pain, Sputum, Wheezing Cardiovascular: negative: chest pain, palpitations, orthopnea, paroxysmal nocturnal dyspnea, edema, light headedness, other Gastrointestinal: negative: Nausea, Vomiting, Abdominal Pain, Diarrhea, Constipation, Melena, Hematochezia, Other Genitourinary: negative: Dysuria, Frequency, Incontinence, Hematuria, Retention , Other Musculoskeletal: negative: Neck Pain, Shoulder Pain, Arm Pain, Back Pain, Hand Pain, Leg Pain, Foot Pain, Other Skin: negative: Rash, Lesions, [place]iste[place], Bruising, Other Neurological: negative: Weakness, Numbness, Incoordination, Change in Speech, Confusion, Seizures, Other - Medications/Allergies Allergies/Adverse Reactions: Allergies Allergy/AdvReac Type Severity Reaction Status Date / Time No Known Drug Allergies Allergy Verified 07/14/17 14:53 Medications: Current Medications Acetaminophen (Tylenol) 650 mg PO Q4H PRN PRN Reason: Headache/Fever or Pain Last Admin: 08/13/17 14:26 Dose: 650 mg Hydrocodone Bitart/Acetaminophen ([place] 5/325) 1 tab PO Q4H PRN PRN Reason: Moderate Pain (4-6) Last Admin: 08/12/17 23:12 Dose: 1 tab Albuterol Sulfate (Ventolin) 2.5 mg NEB [id number] PRN PRN Reason: SOB &/or Wheezing Albuterol/Ipratropium (Duoneb) 3 ml NEB [id number] Last Admin: 08/13/17 14:52 Dose: 3 ml Amlodipine Besylate (Norvasc) 5 mg PO DAILY [facility] Last Admin: 08/13/17 08:27 Dose: 5 mg Aspirin (Ecotrin) 81 mg PO DAILY [facility] Last Admin: 08/13/17 08:28 Dose: 81 mg Atorvastatin Calcium (Lipitor) 10 mg PO HS [facility] Last Admin: 08/12/17 21:10 Dose: 10 mg Bisacodyl (Dulcolax) 10 mg [place] DAILY PRN PRN Reason: Constipation Bismuth Subsalicylate (Pepto Bismol) 2 tab PO Q1H PRN PRN Reason: Diarrhea/Loose Stools Last Admin: 08/12/17 03:15 Dose: 2 tab Carvedilol (Coreg) 6.25 mg PO BID [facility] Last Admin: 08/13/17 08:28 Dose: 6.25 mg Docusate Sodium (Colace) 100 mg PO DAILY PRN PRN Reason: Constipation Dutasteride (Avodart) 0.5 mg PO DAILY [facility] Last Admin: 08/13/17 08:28 Dose: 0.5 mg Enoxaparin Sodium (Lovenox) 40 mg SC 0900 [facility] Last Admin: 08/13/17 08:28 Dose: 40 mg Famotidine (Pepcid) 20 mg SLOW IVP Q12HR [facility] Last Admin: 08/13/17 08:28 Dose: 20 mg Ferrous Sulfate (Feosol) 325 mg PO BID-[facility] Last Admin: 08/13/17 08:27 Dose: 325 mg Finasteride (Proscar) 5 mg PO DAILY [facility] Last Admin: 08/13/17 08:28 Dose: 5 mg Furosemide (Lasix) 40 mg PO DAILY[facility] Last Admin: 08/13/17 08:27 Dose: 40 mg Guaifenesin (Mucinex) 1,200 mg PO Q12HR PRN PRN Reason: Cough Guaifenesin/Dextromethorphan (Robitussin Dm) 15 ml PO Q4H PRN PRN Reason: Cough Cefepime HCl 2 gm/ Syringe 2.5 (ml/ Sodium Chloride) 12.5 mls @ 150 mls/hr SLOW IVP Q12HR [facility] Last Admin: 08/13/17 08:39 Dose: 12.5 mls Iron/Minerals/Multivitamins (Theragran M) 1 tab PO DAILY [facility] Last Admin: 08/13/17 08:29 Dose: 1 tab Lisinopril (Zestril) 10 mg PO [facility] Last Admin: 08/12/17 21:10 Dose: 10 mg Mometasone Furoate/Formoterol Fumar (Dulera 200 Mcg/5 Mcg Inhaler) 2 puff INH BID-[facility] Last Admin: 08/13/17 08:09 Dose: 2 puff Ondansetron HCl (Zofran) 4 mg IVP Q6H PRN PRN Reason: Nausea/Vomiting Pantoprazole Sodium (Protonix) 40 mg PO BID [facility] Last Admin: 08/13/17 08:29 Dose: 40 mg Prednisone (Prednisone) 20 mg PO QAM-[facility] Last Admin: 08/13/17 08:27 Dose: 20 mg Sodium Chloride (Flush - Normal Saline) 10 ml IVF Q12HR [facility] Last Admin: 08/13/17 08:29 Dose: 10 ml Sodium Chloride (Flush - Normal Saline) 10 ml IVF PRN PRN PRN Reason: Saline Flush Tamsulosin HCl (Flomax) 0.4 mg PO DAILY [facility] Last Admin: 08/13/17 08:29 Dose: 0.4 mg Temazepam (Restoril) 15 mg PO HSPRN PRN PRN Reason: Insomnia Trazodone HCl (Desyrel) 50 mg PO HS PRN PRN Reason: Insomnia
[2017-08-13] MEDS: Lisinopril 10 MG TAB PO SCH (20:32)
[2017-08-13] MEDS: Atorvastatin Calcium 10 MG TAB PO SCH (20:32)
[2017-08-14] MEDS: traZODone HCl 50 MG TAB PO PRN ×2 (01:53→22:39)
[2017-08-14 04:51] LABS: #Lymphocytes 0.4 thou/uL (1.20-3.40); #Monocytes 0.6 thou/uL (0.11-0.59); #Neutrophils 7.4 thou/uL (1.40-6.50); %Eosinophils 0.2 % (0.0-10.0); %Lymphocytes 4.1 % (21.0-51.0); %Monocytes 7.2 % (0.0-10.0); %Neutrophils 88.5 % (42.0-75.0); Mean Corpuscular HGB CONC 31.3 g/dL (32.0-36.0); Mean Corpuscular Hemoglobin 29.8 pg (27.0-31.0); Mean Corpuscular Volume 95.3 fl (80.0-94.0); Mean Platelet Volume 6.6 fL (7.4-10.4); Platelet Count 188 thou/uL (130-400); RBC Distribution Width 16.8 % (11.5-14.5); Red Blood Cell (RBC) Count 3.37 mill/uL (4.70-6.10); White Blood Cell (WBC) Count 8.4 thou/uL (4.8-10.8)
[2017-08-14 04:56] LABS: BUN (Urea Nitrogen) 23 mg/dL (8.4-25.7); Calc. Creatinine Clearance 151 mL/min (70-130); Estimated GFR-MDRD Greater than 90; Glucose 131 mg/dL (80-115)
[2017-08-14 05:05] LABS: Anion Gap 12 mmol/L (10-20); Carbon Dioxide 35 mmol/L (23-31); Chloride 95 mmol/L (98-107); Potassium 3.3 mmol/L (3.5-5.1); Sodium 139 mmol/L (136-145)
--- NOTE | 2017-08-14 07:44 | CON ---
DATE OF CONSULTATION: 08/13/2017 REASON FOR CONSULTATION: Bacteremia. HISTORY OF PRESENT ILLNESS: This is a 71-year-old patient who has a history of COPD, cardiomyopathy with pacemaker for management of atrial flutter after ablation and type 2 diabetes who presented with worsening dyspnea. On arrival, he had tachypnea and labored breathing and was given a BiPAP mask tr eatment. The patient stated that he was do not resuscitate and did not want to be intubated. He was continued on BiPAP. There was no reported seizure activity. No chest pain, nausea, vomiting, no di arrhea, no genitourinary symptoms. Initial findings included BP 140/70, heart rates of 61, respirati ons 18, O2 sat 92%, did not appear in distress. According to report he was alert and oriented, altho ugh he was lethargic. Lungs with bilateral breath sounds with no wheezing or crackles. Heart exam s howed normal heart sounds, no murmurs. The abdomen was soft and nontender. Extremities without any changes and he was moving all extremities. INITIAL DATA: White cell count 6.3, hemoglobin 11.6, platelets 172. Sodium 138, creatinine 0.85. B RESEARCH ATTORNEY 267. Initial impression was hypoxemic respiratory failure, COPD exacerbation, CHF, diastolic dysfunction, diabetes mellitus. Subsequently, had 2 out of 2 sets of blood cultures, gram positive rods yet to be further identified. PAST MEDICAL HISTORY: Cardiomyopathy, atrial flutter ablation, pacemaker, obesity, COPD with hypoven tilation syndrome, sleep apnea, peptic ulcer disease, anemia, pneumonia treated in 07/14/2017 through 07/29/2017 with sepsis. PAST SURGICAL HISTORY: Colonization of gastric vessels, ablation of atrial flutter, pacemaker placem ent. ALLERGIES: None. CURRENT MEDICATION LIST: Tylenol, [place], Ventolin, DuoNeb, Norvasc, Ecotrin, Lipitor, Dulcolax, Core g, cefepime, Eligard, Lovenox, Pepcid, Proscar, Lasix, Mucinex, Robitussin, Zestril, omeprazole, Zofr an, Protonix, prednisone 20 mg, temazepam, Desyrel. PHYSICAL EXAMINATION: VITAL SIGNS: The patient has been afebrile, T-max 99.5, 99.4, blood pressure 130/64, pulse 60, respi rations 18. SKIN: The patient has an area of tissue injury in the proximal right thigh, a little bit of bruising and there is an area of laceration in the left calf region with somewhat yellow crusting and a littl e bit of bruising as well. No lymphadenopathy. HEENT: Ocular movements are conjugate. NECK: No jugular vein distention. LUNGS: Symmetric air entry. Pacemaker in site with still the dried edges of the incision, but no er ythema. No tenderness or swelling. CARDIOVASCULAR: S1, S2, regular rate. No S3, S4. ABDOMEN: Soft, nondistended or tender. No ascites. No bladder distention. EXTREMITIES: No joint inflammatory activity. Pulses are diminished in dorsalis pedis. He is able t o move all extremities equally. NEURO: He is a little bit drowsy, but arousable, follows commands. Chest x-ray with a cardiomediastinal silhouette at the upper limits of normal, pacemaker unchanged, s table opacity right lung base, either pleural effusion on the atelectases versus infiltrate. There i s an abdomen and pelvis CT from 07/19/2017 that showed renal cysts, diverticulosis, left inguinal her olegario. ASSESSMENT: Chronic obstructive pulmonary disease, cardiomyopathy, atrial flutter, pacemaker placeme nt recently. Readmitted with hypoxemia, tachypnea and now with a 2 sets of blood cultures with gram positive jamal yet to be further test to be identified. DISCUSSION: The differential diagnosis includes true bacteremia with possible colonization of pacema ker, hospital acquired pneumonia less likely. Contamination of the sample with a skin organism with false positive blood cultures is another possibility. The samples were obtained about 30 minutes apa rt, so the technique for collection appears to have been appropriate. We will have to wait for the billy nguyen identification of the organism to make a decision as to the need for further evaluation and tr eatment.
[2017-08-14] MEDS ORDERED: Potassium Chloride 20 MEQ TAB PO SCH ×2 (07:45→10:15)
[2017-08-14] MEDS: Carvedilol 6.25 MG TAB PO SCH ×2 (09:45→21:03)
[2017-08-14] MEDS: Amlodipine 5 MG TAB PO SCH (09:47)
[2017-08-14] MEDS: Ferrous Sulfate 325 MG TAB PO SCH ×2 (09:47→17:29)
[2017-08-14] MEDS: Famotidine/PF 20 mg/2ml Vial SLOW IVP SCH (09:48)
[2017-08-14] MEDS: Tamsulosin HCl 0.4 MG CAP PO SCH (09:48)
[2017-08-14] MEDS: Enoxaparin Sodium 40 MG/0.4 ML SYRINGE SC SCH (09:48)
[2017-08-14] MEDS: Dutasteride 0.5 MG CAP PO SCH (09:48)
[2017-08-14] MEDS: Finasteride 5 MG TAB PO SCH (09:48)
[2017-08-14] MEDS: Multivitamin W/ Minerals 1 TAB PO SCH (09:48)
[2017-08-14] MEDS: Aspirin 81 mg Enteric Coated Tablet PO SCH (09:48)
[2017-08-14] MEDS: predniSONE 20 MG TAB PO SCH (09:48)
[2017-08-14] MEDS: Furosemide 40 MG TAB PO SCH (09:48)
[2017-08-14] MEDS: Cefepime 2 GM, Syringe 2.5 ML in Sodium Chloride 0.9% 10 ML SLOW IVP SCH ×2 (09:52→21:06)
[2017-08-14] MEDS ORDERED: Furosemide 40 MG/4 ML VIAL SLOW IVP SCH (10:15)
--- NOTE | 2017-08-14 10:35 | PRG ---
DATE OF SERVICE: 08/14/2017 SERVICE: Pulmonary Medicine. INTERVAL HISTORY: The patient is doing fine from a respiratory standpoint. He is breathing comforta criss. He used his BiPAP for just a couple of hours yesterday. Outside of that, there has been no sig nificant change to his condition. The patient has been making inappropriate request. He is asking f or his penis and scrotum to be readjusted every 15 minutes. He is frequently calling nursing staff jakub carrillo in order to help make that adjustment. He tells him that they have done it wrong and they need t o do it again. He is truthfully not wanting to do the work in order to get strong. He is working to the best of his ability with physical therapy, but outside of that, his expectations are that he is going to be cared for with small adjustments and small efforts in the bed. I basically told him toemily swain that he is going to need to work on doing more things for himself that his goal is to get better. If it is not, I think that hospice would be appropriate for this patient given his level of debility and current functional status. OBJECTIVE: VITAL SIGNS: Afebrile, pulse 60, blood pressure 119/62, respirations 18, saturation 92% on 3 liters nasal cannula. GENERAL: The patient is awake, alert, no apparent distress. LUNGS: Decent air entry. There is no prolonged expiratory phase or crackles present. A little bit of wheezing and rhonchi are both there. HEART: Normal rate, regular. ABDOMEN: Soft, nontender, nondistended. Bowel sounds are positive. MUSCULOSKELETAL: No cyanosis or clubbing. There is 1-2+ pitting in the bilateral lower extremities. NEUROLOGIC: Grossly nonfocal. LABORATORY DATA: WBC 8.4, hemoglobin 10.0, platelets 188,000. Potassium 3.3. Creatinine 0.76. Bas ic metabolic profile is otherwise unremarkable. Calcium 8.0, BNP 267. Troponin 0.019. Urinalysis i s essentially unremarkable. He has a gram-positive jamal growing at which time it turned out to be Cor ynebacterium species growing in 2 out of 2. ASSESSMENT: 1. Acute on chronic hypoxic and hypercapnic respiratory failure. 2. Chronic diastolic heart failure, slightly volume overloaded. 3. Acute blood loss anemia following a recent upper gastrointestinal bleed, improving. 4. Osteoarthritis of the bilateral hips, severe. 5. Debility, severe. 6. Obesity hypoventilation syndrome. 7. Bacteremia secondary to possible Corynebacterium species. PLAN: I will touch base with Dr. Haywood about the organism that was identified. Repeat blood culture s will be obtained. Pulmonary Critical Care will continue to follow while he remains in this locatio n. Potassium will be replaced today.
[2017-08-14] MEDS: Mometasone/Formoterol 120 PUFF INHALER INH SCH ×2 (10:50→18:40)
--- NOTE | 2017-08-14 11:05 | PDOC.PN ---
- Subjective Encounter Start Date: 08/14/17 Encounter Start Time: 10:00 -: old records requested/rev Patient seen and examined. No new complaints. No overnight events - Objective Resuscitation Status: Resuscitation Status DNR:Do Not Resuscitate MAR Reviewed: Yes Vital Signs & Weight: Vital Signs (12 hours) Temp Pulse Resp BP BP Pulse Ox 08/14/17 10:50 60 16 93 L 08/14/17 09:47 60 08/14/17 09:45 119/62 08/14/17 08:20 98.9 F 60 18 92 L 08/14/17 07:15 98.9 F 60 18 142/71 H 96 08/14/17 04:04 98.3 F 60 18 131/64 93 L 08/14/17 01:53 64 18 95 08/14/17 01:44 93 16 96 08/14/17 00:31 98.8 F 60 20 145/72 H 94 L Weight Admit Weight 260 lb Weight 260 lb I&O: 08/13/17 08/14/17 08/15/17 06:59 06:59 06:59 Intake Total 1840 1640 Output Total 2500 2150 Balance -660 -510 Result Diagrams: 08/14/17 04:15 08/14/17 04:15 EKG Reviewed by me: Yes Phys Exam - Physical Examination Constitutional: NAD HEENT: PERRLA, moist MMs, sclera anicteric Neck: no JVD, supple Respiratory: no wheezing, no rales, no rhonchi Cardiovascular: RRR, no significant murmur, no rub Gastrointestinal: soft, non-tender, no distention, positive bowel sounds obesity+ kaiser+ Musculoskeletal: pulses present, edema present venous stasis changes Neurological: non-focal, normal sensation Lymphatic: no nodes Psychiatric: normal affect Skin: no rash, normal turgor Dx/Plan (1) Acute respiratory failure with hypoxia Code(s): J96.01 - ACUTE RESPIRATORY FAILURE WITH HYPOXIA Status: Acute Comment: (2) Bacteremia due to Gram-positive bacteria Code(s): R78.81 - BACTEREMIA Status: Acute (3) COPD exacerbation Code(s): J44.1 - CHRONIC OBSTRUCTIVE PULMONARY DISEASE W (ACUTE) EXACERBATION Status: Acute (4) Hypokalemia Code(s): E87.6 - HYPOKALEMIA Status: Acute (5) Anemia, normocytic normochromic Code(s): D64.9 - ANEMIA, UNSPECIFIED Status: Chronic (6) BPH (benign prostatic hyperplasia) Code(s): N40.0 - BENIGN PROSTATIC HYPERPLASIA WITHOUT LOWER URINRY TRACT SYMP Status: Chronic (7) CAD (coronary artery disease) Code(s): I25.10 - ATHSCL HEART DISEASE OF [place] CORONARY ARTERY W/O ANG PCTRS Status: Chronic Comment: (8) Diastolic CHF Code(s): I50.30 - UNSPECIFIED DIASTOLIC (CONGESTIVE) HEART FAILURE Status: Chronic Qualifiers: Heart failure chronicity: chronic Qualified Code(s): I50.32 - Chronic diastolic (congestive) heart failure (9) Dyslipidemia Code(s): E78.5 - HYPERLIPIDEMIA, UNSPECIFIED Status: Chronic (10) H/O sick sinus syndrome Code(s): Z86.79 - PERSONAL HISTORY OF OTHER DISEASES OF THE CIRCULATORY SYSTEM Status: Chronic (11) HTN (hypertension) Code(s): I10 - ESSENTIAL (PRIMARY) HYPERTENSION Status: Chronic Qualifiers: Hypertension type: essential hypertension Qualified Code(s): I10 - Essential (primary) hypertension (12) Morbid obesity Code(s): E66.01 - MORBID (SEVERE) OBESITY DUE TO EXCESS CALORIES Status: Chronic (13) TAMARA (obstructive sleep apnea) Code(s): G47.33 - OBSTRUCTIVE SLEEP APNEA (ADULT) (PEDIATRIC) Status: Chronic (14) Osteoarthritis Code(s): M19.90 - UNSPECIFIED OSTEOARTHRITIS, UNSPECIFIED SITE Status: Chronic Qualifiers: Osteoarthritis location: hip Osteoarthritis type: primary Laterality: bilateral Qualified Code(s): M16.0 - Bilateral primary osteoarthritis of hip - Plan cont current plan of care, continue antibiotics, PT/OT, respiratory therapy * continue cefepime * ID team consulted * medication reviewed as below * symptomatic treatment * wean off oxygen as needed * [facility]. * repeat labs tomorrow * continue bipap as needed Review of Systems - Review of Systems ENT: negative: Ear Pain, Ear Discharge, Nose Pain, Nose Discharge, Nose Congestion, Mouth Pain, Mouth Swelling, Throat Pain, Throat Swelling, Other Respiratory: negative: Cough, Dry, Shortness of Breath, Hemoptysis, SOB with Excertion, Pleuritic Pain, Sputum, Wheezing Cardiovascular: negative: chest pain, palpitations, orthopnea, paroxysmal nocturnal dyspnea, edema, light headedness, other Gastrointestinal: negative: Nausea, Vomiting, Abdominal Pain, Diarrhea, Constipation, Melena, Hematochezia, Other Genitourinary: negative: Dysuria, Frequency, Incontinence, Hematuria, Retention , Other Musculoskeletal: negative: Neck Pain, Shoulder Pain, Arm Pain, Back Pain, Hand Pain, Leg Pain, Foot Pain, Other Skin: negative: Rash, Lesions, Aristeo, Bruising, Other - Medications/Allergies Allergies/Adverse Reactions: Allergies Allergy/AdvReac Type Severity Reaction Status Date / Time No Known Drug Allergies Allergy Verified 07/14/17 14:53 Medications: Current Medications Acetaminophen (Tylenol) 650 mg PO Q4H PRN PRN Reason: Headache/Fever or Pain Last Admin: 08/13/17 14:26 Dose: 650 mg Hydrocodone Bitart/Acetaminophen ([place] 5/325) 1 tab PO Q4H PRN PRN Reason: Moderate Pain (4-6) Last Admin: 08/12/17 23:12 Dose: 1 tab Albuterol Sulfate (Ventolin) 2.5 mg NEB [id number] PRN PRN Reason: SOB &/or Wheezing Albuterol/Ipratropium (Duoneb) 3 ml NEB [id number] [facility] Last Admin: 08/14/17 10:50 Dose: 3 ml Amlodipine Besylate (Norvasc) 5 mg PO DAILY [facility] Last Admin: 08/14/17 09:47 Dose: 5 mg Aspirin (Ecotrin) 81 mg PO DAILY [facility] Last Admin: 08/14/17 09:48 Dose: 81 mg Atorvastatin Calcium (Lipitor) 10 mg PO HS [facility] Last Admin: 08/13/17 20:32 Dose: 10 mg Bisacodyl (Dulcolax) 10 mg [place] DAILY PRN PRN Reason: Constipation Bismuth Subsalicylate (Pepto Bismol) 2 tab PO Q1H PRN PRN Reason: Diarrhea/Loose Stools Last Admin: 08/12/17 03:15 Dose: 2 tab Carvedilol (Coreg) 6.25 mg PO BID [facility] Last Admin: 08/14/17 09:45 Dose: 6.25 mg Docusate Sodium (Colace) 100 mg PO DAILY PRN PRN Reason: Constipation Dutasteride (Avodart) 0.5 mg PO DAILY [facility] Last Admin: 08/14/17 09:48 Dose: 0.5 mg Enoxaparin Sodium (Lovenox) 40 mg SC 0900 [facility] Last Admin: 08/14/17 09:48 Dose: 40 mg Ferrous Sulfate (Feosol) 325 mg PO BID-WM [facility] Last Admin: 08/14/17 09:47 Dose: 325 mg Finasteride (Proscar) 5 mg PO DAILY [facility] Last Admin: 08/14/17 09:48 Dose: 5 mg Furosemide (Lasix) 40 mg PO DAILY-AC [facility] Last Admin: 08/14/17 09:48 Dose: 40 mg Furosemide (Lasix) 40 mg SLOW IVP ONE [facility] Stop: 08/14/17 12:00 Guaifenesin (Mucinex) 1,200 mg PO Q12HR PRN PRN Reason: Cough Cefepime HCl 2 gm/ Syringe 2.5 (ml/ Sodium Chloride) 12.5 mls @ 150 mls/hr SLOW IVP Q12HR [facility] Last Admin: 08/14/17 09:52 Dose: 12.5 mls Iron/Minerals/Multivitamins (Theragran M) 1 tab PO DAILY [facility] Last Admin: 08/14/17 09:48 Dose: 1 tab Lisinopril (Zestril) 10 mg PO HS [facility] Last Admin: 08/13/17 20:32 Dose: 10 mg Mometasone Furoate/Formoterol Fumar (Dulera 200 Mcg/5 Mcg Inhaler) 2 puff INH BID-RT [facility] Last Admin: 08/14/17 10:50 Dose: 2 puff Ondansetron HCl (Zofran) 4 mg IVP Q6H PRN PRN Reason: Nausea/Vomiting Pantoprazole Sodium (Protonix) 40 mg PO BID [facility] Last Admin: 08/14/17 09:48 Dose: 40 mg Potassium Chloride (K-Dur) 40 meq PO ONE [facility] Stop: 08/14/17 12:00 Sodium Chloride (Flush - Normal Saline) 10 ml IVF Q12HR [facility] Last Admin: 08/14/17 09:49 Dose: 10 ml Sodium Chloride (Flush - Normal Saline) 10 ml IVF PRN PRN PRN Reason: Saline Flush Tamsulosin HCl (Flomax) 0.4 mg PO DAILY [facility] Last Admin: 08/14/17 09:48 Dose: 0.4 mg Trazodone HCl (Desyrel) 50 mg PO HS PRN PRN Reason: Insomnia Last Admin: 08/14/17 01:53 Dose: 50 mg
[2017-08-14] MEDS: Vancomycin HCl 1.75 GM in Sodium Chloride 0.9% 500 ML IVPB SCH (11:45)
[2017-08-14] MEDS ORDERED: Vancomycin HCl 1.25 GM in Sodium Chloride 0.9% 250 ML 250 ML IVPB SCH (21:00)
[2017-08-14] MEDS: Atorvastatin Calcium 10 MG TAB PO SCH (21:03)
[2017-08-14] MEDS: Lisinopril 10 MG TAB PO SCH (21:03)
[2017-08-14] MEDS: HYDROcodone/Acetaminophen 5/325 mg Tablet PO PRN (22:39)
[2017-08-15] MEDS: Vancomycin HCl 1.75 GM in Sodium Chloride 0.9% 500 ML IVPB SCH ×2 (00:39→12:01)
[2017-08-15 05:27] LABS: Anion Gap 9 mmol/L (10-20); BUN (Urea Nitrogen) 24 mg/dL (8.4-25.7); Calc. Creatinine Clearance 155 mL/min (70-130); Calcium 7.7 mg/dL (7.8-10.44); Carbon Dioxide 37 mmol/L (23-31); Chloride 97 mmol/L (98-107); Estimated GFR-MDRD Greater than 90; Glucose 104 mg/dL (80-115); Magnesium 1.9 mg/dL (1.6-2.6); Phosphorus 2.8 mg/dL (2.3-4.7); Potassium 3.8 mmol/L (3.5-5.1); Sodium 139 mmol/L (136-145)
[2017-08-15] MEDS: Mometasone/Formoterol 120 PUFF INHALER INH SCH ×2 (06:07→18:42)
[2017-08-15] MEDS: Dutasteride 0.5 MG CAP PO SCH (08:24)
[2017-08-15] MEDS: Enoxaparin Sodium 40 MG/0.4 ML SYRINGE SC SCH (08:24)
[2017-08-15] MEDS: Ferrous Sulfate 325 MG TAB PO SCH ×2 (08:24→17:05)
[2017-08-15] MEDS: Multivitamin W/ Minerals 1 TAB PO SCH (08:24)
[2017-08-15] MEDS: Finasteride 5 MG TAB PO SCH (08:25)
[2017-08-15] MEDS: Carvedilol 6.25 MG TAB PO SCH ×2 (08:25→20:18)
[2017-08-15] MEDS: Tamsulosin HCl 0.4 MG CAP PO SCH (08:26)
[2017-08-15] MEDS: Furosemide 40 MG TAB PO SCH (08:26)
[2017-08-15] MEDS: Aspirin 81 mg Enteric Coated Tablet PO SCH (08:26)
[2017-08-15] MEDS: Amlodipine 5 MG TAB PO SCH (08:26)
[2017-08-15] MEDS: Cefepime 2 GM, Syringe 2.5 ML in Sodium Chloride 0.9% 10 ML SLOW IVP SCH ×2 (08:30→20:20)
--- NOTE | 2017-08-15 12:45 | PDOC.PN ---
- Subjective Encounter Start Date: 08/15/17 Encounter Start Time: 09:30 pt does not want hospice, still has dyspnea, no fever, requires bipap during night, bedside Patient seen and examined. No new complaints. No overnight events - Objective Resuscitation Status: Resuscitation Status DNR:Do Not Resuscitate MAR Reviewed: Yes Vital Signs & Weight: Vital Signs (12 hours) Temp Pulse Pulse Resp BP BP BP 08/15/17 11:47 116 H 139/63 127/60 08/15/17 11:28 98.5 F 60 20 08/15/17 10:34 60 20 08/15/17 10:26 60 18 08/15/17 09:07 98.8 F 60 18 08/15/17 08:26 60 08/15/17 08:25 119/53 L 08/15/17 07:39 98.8 F 60 18 08/15/17 06:05 60 16 08/15/17 04:23 97.2 F L 60 18 08/15/17 02:26 60 16 BP Pulse Ox Pulse Ox Pulse Ox 08/15/17 11:47 88 L 88 L 08/15/17 11:28 127/60 96 08/15/17 10:34 123/60 97 08/15/17 10:26 95 08/15/17 09:07 97 08/15/17 08:26 08/15/17 08:25 08/15/17 07:39 123/58 L 95 08/15/17 06:05 97 08/15/17 04:23 125/66 99 08/15/17 02:26 95 Weight Admit Weight 260 lb Weight 260 lb I&O: 08/14/17 08/15/17 08/16/17 06:59 06:59 06:59 Intake Total 1640 2551 Output Total 2150 2600 Balance -510 -49 Result Diagrams: 08/14/17 04:15 08/15/17 04:46 EKG Reviewed by me: Yes Phys Exam - Physical Examination Constitutional: NAD HEENT: PERRLA, moist MMs, sclera anicteric Neck: no JVD, supple Respiratory: no wheezing, no rales, no rhonchi reduced air entry Cardiovascular: RRR, no significant murmur, no rub Gastrointestinal: soft, non-tender, no distention, positive bowel sounds obesity+ Musculoskeletal: pulses present, edema present chronic changes in skin Neurological: non-focal, normal sensation Lymphatic: no nodes Psychiatric: normal affect Skin: no rash, normal turgor Dx/Plan (1) Acute respiratory failure with hypoxia Code(s): J96.01 - ACUTE RESPIRATORY FAILURE WITH HYPOXIA Status: Acute Comment: (2) Bacteremia due to Gram-positive bacteria Code(s): R78.81 - BACTEREMIA Status: Acute (3) COPD exacerbation Code(s): J44.1 - CHRONIC OBSTRUCTIVE PULMONARY DISEASE W (ACUTE) EXACERBATION Status: Acute (4) Hypokalemia Code(s): E87.6 - HYPOKALEMIA Status: Acute (5) Anemia, normocytic normochromic Code(s): D64.9 - ANEMIA, UNSPECIFIED Status: Chronic (6) BPH (benign prostatic hyperplasia) Code(s): N40.0 - BENIGN PROSTATIC HYPERPLASIA WITHOUT LOWER URINRY TRACT SYMP Status: Chronic (7) CAD (coronary artery disease) Code(s): I25.10 - ATHSCL HEART DISEASE OF [place] CORONARY ARTERY W/O ANG PCTRS Status: Chronic Comment: (8) Diastolic CHF Code(s): I50.30 - UNSPECIFIED DIASTOLIC (CONGESTIVE) HEART FAILURE Status: Chronic Qualifiers: Heart failure chronicity: chronic Qualified Code(s): I50.32 - Chronic diastolic (congestive) heart failure (9) Dyslipidemia Code(s): E78.5 - HYPERLIPIDEMIA, UNSPECIFIED Status: Chronic (10) H/O sick sinus syndrome Code(s): Z86.79 - PERSONAL HISTORY OF OTHER DISEASES OF THE CIRCULATORY SYSTEM Status: Chronic (11) HTN (hypertension) Code(s): I10 - ESSENTIAL (PRIMARY) HYPERTENSION Status: Chronic Qualifiers: Hypertension type: essential hypertension Qualified Code(s): I10 - Essential (primary) hypertension (12) Morbid obesity Code(s): E66.01 - MORBID (SEVERE) OBESITY DUE TO EXCESS CALORIES Status: Chronic (13) TAMARA (obstructive sleep apnea) Code(s): G47.33 - OBSTRUCTIVE SLEEP APNEA (ADULT) (PEDIATRIC) Status: Chronic (14) Osteoarthritis Code(s): M19.90 - UNSPECIFIED OSTEOARTHRITIS, UNSPECIFIED SITE Status: Chronic Qualifiers: Osteoarthritis location: hip Osteoarthritis type: primary Laterality: bilateral Qualified Code(s): M16.0 - Bilateral primary osteoarthritis of hip - Plan cont current plan of care, plan discussed w/ family, continue antibiotics, PT/OT , social worker school, respiratory therapy * suspecting positive blood culture likely contaminant as pt does not appear sick and no elevated wbc count and no fever * ID consulted for opinion * discussed with * medication reviewed as below * symptomatic treatment * continue meanwhile cefepime * continue bipap * social work for discharge planning * pt is not ready for discharge yet. Review of Systems - Review of Systems Constitutional: weakness. negative: fever, chills, sweats, malaise, other ENT: negative: Ear Pain, Ear Discharge, Nose Pain, Nose Discharge, Nose Congestion, Mouth Pain, Mouth Swelling, Throat Pain, Throat Swelling, Other Respiratory: Cough, Shortness of Breath, SOB with Excertion. negative: Dry, Hemoptysis, Pleuritic Pain, Sputum, Wheezing Cardiovascular: edema. negative: chest pain, palpitations, orthopnea, paroxysmal nocturnal dyspnea, light headedness, other Gastrointestinal: negative: Nausea, Vomiting, Abdominal Pain, Diarrhea, Constipation, Melena, Hematochezia, Other Genitourinary: negative: Dysuria, Frequency, Incontinence, Hematuria, Retention , Other Musculoskeletal: negative: Neck Pain, Shoulder Pain, Arm Pain, Back Pain, Hand Pain, Leg Pain, Foot Pain, Other Skin: negative: Rash, Lesions, Aristeo, Bruising, Other - Medications/Allergies Allergies/Adverse Reactions: Allergies Allergy/AdvReac Type Severity Reaction Status Date / Time No Known Drug Allergies Allergy Verified 07/14/17 14:53 Medications: Current Medications Acetaminophen (Tylenol) 650 mg PO Q4H PRN PRN Reason: Headache/Fever or Pain Last Admin: 08/13/17 14:26 Dose: 650 mg Hydrocodone Bitart/Acetaminophen ([place] 5/325) 1 tab PO Q4H PRN PRN Reason: Moderate Pain (4-6) Last Admin: 08/14/17 22:39 Dose: 1 tab Albuterol Sulfate (Ventolin) 2.5 mg NEB [id number] PRN PRN Reason: SOB &/or Wheezing Albuterol/Ipratropium (Duoneb) 3 ml NEB [id number] [facility] Last Admin: 08/15/17 10:26 Dose: 3 ml Amlodipine Besylate (Norvasc) 5 mg PO DAILY [facility] Last Admin: 03/30/18 08:26 Dose: 5 mg Aspirin (Ecotrin) 81 mg PO DAILY [facility] Last Admin: 08/15/17 08:26 Dose: 81 mg Atorvastatin Calcium (Lipitor) 10 mg PO [facility] Last Admin: 08/14/17 21:03 Dose: 10 mg Bisacodyl (Dulcolax) 10 mg [place] DAILY PRN PRN Reason: Constipation Bismuth Subsalicylate (Pepto Bismol) 2 tab PO Q1H PRN PRN Reason: Diarrhea/Loose Stools Last Admin: 08/12/17 03:15 Dose: 2 tab Carvedilol (Coreg) 6.25 mg PO BID [facility] Last Admin: 08/15/17 08:25 Dose: 6.25 mg Docusate Sodium (Colace) 100 mg PO DAILY PRN PRN Reason: Constipation Dutasteride (Avodart) 0.5 mg PO DAILY [facility] Last Admin: 08/15/17 08:24 Dose: 0.5 mg Enoxaparin Sodium (Lovenox) 40 mg SC 0900 [facility] Last Admin: 08/15/17 08:24 Dose: 40 mg Ferrous Sulfate (Feosol) 325 mg PO BID-WM [facility] Last Admin: 08/15/17 08:24 Dose: 325 mg Finasteride (Proscar) 5 mg PO DAILY [facility] Last Admin: 08/15/17 08:25 Dose: 5 mg Furosemide (Lasix) 40 mg PO DAILY-AC [facility] Last Admin: 08/15/17 08:26 Dose: 40 mg Guaifenesin (Mucinex) 1,200 mg PO Q12HR PRN PRN Reason: Cough Cefepime HCl 2 gm/ Syringe 2.5 (ml/ Sodium Chloride) 12.5 mls @ 150 mls/hr SLOW IVP Q12HR [facility] Last Admin: 08/15/17 08:30 Dose: 12.5 mls Vancomycin HCl 1.75 gm/ Sodium (Chloride) 500 mls @ 250 mls/hr IVPB 1200,2359 [facility] Last Admin: 08/15/17 12:01 Dose: 500 mls Iron/Minerals/Multivitamins (Theragran M) 1 tab PO DAILY [facility] Last Admin: 08/15/17 08:24 Dose: 1 tab Lisinopril (Zestril) 10 mg PO [facility] Last Admin: 08/14/17 21:03 Dose: 10 mg Miscellaneous Medication (Pharmacy To Dose) 1 each IVPB PRN PRN PRN Reason: Pharmacy to dose Mometasone Furoate/Formoterol Fumar (Dulera 200 Mcg/5 Mcg Inhaler) 2 puff INH BID-RT [facility] Last Admin: 08/15/17 06:07 Dose: 2 puff Ondansetron HCl (Zofran) 4 mg IVP Q6H PRN PRN Reason: Nausea/Vomiting Pantoprazole Sodium (Protonix) 40 mg PO BID [facility] Last Admin: 08/15/17 08:24 Dose: 40 mg Sodium Chloride (Flush - Normal Saline) 10 ml IVF Q12HR [facility] Last Admin: 08/15/17 08:27 Dose: 10 ml Sodium Chloride (Flush - Normal Saline) 10 ml IVF PRN PRN PRN Reason: Saline Flush Tamsulosin HCl (Flomax) 0.4 mg PO DAILY [facility] Last Admin: 08/15/17 08:26 Dose: 0.4 mg Trazodone HCl (Desyrel) 50 mg PO HS PRN PRN Reason: Insomnia Last Admin: 08/14/17 22:39 Dose: 50 mg
--- NOTE | 2017-08-15 16:59 | PRG ---
DATE OF SERVICE: 08/15/2017 SERVICE: Pulmonary Medicine. INTERVAL HISTORY: The patient is doing fine from a respiratory standpoint. He is breathing comforta criss. He used his BiPAP last night for a couple of hours. Outside of this, there has been no interva l change to his condition. PHYSICAL EXAMINATION: VITAL SIGNS: Afebrile, pulse 60, blood pressure 139/63, respirations 20 and saturation 96% on 3 lite rs nasal cannula. GENERAL: The patient is awake and alert, in no apparent distress. LUNGS: Decent air entry. Rhonchi are present. There is a minimally prolonged expiratory phase with some wheezing. No crackles are appreciated. HEART: Normal rate and regular. ABDOMEN: Soft, nontender and nondistended. Bowel sounds are positive. MUSCULOSKELETAL: No cyanosis or clubbing. There is no pitting in the bilateral lower extremities. NEUROLOGIC: Grossly nonfocal. LABORATORY DATA: WBC 8.4, hemoglobin 10.0 and platelets 188,000. Basic metabolic profile is essenti ally unremarkable. Calcium 7.7, magnesium and phosphorus fall within the normal limits. 2 of 2 bloo d cultures were previously positive for Corynebacterium. Subsequent blood cultures were unremarkable . ASSESSMENT: 1. Acute on chronic hypoxic and hypercapnic respiratory failure. 2. Chronic diastolic heart failure, with minimal volume overload. 3. Acute blood loss anemia following a recent upper gastrointestinal bleed. 4. Osteoarthritis of the bilateral hips, severe. 5. Debility. 6. Obesity hypoventilation syndrome. 7. Obstructive sleep apnea. 8. Bacteremia, possible secondary to Corynebacterium species. PLAN: Pulmonary Critical Care will continue to follow while he remains in the [facility]. The patient cathie harmon cannot be handled outside of this location. He is more minimal to using BiPAP. If he does good through the weekend, we will try setting him up with it once he is out of the hospital. Speech Patho logy will be consulted because the patient is currently on a pureed diet. He wants to see if he can advance his texture.
[2017-08-15] MEDS: Atorvastatin Calcium 10 MG TAB PO SCH (20:19)
[2017-08-15] MEDS: Lisinopril 10 MG TAB PO SCH (20:20)
[2017-08-15 23:13] LABS: Vancomycin, Trough 21.3 ug/mL
[2017-08-15] MEDS: Vancomycin HCl 1.5 GM in Sodium Chloride 0.9% 250 ML 300 ML IVPB SCH (23:40)
[2017-08-16 05:50] LABS: BUN (Urea Nitrogen) 22 mg/dL (8.4-25.7); Calc. Creatinine Clearance 164 mL/min (70-130); Calcium 7.8 mg/dL (7.8-10.44); Estimated GFR-MDRD Greater than 90; Glucose 95 mg/dL (80-115)
[2017-08-16 06:01] LABS: Chloride 97 mmol/L (98-107); Potassium 3.7 mmol/L (3.5-5.1); Sodium 139 mmol/L (136-145)
[2017-08-16 06:03] LABS: Carbon Dioxide 39 mmol/L (23-31)
[2017-08-16 06:04] LABS: Anion Gap 7 mmol/L (10-20)
[2017-08-16] MEDS: Mometasone/Formoterol 120 PUFF INHALER INH SCH ×2 (07:22→18:47)
[2017-08-16] MEDS: Finasteride 5 MG TAB PO SCH (09:47)
[2017-08-16] MEDS: Dutasteride 0.5 MG CAP PO SCH (09:47)
[2017-08-16] MEDS: Amlodipine 5 MG TAB PO SCH (09:47)
[2017-08-16] MEDS: Carvedilol 6.25 MG TAB PO SCH ×2 (09:48→21:04)
[2017-08-16] MEDS: Multivitamin W/ Minerals 1 TAB PO SCH (09:49)
[2017-08-16] MEDS: Furosemide 40 MG TAB PO SCH (09:49)
[2017-08-16] MEDS: Tamsulosin HCl 0.4 MG CAP PO SCH (09:49)
[2017-08-16] MEDS: Aspirin 81 mg Enteric Coated Tablet PO SCH (09:49)
[2017-08-16] MEDS: HYDROcodone/Acetaminophen 5/325 mg Tablet PO PRN ×2 (09:49→15:02)
[2017-08-16] MEDS: Ferrous Sulfate 325 MG TAB PO SCH ×2 (09:50→17:03)
[2017-08-16] MEDS: Enoxaparin Sodium 40 MG/0.4 ML SYRINGE SC SCH (09:50)
[2017-08-16] MEDS: Cefepime 2 GM, Syringe 2.5 ML in Sodium Chloride 0.9% 10 ML SLOW IVP SCH ×2 (09:54→21:04)
--- NOTE | 2017-08-16 10:57 | PDOC.PN ---
- Subjective Encounter Start Date: 08/16/17 Encounter Start Time: 10:53 Patient seen and examined, states he has some pain in his hip and tail bone after having sat in his chair for more than an hour, at bedsdie, no other issues or complaints, all questions answered. - Objective Resuscitation Status: Resuscitation Status DNR:Do Not Resuscitate Vital Signs & Weight: Vital Signs (12 hours) Temp Pulse Resp BP BP Pulse Ox 08/16/17 10:12 63 16 08/16/17 09:48 128/55 L 08/16/17 09:47 60 128/55 L 08/16/17 08:42 98.7 F 58 L 21 H 96 08/16/17 07:42 98.7 F 58 L 21 H 128/55 L 96 08/16/17 07:22 60 18 08/16/17 04:00 99.0 F 60 20 122/63 96 08/16/17 02:34 60 16 95 08/16/17 00:06 99.3 F 64 19 127/59 L 93 L Weight Admit Weight 260 lb Weight 159 lb 1.6 oz I&O: 08/15/17 08/16/17 08/17/17 06:59 06:59 06:59 Intake Total 2551 2066 Output Total 2600 2275 Balance -49 -209 Result Diagrams: 08/14/17 04:15 08/16/17 03:58 Phys Exam - Physical Examination Constitutional: NAD obese HEENT: PERRLA, moist MMs Neck: no nodes, no JVD, supple Respiratory: no wheezing, no rales, no rhonchi, clear to auscultation bilateral Cardiovascular: RRR, no significant murmur, no rub Gastrointestinal: soft, non-tender, no distention Musculoskeletal: pulses present (trace), edema present Dx/Plan (1) Acute respiratory failure with hypoxia Code(s): J96.01 - ACUTE RESPIRATORY FAILURE WITH HYPOXIA Status: Acute Comment: (2) Bacteremia due to Gram-positive bacteria Code(s): R78.81 - BACTEREMIA Status: Acute (3) COPD exacerbation Code(s): J44.1 - CHRONIC OBSTRUCTIVE PULMONARY DISEASE W (ACUTE) EXACERBATION Status: Acute (4) Anemia, normocytic normochromic Code(s): D64.9 - ANEMIA, UNSPECIFIED Status: Chronic (5) BPH (benign prostatic hyperplasia) Code(s): N40.0 - BENIGN PROSTATIC HYPERPLASIA WITHOUT LOWER URINRY TRACT SYMP Status: Chronic (6) CAD (coronary artery disease) Code(s): I25.10 - ATHSCL HEART DISEASE OF [place] CORONARY ARTERY W/O ANG PCTRS Status: Chronic Comment: (7) Diastolic CHF Code(s): I50.30 - UNSPECIFIED DIASTOLIC (CONGESTIVE) HEART FAILURE Status: Chronic Qualifiers: Heart failure chronicity: chronic Qualified Code(s): I50.32 - Chronic diastolic (congestive) heart failure (8) Morbid obesity Code(s): E66.01 - MORBID (SEVERE) OBESITY DUE TO EXCESS CALORIES Status: Chronic (9) TAMARA (obstructive sleep apnea) Code(s): G47.33 - OBSTRUCTIVE SLEEP APNEA (ADULT) (PEDIATRIC) Status: Chronic (10) Osteoarthritis Code(s): M19.90 - UNSPECIFIED OSTEOARTHRITIS, UNSPECIFIED SITE Status: Chronic Qualifiers: Osteoarthritis location: hip Osteoarthritis type: primary Laterality: bilateral Qualified Code(s): M16.0 - Bilateral primary osteoarthritis of hip - Plan * Patient appears very rude and upset, states he'd like to leave the room and he 's been in the room for 5 days now. Will discuss with nursing staff to see if its possible for the patient to sit outside the hospital for about 30-40mts to help cheer him up and brighten his mood * Medically continue current plan of care with no changes for now * CCU team also following * repeat labs in AM * case and plan d/w patient and at length, they understand and agree with this plan
[2017-08-16] MEDS: Vancomycin HCl 1.5 GM in Sodium Chloride 0.9% 250 ML 300 ML IVPB SCH ×2 (12:05→23:28)
--- NOTE | 2017-08-16 15:20 | PRG ---
DATE OF SERVICE: 08/16/2017 SERVICE: Pulmonary Medicine. INTERVAL HISTORY: The patient is doing great from a respiratory standpoint. He actually got out of bed into chair today. He was resistant to moving. When he got into the chair, he was fairly upset a bout being over on it the entire time. He finally got back to bed. He is exhausted and is taking a deep nap. He is still able to wake up fairly easily. PHYSICAL EXAMINATION: VITAL SIGNS: Afebrile, pulse 60, blood pressure 130/61, respirations 18, saturation 96% on 2 liters nasal cannula. GENERAL: The patient is awake, alert, no apparent distress. LUNGS: Excellent air entry with no prolonged expiratory phase, wheezing, rhonchi or crackles. HEART: Normal rate, regular. ABDOMEN: Soft, nontender, nondistended. Bowel sounds are positive. MUSCULOSKELETAL: No cyanosis or clubbing. There is trace pitting in the bilateral lower extremities . NEUROLOGIC: Grossly nonfocal. LABORATORY DATA: Basic metabolic profile is essentially unremarkable. Bicarbonate is up trending to 39. Urinalysis is unremarkable. Blood cultures x2 are growing Corynebacterium species. Repeat blo od cultures are negative. ASSESSMENT: 1. Acute on chronic hypoxic and hypercapnic respiratory failure. 2. Chronic diastolic heart failure, returned to euvolemia. 3. Acute blood loss anemia following recent upper gastrointestinal bleed. 4. Osteoarthritis of the bilateral hips, severe. 5. Debility. 6. Obesity hypoventilation syndrome. 7. Obstructive sleep apnea. 8. Bacteremia versus contaminant secondary to Corynebacterium species in 2 out of 2. PLAN: We will continue our supportive care. We will discontinue our aggressive diuretics as the pat ient has had a significant contraction alkalosis. Pulmonary Critical Care will continue to follow wh ile patient remains in this location. Ultimately, Dr. Haywood will decide what to do about these first cultures.
[2017-08-16] MEDS ORDERED: acetaZOLAMIDE Sodium 500 MG in Sodium Chloride 0.9% 50 ML IVPB SCH (16:00)
[2017-08-16] MEDS: Lisinopril 10 MG TAB PO SCH (21:04)
[2017-08-16] MEDS: Atorvastatin Calcium 10 MG TAB PO SCH (21:04)
[2017-08-17] MEDS: HYDROcodone/Acetaminophen 5/325 mg Tablet PO PRN ×3 (03:53→20:43)
[2017-08-17 05:50] LABS: Anion Gap 10 mmol/L (10-20); BUN (Urea Nitrogen) 18 mg/dL (8.4-25.7); Calc. Creatinine Clearance 157 mL/min (70-130); Carbon Dioxide 30 mmol/L (23-31); Chloride 101 mmol/L (98-107); Estimated GFR-MDRD Greater than 90; Glucose 93 mg/dL (80-115); Potassium 3.8 mmol/L (3.5-5.1); Sodium 137 mmol/L (136-145)
[2017-08-17] MEDS: Mometasone/Formoterol 120 PUFF INHALER INH SCH ×2 (06:40→18:33)
[2017-08-17] MEDS: Enoxaparin Sodium 40 MG/0.4 ML SYRINGE SC SCH (09:56)
[2017-08-17] MEDS: Ferrous Sulfate 325 MG TAB PO SCH ×2 (09:56→17:53)
[2017-08-17] MEDS: Amlodipine 5 MG TAB PO SCH (09:57)
[2017-08-17] MEDS: Tamsulosin HCl 0.4 MG CAP PO SCH (09:57)
[2017-08-17] MEDS: Aspirin 81 mg Enteric Coated Tablet PO SCH (09:57)
[2017-08-17] MEDS: Dutasteride 0.5 MG CAP PO SCH (09:57)
[2017-08-17] MEDS: Finasteride 5 MG TAB PO SCH (09:57)
[2017-08-17] MEDS: Multivitamin W/ Minerals 1 TAB PO SCH (09:57)
[2017-08-17] MEDS: Carvedilol 6.25 MG TAB PO SCH ×2 (09:57→20:43)
[2017-08-17] MEDS: Cefepime 2 GM, Syringe 2.5 ML in Sodium Chloride 0.9% 10 ML SLOW IVP SCH ×2 (10:01→20:46)
--- NOTE | 2017-08-17 10:32 | PDOC.PN ---
- Subjective Encounter Start Date: 08/17/17 Encounter Start Time: 10:31 Patient seen and examined, on new issues, all questions answered. at bedside. - Objective Resuscitation Status: Resuscitation Status DNR:Do Not Resuscitate Vital Signs & Weight: Vital Signs (12 hours) Temp Pulse Resp BP BP Pulse Ox 08/17/17 10:16 64 18 08/17/17 09:57 60 122/64 08/17/17 07:46 98.8 F 60 16 122/64 95 08/17/17 06:41 58 L 16 08/17/17 04:00 98.6 F 59 L 19 119/57 L 95 08/17/17 02:31 61 16 96 08/17/17 00:16 98.4 F 59 L 20 123/62 94 L Weight Admit Weight 260 lb Weight 260 lb I&O: 08/16/17 08/17/17 08/18/17 06:59 06:59 06:59 Intake Total 2066 1870 Output Total 5757 6160 Balance -209 -1480 Result Diagrams: 08/14/17 04:15 08/17/17 04:36 Phys Exam - Physical Examination Constitutional: NAD obese, laying in bed HEENT: PERRLA, moist MMs, sclera anicteric Neck: no nodes, no JVD, supple Respiratory: no wheezing, no rales, no rhonchi Cardiovascular: RRR, no significant murmur, no rub Gastrointestinal: soft, non-tender, no distention Musculoskeletal: pulses present, edema present (1+ pitting B/L LE) Dx/Plan (1) Acute respiratory failure with hypoxia Code(s): J96.01 - ACUTE RESPIRATORY FAILURE WITH HYPOXIA Status: Acute Comment: (2) Bacteremia due to Gram-positive bacteria Code(s): R78.81 - BACTEREMIA Status: Acute (3) COPD exacerbation Code(s): J44.1 - CHRONIC OBSTRUCTIVE PULMONARY DISEASE W (ACUTE) EXACERBATION Status: Acute (4) Anemia, normocytic normochromic Code(s): D64.9 - ANEMIA, UNSPECIFIED Status: Chronic (5) BPH (benign prostatic hyperplasia) Code(s): N40.0 - BENIGN PROSTATIC HYPERPLASIA WITHOUT LOWER URINRY TRACT SYMP Status: Chronic (6) CAD (coronary artery disease) Code(s): I25.10 - ATHSCL HEART DISEASE OF [place] CORONARY ARTERY W/O ANG PCTRS Status: Chronic Comment: (7) Diastolic CHF Code(s): I50.30 - UNSPECIFIED DIASTOLIC (CONGESTIVE) HEART FAILURE Status: Chronic Qualifiers: Heart failure chronicity: chronic Qualified Code(s): I50.32 - Chronic diastolic (congestive) heart failure (8) Morbid obesity Code(s): E66.01 - MORBID (SEVERE) OBESITY DUE TO EXCESS CALORIES Status: Chronic (9) TAMARA (obstructive sleep apnea) Code(s): G47.33 - OBSTRUCTIVE SLEEP APNEA (ADULT) (PEDIATRIC) Status: Chronic (10) Osteoarthritis Code(s): M19.90 - UNSPECIFIED OSTEOARTHRITIS, UNSPECIFIED SITE Status: Chronic Qualifiers: Osteoarthritis location: hip Osteoarthritis type: primary Laterality: bilateral Qualified Code(s): M16.0 - Bilateral primary osteoarthritis of hip - Plan * continue with PT/OT * bipap * abx * patient stated he is to afraid to get into a chair and thus would prefer to not attempt it for now, d/w patient that there will be no reasonable recovery if he does not attempt to stand and be more mobile. * No other changes in plan for now * case and plan d/w patient and at length, they understand and agree with this plan
[2017-08-17 11:56] LABS: Vancomycin, Trough 23.1 ug/mL
[2017-08-17] MEDS: Vancomycin HCl 1.5 GM in Sodium Chloride 0.9% 250 ML 300 ML IVPB SCH (13:03)
[2017-08-17] MEDS ORDERED: Potassium Chloride 20 MEQ TAB PO SCH (14:00)
[2017-08-17] MEDS ORDERED: Furosemide 40 MG/4 ML VIAL SLOW IVP SCH (14:00)
[2017-08-17] MEDS: Vancomycin HCl 1.25 GM in Sodium Chloride 0.9% 250 ML 250 ML IVPB SCH (14:41)
--- NOTE | 2017-08-17 15:09 | PRG ---
DATE OF SERVICE: 08/17/2017 SERVICE: Pulmonary Medicine. INTERVAL HISTORY: The patient is doing fine from a cardiovascular and respiratory standpoint. He de nies any current shortness of breath. He is really happy about getting his oxycodone. He indicates that this has been a big help to him. Otherwise, there have been no events overnight. He got out of the bed today. PHYSICAL EXAMINATION: VITAL SIGNS: Afebrile, pulse 60, blood pressure 115/50, respirations 22, saturation 95% on 2 liters nasal cannula. GENERAL: The patient is awake, alert, no apparent distress. LUNGS: Decent air entry. Dependent crackles are present. HEART: Normal rate, regular. ABDOMEN: Soft, nontender, nondistended. Bowel sounds are positive. MUSCULOSKELETAL: No cyanosis or clubbing. There is 2+ pitting in the bilateral lower extremities. NEUROLOGIC: Grossly nonfocal. LABORATORY DATA: Basic metabolic profile is essentially unremarkable. Potassium 3.8, chloride 101, bicarbonate 30, and drastically improved, anion gap 10, creatinine 0.73 with a normal BUN. Blood cul tures are growing Corynebacterium. Repeat blood cultures are negative at 48 hours. ASSESSMENT: 1. Acute on chronic hypoxic and hypercapnic respiratory failure. 2. Chronic diastolic heart failure, return of euvolemia. 3. Acute blood loss anemia following recent upper gastrointestinal bleed. 4. Osteoarthritis of the bilateral hips, severe. 5. Debility. 6. Obesity hypoventilation syndrome. 7. Obstructive sleep apnea, suspected. 8. Bacteremia versus contaminant secondary to Corynebacterium. PLAN: We will continue our supportive care. I gave him potassium. We will continue to diurese him until he returns to euvolemia. Pulmonary Critical Care will continue to follow while the patient rem ains in this location.
[2017-08-17] MEDS: traZODone HCl 50 MG TAB PO PRN (20:43)
[2017-08-17] MEDS: Atorvastatin Calcium 10 MG TAB PO SCH (20:43)
[2017-08-17] MEDS: Lisinopril 10 MG TAB PO SCH (20:43)
[2017-08-18] MEDS: Vancomycin HCl 1.25 GM in Sodium Chloride 0.9% 250 ML 250 ML IVPB SCH ×2 (02:05→14:16)
[2017-08-18 06:23] LABS: Anion Gap 7 mmol/L (10-20); BUN (Urea Nitrogen) 19 mg/dL (8.4-25.7); Calc. Creatinine Clearance 141 mL/min (70-130); Calcium 8.1 mg/dL (7.8-10.44); Carbon Dioxide 33 mmol/L (23-31); Chloride 101 mmol/L (98-107); Estimated GFR-MDRD Greater than 90; Glucose 95 mg/dL (80-115); Potassium 3.8 mmol/L (3.5-5.1); Sodium 137 mmol/L (136-145)
[2017-08-18] MEDS: HYDROcodone/Acetaminophen 5/325 mg Tablet PO PRN ×2 (07:39→20:00)
[2017-08-18] MEDS: Mometasone/Formoterol 120 PUFF INHALER INH SCH ×2 (08:14→18:39)
[2017-08-18] MEDS: Enoxaparin Sodium 40 MG/0.4 ML SYRINGE SC SCH (08:38)
[2017-08-18] MEDS: Furosemide 20 MG/2 ML VIAL SLOW IVP SCH (08:38)
[2017-08-18] MEDS: Dutasteride 0.5 MG CAP PO SCH (08:38)
[2017-08-18] MEDS: Carvedilol 6.25 MG TAB PO SCH ×2 (08:38→20:04)
[2017-08-18] MEDS: Ferrous Sulfate 325 MG TAB PO SCH ×2 (08:39→17:05)
[2017-08-18] MEDS: Finasteride 5 MG TAB PO SCH (08:39)
[2017-08-18] MEDS: Multivitamin W/ Minerals 1 TAB PO SCH (08:39)
[2017-08-18] MEDS: Amlodipine 5 MG TAB PO SCH (08:39)
[2017-08-18] MEDS: Aspirin 81 mg Enteric Coated Tablet PO SCH (08:39)
[2017-08-18] MEDS: Tamsulosin HCl 0.4 MG CAP PO SCH (08:39)
[2017-08-18] MEDS: Cefepime 2 GM, Syringe 2.5 ML in Sodium Chloride 0.9% 10 ML SLOW IVP SCH (08:43)
--- NOTE | 2017-08-18 09:45 | PRG ---
DATE OF SERVICE: 08/18/2017 SERVICE: Pulmonary Medicine. INTERVAL HISTORY: The patient is doing fine from a respiratory standpoint. He is breathing comforta criss. There has been no interval change to his condition. He denies any current chest pain or shortn ess of breath. He was able to get up yesterday to the side of the bed. He is hoping to get up at [employer] twice today. He is going to continue working with physical therapy moving forward. PHYSICAL EXAMINATION: VITAL SIGNS: Afebrile, pulse 61, blood pressure 127/59, respirations 20, saturation 95% on 2 liters nasal cannula. GENERAL: The patient is awake, alert, no apparent distress. LUNGS: Decent air entry. There is no prolonged expiratory phase, wheezing, rhonchi, or crackles pre sent. HEART: Normal rate and regular. ABDOMEN: Soft, nontender, nondistended. Bowel sounds are positive. MUSCULOSKELETAL: No cyanosis or clubbing. There is trace pitting in the right lower extremity and 2 + pitting in the left lower extremity. GENITOURINARY: No Pena. NEUROLOGIC: Grossly nonfocal. LABORATORY DATA: Basic metabolic profile is essentially unremarkable. Repeat blood cultures remain negative. The original blood cultures were growing Corynebacterium species in 06/20. ASSESSMENT: 1. Acute on chronic hypoxic and hypercapnic respiratory failure. 2. Chronic diastolic heart failure, near euvolemia. 3. Acute blood loss anemia following recent upper gastrointestinal bleed. 4. Osteoarthritis of the bilateral hips, severe. 5. Debility. 6. Obese hypoventilation syndrome. 7. Obstructive sleep apnea, suspected. 8. Bacteremia versus contaminant with Corynebacterium. PLAN: We will continue supportive care and work on mobilization efforts. Once we have a plan moving forward from an ID perspective, the patient will be ready for transition out of the hospital. Dhara olson will continue to follow in this location.
--- NOTE | 2017-08-18 12:50 | ULT ---
LEFT LOWER EXTREMITY VENOUS DUPLEX EXAM: History: Left lower extremity pain and swelling. FINDINGS: Real-time color doppler evaluation of the left lower extremity was performed from groin to calf. This includes the evaluation of the common femoral, superficial and profunda femoral, saphenous and popli teal and trifurcation veins. These show a patent deep venous system. There is normal compressibility and augmentation. There is no evidence of DVT. IMPRESSION: No evidence of DVT of the left lower extremity. POS: [facility]
--- NOTE | 2017-08-18 16:29 | PDOC.PN ---
- Subjective Encounter Start Date: 08/18/17 Encounter Start Time: 16:10 Subjective: f/u for acute/chronic hypoxic resp failure with current O2 2L/min NC. -: Nocturnal CPAP intermittently. Overall feels ok except very weak. - Objective Resuscitation Status: Resuscitation Status DNR:Do Not Resuscitate MAR Reviewed: Yes Vital Signs & Weight: Vital Signs (12 hours) Temp Pulse Pulse Resp BP BP Pulse Ox 08/18/17 14:25 60 14 98 08/18/17 12:06 97.6 F 60 20 118/53 L 95 08/18/17 10:11 60 16 96 08/18/17 09:06 60 124/55 L 08/18/17 08:13 97.6 F 61 20 127/59 L 95 08/18/17 08:00 97.6 F 60 14 95 Pulse Ox 08/18/17 14:25 08/18/17 12:06 08/18/17 10:11 08/18/17 09:06 95 08/18/17 08:13 08/18/17 08:00 Weight Admit Weight 260 lb Weight 259 lb 4.218 oz I&O: 08/17/17 08/18/17 08/19/17 06:59 06:59 06:59 Intake Total 1870 2340 Output Total 3350 2900 Balance -1480 -560 Result Diagrams: 08/14/17 04:15 08/18/17 04:32 Radiology Reviewed by me: Yes (LLE dopp = negative for DVT) EKG Reviewed by me: Yes (Tele - A-paced) Phys Exam - Physical Examination Constitutional: NAD HEENT: PERRLA, oral pharynx no lesions Neck: no JVD, supple few scattered rhonchi Respiratory: no wheezing Cardiovascular: RRR Gastrointestinal: soft, non-tender, no distention, positive bowel sounds LE chronic edema Musculoskeletal: pulses present, edema present Neurological: normal sensation, moves all 4 limbs Skin: normal turgor, cap refill <2 seconds Dx/Plan (1) Acute on chronic respiratory failure with hypoxia and hypercapnia Code(s): J96.21 - ACUTE AND CHRONIC RESPIRATORY FAILURE WITH HYPOXIA; J96.22 - ACUTE AND CHRONIC RESPIRATORY FAILURE WITH HYPERCAPNIA Status: Acute Comment : Stable on current O2 @ 2L/min NC, continue supportive measures (2) Bacteremia due to Gram-positive bacteria Code(s): R78.81 - BACTEREMIA Status: Acute Comment: Suspected skin contaminant with Corynebacterium, repeat blood cx neg x 2, d/c abx, check 2D echo to r/o vegetations (3) Diastolic CHF Code(s): I50.30 - UNSPECIFIED DIASTOLIC (CONGESTIVE) HEART FAILURE Status: Chronic Qualifiers: Heart failure chronicity: chronic Qualified Code(s): I50.32 - Chronic diastolic (congestive) heart failure Comment: Repeat Echo to r/o vegetations, if negative likely d/c to SNF (4) HTN (hypertension) Code(s): I10 - ESSENTIAL (PRIMARY) HYPERTENSION Status: Chronic Qualifiers: Hypertension type: essential hypertension Qualified Code(s): I10 - Essential (primary) hypertension Comment: Stable, continue currrent regimen (5) TAMARA (obstructive sleep apnea) Code(s): G47.33 - OBSTRUCTIVE SLEEP APNEA (ADULT) (PEDIATRIC) Status: Chronic Comment: Nocturnal CPAP - Plan plan discussed w/ family, PT/OT, social media job titles, respiratory therapy, out of bed/ambulate, DVT proph w/SCDs Stable overall -: Nocturnal CPAP -: D/C Cefepime and Vancomycin -: Repeat 2D echo -: CM for SNF options * Likely d/c in 24h
[2017-08-18] MEDS: traZODone HCl 50 MG TAB PO PRN (20:00)
[2017-08-18] MEDS: Atorvastatin Calcium 10 MG TAB PO SCH (20:00)
[2017-08-18] MEDS: Lisinopril 10 MG TAB PO SCH (20:04)
[2017-08-19 07:54] VITALS: TEMP 98.9
[2017-08-19] MEDS: Mometasone/Formoterol 120 PUFF INHALER INH SCH (08:03)
[2017-08-19] MEDS: Carvedilol 6.25 MG TAB PO SCH (08:54)
[2017-08-19] MEDS: Ferrous Sulfate 325 MG TAB PO SCH (08:54)
[2017-08-19] MEDS: Amlodipine 5 MG TAB PO SCH (08:54)
[2017-08-19] MEDS: Aspirin 81 mg Enteric Coated Tablet PO SCH (08:54)
[2017-08-19] MEDS: Enoxaparin Sodium 40 MG/0.4 ML SYRINGE SC SCH (08:55)
[2017-08-19] MEDS: Dutasteride 0.5 MG CAP PO SCH (08:55)
[2017-08-19] MEDS: Multivitamin W/ Minerals 1 TAB PO SCH (08:56)
[2017-08-19] MEDS: Furosemide 20 MG/2 ML VIAL SLOW IVP SCH (08:56)
[2017-08-19] MEDS: Finasteride 5 MG TAB PO SCH (08:56)
[2017-08-19] MEDS: Tamsulosin HCl 0.4 MG CAP PO SCH (08:56)
--- NOTE | 2017-08-19 09:33 | PRG ---
DATE OF SERVICE: 08/19/2017 SERVICE: Pulmonary Medicine INTERVAL HISTORY: The patient is doing outstanding from a cardiovascular and respiratory standpoint. He denies any chest pain, nausea, vomiting, fevers, chills or shortness of breath. He is working w ith physical therapy to the best of his ability. Otherwise, there has been no interval change to his condition. We are waiting final plan and recommendations from Infectious Disease. PHYSICAL EXAMINATION: VITAL SIGNS: Afebrile, pulse 62, blood pressure 137/78, respirations 16, saturation 95% on 2 liters nasal cannula. GENERAL: The patient is awake, alert, in no apparent distress. LUNGS: Decent air entry bilaterally without wheezing or rhonchi or crackles present. HEART: Normal rate, regular. ABDOMEN: Soft, nontender, nondistended. Bowel sounds are positive. MUSCULOSKELETAL: No cyanosis or clubbing. There is 2+ pitting in the left lower extremity and 1+ pi tting in the right lower extremity. GENITOURINARY: No Pena. NEUROLOGIC: Grossly nonfocal. LABORATORY DATA: Blood cultures were originally growing Corynebacterium in 2 out of 2. Repeat blood cultures remain negative to date. IMAGING: Ultrasound of the left lower extremity demonstrates no evidence of a DVT. ASSESSMENT: 1. Acute on chronic hypoxic and hypercapnic respiratory failure. 2. Chronic diastolic heart failure, near euvolemia. 3. Acute blood loss anemia following recent upper gastrointestinal bleed. 4. Osteoarthritis of the bilateral hips. 5. Debility. 6. Obesity hypoventilation syndrome. 7. Obstructive sleep apnea, suspected. 8. Bacteremia versus contaminant. DISCUSSION AND PLAN: We will continue our mobilization efforts. Pulmonary Critical Care will contin alice to follow while he remains in this location, but once we come up with a plan with Infectious Diseadria peterson, he will be prepared for transition out of the hospital. If he is going to use his BiPAP at night , we can get him out on that machine. If he will not, I have absolutely no plan on setting this ther apy up.
[2017-08-19 12:39] VITALS: BP 110/52
[2017-08-19] MEDS ORDERED: Furosemide 20 MG/2 ML VIAL IVP SCH (14:00)
--- NOTE | 2017-08-19 19:17 | DIS ---
DATE OF ADMISSION: 08/11/2017 DATE OF DISCHARGE: 08/19/2017 DISCHARGE DIAGNOSES: 1. Acute on chronic hypoxic hypercapnic respiratory failure. 2. Bacteremia with Corynebacterium, skin contaminant. 3. Diastolic heart failure with ejection fraction of 50%-55%. 4. Hypertension, stable. 5. Obstructive sleep apnea with nocturnal BiPAP. 6. Acute encephalopathy, likely metabolic, resolved. 7. Severe muscle deconditioning. 8. Sick sinus syndrome, status post pacemaker placement. 9. Morbid obesity. CONSULTATIONS: Dr. Browning with Pulmonology Service. PERTINENT LABORATORY AND X-RAY FINDINGS: Potassium ranged between 3.3-4.2, lactic acid level 1.8, ph osphorus 2.8, magnesium 1.9. BNP 268. CBC showed a hemoglobin range between 10.0-11.6. Urine cultu re dated 08/11/2017 showed no growth at 36 hours. Blood culture x2, 08/11/2017, showed presumptive C orynebacterium species. Repeat blood cultures dated 08/14/2017 showed no growth at 5 days. Portable chest x-ray dated 08/11/2017 showed stable opacity in the right lung base likely pleural effusion. Left lower extremity venous Doppler study dated 08/18/2017 showed no evidence for DVT. HOSPITAL COURSE: The patient was initially admitted to the intermediate care unit with increased gucci rtness of breath in the context of known chronic hypoxemic respiratory failure. The patient was plac ed on BiPAP, noninvasive mechanical ventilation, and given aggressive pulmonary supportive measures. The patient was also given IV Lasix due to volume overload with increased lower extremity edema; how ever, 2D transthoracic echocardiogram previously in 06/2017 showed a preserved ejection fraction in t he 50%-55% range. The patient continued to receive aggressive pulmonary supportive measures and over all mental status had improved with oxygen supplementation, IV Lasix, and general supportive measures . The patient did transition with BiPAP nocturnally as well as continuing on IV antibiotic therapy e mpirically after the patient was suspected for possible pneumonia. The patient received vancomycin a nd cefepime and blood cultures x2 showed Corynebacterium species. Repeat cultures on 08/14/2017 show ed no evidence of infectious process. The patient was subsequently discontinued on IV antibiotic the rapy after the Corynebacterium species were considered skin contaminant. The patient underwent repea t 2D transthoracic echocardiogram ruling out further vegetations or evidence of endocarditis. Due to the patient's severe deconditioning, the patient was deemed appropriate candidate to return to skill ed nursing care at [facility] after discharge. I have examined the patient at the time of discharge a nd reviewed disposition and goals of care on discharge and transition to skilled care. The patient i s in agreement to pursue custodial care with ongoing physical, occupational, and speech therapy . Overall, the patient clinically stable currently and ready for discharge on 08/19/2017. DISCHARGE MEDICATIONS: 1. Norvasc 5 mg 1 tab p.o. daily. 2. Enteric coated aspirin 81 mg 1 tab p.o. daily. 3. Dulcolax 10 mg per rectum daily p.r.n. 4. Coreg 6.25 mg p.o. b.i.d. 5. Dulcolax 100 mg p.o. daily p.r.n. 6. Avodart 0.5 mg p.o. daily. 7. Lovenox 40 mg subcutaneously daily. 8. Feosol 325 mg p.o. b.i.d. 9. Proscar 5 mg p.o. daily. 10. Lasix 40 mg 1 tab p.o. daily. 11. Robitussin DM 15 mL p.o. q.4 hours p.r.n. 12. Mucinex ER 1200 mg p.o. b.i.d. 13. DuoNeb 3 mL nebulized q.4 hours p.r.n. 14. Lisinopril 10 mg p.o. at bedtime. 15. Dulera 2 puffs inhaled b.i.d. 16. Multivitamin 1 tab p.o. daily. 17. Protonix 40 mg p.o. b.i.d. 18. Zocor 20 mg p.o. daily. 19. Flomax 0.4 mg p.o. daily. FOLLOWUP: The patient may follow up with his primary care provider, Dr. Richard Rowe, within 7-10 da ys after discharge. CONDITION ON DISCHARGE: Fair. ACTIVITY: Ad-austyn, rolling walker with contact guard assistance and high fall risk precautions. DIET: ADA. SPECIAL INSTRUCTIONS: Nocturnal BiPAP at 15/5, FiO2 30%, oxygen at 2-3 liters per minute by nasal ca nnula continuously. CODE STATUS: DO NOT RESUSCITATE. DISPOSITION: Discharged to [facility] on 08/19/2017. Total time preparing and coordinating discharge 38 minutes.
== END 2017-08-19 16:17 | DRG 189 ==
LOC: ERS 20:16 → IMCU/EMU 22:10
PROVIDERS: ADMIT Family Medicine; ATTEND Family Medicine
PROC: 5A09357 Assistance with Respiratory Ventilation, Less than 24 Consecutive Hours, Continuous Positive Airway Pressure (ICD-10-PCS; principal; 2017-08-11)
DX: J96.21 Acute and chronic respiratory failure with hypoxia (principal); G93.41 Metabolic encephalopathy; I42.9 Cardiomyopathy, unspecified; I48.92 Unspecified atrial flutter; I50.32 Chronic diastolic (congestive) heart failure; I11.0 Hypertensive heart disease with heart failure; E66.2 Morbid (severe) obesity with alveolar hypoventilation; D62 Acute posthemorrhagic anemia; J44.1 Chronic obstructive pulmonary disease with (acute) exacerbation; E11.9 Type 2 diabetes mellitus without complications; Z66 Do not resuscitate; Z95.0 Presence of cardiac pacemaker; Z68.39 Body mass index [BMI] 39.0-39.9, adult; G47.33 Obstructive sleep apnea (adult) (pediatric); K27.9 Peptic ulcer, site unspecified, unspecified as acute or chronic, without hemorrhage or perforation; Z79.01 Long term (current) use of anticoagulants; E78.5 Hyperlipidemia, unspecified; M16.0 Bilateral primary osteoarthritis of hip; R53.81 Other malaise; J96.22 Acute and chronic respiratory failure with hypercapnia; N40.0 Benign prostatic hyperplasia without lower urinary tract symptoms; I25.10 Atherosclerotic heart disease of native coronary artery without angina pectoris; E87.6 Hypokalemia; Z87.19 Personal history of other diseases of the digestive system; F17.210 Nicotine dependence, cigarettes, uncomplicated
CPT/HCPCS: 36415; 51702; 71045; 80048; 80202; 81003; 81015; 82550; 82553; 83605; 83735; 83880; 84100; 84484; 85025; 87040; 87086; 93005; 93306; 94640; 94660; 96374; G8981-GP-CM; G8982-GP-CK; G8987-GO-CM; G8988-GO-CK; G8996-GN-CJ; G8997-GN-CI; J0692; J1120; J1885; J3370; J7050; J7620; S0028

== ENCOUNTER 2017-11-11 11:43 | Inpatient (IN) | payer MEDICARE ==
[2017-11-11 12:48] LABS: #Lymphocytes 0.4 thou/uL (1.20-3.40); #Monocytes 0.7 thou/uL (0.11-0.59); %Lymphocytes 3.7 % (21.0-51.0); %Monocytes 6.5 % (0.0-10.0); %Neutrophils 89.8 % (42.0-75.0); Hemoglobin 10.7 g/dL (14.0-18.0); Mean Corpuscular HGB CONC 34.2 g/dL (32.0-36.0); Mean Corpuscular Hemoglobin 31.6 pg (27.0-31.0); Mean Corpuscular Volume 92.4 fL (78.0-98.0); Mean Platelet Volume 6.9 fL (7.4-10.4); Platelet Count 143 thou/uL (130-400); RBC Distribution Width 16.3 % (11.5-14.5); Red Blood Cell (RBC) Count 3.38 mill/uL (4.70-6.10); White Blood Cell (WBC) Count 11.1 thou/uL (4.8-10.8)
[2017-11-11 12:53] LABS: Base Excess (BEa) 4.4 mEq/L (-2.0 to +3.0); CO2 Tension 56.3 mmHg (35.0-45.0); Hematocrit-ABG 34.2 % (42.0-52.0); Hemoglobin (Hb) 10.9 g/dL (14.0-18.0); O2 Tension (PaO2) 79.6 mmHg (> 70.0); pH, Arterial 7.36 (7.35-7.45)
[2017-11-11 12:54] LABS: ALV-art Gradient 135.225 (0-20); Analyzer IN Cardio ER; Calcium, Ionized 1.1 mmol/L (1.12-1.30); Puncture Site RRA
[2017-11-11 13:11] LABS: ALT (SGPT) 7 U/L (8-55); AST (SGOT) 12 U/L (5-34); Albumin 2.9 g/dL (3.4-4.8); Alkaline Phosphatase 55 U/L (40-150); Anion Gap 12 mmol/L (10-20); BUN (Urea Nitrogen) 49 mg/dL (8.4-25.7); Bilirubin, Total 0.6 mg/dL (0.2-1.2); Calc. Creatinine Clearance 0 mL/min (70-130); Calcium 8.1 mg/dL (7.8-10.44); Carbon Dioxide 27 mmol/L (23-31); Chloride 99 mmol/L (98-107); Estimated GFR-MDRD 38; Globulin 2.6 g/dL (2.4-3.5); Glucose 116 mg/dL (80-115); Lipase 10 U/L (8-78); Magnesium 1.8 mg/dL (1.6-2.6); Potassium 4.2 mmol/L (3.5-5.1); Protein, Total 5.5 g/dL (5.8-8.1); Sodium 134 mmol/L (136-145)
[2017-11-11 13:15] LABS: CKMB 2.8 ng/mL (0-6.6); Troponin I 0.055 ng/mL (< 0.028)
[2017-11-11 13:47] LABS: Bacteria/HPF 4+ HPF (None Seen); Bilirubin Small (Negative); Blood, Urine Large (Negative); Clarity TURBID (Clear); Glucose, Urine (Dipstick) Negative (Negative); Leukocyte Large (Negative); Nitrite Negative (Negative); Protein, Urine (Dipstick) 100 mg/dL (Neg-Trace); Specific Gravity, Urine 1.014 (1.002-1.036); Squamous Epithelial 0-3 HPF (0-3); Urobilinogen 0.2 mg/dL (0.2-1.0); pH, Urine 7.5 (5.0-9.0)
[2017-11-11 13:48] LABS: Pathc Cast-AUWi Flag 3.52 (0-2.49); Yeast-AUWi Flag 47.9 (0-25.0)
--- NOTE | 2017-11-11 13:49 | RAD ---
FRONTAL RADIOGRAPH OF CHEST PORTABLE UPRIGHT: Date: 11/11/17 COMPARISON: 08/11/17. HISTORY: Hypoxia. FINDINGS: Patient is rotated to the right. Inspiration is shallow. There is pulmonary vascular congestion. Ther e is a dual lead transvenous pacing device. There is elevation of the right hemidiaphragm with focal opacity in the right base suggesting a combination of nonspecific pulmonary parenchymal opacity and p leural fluid. Findings are similar when compared to the prior examination. IMPRESSION: No acute findings. Persistent nonspecific increased density in the right lung base with elevation of right hemidiaphragm. Underlying pulmonary parenchymal opacity, pleural fluid, or mass lesion cannot be fully excluded. Recommend PA and lateral imaging of the chest when the patient is able. POS: VEDA
[2017-11-11 13:57] LABS: Crystals/HPF RARE STARCH HPF (Negative); Hyaline Casts/LPF 0-3 HYALINE CAST LPF (0-3 Hyaline); Manual Microscopic Reviewed? No Path Casts Seen; Yeast-All Forms None Seen HPF (None Seen)
[2017-11-11] MEDS ORDERED: Piperacillin/Tazobactam 3.375 GM VIAL ONE (14:11)
[2017-11-11] MEDS ORDERED: Acetaminophen 650 MG Suppository ONE (15:25)
[2017-11-11 16:04] LABS: Troponin I 0.049 ng/mL (< 0.028)
[2017-11-11 16:19] VITALS: BMI 38.4
[2017-11-11] MEDS ORDERED: Bisacodyl 5 MG TAB PO PRN (17:01)
[2017-11-11] MEDS ORDERED: Ondansetron HCl/PF 4 MG/2 ML Vial IVP PRN (17:01)
[2017-11-11] MEDS ORDERED: Vancomycin HCl 750 MG in Sodium Chloride 0.9% 250 ML 250 ML IVPB SCH (17:45)
[2017-11-11] MEDS ORDERED: Sodium Chloride 0.9% 500 ML IVPB SCH (18:30)
--- NOTE | 2017-11-11 18:31 | PRG ---
DATE OF SERVICE: 11/11/2017 Ms. Campos has declined to wear BiPAP since he has been admitted in the intermediate care unit. He is a [id number] patient. He can continue to wear his home BiPAP or CPAP when he sleeps. He cou ld be transferred out of the Intermediate Care Unit to the medical hardy since he is a sv-[id number]-[id number] ate patient and really is not acutely ill in my opinion. He is bronchospastic, but appears to be imp roved enough to where he wanted to take off his BiPAP. He did not have anything on chest radiograph that would suggest he has pneumonia. His antibiotics can be simplified.
[2017-11-11 19:22] LABS: Troponin I 0.051 ng/mL (< 0.028)
[2017-11-11] MEDS ORDERED: Vancomycin HCl 1 GM in Premix Bag 1 BAG IVPB SCH (21:00)
[2017-11-11] MEDS: Piperacillin/Tazobactam 3.375 GM in Sodium Chloride 0.9% 100 ML IVPB SCH (21:19)
--- NOTE | 2017-11-12 01:37 | CON ---
DATE OF CONSULTATION: 11/11/2017 HISTORY OF PRESENT ILLNESS: Mr. Campos is a 71-year-old male who lives in care home environment. I am told that his simple pulse ox check was in the mid-80s today, so he was transferred for further evaluation. His only complaint is weakness. PAST MEDICAL HISTORY: 1. Remarkable for CHF, COPD, sleep apnea, history of nocturnal BiPAP. 2. History of obesity. 3. History of morbid obesity. 4. Extreme deconditioning. 5. History of coronary disease. 6. History of coronary stenting. 7. History of pacemaker. 8. History of diabetes. He was discharged from the hospital 08/19/2017 with a diagnosis of acute on chronic hypoxic hypercapnic respiratory failure and diastolic heart failure. FAMILY HISTORY: Negative for lung disease in early age. SOCIAL HISTORY: Nonsmoker, nondrinker. He reports no drug allergies. He does not use drugs. MEDICATIONS: At discharge on 08/19/2017, were Norvasc, aspirin, Dulcolax, Coreg , Avodart, iron, Proscar, Lasix, Mucinex, DuoNeb, lisinopril, Dulera, Protonix, Zocor, and Flomax. REVIEW OF SYSTEMS: 10 point system otherwise negative. PHYSICAL EXAMINATION: VITAL SIGNS: Blood pressure 118/57, heart rate 60, respiratory rate 16. He is in no distress. HEENT: He has full face mask BiPAP on. NECK: Supple. LUNGS: Remarkable for diffuse wheezes. HEART: Regular rhythm. ABDOMEN: Soft and nontender. EXTREMITIES: Without clubbing, cyanosis, or asymmetry. He does have 2+ pitting edema to his knees. He has an echocardiogram last admission shows diastolic dysfunction. He has chest radiograph does not show any new infiltrates. IMPRESSION: 1. Acute on chronic respiratory failure with chronic hypercapnia and hypoxia. 2. Street sleep apnea, morbid obesity with deconditioning. Bronchospasm, most likely secondary to retained secretions. PLAN: Nebulizer treatments, BiPAP. He has an out of hospital DNR and will probably improve to a point where his BiPAP can be switched back to just at bedtime. He does not need a monitored bed. I will be happy to follow with the other physician's caring for him. This is a 50 minute visit with greater than 50% of the time spent on unit with coordination of care. PARKER
[2017-11-12] MEDS: Piperacillin/Tazobactam 3.375 GM in Sodium Chloride 0.9% 100 ML IVPB SCH ×4 (02:40→20:39)
[2017-11-12 04:18] LABS: Anion Gap 13 mmol/L (10-20); BUN (Urea Nitrogen) 58 mg/dL (8.4-25.7); Calc. Creatinine Clearance 55 mL/min (70-130); Calcium 7.9 mg/dL (7.8-10.44); Carbon Dioxide 27 mmol/L (23-31); Chloride 99 mmol/L (98-107); Estimated GFR-MDRD 34; Glucose 111 mg/dL (80-115); Potassium 4.4 mmol/L (3.5-5.1); Sodium 135 mmol/L (136-145)
[2017-11-12 05:43] LABS: Band 40 % (5-11); Hemoglobin 10.3 g/dL (14.0-18.0); Lymphocytes 1 % (21-51); MDiff Complete? YES; Mean Corpuscular HGB CONC 33.1 g/dL (32.0-36.0); Mean Corpuscular Hemoglobin 30.7 pg (27.0-31.0); Mean Corpuscular Volume 92.8 fL (78.0-98.0); Mean Platelet Volume 7.2 fL (7.4-10.4); Monocytes 7 % (0-10); Neutrophil 52 % (42-75); Platelet Count 128 thou/uL (130-400); RBC Distribution Width 16.6 % (11.5-14.5); Red Blood Cell (RBC) Count 3.36 mill/uL (4.70-6.10); White Blood Cell (WBC) Count 9.9 thou/uL (4.8-10.8)
--- NOTE | 2017-11-12 06:29 | HP ---
CHIEF COMPLAINT: Hypoxia. HISTORY OF PRESENT ILLNESS: This patient is a 71-year-old male who has been admitted several times p reviously for respiratory failure. Apparently, the patient has required intubation several times in his previous admissions. He is now living in a rehab facility. Reportedly, the patient was found to day to be somewhat hypoxic and to potentially have some low blood pressure as well at the rehab facil [facility]. He had an ambulance called and per report from the ER the patient was found to be on 5 liters a nd having O2 sats in the mid 80s. He was subsequently brought to the emergency department. The adriana ent was apparently somewhat altered and having some difficulty giving any history at the time in the emergency department. EMS had indicated he was complaining of some pain in his suprapubic and cathet er area. On my exam, the patient states he recalls all those events and feels like he is generally a t his baseline at the moment. REVIEW OF SYSTEMS: The patient does admit to having some coughing with trying to drink over the last week or so. He believes that he had some damage when he was hospitalized previously and was intubat ed and that has not fully recovered. Otherwise, a 11 system review is negative except for history of present illness symptoms. PAST MEDICAL HISTORY: 1. Notable for congestive heart failure, primary diastolic. 2. Atrial flutter, pacemaker. 3. COPD. 4. History of recurrent pneumonia. 5. Hyperlipidemia. 6. Hypertension. 7. Chronic back pain. 8. History of peptic ulcer disease. 9. Obstructive sleep apnea. PAST SURGICAL HISTORY: Endoscopy with cauterization of vessels, ablation for atrial flutter, pacemak er placement. FAMILY HISTORY: Notable for congestive heart failure. SOCIAL HISTORY: The patient is , currently residing in a rehab facility. Former smoker. No history of alcohol or drugs. ALLERGIES: None. HOME MEDICATIONS: Guaifenesin 1200 mg p.o. q.12, Flomax 0.4 one p.o. daily, Zocor 20 mg p.o. daily. Protonix 40 mg b.i.d., Theragran M 1 p.o. daily, Dulera 2 puffs b.i.d., lisinopril 10 mg at bedtime , DuoNeb p.r.n., Lasix 40 mg every day, finasteride 5 mg every day, ferrous sulfate 325 b.i.d., Love nox 40 subcu daily, Avodart 0.5 every day, Dulcolax p.r.n., Coreg 6.25 b.i.d., aspirin 81 mg every da y, Norvasc 5 mg daily. PHYSICAL EXAMINATION: VITAL SIGNS: Temperature was 99, pulse 61, respirations 18, O2 sat was 93% on 4 liters. BP initiall y was 113/45. Subsequently, his systolic in the upper 70s. GENERAL APPEARANCE: The patient is awake and alert. He is slightly slow to respond, but appropriate . He was witnessed to have some apparent aspiration on attempting to drink some water upon my entry to the room. He appears oriented and appropriate. HEENT: PERRL. No OP lesions. CARDIOVASCULAR: Regular, without murmurs. CHEST: Lungs are clear in the upper lobes. He has significant upper airway noise, which somewhat cl ears with cough. He has some basilar rales. ABDOMEN: Obese, soft, nontender with no organomegaly. SKIN: Warm and dry without significant edema. LABORATORY DATA: White count 11.1, hemoglobin 10.7, platelets 143, blood gas with a pH of 7.36, pCO2 56.3, pO2 of 79.6, he is on 10/5 BiPAP with 40% O2. Sodium is 134, potassium 4.2, chloride 99, CO2 27, BUN 49, creatinine 1.78, glucose 116, lactic acid 1.2, calcium 8.1. Troponin 0.055, BNP 257, alb umin 2.9. Urinalysis with large blood, large leukocyte esterase, 4-6 red cells, greater than 50 whit e blood cells, 4+ bacteria. Chest x-ray shows persistent nonspecific increased density in the right lung base with elevation of t he right hemidiaphragm with underlying pulmonary parenchymal opacity, pleural fluid, a mass lesion ca nnot be fully excluded. ASSESSMENT AND PLAN: 1. Acute on chronic respiratory failure. The patient has fairly significant chronic respiratory ita lure with exacerbation today requiring high dose oxygen with still low saturations in the mid 80s. H e initially required some BiPAP and appears to be somewhat improved at the moment. 2. Possible aspiration. The patient had some evidence of aspirating. I did discuss this with his w anish. She reports that they have had this evaluated numerous times and that he has aspirated in the p ast. He has not been on any special diet recently. We will keep him n.p.o. and ask speech therapy t o see him. 3. Urinary tract infection with related sepsis. The patient does not have a history of significant hypotension. He has got evidence of significant urinary tract infection and now has hypotension. Hi s lactic acid level was not significantly elevated. We will try to hydrate to improve his blood pres sure; however, have to be cautious in light of his history of congestive heart failure. Continue wit h vancomycin and Zosyn given the fact that he is at a healthcare-acquired facility. We will also con sult Pulmonary Critical Care. 4. Renal. The patient has evidence of prerenal azotemia suggesting that he may be dehydrated. This may also be related to poor cardiac function. At this point, he needs fluids in order to address hi s hypotension, so we will go that route. 5. Congestive heart failure. The patient has a history of diastolic dysfunction. His most recent e chocardiogram from July revealed an EF of 60-65% with suggestion of diastolic dysfunction. DISPOSITION: The patient has an out of facility DNR and was very clear that he would like to remain DNR. His surrogate decision maker will be his who is present.
[2017-11-12] MEDS: Enoxaparin Sodium 40 MG/0.4 ML SYRINGE SC SCH (08:57)
--- NOTE | 2017-11-12 10:04 | RAD ---
SINGLE VIEW OF THE CHEST: Comparison: 11-11-17 History: Acute on chronic respiratory failure. FINDINGS: Single view of the chest shows an enlarged but stable cardiomediastinal silhouette. The pacemaker is unchanged in position. Increased interstitial markings are present. Bilateral pulmonary vascular corwin estion is seen. There is no evidence of consolidation, mass, or pleural effusion. IMPRESSION: Cardiomegaly and pulmonary vascular congestion. POS: CET
--- NOTE | 2017-11-12 11:50 | PQF ---
DATE: 11-12-17 ATTN: Fabio BOO Please exercise your independent, professional judgment in responding to the clarification form. Clinical indicators are provided on the bottom of this form for your review Please check appropriate box(s): [ x] Acute Renal Failure (ARF) / Acute Kidney Injury (MARK ANTHONY) [ ] Abnormal Lab Values [ ] Other diagnosis [ ] Unable to determine In addition, please specify: Present on Admission (POA): [ ] Yes [ ] No [ ] Unable to determine National Kidney Foundation Guidelines for CKD Staging Stage I Kidney damage with normal or increased GFR GFR > 90 Stage II Kidney damage with mildly decreased GFR GFR 60-89 Stage III Kidney damage with moderately decreased GFR GFR 30-59 Stage IV Kidney damage with severely decreased GFR GFR 16-29 Stage V Kidney failure GFR <15 ESRD End Stage Renal Disease On dialysis Acute Renal Failure/Acute Kidney Failure defined as: Increases in SCr by (>) 0.3 mg/dl within 48 hours OR- Increases in SCr by (>) 1.5 times baseline, known or presumed to have occurred within the prior 7 days OR- Urine volume < 0.5 ml/kg/hour for 6 hours (KDIGO supplement 2012 for RIFLE/YELENA criteria) For continuity of documentation, please document condition throughout progress notes and discharge summary. Thank You. CLINICAL INDICATORS - SIGNS / SYMPTOMS / LABS H&P: RENAL. THE PATIENT HAS EVIDENCE OF PRERENAL AZOTEMIA SUGGESTING THAT HE MAY BE DEHYDRATED. GFR: 11-11: 38 6: 34 CREATININE: 11-11: 1.78 6: 1.96 BUN: 11-11: 49 6: 58 BP: ER: 82/58, 83/42, 99/40, 80/42, 81/42, 96/47 6: 91/43 6-: 76/31, 98/45, 92/49 RISK FACTORS: ER: HOME LASIX, COREG, LISINOPRIL H&P: RENAL. THE PATIENT HAS EVIDENCE OF PRERENAL AZOTEMIA SUGGESTING THAT HE MAY BE DEHYDRATED. THIS MAY ALSO BE RELATED TO POOR CARDIAC FUNCTION TREATMENTS: ER: IVF (This form is maintained as a part of the permanent medical record) 2015 [employer]. All Rights Reserved ILAN [email or web address] Office: [phone] PARKER
[2017-11-12] MEDS ORDERED: Vancomycin HCl 1.75 GM in Sodium Chloride 0.9% 500 ML IVPB SCH (15:00)
--- NOTE | 2017-11-12 15:10 | PRG ---
DATE OF SERVICE: 11/12/2017 SERVICE: Pulmonary Medicine. INTERVAL HISTORY: The patient is doing okay. Last night, he had some marginal blood pressures. As such, he was not transitioned out of the IMCU. He denies any current chest pain, nausea, vomiting, s hortness of breath, fevers, or chills. Urine output has been okay. He is not having any dizziness o r chest discomfort. PHYSICAL EXAMINATION: VITAL SIGNS: Afebrile with T-max overnight of 100.9, pulse 60, blood pressure 92/43, respirations ar e 20, and saturation 95% on 3.5 liters nasal cannula. HEENT: Normocephalic, atraumatic. Sclerae are white, conjunctivae pink. Oral and nasal mucosa is m oist without lesions. LUNGS: Decent air entry. Dependent crackles are minimal. HEART: Normal rate, regular. ABDOMEN: Soft, nontender, nondistended. Bowel sounds are positive. MUSCULOSKELETAL: No cyanosis or clubbing. There is trace pitting in the bilateral lower extremities . NEUROLOGIC: Grossly nonfocal. LABORATORY DATA: WBC 9.9, hemoglobin 10.3, platelets 128,000. PH 7.36, pCO2 of 56, pO2 of 79. Crea tinine 1.96, which is gently trending upward. Basic metabolic profile is otherwise unremarkable. Ur inalysis is positive for WBC, leukocyte esterase. Nitrites are negative. Gram-negative jamal, which t urns out to be E. coli is growing in the blood. Urine culture is growing E. coli and Proteus IMAGING: Chest x-ray demonstrates low lung volumes, which accentuate interstitial markings. Possibl e pulmonary vascular congestion is also present. ASSESSMENT: 1. Severe sepsis. 2. Bacteremia secondary to Escherichia coli. 3. Urinary tract infection secondary to Escherichia coli plus or minus Proteus. 4. Severe deconditioning. 5. Osteoarthritis, debilitating. 6. Morbid obesity, improving. 7. Urinary retention with chronic indwelling Pena catheter. DISCUSSION AND PLAN: The patient remained in the IMCU for the next 12 hours. Once his blood pressur es firm up a touch, he can be considered for transition to the floor. I will give him one more liter of fluids for soft blood pressures. He is refusing to wear BiPAP. As such, this will be discontinu ed. If it looks like he develops increasing hypoxemic failure, he can be considered for a noninvasiv e therapy. He remains DNI/DNR.
--- NOTE | 2017-11-12 16:08 | PDOC.PN ---
- Subjective Encounter Start Date: 11/12/17 Encounter Start Time: 13:15 Slow to respond. Feels like it is much effort to talk. Has refused any mask type respiratory support. - Objective Resuscitation Status: Resuscitation Status DNR:Do Not Resuscitate Vital Signs & Weight: Vital Signs (12 hours) Temp Pulse Pulse Resp BP BP Pulse Ox 11/12/17 15:23 98.6 F 60 22 H 84/42 L 95 11/12/17 14:50 62 20 97 11/12/17 14:00 60 88/42 L 11/12/17 11:48 98.5 F 60 20 92/43 L 95 11/12/17 10:14 59 L 20 95 11/12/17 08:00 99.9 F H 60 20 96 11/12/17 07:38 99.9 F H 60 22 H 92/49 L 96 11/12/17 07:08 96 11/12/17 07:06 60 16 96 11/12/17 04:10 99.2 F 62 16 98/45 L 96 Pulse Ox 11/12/17 15:23 11/12/17 14:50 11/12/17 14:00 98 11/12/17 11:48 11/12/17 10:14 11/12/17 08:00 11/12/17 07:38 11/12/17 07:08 11/12/17 07:06 11/12/17 04:10 Weight Weight 244 lb 4.8 oz I&O: 11/11/17 11/12/17 11/13/17 06:59 06:59 06:59 Intake Total 450 Output Total 500 Balance -50 Result Diagrams: 11/12/17 03:18 11/12/17 03:18 Phys Exam - Physical Examination Sitting up in bed asleep. Awakens. Responds slowly, but appropriately. HEENT: oral pharynx no lesions Neck: no JVD, supple Diminished BS throughout. Scattered rales. Cardiovascular: RRR, no significant murmur Gastrointestinal: soft, non-tender, no distention, positive bowel sounds Musculoskeletal: no edema Skin: normal turgor Dx/Plan (1) Sepsis Code(s): A41.9 - SEPSIS, UNSPECIFIED ORGANISM Status: Acute Plan: PATIENT PRESENTED SEPTIC SECONDARY TO UTI, WITH A BIT OF AN ATYPICAL SEPSIS PICTURE. HE BECAME HYPOTENSIVE AND BLOOD CULTURES ARE POSITIVE. WAS ON BROADER COVERAGE WHEN THE ORIGINAL THINKING WAS POSSIBLE PNEUMONIA. SIMPLIFIED WHEN THAT NO LONGER APPEARED TO BE THE CASE. AWAIT SENSITIVITIES. (2) E. coli UTI Code(s): N39.0 - URINARY TRACT INFECTION, SITE NOT SPECIFIED; B96.20 - UNSP ESCHERICHIA COLI THE CAUSE OF DISEASES CLASSD ELSWHR Status: Acute Comment: ON ZOSYN. CHRONIC INDWELLING ALANIS CATHETER. ADJUST ABX TO SENSITIVITIES. (3) E coli bacteremia Code(s): R78.81 - BACTEREMIA Status: Acute (4) Acute on chronic respiratory failure with hypoxia and hypercapnia Code(s): J96.21 - ACUTE AND CHRONIC RESPIRATORY FAILURE WITH HYPOXIA; J96.22 - ACUTE AND CHRONIC RESPIRATORY FAILURE WITH HYPERCAPNIA Status: Acute Comment : PULMONOLOGY FOLLOWING. REFUSING ANY MASK DEVIDE SUPPORT. CONTINUE NEBS, OXYGEN SUPPORT. (5) COPD exacerbation Code(s): J44.1 - CHRONIC OBSTRUCTIVE PULMONARY DISEASE W (ACUTE) EXACERBATION Status: Acute (6) Diastolic CHF Code(s): I50.30 - UNSPECIFIED DIASTOLIC (CONGESTIVE) HEART FAILURE Status: Chronic Qualifiers: Heart failure chronicity: chronic Qualified Code(s): I50.32 - Chronic diastolic (congestive) heart failure Comment: HAS PULMONARY EDEMA ON CXR, BUT REQUIRING ADDITIONAL FLUIDS FOR BP SUPPORT. (7) H/O sick sinus syndrome Code(s): Z86.79 - PERSONAL HISTORY OF OTHER DISEASES OF THE CIRCULATORY SYSTEM Status: Chronic (8) Morbid obesity Code(s): E66.01 - MORBID (SEVERE) OBESITY DUE TO EXCESS CALORIES Status: Chronic (9) TAMARA (obstructive sleep apnea) Code(s): G47.33 - OBSTRUCTIVE SLEEP APNEA (ADULT) (PEDIATRIC) Status: Chronic Comment: REFUSING CPAP. - Plan * HE HAS HAD RECURRENT ISSUES AND HIS PROGNOSIS FOR OVERCOMING THE SEVERE DJD THAT HAS HIM SO INCAPACITATED IS UNLIKELY. * PALLIATIVE CARE CONSULT. DNR/DNI.
[2017-11-12] MEDS ORDERED: Acetaminophen/Codeine 30-300mg Tablet PO SCH (23:35)
[2017-11-12] MEDS ORDERED: Temazepam 15 MG CAP PO SCH (23:45)
[2017-11-13] MEDS: Piperacillin/Tazobactam 3.375 GM in Sodium Chloride 0.9% 100 ML IVPB SCH ×4 (02:07→19:48)
[2017-11-13 04:17] LABS: Anion Gap 12 mmol/L (10-20); BUN (Urea Nitrogen) 72 mg/dL (8.4-25.7); Calc. Creatinine Clearance 55 mL/min (70-130); Calcium 7.7 mg/dL (7.8-10.44); Carbon Dioxide 27 mmol/L (23-31); Chloride 100 mmol/L (98-107); Estimated GFR-MDRD 34; Glucose 105 mg/dL (80-115); Potassium 4.1 mmol/L (3.5-5.1); Sodium 135 mmol/L (136-145)
[2017-11-13] MEDS: Enoxaparin Sodium 40 MG/0.4 ML SYRINGE SC SCH (08:39)
--- NOTE | 2017-11-13 09:36 | PQF ---
DATE: 11-13-17 ATTN: DR. HAM BOO Please exercise your independent, professional judgment in responding to the clarification form. Clinical indicators are provided on the bottom of this form for your review Please check appropriate box(es): [ X] Sepsis due to UTI due to Alanis Catheter [ ] Sepsis due to UTI NOT due to Alanis Catheter [ ] Septic Shock [ ] Other diagnosis [ ] Unable to determine In addition, please specify: Present on Admission (POA): [X ] Yes [ ] No [ ] Unable to determine For continuity of documentation, please document condition throughout progress notes and discharge summary. Thank You. CLINICAL INDICATORS - SIGNS / SYMPTOMS / LABS ER: ALANIS IN PLACE. H&P: THE PATIENT WAS APPARENTLY SOMEWHAT ALTERED AND HAVING SOME DIFFICULTY GIVING ANY HISTORY AT THE TIME IN THE ER. EMS HAD INDICATED HE WAS COMPLAINING OF SOME PAIN IN HIS SUPRAPUBIC AND CATHETER AREA. H&P: UTI WITH RELATED SEPSIS WITH SIGNIFICANT HYPOTENSION, ER DX: SOB, HYPOTENSION, HYPOXEMIA CONSULT NOTE DR. GORMAN 11-12-17: SEVERE SEPSIS, BACTEREMIA SECONDARY TO E COLI, UTI 2/2 E COLI PLUS MINUS PROTEUS, URINARY RETENTION WITH CHRONIC INDWELLING ALANIS CATHETER PN 11-12-17: ACUTE SEPSIS WBC: 11-11-17: 11.1 BANDS: 11-12-17: 40 TEMP: 11-11-17: 100.9, 100.9 BP: 11-11-17: 113/45, 91/43, 11-11-17: 76/31, 98/45, 92/49, 84/42 RISK FACTORS: H&P: UTI WITH RELATED SEPSIS WITH SIGNIFICANT HYPOTENSION, TREATMENTS: ER: VANCOMYCIN, ZOSYN, IVF (This form is maintained as a part of the permanent medical record) 2014 [employer] All Rights Reserved ILAN [email or web address] Office: [phone] [facility]
[2017-11-13] MEDS ORDERED: Sodium Chloride 0.9% 500 ML IV SCH (11:15)
[2017-11-13] MEDS ORDERED: Sodium Chloride 0.45% 1,000 ML IV SCH (11:15)
--- NOTE | 2017-11-13 11:29 | PRG ---
DATE OF SERVICE: 11/13/2017 SERVICE: Pulmonary Medicine. INTERVAL HISTORY: The patient is doing fine from a respiratory standpoint. He denies any current ch est pain, nausea, vomiting, fevers or chills. His blood pressures firmed up yesterday. That being s aid, this morning, the fall back off a little bit. Urine output has been okay. Mentation salter, the patient is actually doing fairly well. He is participating with physical therapy to the best of his ability. I am told that when he was in rehab earlier, he was able to stand and walk couple of steps with physical therapy, and transfer into a wheelchair. PHYSICAL EXAMINATION: VITAL SIGNS: Afebrile, pulse 68, blood pressure 98/49, respirations 22, and saturation 92% on 3 lite rs nasal cannula. HEENT: Normocephalic, atraumatic. Sclerae are white, conjunctivae pink. Oral mucosa is moist witho ut lesions. LUNGS: Decent air entry. There is a slightly prolonged expiratory phase. Dependent crackles are pr esent. No wheezing or rhonchi are appreciated. HEART: Normal rate, regular. ABDOMEN: Soft, nontender, nondistended. Bowel sounds are positive. MUSCULOSKELETAL: No cyanosis or clubbing. There is no pitting in the bilateral lower extremities. NEUROLOGIC: Grossly nonfocal. LABORATORY DATA: Creatinine 1.96, BUN 72 and up trending. Basic metabolic profile is otherwise unre markable. E. coli is growing in the urine as well as blood cultures. It appears to be sensitive to cephalosporins. ASSESSMENT: 1. Severe sepsis. 2. Bacteremia secondary to Escherichia coli. 3. Urinary tract infection secondary to Escherichia coli. 4. Acute kidney injury. 5. Urinary retention with chronic indwelling Pena catheter. 6. Deconditioning, severe. 7. Morbid obesity. 8. Osteoarthritis, severe. DISCUSSION AND PLAN: The patient can be transitioned out of the IMCU to the medical unit. We will n eed to watch his volume status, and kidney function very closely. Given 500 mL of water and give him half normal saline at a very low 50 mL per hour to supplement his lack of p.o. intake. Pulmonary wi ll continue to follow on the floor for the time being. I will leave him on the Zosyn for the time be ing until the blood culture sensitivities result.
--- NOTE | 2017-11-13 14:35 | PDOC.PN ---
- Subjective Encounter Start Date: 11/13/17 Encounter Start Time: 14:30 DOES NOT KNOW WHO I AM ALTHOUGH I HAVE SEEN HIM DAILY. SAYS HIS TAILBONE HURTS. OTHERWISE, HE SAYS HE DOES NOT FEEL ANY BETTER OVERALL. - Objective Resuscitation Status: Resuscitation Status DNR:Do Not Resuscitate MAR Reviewed: Yes Vital Signs & Weight: Vital Signs (12 hours) Temp Pulse Pulse Pulse Resp BP BP 11/13/17 14:14 72 24 H 11/13/17 11:11 99.1 F 65 22 H 11/13/17 10:31 58 L 63 105/47 L 104/55 L 11/13/17 10:23 64 16 11/13/17 08:00 97.3 F L 63 20 11/13/17 07:39 98.4 F 67 22 H 11/13/17 07:05 11/13/17 07:02 59 L 16 11/13/17 04:00 98.7 F 60 18 11/13/17 03:10 BP Pulse Ox Pulse Ox Pulse Ox 11/13/17 14:14 93 L 11/13/17 11:11 104/55 L 92 L 11/13/17 10:31 92 L 91 L 11/13/17 10:23 92 L 11/13/17 08:00 92 L 11/13/17 07:39 98/49 L 92 L 11/13/17 07:05 92 L 11/13/17 07:02 92 L 11/13/17 04:00 88/47 L 95 11/13/17 03:10 96 Weight Weight 245 lb 3 oz I&O: 11/12/17 11/13/17 11/14/17 06:59 06:59 06:59 Intake Total 450 1800 Output Total 500 925 Balance -50 875 Result Diagrams: 11/12/17 03:18 11/13/17 03:35 Phys Exam - Physical Examination STILL TACYPNEIC WITH SOME LABORED BREATHING. Neck: no JVD, supple DIFFUSE WHEEZING. Cardiovascular: RRR, no significant murmur Gastrointestinal: soft, non-tender, no distention Musculoskeletal: no edema Dx/Plan (1) Sepsis Code(s): A41.9 - SEPSIS, UNSPECIFIED ORGANISM Status: Acute Comment: E COLI SECONDARY TO THE ALANIS CATHETER. POSITIVE BLOOD CULTURES. SENSITIVE TO ZOSYN. (2) E. coli UTI Code(s): N39.0 - URINARY TRACT INFECTION, SITE NOT SPECIFIED; B96.20 - UNSP ESCHERICHIA COLI THE CAUSE OF DISEASES CLASSD ELSWHR Status: Acute Comment: ON ZOSYN. CHRONIC INDWELLING ALANIS CATHETER. ADJUST ABX TO SENSITIVITIES. (3) E coli bacteremia Code(s): R78.81 - BACTEREMIA Status: Acute (4) Acute on chronic respiratory failure with hypoxia and hypercapnia Code(s): J96.21 - ACUTE AND CHRONIC RESPIRATORY FAILURE WITH HYPOXIA; J96.22 - ACUTE AND CHRONIC RESPIRATORY FAILURE WITH HYPERCAPNIA Status: Acute Comment : PULMONOLOGY FOLLOWING. REFUSING ANY MASK DEVIDE SUPPORT. CONTINUE NEBS, OXYGEN SUPPORT. (5) COPD exacerbation Code(s): J44.1 - CHRONIC OBSTRUCTIVE PULMONARY DISEASE W (ACUTE) EXACERBATION Status: Acute (6) Diastolic CHF Code(s): I50.30 - UNSPECIFIED DIASTOLIC (CONGESTIVE) HEART FAILURE Status: Chronic Qualifiers: Heart failure chronicity: chronic Qualified Code(s): I50.32 - Chronic diastolic (congestive) heart failure Comment: HAS PULMONARY EDEMA ON CXR, BUT REQUIRING ADDITIONAL FLUIDS FOR BP SUPPORT. (7) H/O sick sinus syndrome Code(s): Z86.79 - PERSONAL HISTORY OF OTHER DISEASES OF THE CIRCULATORY SYSTEM Status: Chronic (8) Morbid obesity Code(s): E66.01 - MORBID (SEVERE) OBESITY DUE TO EXCESS CALORIES Status: Chronic (9) TAMARA (obstructive sleep apnea) Code(s): G47.33 - OBSTRUCTIVE SLEEP APNEA (ADULT) (PEDIATRIC) Status: Chronic Comment: REFUSING CPAP. (10) Acute renal insufficiency Code(s): N28.9 - DISORDER OF KIDNEY AND URETER, UNSPECIFIED Status: Acute Comment: PRESENTED WITH ACUTE RENAL INSUFFICIENCY. HAS REQUIRED SIGNIFICANT AMOUNTS OF FLUID. NUMBERS HAVE NOT IMPROVED WITH IMPROVED BP AND ADDITIONAL FLUIDS. RECHECK TOMORROW. CONSIDER NEPHROLOGY IF NOT IMPROVED. - Plan * TRANSFER TO FLOOR. CONTINUE ABX. POOR OVERALL PROGNOSIS.
[2017-11-14] MEDS: Piperacillin/Tazobactam 3.375 GM in Sodium Chloride 0.9% 100 ML IVPB SCH ×2 (03:11→09:07)
[2017-11-14 07:59] LABS: Anion Gap 10 mmol/L (10-20); BUN (Urea Nitrogen) 59 mg/dL (8.4-25.7); Calc. Creatinine Clearance 65 mL/min (70-130); Calcium 7.7 mg/dL (7.8-10.44); Carbon Dioxide 26 mmol/L (23-31); Chloride 104 mmol/L (98-107); Estimated GFR-MDRD 41; Glucose 121 mg/dL (80-115); Magnesium 2.1 mg/dL (1.6-2.6); Potassium 3.8 mmol/L (3.5-5.1); Sodium 136 mmol/L (136-145)
[2017-11-14] MEDS: Enoxaparin Sodium 40 MG/0.4 ML SYRINGE SC SCH (09:08)
--- NOTE | 2017-11-14 11:30 | PRG ---
DATE OF SERVICE: 11/14/2017 SERVICE: Pulmonary Medicine INTERVAL HISTORY: The patient is doing fine from a respiratory standpoint. He is breathing comforta criss. He has no chest pain, nausea, vomiting, fevers or chills. There has been no significant overni ght events. He is working with physical therapy to the best of his ability. He still remains at [facility] toxic appearing. That being said, his looks improved dramatically over the last 24 hours. PHYSICAL EXAMINATION: VITAL SIGNS: Afebrile, pulse 69, blood pressure 103/59, respirations 20, saturation 93% on 3 liters nasal cannula. GENERAL: The patient is awake, alert, no apparent distress. LUNGS: Decent air entry. There is a minimally prolonged expiratory phase. There is no rhonchi or w heezing appreciated, however. HEART: Normal rate, regular. ABDOMEN: Soft, nontender, nondistended. Bowel sounds are positive. MUSCULOSKELETAL: No cyanosis or clubbing. No pitting in the bilateral lower extremities. NEUROLOGIC: Grossly nonfocal. LABORATORY DATA: Creatinine 1.66. Magnesium and phosphorus fall within the normal limits. Potassiu m 3.8. Basic metabolic profile is otherwise unremarkable. E. coli is growing in the blood and the u rine. The blood species is sensitive to Rocephin. There is resistance to Levaquin and Cipro. ASSESSMENT: 1. Severe sepsis. 2. Bacteremia secondary to Escherichia coli. 3. Urinary tract infection secondary to Escherichia coli. 4. Acute kidney injury. 5. Urinary retention with chronic indwelling Pena catheter. 6. Deconditioning, severe. 7. Osteoarthritis, severe. 8. Morbid obesity. DISCUSSION AND PLAN: We will need to put a PICC line in. Once antibiotic choice and duration is est ablished, the patient can be considered for transition out of the hospital. It appears that his acut e kidney injury is starting to improve. If in 24 hours, if things continue to improve, he will be st able for transition out of the hospital. Pulmonary will continue to follow along for the time being until he more clearly turns the corner.
[2017-11-14] MEDS: cefTRIAXone\\ROCEPHIN 2 GM in Sodium Chloride 0.9% 100 ML IVPB SCH (12:27)
--- NOTE | 2017-11-14 15:54 | SPC ---
SONOGRAPHIC GUIDED RIGHT UPPER EXTREMITY PICC PLACEMENT: HISTORY: Urinary tract infection. Need for long-term antibiotics. FINDINGS: After explaining the procedure and answering all questions, the right upper extremity was prepped and draped in the usual sterile fashion. Sterile technique, buffered local anesthesia, sonographic guid ance, and a 22-gauge needle were used to carefully access the right basilic vein. Standard technique was then used to place the tip of a 5 Sami dual-lumen PICC so that the tip lies at the level of th e right atrium. Catheter is flushed and secured externally. The patient tolerated the procedure wel l and was returned in unchanged condition. IMPRESSION: Technically successful right upper extremity PICC placement. Catheter is now ready for use. POS: [facility]
--- NOTE | 2017-11-14 16:07 | PDOC.PN ---
- Subjective Encounter Start Date: 11/14/17 Encounter Start Time: 11:00 FEELS OK TODAY. DENIES ANY NEEDS. DENIES ANY SYMPTOMS. - Objective Resuscitation Status: Resuscitation Status DNR:Do Not Resuscitate Vital Signs & Weight: Vital Signs (12 hours) Temp Pulse Resp BP Pulse Ox 11/14/17 11:10 98.6 F 65 20 121/70 95 11/14/17 11:03 66 20 95 11/14/17 08:00 98.6 F 69 20 103/59 L 93 L 11/14/17 06:29 95 11/14/17 06:28 72 20 95 Weight Weight 245 lb 3 oz I&O: 11/13/17 11/14/17 11/15/17 06:59 06:59 06:59 Intake Total 1800 240 Output Total 925 1150 Balance 875 -910 Result Diagrams: 11/12/17 03:18 11/14/17 07:40 Phys Exam - Physical Examination Constitutional: NAD PATIENTS GENERALLY SLEEPING WHEN I ENTER, BUT AWAKENS EASILY. HEENT: oral pharynx no lesions Neck: no JVD, supple DIMINISHED BS, MODEST RALES. Cardiovascular: RRR, no significant murmur Gastrointestinal: soft, non-tender, no distention Musculoskeletal: no edema Skin: normal turgor Dx/Plan (1) Sepsis Code(s): A41.9 - SEPSIS, UNSPECIFIED ORGANISM Status: Acute Comment: E COLI SECONDARY TO THE ALANIS CATHETER. POSITIVE BLOOD CULTURES. SENSITIVE TO ZOSYN. (2) E. coli UTI Code(s): N39.0 - URINARY TRACT INFECTION, SITE NOT SPECIFIED; B96.20 - UNSP ESCHERICHIA COLI THE CAUSE OF DISEASES CLASSD ELSWHR Status: Acute Comment: ON ZOSYN. CHRONIC INDWELLING ALANIS CATHETER. (3) E coli bacteremia Code(s): R78.81 - BACTEREMIA Status: Acute (4) Acute on chronic respiratory failure with hypoxia and hypercapnia Code(s): J96.21 - ACUTE AND CHRONIC RESPIRATORY FAILURE WITH HYPOXIA; J96.22 - ACUTE AND CHRONIC RESPIRATORY FAILURE WITH HYPERCAPNIA Status: Acute Comment : PULMONOLOGY FOLLOWING. REFUSING ANY MASK DEVIDE SUPPORT. CONTINUE NEBS, OXYGEN SUPPORT. (5) COPD exacerbation Code(s): J44.1 - CHRONIC OBSTRUCTIVE PULMONARY DISEASE W (ACUTE) EXACERBATION Status: Acute (6) Diastolic CHF Code(s): I50.30 - UNSPECIFIED DIASTOLIC (CONGESTIVE) HEART FAILURE Status: Chronic Qualifiers: Heart failure chronicity: chronic Qualified Code(s): I50.32 - Chronic diastolic (congestive) heart failure Comment: NO EVIDENCE OF DECOMPENSATION. (7) H/O sick sinus syndrome Code(s): Z86.79 - PERSONAL HISTORY OF OTHER DISEASES OF THE CIRCULATORY SYSTEM Status: Chronic (8) Morbid obesity Code(s): E66.01 - MORBID (SEVERE) OBESITY DUE TO EXCESS CALORIES Status: Chronic (9) TAMARA (obstructive sleep apnea) Code(s): G47.33 - OBSTRUCTIVE SLEEP APNEA (ADULT) (PEDIATRIC) Status: Chronic Comment: REFUSING CPAP. (10) Acute renal insufficiency Code(s): N28.9 - DISORDER OF KIDNEY AND URETER, UNSPECIFIED Status: Acute Comment: PRESENTED WITH ACUTE RENAL INSUFFICIENCY. STABLE AND SLIGHTLY IMPROVED. - Plan * DISCUSSED WITH THE PATIENT AND THE CM THIS MORNING. HE CAN HAVE PICC AND COMPLETE A 10 DAY COURSE OF IV ABX AT THE NURSING FACILITY. DISCUSSED WITH HIS THIS AFTERNOON AND SHE IS AMENABLE TO THAT PLAN. PICC WAS PLACED EARLIER THIS AFTERNOON.
[2017-11-14] MEDS ORDERED: Albuterol Sulfate 2.5 mg/3 ml Neb ONE (18:36)
[2017-11-15] MEDS: Enoxaparin Sodium 40 MG/0.4 ML SYRINGE SC SCH (10:45)
[2017-11-15] MEDS: cefTRIAXone\\ROCEPHIN 2 GM in Sodium Chloride 0.9% 100 ML IVPB SCH (14:25)
[2017-11-15] MEDS: Acetaminophen/Codeine 30-300mg Tablet PO PRN ×3 (14:25→23:19)
--- NOTE | 2017-11-15 14:51 | PRG ---
DATE OF SERVICE: 11/15/2017 SUBJECTIVE: This morning, he is encephalopathic, arousable. Denies any pain or discomfort. OBJECTIVE: VITAL SIGNS: Temperature 97, pulse 70, respiratory rate 16, sats are 100%, blood pressure 132/72. CHEST: Chest reveals decreased breath sounds without any wheezing. CARDIAC: Normal S1, S2, no gallops. ABDOMEN: Soft. Patient with sepsis, E. coli, renal failure, severe deconditioning, morbid obesity, probably has slee p apnea. A PICC line was inserted for the purpose of access. Continue supportive care and PT. We will follow.
[2017-11-15 16:20] LABS: Anion Gap 10 mmol/L (10-20); BUN (Urea Nitrogen) 36 mg/dL (8.4-25.7); Calc. Creatinine Clearance 90 mL/min (70-130); Calcium 8.1 mg/dL (7.8-10.44); Carbon Dioxide 28 mmol/L (23-31); Chloride 106 mmol/L (98-107); Estimated GFR-MDRD 59; Glucose 132 mg/dL (80-115); Potassium 3.7 mmol/L (3.5-5.1); Sodium 140 mmol/L (136-145)
[2017-11-16] MEDS: Acetaminophen/Codeine 30-300mg Tablet PO PRN (05:00)
[2017-11-16 05:20] LABS: Anion Gap 10 mmol/L (10-20); BUN (Urea Nitrogen) 29 mg/dL (8.4-25.7); Calc. Creatinine Clearance 92 mL/min (70-130); Calcium 8.2 mg/dL (7.8-10.44); Carbon Dioxide 32 mmol/L (23-31); Chloride 105 mmol/L (98-107); Estimated GFR-MDRD 60; Glucose 103 mg/dL (80-115); Potassium 3.7 mmol/L (3.5-5.1); Sodium 143 mmol/L (136-145)
[2017-11-16 07:44] VITALS: BP 135/73; TEMP 97.6
[2017-11-16] MEDS: Enoxaparin Sodium 40 MG/0.4 ML SYRINGE SC SCH (09:11)
--- NOTE | 2017-11-16 12:59 | PRG ---
DATE OF SERVICE: 11/16/2017 SUBJECTIVE: Morbidly obese gentleman who is a DNR. [facility] is trying to place him in a possibl e facility today. OBJECTIVE: VITAL SIGNS: Sats are 90% on 2 liters, respiration rate 18, temperature 97, blood pressure 125/73. GENERAL: His is at the bedside. I have told her that the need to try and get his CPAP on a reg ular basis at night time. His electrolytes were done today which was normal. CHEST: With decreased breath sounds, no wheezing. CARDIAC: Normal S1, S2. No gallops. ABDOMEN: Massive. IMPRESSION: Escherichia coli, respiratory failure, sleep apnea, morbid obesity, DNR. PLAN: Encourage CPAP at night time, antibiotics as per Infectious Disease, and placement.
[2017-11-16] MEDS: cefTRIAXone\\ROCEPHIN 2 GM in Sodium Chloride 0.9% 100 ML IVPB SCH (13:42)
--- NOTE | 2017-11-17 11:18 | DIS ---
DATE OF ADMISSION: 11/11/2017 DATE OF DISCHARGE: 11/16/2017 DISCHARGE DIAGNOSES: 1. Sepsis secondary to urinary tract infection. 2. Urinary tract infection with Escherichia coli. 3. Bacteremia with Escherichia coli. 4. Acute on chronic respiratory failure with hypoxia and hypercapnia. 5. Chronic obstructive pulmonary disease. 6. History of diastolic congestive heart failure. 7. History of sick sinus rhythm. 8. Morbid obesity. 9. Obstructive sleep apnea. 10. Acute renal insufficiency. 11. 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 12. History of noncompliance with BiPAP. HISTORY: This patient is a 71-year-old male who has been in the hospital several times previously wi th respiratory compromise. The patient has some COPD and diastolic heart failure and obesity. He clifton s some sleep apnea type syndrome as well, but has refused to wear any mask type respiratory support. The patient presented to the emergency department on 11/11/2017 with complaints of hypoxia. The pat ient is at [facility] and they called EMS, because the patient was hypoxic. On arrival, the patient w as at 88% on 5 liters. The patient was also hypoxic at that time with blood pressure at 80s over 50s . The patient had a chronic indwelling Pena. In the emergency department, he was given fluid bolus es and started on antibiotics, vancomycin and Zosyn for sepsis. HOSPITAL COURSE: The patient was admitted to the [facility] and Pulmonology was consulted. The patient co ntinued to receive some gentle fluid resuscitation given his underlying history of cardiac disease. His blood pressure did ultimately respond. His urine and blood cultures both grew E. coli. He was a ble to move out of the ICU to a regular floor bed. Once the sensitivities were established, the adriana ent was reduced to Rocephin alone. On the floor, the patient remained stable for a couple of days. He had a PICC line placed, so that he can continue his IV antibiotics and the patient was felt to be stable for discharge back to [facility]. Initially, the patient was discharged on Friday on 018. At that time, temperature was 98.4, pulse was 73, respirations were 20, O2 sats 100% on 2 liter s, blood pressure is 142/73. The patient was chronically somnolent, but generally easily awakened. He reported no complaints. His heart was regular and his lungs were clear. Abdomen was soft and ext remities had some persistent edema. DISPOSITION: The patient was discharged back to [facility]. He is to have a regular diet, although t his to be a low sodium and heart healthy. DISCHARGE MEDICATIONS: He is to have Rocephin 2 grams IV q.24 hours, carvedilol 6.25 mg b.i.d., Norv asc 5 mg daily, Zocor 20 mg daily, aspirin 81 mg daily, Avodart 0.5 mg daily, Mucinex 1200 mg b.i.d., Protonix 40 mg b.i.d., Flomax 0.4 mg daily, Proscar 5 mg daily, Lasix 40 mg daily, lisinopril 10 mg daily, Theragran M one p.o. daily, ferrous sulfate 325 one p.o. daily, Dulcolax p.r.n., docusate mao y p.r.n., DuoNeb q.4 hours, Dulera 2 puffs b.i.d., Tylenol #3 one q.6 hours p.r.n. FOLLOWUP: He is to follow up with his provider at [facility] and he is to return to the emergency dep artment should he have any problems prior to that time.
[2017-11-17] MEDS ORDERED: Heparin 10,000 UNITS/ 10 ML VIAL ONE (15:41)
== END 2017-11-16 16:04 | DRG 698 ==
LOC: ERS 11:43 → IMCU/EMU 16:10 → T4-B 11-13 16:31
PROVIDERS: ADMIT Internal Medicine; ATTEND Internal Medicine
PROC: 5A09357 Assistance with Respiratory Ventilation, Less than 24 Consecutive Hours, Continuous Positive Airway Pressure (ICD-10-PCS; principal; 2017-11-11)
PROC: 02H633Z Insertion of Infusion Device into Right Atrium, Percutaneous Approach (ICD-10-PCS; 2017-11-14)
DX: T83.511A Infection and inflammatory reaction due to indwelling urethral catheter, initial encounter (principal); A41.51 Sepsis due to Escherichia coli [E. coli]; J96.21 Acute and chronic respiratory failure with hypoxia; J96.22 Acute and chronic respiratory failure with hypercapnia; N17.9 Acute kidney failure, unspecified; I50.32 Chronic diastolic (congestive) heart failure; Z66 Do not resuscitate; Z51.5 Encounter for palliative care; N39.0 Urinary tract infection, site not specified; I11.0 Hypertensive heart disease with heart failure; J44.9 Chronic obstructive pulmonary disease, unspecified; E78.5 Hyperlipidemia, unspecified; G89.29 Other chronic pain; M54.9 Dorsalgia, unspecified; G47.33 Obstructive sleep apnea (adult) (pediatric); R33.9 Retention of urine, unspecified; M19.90 Unspecified osteoarthritis, unspecified site; E66.01 Morbid (severe) obesity due to excess calories; Z68.39 Body mass index [BMI] 39.0-39.9, adult; Z87.11 Personal history of peptic ulcer disease; Z87.891 Personal history of nicotine dependence; Z79.82 Long term (current) use of aspirin; Z79.899 Other long term (current) drug therapy; Z95.0 Presence of cardiac pacemaker; Y84.6 Urinary catheterization as the cause of abnormal reaction of the patient, or of later complication, without mention of misadventure at the time of the procedure
CPT/HCPCS: 36415; 36569; 71045; 80048; 80053; 81003; 81015; 82553; 82805; 83605; 83690; 83735; 83880; 84100; 84484; 85025; 87040; 87077; 87086; 87149; 87186; 94640; 94660; 96361; 96365; 96367; A4216; C1751; G8978-GP-CN; G8979-GP-CL; G8987-GO-CM; G8988-GO-CM; G8989-GO-CM; G8996-GN-CJ; G8997-GN-CJ; J0696; J1650; J2543; J3370; J7050; J7611; J7620

== ENCOUNTER 2017-11-17 01:51 | Observation (INO) | payer MEDICARE ==
[2017-11-17 02:24] LABS: #Eosinphils 0.4 thou/uL (0.0-0.7); #Lymphocytes 0.7 thou/uL (1.20-3.40); #Monocytes 0.5 thou/uL (0.11-0.59); #Neutrophils 4.6 thou/uL (1.40-6.50); %Basophils 0.3 % (0.0-1.0); %Eosinophils 6.1 % (0.0-10.0); %Lymphocytes 11.1 % (21.0-51.0); %Monocytes 7.8 % (0.0-10.0); %Neutrophils 74.7 % (42.0-75.0); Hemoglobin 10.2 g/dL (14.0-18.0); Mean Corpuscular HGB CONC 32.7 g/dL (32.0-36.0); Mean Corpuscular Hemoglobin 30.5 pg (27.0-31.0); Mean Corpuscular Volume 93.2 fL (78.0-98.0); Mean Platelet Volume 6.3 fL (7.4-10.4); Platelet Count 190 thou/uL (130-400); RBC Distribution Width 16.1 % (11.5-14.5); Red Blood Cell (RBC) Count 3.35 mill/uL (4.70-6.10); White Blood Cell (WBC) Count 6.2 thou/uL (4.8-10.8)
[2017-11-17 02:37] LABS: ALT (SGPT) 16 U/L (8-55); AST (SGOT) 13 U/L (5-34); Albumin 2.9 g/dL (3.4-4.8); Alkaline Phosphatase 59 U/L (40-150); Anion Gap 8 mmol/L (10-20); BUN (Urea Nitrogen) 20 mg/dL (8.4-25.7); Bilirubin, Total 0.4 mg/dL (0.2-1.2); Calc. Creatinine Clearance 0 mL/min (70-130); Calcium 8.3 mg/dL (7.8-10.44); Carbon Dioxide 32 mmol/L (23-31); Chloride 107 mmol/L (98-107); Estimated GFR-MDRD 65; Globulin 2.8 g/dL (2.4-3.5); Glucose 140 mg/dL (80-115); Potassium 3.9 mmol/L (3.5-5.1); Protein, Total 5.7 g/dL (5.8-8.1); Sodium 143 mmol/L (136-145)
[2017-11-17 02:41] LABS: CKMB 1.5 ng/mL (0-6.6); Troponin I Less than 0.010 ng/mL (< 0.028)
[2017-11-17 02:54] LABS: Bilirubin Negative (Negative); Blood, Urine Moderate (Negative); Clarity CLOUDY (Clear); Glucose, Urine (Dipstick) Negative (Negative); Leukocyte Moderate (Negative); Nitrite Negative (Negative); Protein, Urine (Dipstick) 30 mg/dL (Neg-Trace); Specific Gravity, Urine 1.011 (1.002-1.036); Urobilinogen 0.2 mg/dL (0.2-1.0)
[2017-11-17 02:56] LABS: Bacteria/HPF None Seen HPF (None Seen); Hyaline Casts/LPF 0-3 HYALINE CAST LPF (0-3 Hyaline); Pathc Cast-AUWi Flag 0.58 (0-2.49); Squamous Epithelial 0-3 HPF (0-3)
[2017-11-17 03:19] LABS: Oval Fat Bodies/HPF None Seen HPF (None Seen); RBC/HPF 0-3 HPF (0-3); Renal Epithelial 0-3 HPF (0-3); Sperm/HPF None Seen HPF (None Seen); Transitional Epithelial NONE SEEN HPF (0-3); Trichomonas/HPF None Seen HPF (None Seen); Yeast-All Forms None Seen HPF (None Seen)
[2017-11-17 03:43] LABS: Magnesium 2.4 mg/dL (1.6-2.6)
[2017-11-17 04:17] LABS: CO2 Tension 49.2 mmHg (35.0-45.0); O2 Tension (PaO2) 84.5 mmHg (> 70.0); pH, Arterial 7.41 (7.35-7.45)
[2017-11-17 04:18] LABS: Actual Bicarbonate (HCO3a) 30.6 mEq/L (22-28); Base Excess (BEa) 5.3 mEq/L (-2.0 to +3.0); Hematocrit-ABG 28.9 % (42.0-52.0); Hemoglobin (Hb) 9.6 g/dL (14.0-18.0)
[2017-11-17 04:19] LABS: Analyzer IN Cardio ER; Calcium, Ionized 1.2 mmol/L (1.12-1.30); Puncture Site RRA
[2017-11-17 05:28] VITALS: BMI 38.9
[2017-11-17 05:34] LABS: Troponin I 0.015 ng/mL (< 0.028)
[2017-11-17] MEDS ORDERED: Sodium Chloride 0.65% Nasal 44 ML BOT EA NARE PRN (06:34)
[2017-11-17] MEDS ORDERED: Chloraseptic Spray 180 ml Bottle PO PRN (06:34)
[2017-11-17] MEDS ORDERED: Acetaminophen 325 MG TAB PO PRN (06:34)
[2017-11-17] MEDS ORDERED: Mag-Al 1200 mg/1200 mg/30 ML UDCUP PO PRN (06:34)
[2017-11-17] MEDS ORDERED: hydrALAZINE 20 MG/ML VIAL SLOW IVP PRN (06:34)
[2017-11-17] MEDS ORDERED: Artificial Tears 18 DROP/0.9 ML EA EYE PRN (06:34)
[2017-11-17] MEDS ORDERED: Eucerin (Mineral Oil/Petrolatum,White) 30 gm Jar TOP PRN (06:34)
[2017-11-17] MEDS ORDERED: Loperamide HCl 2 MG CAP PO PRN (06:34)
[2017-11-17] MEDS ORDERED: Ondansetron HCl/PF 4 MG/2 ML Vial IVP PRN (06:34)
[2017-11-17] MEDS ORDERED: Ondansetron ODT 4 MG TAB PO PRN (06:34)
[2017-11-17] MEDS ORDERED: Diabetic Tussin 200 MG/10 ML UDCUP PO PRN (06:34)
[2017-11-17] MEDS ORDERED: Loratadine 10 MG TAB PO PRN (06:34)
[2017-11-17] MEDS ORDERED: Milk Of Magnesia 30 ML UDCUP PO PRN (06:34)
[2017-11-17] MEDS ORDERED: HYDROcodone/Acetaminophen 5/325 mg Tablet PO PRN (06:34)
[2017-11-17] MEDS ORDERED: Senokot 8.6 MG TAB PO PRN (06:34)
--- NOTE | 2017-11-17 08:06 | RAD ---
PORTABLE CHEST 1 VIEW: DATE: 11/17/17. TIME: 1:58 a.m. HISTORY: Shortness of breath. FINDINGS: Comparison is made with the exam of 08/11/17. The heart is at upper limits of normal. The left-sided pacing device remains in place. There is a r ight upper extremity PICC line with tip in the projection of the SVC. There is elevation of the righ t hemidiaphragm with mild opacity in the right lung base. A right effusion may be present. There ar e degenerative changes in the shoulder joints. POS: [facility]
[2017-11-17 09:43] LABS: Troponin I 0.029 ng/mL (< 0.028)
[2017-11-17] MEDS: Enoxaparin Sodium 40 MG/0.4 ML SYRINGE SC SCH (10:37)
[2017-11-17] MEDS: cefTRIAXone\\ROCEPHIN 2 GM in Sodium Chloride 0.9% 100 ML IVPB SCH (10:37)
[2017-11-17] MEDS: Amlodipine 5 MG TAB PO SCH (10:38)
[2017-11-17] MEDS: Dutasteride 0.5 MG CAP PO SCH (10:38)
[2017-11-17] MEDS: Carvedilol 6.25 MG TAB PO SCH ×2 (10:39→17:55)
[2017-11-17] MEDS: Tamsulosin HCl 0.4 MG CAP PO SCH (10:40)
[2017-11-17] MEDS ORDERED: Docusate 100 MG CAP PO PRN (11:27)
--- NOTE | 2017-11-17 11:49 | HP ---
PRIMARY CARE PHYSICIAN: Dr. Andrea. REASON FOR ADMISSION: Sent from [facility] for dyspnea. HISTORY OF PRESENT ILLNESS: A 71-year-old male who was recently admitted in our hospital on 11/12/19 18. During that admission, patient presented to ER with hypoxia. He was admitted to medical ICU. H e was hypoxic and little bit hypercapnic and required BiPAP. During that admission, suspected for as piration and urinary tract infection and sepsis. His blood culture was positive for E. coli and urin e culture was positive for E. coli and Proteus. The patient was noncompliant with BiPAP/CPAP machine . He did not want to use that machine. He had PICC line placed in 11/14/2017 and he was planned for discharge on 11/15/2012 but he did not go to the halfway and he was discharged yesterday. Afte r going to halfway, he returned back with dyspnea. He was saturating 91%. He was given BiPAP i n the emergency room and subsequently again he was admitted to IMCU. Patient denies any chest pain. He denies any fever or chills. He denies any nausea, vomiting, diarrhea. He has PICC line in place and PICC line site is clean and healthy. This patient is not a good historian. The patient also do es not use CPAP machine, which is supposed to use during sleep. He was discharged on recently [facility] in for 10 days. It was unclear how hypoxic and how dyspnea he had at halfway. REVIEW OF SYSTEMS: The following complete review of systems was negative, unless otherwise mentioned in the HPI or below: Constitutional: Weight loss or gain, ability to conduct usual activities. Skin: Rash, itching. Eyes: Double vision, pain. ENT/Mouth: Nose bleeding, neck stiffness, pain, tenderness. Cardiovascular: Palpitations, dyspnea on exertion, orthopnea. Respiratory: Shortness of breath, wheezing, cough, hemoptysis, fever or night sweats. Gastrointestinal: Poor appetite, abdominal pain, heartburn, nausea, vomiting, constipation, or diarr hea. Genitourinary: Urgency, frequency, dysuria, nocturia. Musculoskeletal: Pain, swelling. Neurologic/Psychiatric: Anxiety, depression. Allergy/Immunologic: Skin rash, bleeding tendency. Please see my HPI for pertinent positive and negative. All other review of system reviewed and negat liz except as mentioned in the HPI. PAST MEDICAL HISTORY: Chronic diastolic heart failure, morbid obesity, obstructive sleep apnea, nonc ompliance with CPAP, peptic ulcer disease, chronic low back pain, hypertension, dyslipidemia, history of recurrent pneumonia, COPD, history of atrial flutter, required pacemaker, benign enlargement of p rostate, recent admission for UTI with bacteremia. PAST SURGICAL HISTORY: Ablation for atrial flutter, pacemaker placement, endoscopy with cauterizatio n of bleeding vessel. PAST PSYCHIATRIC HISTORY: Reviewed and negative. FAMILY HISTORY: No strong family history of premature coronary artery disease, stroke or cancer. SOCIAL HISTORY: Patient is , currently lives at [facility]. No history of current tobacco, alcohol or illicit drug abuse. He is a former smoker. ALLERGIES: No known drug allergy. CURRENT HOME MEDICATIONS: Tylenol #3 one tablet q.6 hourly p.r.n., amlodipine 5 mg p.o. daily, aspir in 81 mg p.o. daily, Coreg 6.25 mg p.o. b.i.d., Rocephin 2 gram IV daily, Avodart 0.5 mg p.o. daily, ferrous sulfate 325 mg p.o. b.i.d., Lasix 40 mg p.o. daily, Mucinex 1200 mg p.o. twice daily, DuoNeb q.4 hourly and p.r.n., lisinopril 10 mg p.o. daily, Dulera 2 puffs inhalation b.i.d., multivitamin 1 tablet p.o. daily, Protonix 40 mg p.o. b.i.d., Zocor 20 mg p.o. at bedtime, Flomax 0.4 mg p.o. daily. EMERGENCY ROOM COURSE: Reviewed. PHYSICAL EXAMINATION: VITAL SIGNS: On arrival, blood pressure 147/72, pulse 71, respiratory rate 18, saturation 91%, weigh t 118.5 kilograms. GENERAL: Patient is currently alert, awake. He is on nasal cannula oxygen, maintaining saturation 9 2%. HEAD: Normocephalic, atraumatic. EYES: Pupils round, reactive to light. Extraocular muscle intact. ENT: Oropharynx within normal limits. Moist mucous membranes. No oral lesion, no pharyngeal erythe ma, no exudate. NECK: Supple, no JVD, no thyromegaly, no carotid bruit. LUNGS: Bilateral end expiratory wheezing heard. No obvious rales noted. Reduced air entry. Examin ation is limited because of obesity and physical deconditioning. CARDIAC: S1 and S2 appears regular. No gross murmur noted, no gallop, no rub. ABDOMEN: Morbid obesity limiting examination. Bowel sounds present, nontender, nondistended. No or ganomegaly, no mass, no suprapubic tenderness. BACK: Examination unremarkable, no CVA tenderness. EXTREMITIES: Upper extremity passive movement of all joints are normal. Lower extremities: Bilater al trace lower extremity edema noted. No calf tenderness. Good distal pulsation. SKIN: No skin rash other than chronic hyperpigmentation in both lower extremities. HEMATOLOGICAL SYSTEM: No lymphadenopathy. PSYCHIATRIC: Normal affect. NEUROLOGIC: Grossly nonfocal examination. He moves all 4 limbs. IMAGING DATA AND SIGNIFICANT LABORATORY DATA: EKG showing pacemaker rhythm, complete right bundle br anch block pattern, left posterior fascicular block. Chest x-ray showing poor inspiration, cardiomeg dat, no acute process noted. CBC: WBC 6.2, hemoglobin 10.2, platelet 190. ABG: pH 7.41, pCO2 49.2 , pO2 84.5, bicarbonate 30.6, saturation 96.8 on BiPAP. BMP: Sodium 143, potassium 3.9, chloride 10 7, carbon dioxide 32, BUN 20, creatinine 1.11, glucose 140, calcium 8.3, magnesium 2.4. LFT: AST 13 , ALT 16, alkaline phosphatase 59, albumin 2.9. Cardiac enzymes negative x2 and third one is 0.029, BNP 559.9, lipase 14. Urinalysis; leukocyte esterase moderate. ASSESSMENT AND PLAN/IMPRESSION: 1. Dyspnea, multifactorial etiology. Patient has underlying morbid obesity, physical deconditioning , obstructive sleep apnea, chronic obstructive pulmonary disease, chronic diastolic heart failure, bu t at this point, this looks like to me chronic and baseline. He is noncompliant with his CPAP saroj e and he does not have any volume overload status as well and he does not appear to be in COPD flareu p as well. His condition seems like baseline. He need some PT, OT, and eventually he will go back t o halfway. 2. Morbid obesity and obstructive sleep apnea. He is noncompliant with the CPAP machine. He has co ntinued to complain of dyspnea and he has recurrent admission in hospital. At this point, I will con sult Palliative Care for goal of care. 3. Recent admission for urinary tract infection, sepsis and bacteremia. The patient will continue R ocephin 2 gram IV daily for another 8-10 days as per previous recommendations. 4. Chronic obstructive pulmonary disease. We will continue DuoNeb q.4 hourly and Dulera two puffs i nhalation b.i.d. 5. Chronic diastolic heart failure. We will continue Lasix 40 mg p.o. daily. 6. Hypertension. We will continue his home medication of lisinopril 10 mg p.o. at bedtime, Coreg 6. 25 mg p.o. b.i.d., amlodipine 5 mg p.o. daily. 7. Benign enlargement of prostate. Continue Avodart 0.5 mg p.o. daily, Flomax 0.4 mg p.o. daily. 8. Gastroesophageal reflux disease. We will continue Protonix 40 mg p.o. daily. 9. Dyslipidemia. We will continue Zocor 20 mg p.o. at bedtime. 10. Deep venous thrombosis prophylaxis, sequential compression device boots. 11. Gastrointestinal prophylaxis, Protonix 40 mg p.o. daily. CODE STATUS: The patient is DNR that is confirmed with the patient and the patient also has out of h ospital DNR paperwork. Disposition plan based on clinical course. While in [facility], Pulmonology will see as per protocol treat ment.
--- NOTE | 2017-11-17 12:28 | CON ---
DATE OF CONSULTATION: 11/17/2017 REASON FOR CONSULTATION: IMCU patient. CHIEF COMPLAINT: "My nurse at the custodial was psychotic." INTERVAL HISTORY: The patient was discharged from the hospital yesterday. Shortly after arriving, his vital signs were checked. He felt like he was doing just fine. That being said, the nurse got very excited about some numbers. He was subsequently transitioned back to the hospital and placed on BiPAP. His saturations were actually normal. His pCO2 is elevated, but it looks like he was very well compensated and did not require the BiPAP for hypercapnia. He was tucked in the IMCU. There has been absolutely no change to his condition over the last 24 hours. PAST MEDICAL HISTORY, PAST SURGICAL HISTORY, FAMILY HISTORY, SOCIAL HISTORY, ALLERGIES, AND MEDICATIONS: Please refer to the admission H and P dated 2017, and the discharge summary dated 11/16/2017. LABORATORY DATA: WBC 6.2, hemoglobin 10.2, platelets 190,000. PH 7.41, pCO2 of 49, pO2 of 85. On BiPAP at 12/6 with a FIO2 of 35%. Creatinine 1.1, continuing to trend downward compared to his previous hospital stay. Basic metabolic profile, liver function studies are unremarkable. Troponin is gently up trending to 0.029. BNP 559, which is slightly above baseline. Lipase 14. Urinalysis is completely unremarkable at this time. Recent Escherichia coli, and Proteus were growing in the blood and urine. Both of these were sensitive to Rocephin. ASSESSMENT: 1. Severe sepsis, resolved. 2. Bacteremia secondary to Escherichia coli. 3. Chronic hypoxic and hypercapnic respiratory failure without acute component. 4. Urinary tract infection secondary to Escherichia coli and Proteus. 5. Chronic urine retention with indwelling Pena catheter. 6. Deconditioning, severe. 7. Osteoarthritis, severe. 8. Morbid obesity. DISCUSSION AND PLAN: We will provide him with a dose of Lasix. From my perspective, the patient is at his baseline and can be considered for transition to the telemetry unit. Pulmonary Critical Care will continue to follow along for the time being, but in 24 hours if he remains stable, he should be transitioned back to his care facility. His ultimate goal is to rehabilitate to the point where he could possibly tolerate a hip surgery as this is the thing that limits his function. 50 minutes have been devoted to this patient in various activities. I personally reviewed all imaging studies and laboratory data noted within this document. For fifty percent of this time, I was interacting with the patient at the bedside or coordinating care with the care team. For the remainder of the time I was immediately available to the patient in the hospital unit. PARKER
[2017-11-17] MEDS: Ferrous Sulfate 325 MG TAB PO SCH (17:55)
[2017-11-17] MEDS: Mometasone/Formoterol 120 PUFF INHALER INH SCH (18:55)
[2017-11-17] MEDS ORDERED: Atorvastatin Calcium 10 MG TAB PO SCH (21:00)
[2017-11-17] MEDS ORDERED: Simvastatin 20 MG TAB PO SCH (21:00)
[2017-11-18] MEDS: cefTRIAXone\\ROCEPHIN 2 GM in Sodium Chloride 0.9% 100 ML IVPB SCH (06:51)
[2017-11-18] MEDS ORDERED: Furosemide 40 MG TAB PO SCH (07:30)
[2017-11-18] MEDS: Mometasone/Formoterol 120 PUFF INHALER INH SCH (07:36)
[2017-11-18 07:40] VITALS: TEMP 98.1
[2017-11-18] MEDS: Dutasteride 0.5 MG CAP PO SCH (08:54)
[2017-11-18] MEDS: Carvedilol 6.25 MG TAB PO SCH (08:54)
[2017-11-18] MEDS: Tamsulosin HCl 0.4 MG CAP PO SCH (08:54)
[2017-11-18] MEDS: Ferrous Sulfate 325 MG TAB PO SCH (08:54)
[2017-11-18] MEDS: Amlodipine 5 MG TAB PO SCH (08:54)
[2017-11-18 08:55] VITALS: BP 143/63
[2017-11-18] MEDS: Enoxaparin Sodium 40 MG/0.4 ML SYRINGE SC SCH (08:55)
[2017-11-18] MEDS ORDERED: Multivitamin W/ Minerals 1 TAB PO SCH (09:00)
--- NOTE | 2017-11-18 12:10 | DIS ---
DATE OF ADMISSION: 11/17/2017 DATE OF DISCHARGE: 11/18/2017 PRIMARY CARE PHYSICIAN: Dr. Andrea. DISCHARGE DISPOSITION: shelter. PRIMARY DISCHARGE DIAGNOSES: Acute on chronic respiratory failure with hypoxia due to noncompliance with CPAP use; dyspnea, multifactorial. SECONDARY DISCHARGE DIAGNOSES: Recent Escherichia coli bacteremia; anemia, normocytic-normochromic; benign enlargement of prostate; coronary artery disease; chronic diastolic heart failure; dyslipidemi a; history of sick sinus syndrome; hypertension; morbid obesity; obstructive sleep apnea; osteoarthri tis; noncompliance with the CPAP machine. CONTRAINDICATIONS: None. CODE STATUS: DNR. INPATIENT CONSULTANTS: Dr. Browning saw this patient, because he was in [facility]. TEST RESULTS PENDING ON DISCHARGE: None. ALLERGIES: No known drug allergy. DISCHARGE PLAN: Post hospital, the patient will follow up with primary care physician. SIGNIFICANT LABORATORY DATA: Chest x-ray was unremarkable. WBC 6.2, hemoglobin 10.2, platelets 190. Sodium 143, creatinine 1.11. LFT normal. Albumin 2.9. Cardiac enzymes unremarkable. BNP 559. U rinalysis: Leukocyte esterase moderate. Urine culture negative. DISCHARGE MEDICATIONS: The patient will finish his Rocephin 2 gram IV daily through PICC line as per previous order of 10 days. Continue following medications: Tylenol #3 one tablet q.6 hourly p.r.n., amlodipine 5 mg p.o. daily, aspirin 81 mg p.o. daily, Dulcolax 10 mg rectally daily, Coreg 6.25 mg p.o. b.i.d., Colace 100 mg p. o. daily p.r.n., Avodart 0.5 mg p.o. daily, ferrous sulfate 325 mg p.o. b.i.d., Proscar 5 mg p.o. casimiro ly, Lasix 40 mg p.o. daily, Mucinex 1200 mg twice daily, DuoNeb q.4 hourly p.r.n., lisinopril 10 mg p .o. at bedtime, Dulera 2 puffs inhalation b.i.d., multivitamin 1 tablet p.o. daily, Protonix 40 mg p. o. b.i.d., Zocor 20 mg p.o. daily, and Flomax 0.4 mg p.o. daily. Discharge plan, post hospital, the patient will be discharged back to [facility]. HOSPITAL COURSE: This is a 71-year-old male, who was fully treated while in the hospital recently an d he was discharged to [facility] where he was found with hypoxia, which he has chronic hypoxia and he was not using his CPAP machine for his sleep apnea, and during nighttime, patient's nurse found h ypoxia and that is why patient was directed to ER and he was admitted to IMCU. He was treated with B iPAP while in hospital. There was nothing to do during this admission. He continued with his IV ant ibiotic therapy while in the hospital. We observed him for 24 hours. He remained stable hemodynamic ally. We consulted palliative care for his recurrent admission. At this point, this patient needs t o be consulted for hospice at [facility]. As long as patient is compliant with the CPAP machine, h e should be fine, but if he is not using CPAP machine at [facility], then primary care physician in [facility] should consider hospice evaluation there rather than sending back and forth to the hosp ital. At this point, the patient is hemodynamically stable. He will finish antibiotic course there at [facility]. Once antibiotic course is finished, then the PICC line can be removed. PHYSICAL EXAMINATION: The patient is seen and examined at bedside today. VITAL SIGNS: Currently, temperature 98.1, pulse 63, respiratory rate 20, saturation 95% on 2 liter, blood pressure 143/63, weight 247 pounds. GENERAL: The patient is alert, awake, in no obvious acute distress. HEAD: Normocephalic, atraumatic. LUNGS: Clear to auscultation without any rhonchi or rales. CARDIAC: S1 and S2 appears regular without any significant murmur. ABDOMEN: Soft and benign. EXTREMITIES: No edema. NEUROLOGIC: Grossly nonfocal examination. Paper work for discharge done. Discharge medication reconciliation done.
--- NOTE | 2017-11-18 12:10 | PRG ---
DATE OF SERVICE: 11/18/2017 SERVICE: Pulmonary Medicine INTERVAL HISTORY: The patient is doing fine from a respiratory standpoint. He is breathing comforta criss. His biggest complaint this morning is that he just had a bowel movement in bed. He is waiting to be cleaned up. The nurses are actively put getting supplies together and he has told me 4 times n ow that he needs to be cleaned up this moment. PHYSICAL EXAMINATION: VITAL SIGNS: Afebrile, pulse 63, blood pressure 150/71, respirations 20, saturation 95% on 2 liters nasal cannula. That being said, cannula are not currently in his mouth or nose. HEENT: Normocephalic, atraumatic. Sclerae are white, conjunctivae pink. Oral mucosa is moist witho ut lesions. LUNGS: Decent air entry. There is no prolonged expiratory phase or wheezing present. HEART: Normal rate, regular. ABDOMEN: Soft, nontender, nondistended. Bowel sounds are positive. MUSCULOSKELETAL: No cyanosis or clubbing. No pitting in the bilateral lower extremities. NEUROLOGIC: Grossly nonfocal. ASSESSMENT: 1. Severe sepsis, resolved. 2. Bacteremia secondary to Escherichia coli. 3. Urinary tract infection secondary to Escherichia coli and Proteus. 4. Chronic hypoxic and hypercapnic respiratory failure without acute component. 5. Chronic urine retention with indwelling Pena catheter. 6. Deconditioning, severe. 7. Osteoarthritis, severe. 8. Morbid obesity. DISCUSSION AND PLAN: The patient is doing great from a respiratory perspective. From my standpoint, he can go back to the medical unit, or to his nursing facility based on primaries preference. I linsey l continue to follow as long as he remains in this location. Please call with additional questions o r concerns moving forward.
--- NOTE | 2017-11-22 12:05 | EKG ---
Test Reason : Blood Pressure : / mmHG Vent. Rate : 064 BPM Atrial Rate : 064 BPM P-R Int : 164 ms QRS Dur : 144 ms QT Int : 448 ms P-R-T Axes : 080 132 066 degrees QTc Int : 462 ms Electronic atrial pacemaker Right bundle branch block Left posterior fascicular block Bifascicular block Abnormal ECG Confirmed by FRANCY VILLATORO, NORMA Denney ([id number]), photography editor MARCUS NOLEN ([id number]) on 11/22/2017 12:04:48 PM Referred By: Confirmed By:NORMA SEN MD
== END 2017-11-18 10:16 ==
LOC: ERS 01:51 → IMCU/EMU 05:11 → INTOOBSV 05:11
PROVIDERS: ADMIT Internal Medicine Infectious Disease; ATTEND Internal Medicine Infectious Disease
DX: J96.22 Acute and chronic respiratory failure with hypercapnia (principal); J96.21 Acute and chronic respiratory failure with hypoxia; G47.33 Obstructive sleep apnea (adult) (pediatric); J44.9 Chronic obstructive pulmonary disease, unspecified; I11.0 Hypertensive heart disease with heart failure; I50.32 Chronic diastolic (congestive) heart failure; K21.9 Gastro-esophageal reflux disease without esophagitis; E78.5 Hyperlipidemia, unspecified; N39.0 Urinary tract infection, site not specified; R78.81 Bacteremia; B96.4 Proteus (mirabilis) (morganii) as the cause of diseases classified elsewhere; B96.20 Unspecified Escherichia coli [E. coli] as the cause of diseases classified elsewhere; M19.90 Unspecified osteoarthritis, unspecified site; N40.1 Benign prostatic hyperplasia with lower urinary tract symptoms; R33.8 Other retention of urine; D64.9 Anemia, unspecified; I25.10 Atherosclerotic heart disease of native coronary artery without angina pectoris; I49.5 Sick sinus syndrome; E66.01 Morbid (severe) obesity due to excess calories; Z68.38 Body mass index [BMI] 38.0-38.9, adult; Z79.82 Long term (current) use of aspirin; Z79.899 Other long term (current) drug therapy; Z91.19 Patient's noncompliance with other medical treatment and regimen; Z66 Do not resuscitate
CPT/HCPCS: 51702; 71045; 80053; 82553; 82805; 83690; 83735; 83880; 84484 ×2; 85025; 87086; 93005; 94640 ×4; 94660 ×3; 94664; 96372 ×2; 97139 ×2; 99285; G0378; 36415; 36416; 81003; 81015; A4216; G8996-GN-CJ; G8997-GN-CJ; J0696; J1650; J7050; J7620